=== PATIENT | female | born 1990 | race Caucasian/White ===

== ENCOUNTER → 2016-04-24 | Outpatient (CLI) | payer BC, OTHER ==
[~2016-04-24] MED LIST: ACET-1256 PO; ADAL40KI SC; ALBUAER2 INH; AZAT50TA17 PO; EPP3/2 IM; IMT50 PO; LORA-741 PO; METH4PAK PO; NUVVR PV; ONDA4TAB9 SL; OXYC1TAB3 PO; PANT40TA PO; POTTAB2 PO; PRED-603 PO; RANI300T2 PO; ZOLP5TAB6 PO
[2016-04-24 17:45] LABS: POTASSIUM 3.7 mmol/L (3.5-5.1)
[2016-04-24 17:48] LABS: URIC ACID 3.3 mg/dl (2.6-7.2)
[2016-04-29 09:53] LABS: DRVVT MIX INTERPRETAION Not Indicated; LAC PTT SCREEN 35 sec (<=40)
== END | disposition home or self-care (01) ==
LOC: C.LAB 17:01
PROVIDERS: ATTEND Orthopaedic Surgery
DX: M25.471 Effusion, right ankle (principal)

== ENCOUNTER 2016-04-26 10:44 | Inpatient (IN) | payer BC, OTHER ==
[~2016-04-26] VITALS: Ht 157.5 cm; Wt 57.9 kg
[~2016-04-26 10:44] MED LIST changes: -ACET-1256 PO; -LORA-741 PO; -METH4PAK PO; -ONDA4TAB9 SL; -POTTAB2 PO; -ZOLP5TAB6 PO
[2016-04-26] MEDS ORDERED: ACET-1256 PO (11:35)
[2016-04-26] MEDS ORDERED: LORAZEPAM 2 MG/ML 1 ML VIAL IV STA (11:51)
[2016-04-26 12:04] LABS: BASO % 0.4 %; BASO ABS # 0.03 K/uL (0-0.2); COMPLETE YES; EOS % 1.6 %; HEMATOCRIT 40.1 % (37-47); IG% 0.1 %; LYMPH % 22.6 %; LYMPH ABS # 1.65 K/uL (1.2-3.4); MEAN CELL VOLUME 90.7 fL (80-100); MEAN CORPUSCULAR HEMOGLOBIN 31.4 pg (25-34); MEAN CORPUSCULAR HGB CONC 34.7 g/dl (32-36); MEAN PLATELET VOLUME 9.8 fL (7.4-10.4); MONO % 9.6 %; NEUT % 65.7 %; PLATELET COUNT 326 K/uL (130-400); RED BLOOD COUNT 4.42 M/uL (4.2-5.4)
[2016-04-26 12:18] LABS: MANUAL MICROSCOPIC REQUIRED? YES; URINE APPEARANCE CLEAR (CLEAR); URINE BILIRUBIN NEG (NEG); URINE COLOR COLORLESS; URINE NITRITE NEG (NEG); URINE SPECIFIC GRAVITY <= 1.005 (1.000-1.030); UROBILINOGEN NEG (NEG)
[2016-04-26 12:19] LABS: PREG INTERNAL NEGATIVE QC NEG CLEAR BACKGROUND; PREG INTERNAL POSITIVE QC POS CONTROL LINE
[2016-04-26 12:23] LABS: ALT/SGPT 14 U/L (12-78); AST/SGOT 12 U/L (15-37); BLOOD UREA NITROGEN 7 mg/dl (7-18); BUN/CREATININE RATIO 8.6 (10-20); CALCIUM 8.6 mg/dl (8.5-10.1); CARBON DIOXIDE 23 mmol/L (21-32); CHLORIDE 108 mmol/L (98-107); CREATININE 0.84 mg/dl (0.60-1.20); GLUCOSE 84 mg/dl (70-99); MAGNESIUM 2.3 mg/dl (1.8-2.4); POTASSIUM 3.6 mmol/L (3.5-5.1); SODIUM 142 mmol/L (136-145)
[2016-04-26 12:25] LABS: REVIEW REQ? NO
[2016-04-26 12:27] LABS: ZZUR CULT IF INDIC CLEAN CATCH NO
[2016-04-26 12:28] LABS: URINE BACTERIA NEG (NEG); URINE RBC 0-4 /hpf (0-4); URINE WBC 0 /hpf (0-5)
--- NOTE | 2016-04-26 12:37 | DIAGNOSTIC IMAGING REPORT ---
CHEST ONE VIEW PORTABLE CLINICAL HISTORY: shortness of breath dyspnea COMPARISON STUDY: 01/03/2014 FINDINGS: The bones soft tissues and hemidiaphragms are normal. The cardiomediastinal silhouette is normal. The lungs are clear. The pulmonary vasculature is normal. IMPRESSION: Negative chest. Electronically signed by: Guillermo Schilling M.D. 04/26/2016 12:36 PM Dictated Date/Time: 04/26/2016 12:36 PM
[2016-04-26 12:57] LABS: ALKALINE PHOSPHATASE 87 U/L (45-117); C-REACTIVE PROTEIN 1.49 mg/dl (0-0.29); PHOSPHORUS 1.4 mg/dl (2.5-4.9)
[2016-04-26] MEDS ORDERED: FENTANYL CITRATE INJ 50 MCG/1 ML 2 ML VIAL IV STA (13:31)
[2016-04-26] MEDS ORDERED: ACETAMINOPHEN 325 MG TAB PO PRN (14:45)
[2016-04-26] MEDS ORDERED: ZOLPIDEM TARTRATE 5 MG TAB PO PRN (14:45)
[2016-04-26] MEDS ORDERED: SUMATRIPTAN SUCCINATE 50 MG TAB PO PRN (14:45)
[2016-04-26] MEDS ORDERED: ALBUTEROL HFA 8 GM INHALER INH PRN (14:45)
[2016-04-26] MEDS ORDERED: LORAZEPAM 0.5 MG TAB PO PRN (14:45)
[2016-04-26] MEDS ORDERED: ONDA4TAB9 SL (14:47)
[2016-04-26] MEDS ORDERED: ZOLP5TAB6 PO (14:47)
[2016-04-26] MEDS ORDERED: LORA-741 PO (14:47)
[2016-04-26 15:05] VITALS: O2SAT 99; Ht 157.5 cm; Wt 57.9 kg
--- NOTE | 2016-04-26 15:33 | History and Physical ---
History & Physical Date & Time of Service: Apr 26, 2016 at 15:02 Chief Complaint: Sob, Cp, Keven. Ankle Swelling Primary Care Physician: Bib Donnelly M.D. History of Present Illness Source: patient, family, clinic records, hospital records Patient is a 25 y/o female who presents for evaluation of bilateral ankle pain and swelling. This has been ongoing for about the past week. 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 She does have a h/o Crohn's for which she takes Humira and follows with GI. Patient had ankle xrays done at the [facility] [place] office on Wednesday/Wednesday of last week, which were reportedly normal. The ankle pain and swelling persisted however, and so she was seen by her PCP on Wednesday and had labs done. CBC, CMP, uric acid, RF, Lyme screen were normal; MELIDA is still pending. Patient notes that the ankle pain is constant. She tried taking Tylenol and some old Roxicodone, neither of which alleviated the pain. The ankle edema is worse at the end of the day and is best in the morning or after lying down. She denies any injury or trauma. Over the weekend she developed substernal chest pain and SOB. Patient describes the SOB as feeling as though she is unable to take a deep breath. The substernal chest pain occurs predominantly when she has this feeling of being unable to take a deep breath. She does endorse looking up her symptoms over the weekend on the internet and admits that this has caused her to be very anxious. She also does endorse significant heartburn for which she is to have an outpatient EGD this coming week. In the ED, patient received a dose of IV Ativan. Patient's father feels that this greatly helped patient's respiratory symptoms. Patient also received a dose of IV Fentanyl. Past Medical/Surgical History Medical Problems: (1) Allergic rhinitis Status: Chronic (2) Crohn's disease of colon Status: Chronic (3) H/O Clostridium difficile infection Status: Chronic (4) History of asthma Permanent Comment: during childhood Status: Chronic (5) History of MRSA culture positive Status: Chronic Surgical Problems: (1) H/O colonoscopy Permanent Comment: 09/26/2014- Endoscopically quiescent Crohn's disease with pseudopolyps from sigmoid to transverse colon and with scarring at a patulous ileocecal valve.The examined portion of the ileum was normal. Status: Chronic (2) H/O esophagogastroduodenoscopy Permanent Comment: 09/26/2014- Monilial esophagitis. Normal stomach and duodenum. Status: Chronic (3) S/P cholecystectomy Status: Resolved (4) S/p exploration of left axilla Permanent Comment: 02/16/2013 with excisional biopsy of lymph nodes and excisional debridement and ligation of lymphatics, dx: benign apocrine gland and adipose tissue 03/17/2013- surgical site opened left axilla Status: Chronic (5) S/P ORIF (open reduction internal fixation) fracture Permanent Comment: wrist Status: Chronic (6) S/P tonsillectomy Status: Chronic Family History Cancer GRANDFATHER (colon CA) GRANDMOTHER (breast CA) Diabetes mellitus FH: Crohn's disease GRANDMOTHER Gallbladder disease Kidney disease Social History Smoking Status: Never Smoker Drug Use: none Marital Status: in relationship Housing status: lives with significant other Occupational Status: employed Multi-Drug Resistant Organisms History of MDRO: Yes Type of MDRO: MRSA Allergies Coded Allergies: Iron Sucrose (Unverified Allergy, Severe, JOINT PAIN/SWELLING/DIARRHEA, ) Home Medications Scheduled Adalimumab (Humira Pen), 40 MG SC Q2WEEK Etonogestrel/Ethinyl Estradiol (Nuvaring), 1 EA PV UD Pantoprazole (Protonix), 40 MG PO DAILY Ranitidine Hcl (Zantac), 300 MG PO HS Scheduled PRN Acetaminophen (Tylenol), 2 TAB PO Q6 PRN for Pain Albuterol (Ventolin Hfa), 2 PUFFS INH Q4H PRN for Cough/Wheeze/SOB Epinephrine (Epipen), 0.3 MG IM UD PRN for ALLERGIC REACTION Lorazepam (Ativan), 0.5 MG PO TID PRN for Anxiety/Agitation Ondansetron (Ondansetron HCl), 1-2 TAB SL Q6 PRN for Nausea or Vomiting Oxycodone Ir (Roxicodone Ir), 5-10 MG PO Q4H PRN for Pain Sumatriptan Succinate (Sumatriptan Succinate), 50 MG PO UD PRN for Migraine Zolpidem Tartrate (Zolpidem Tartrate), 1 TAB PO HS PRN for Insomnia Review of Systems Constitutional- denies fevers, chills, unintentional weight loss Eyes- had an episode of self-limited blurry vision last week ENT- denies sore throat or congestion Pulmonary- +SOB as above; denies cough Cardiac- +chest pain as above; +palpitations GI- denies abdominal pain, nausea, vomiting; stable loose stools and blood in stool (h/o Crohn's) - denies dysuria or hematuria Musculoskeletal- +ankle pain and swelling Dermatologic- +rash with narcotic pain medication (received dose of Fentanyl in ED) Neuro- denies weakness, numbness or tingling Psych- +anxiety; denies depression . Physical Exam Vital Signs Date Time Temp Pulse Resp B/P Pulse Ox O2 Delivery O2 Flow Rate FiO2 04/26/16 14:55 89 18 110/74 99 Room Air 04/26/16 13:24 102 18 138/89 99 Room Air 04/26/16 12:31 95 18 126/69 100 Room Air 04/26/16 11:51 99 04/26/16 11:03 36.9 90 18 132/98 99 Room Air General- awake; alert; NAD Eyes- EOMI; no scleral icterus ENT- clear OC/OP Neck- supple; no palpable LAD Lungs- CTA bilaterally; no wheezes/crackles Heart- RRR; no m/r/g Abdomen- soft; NTND; nBS Back- no gross abnormalities Extremities- no c/c/e; no deformity MSK- full ROM of bilateral ankles but flexion causes pain Neuro- no focal deficits Skin- +macular rash on face, neck, upper back/chest (patient notes that this happens with narcotic pain medications) . Diagnostics Laboratory Results Results Past 24 Hours Test 04/26/16 11:15 04/26/16 11:51 Range/Units White Blood Count 7.30 4.8-10.8 K/uL Red Blood Count 4.42 4.2-5.4 M/uL Hemoglobin 13.9 12.0-16.0 g/dL Hematocrit 40.1 37-47 % Mean Corpuscular Volume 90.7 80-100 fL Mean Corpuscular Hemoglobin 31.4 25-34 pg Mean Corpuscular Hemoglobin Concent 34.7 32-36 g/dl Platelet Count 326 130-400 K/uL Mean Platelet Volume 9.8 7.4-10.4 fL Neutrophils (%) (Auto) 65.7 % Lymphocytes (%) (Auto) 22.6 % Monocytes (%) (Auto) 9.6 % Eosinophils (%) (Auto) 1.6 % Basophils (%) (Auto) 0.4 % Neutrophils # (Auto) 4.79 1.4-6.5 K/uL Lymphocytes # (Auto) 1.65 1.2-3.4 K/uL Monocytes # (Auto) 0.70 0.11-0.59 K/uL Eosinophils # (Auto) 0.12 0-0.5 K/uL Basophils # (Auto) 0.03 0-0.2 K/uL RDW Standard Deviation 41.1 36.4-46.3 fL RDW Coefficient of Variation 12.4 11.5-14.5 % Immature Granulocyte % (Auto) 0.1 % Immature Granulocyte # (Auto) 0.01 0.00-0.02 K/uL D-Dimer 350 0-500 ug/L FEU Urine Color COLORLESS Urine Appearance CLEAR CLEAR Urine pH 6.0 4.5-7.5 Urine Specific [place] <= 1.005 1.000-1.030 Urine Protein NEG NEG Urine Glucose (UA) NEG NEG Urine Ketones NEG NEG Urine Occult Blood TRACE NEG Urine Nitrite NEG NEG Urine Bilirubin NEG NEG Urine Urobilinogen NEG NEG Urine Leukocyte Esterase NEG NEG Urine WBC (Auto) 0 0-5 /hpf Urine RBC (Auto) 0-4 0-4 /hpf Urine Hyaline Casts (Auto) 0 0-5 /lpf Urine Epithelial Cells (Auto) 5-10 0-5 /lpf Urine Bacteria (Auto) NEG NEG Urine RBC 0-4 0-4 /hpf Urine WBC 0 0-5 /hpf Urine Epithelial Cells 5-10 0-5 /lpf Urine Bacteria NEG NEG Urine Test NEG NEG Sodium Level 142 136-145 mmol/L Potassium Level 3.6 3.5-5.1 mmol/L Chloride Level 108 98-107 mmol/L Carbon Dioxide Level 23 21-32 mmol/L Anion Gap 11.0 3-11 mmol/L Blood Urea Nitrogen 7 7-18 mg/dl Creatinine 0.84 0.60-1.20 mg/dl Est Creatinine Clear Calc Drug Dose 79.6 ml/min Estimated GFR () 110.4 Estimated GFR (Non- 95.3 BUN/Creatinine Ratio 8.6 10-20 Random Glucose 84 70-99 mg/dl Calcium Level 8.6 8.5-10.1 mg/dl Phosphorus Level 1.4 2.5-4.9 mg/dl Magnesium Level 2.3 1.8-2.4 mg/dl Total Bilirubin 0.2 0.2-1 mg/dl Direct Bilirubin < 0.1 0-0.2 mg/dl Aspartate Amino Transf (AST/SGOT) 12 15-37 U/L Alanine Aminotransferase (ALT/SGPT) 14 12-78 U/L Alkaline Phosphatase 87 45-117 U/L Total Creatine Kinase 69 26-192 U/L Creatine Kinase MB < 0.5 0.5-3.6 ng/ml Troponin I < 0.015 0-0.045 ng/ml C-Reactive Protein 1.49 0-0.29 mg/dl Pro-B-Type Natriuretic Peptide 75 0-450 pg/ml Total Protein 7.9 6.4-8.2 gm/dl Albumin 3.3 3.4-5.0 gm/dl Lipase 120 73-393 U/L Creatine Kinase MB Ratio 0-3.0 Diagnostic Radiology CXR IMPRESSION: Negative chest. EKG No ischemic changes. NSR. Impression Assessment and Plan Patient is a 25 y/o female who presents for evaluation of bilateral ankle pain/ edema for 1 week. Patient also reports SOB/chest pain over the weekend. Bilateral ankle pain/edema - normal PE at this time with the notation that flexion elicits pain - patient reports [facility]; therefore will not repeat - uric acid normal - MELIDA pending (done 04/24) - RF normal - Lyme screen negative - consult Orthopedics - possibly related to underlying Crohn's? - CRP mildly elevated - check ESR - TSH normal Chest pain/SOB - likely due to underlying anxiety from ankle pain and self-diagnosing on internet - improved with Ativan received in ED - d-dimer normal - BNP normal - troponin and EKG normal - CXR negative for acute process Hypophosphatemia - possibly related to underlying Crohn's and poor absorption - replete and monitor Crohn's disease - patient denies any flare symptoms - on Humira as outpatient GERD - continue pantoprazole and ranitidine - outpatient EGD pending this week per GI DVT prophylaxis with SCD's and ambulation. Level of Care Med/Surg Resuscitation Status FULL RESUSCITATION VTE Prophylaxis VTE Risk Assessment Done? Y/N: Yes Risk Level: Low Given or contraindicated: SCD's
[2016-04-26 16:04] VITALS: O2SAT 99
[2016-04-26 16:09] VITALS: BP 113/76; TEMP 36.4; O2SAT 100
[2016-04-26] MEDS ORDERED: PNEUMOCOCCAL POLYSACCHARIDES 25 MCG/0.5 ML VIAL/SYR IM. ONE (16:15)
[2016-04-26] MEDS ORDERED: PNEUMOCOCCAL ADMINISTRATION CHARGE ONE (16:15)
[2016-04-26] MEDS: MoRPHine SULFATE 2 MG/ML CARP IV PRN (17:09)
--- NOTE | 2016-04-26 18:35 | EMERGENCY ROOM VISIT NOTE ---
History Report prepared by Sera: Renée Alba Under the Supervision of: Dr. Mu Moreno M.D. First contact with patient: 11:44 Chief Complaint: SHORTNESS OF BREATH Stated Complaint: SOB, CP, KEHINDE. ANKLE SWELLING Nursing Triage Summary: pt reports hx of crohns disease , and noted increased sob with BLE edema noted at the end of each day , also reports bilat ankle and feet pain History of Present Illness The patient is a 25 year old female who presents to the Emergency Room with complaints of worsening bilateral ankle pain and swelling with onset several days ago. She rates her discomfort as an 8/10. The patient has a history of Crohn's disease and is on Humira; she recently stopped another immunological medication. 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 The patient has been having severe pain as well as increasing swelling over the past two days. Within the past two days, she has been having shortness of breath and dyspnea on exertion. Today, the patient started to have substernal chest discomfort. She admits that she has associated anxiety and nausea. For the pain, last night the patient took an oxy IR without relief. Exertion makes symptoms worse, resting and keeping feet up makes symptoms better. The patient has chronically non bloody diarrhea. She denies urinary symptoms, fever, syncope, palpitations, history of DVT, history of PE, sick contacts. The patient took a recent car trip to [place]. Source of History: patient Onset: several days ago Position: ankle (bilateral) Symptom Intensity: 8/10 Quality: other (ankle pain and swelling) Timing: worsening Modifying Factors (Worsening): exertion Modifying Factors (Relieving): rest, other (elevating feet) Associated Symptoms: + SOB, + chest pain, + nausea, No fevers, No urinary symptoms Note: She denies syncope, palpitations. Within the past two days, she has been having dyspnea on exertion.She admits that she has associated anxiety. Review of Systems See HPI for pertinent positives & negatives. A total of 10 systems reviewed and were otherwise negative. Past Medical & Surgical Medical Problems: (1) Allergic rhinitis (2) Ankle pain (3) Crohn's disease of colon (4) Crohns disease (5) H/O Clostridium difficile infection (6) History of asthma (7) History of MRSA culture positive Surgical Problems: (1) H/O colonoscopy (2) H/O esophagogastroduodenoscopy (3) S/P cholecystectomy (4) S/p exploration of left axilla (5) S/P ORIF (open reduction internal fixation) fracture (6) S/P tonsillectomy Family History Cancer GRANDFATHER (colon CA) GRANDMOTHER (breast CA) Diabetes mellitus FH: Crohn's disease GRANDMOTHER Gallbladder disease Kidney disease Social History Smoking Status: Never Smoker Alcohol Use: occasionally Drug Use: none Marital Status: in relationship Housing Status: lives with significant other Occupation Status: employed Current/Historical Medications Scheduled Adalimumab (Humira Pen), 40 MG SC Q2WEEK Etonogestrel/Ethinyl Estradiol (Nuvaring), 1 EA PV UD Pantoprazole (Protonix), 40 MG PO DAILY Ranitidine Hcl (Zantac), 300 MG PO HS Scheduled PRN Acetaminophen (Tylenol), 2 TAB PO Q6 PRN for Pain Albuterol (Ventolin Hfa), 2 PUFFS INH Q4H PRN for Cough/Wheeze/SOB Epinephrine (Epipen), 0.3 MG IM UD PRN for ALLERGIC REACTION Lorazepam (Ativan), 0.5 MG PO TID PRN for Anxiety/Agitation Ondansetron (Ondansetron HCl), 1-2 TAB SL Q6 PRN for Nausea or Vomiting Oxycodone Ir (Roxicodone Ir), 5-10 MG PO Q4H PRN for Pain Sumatriptan Succinate (Sumatriptan Succinate), 50 MG PO UD PRN for Migraine Zolpidem Tartrate (Zolpidem Tartrate), 1 TAB PO HS PRN for Insomnia Allergies Coded Allergies: Iron Sucrose (Unverified Allergy, Severe, JOINT PAIN/SWELLING/DIARRHEA, ) Physical Exam Vital Signs Date Time Temp Pulse Resp B/P Pulse Ox O2 Delivery O2 Flow Rate FiO2 04/26/16 13:24 102 18 138/89 99 Room Air 04/26/16 12:31 95 18 126/69 100 Room Air 04/26/16 11:51 99 04/26/16 11:03 36.9 90 18 132/98 99 Room Air Physical Exam GENERAL: Patient is very anxious appearing and in mild distress. HEENT: No acute trauma, normocephalic atraumatic, mucous membranes moist, no nasal congestion, no scleral icterus. NECK: No stridor, no adenopathy, no meningismus, trachea is midline. LUNGS: No dyspnea. Clear to auscultation and equal bilaterally. No wheeze, no rhonchi. HEART: Regular rate and rhythm. No murmurs, rubs, gallops appreciated. ABDOMEN: Soft, nontender, bowel sounds positive, no masses appreciated, no peritonitis. BACK: No midline tenderness, no CVA tenderness EXTREMITIES: Normal motion all extremities, no cyanosis, no current edema in legs. She has tenderness over bilateral ankles, no erythema. NEUROLOGIC: Alert and oriented, no acute motor or sensory deficits, no focal weakness, cranial nerves grossly intact. SKIN: No rash, no jaundice, no diaphoresis. Medical Decision & Procedures ER Provider Diagnostic Interpretation: X ray results are stated below per my interpretation and the radiologist's interpretation. CHEST ONE VIEW PORTABLE CLINICAL HISTORY: shortness of breath dyspnea COMPARISON STUDY: 01/03/2014 FINDINGS: The bones soft tissues and hemidiaphragms are normal. The cardiomediastinal silhouette is normal. The lungs are clear. The pulmonary vasculature is normal. IMPRESSION: Negative chest. Electronically signed by: Guillermo Schilling M.D. 04/26/2016 12:36 PM Dictated Date/Time: 04/26/2016 12:36 PM Laboratory Results 04/26/16 11:15 Red Blood Count 4.42, Mean Corpuscular Volume 90.7, Mean Corpuscular Hemoglobin 31.4, Mean Corpuscular Hemoglobin Concent 34.7, Mean Platelet Volume 9.8, Neutrophils (%) (Auto) 65.7, Lymphocytes (%) (Auto) 22.6, Monocytes (%) (Auto) 9.6, Eosinophils (%) (Auto) 1.6, Basophils (%) (Auto) 0.4, Neutrophils # (Auto) 4.79, Lymphocytes # (Auto) 1.65, Monocytes # (Auto) 0.70, Eosinophils # (Auto) 0.12, Basophils # (Auto) 0.03 04/26/16 11:15 Test 04/26/16 11:15 04/26/16 11:51 White Blood Count 7.30 K/uL (4.8-10.8) Red Blood Count 4.42 M/uL (4.2-5.4) Hemoglobin 13.9 g/dL (12.0-16.0) Hematocrit 40.1 % (37-47) Mean Corpuscular Volume 90.7 fL (80-100) Mean Corpuscular Hemoglobin 31.4 pg (25-34) Mean Corpuscular Hemoglobin Concent 34.7 g/dl (32-36) Platelet Count 326 K/uL (130-400) Mean Platelet Volume 9.8 fL (7.4-10.4) Neutrophils (%) (Auto) 65.7 % Lymphocytes (%) (Auto) 22.6 % Monocytes (%) (Auto) 9.6 % Eosinophils (%) (Auto) 1.6 % Basophils (%) (Auto) 0.4 % Neutrophils # (Auto) 4.79 K/uL (1.4-6.5) Lymphocytes # (Auto) 1.65 K/uL (1.2-3.4) Monocytes # (Auto) 0.70 K/uL (0.11-0.59) Eosinophils # (Auto) 0.12 K/uL (0-0.5) Basophils # (Auto) 0.03 K/uL (0-0.2) RDW Standard Deviation 41.1 fL (36.4-46.3) RDW Coefficient of Variation 12.4 % (11.5-14.5) Immature Granulocyte % (Auto) 0.1 % Immature Granulocyte # (Auto) 0.01 K/uL (0.00-0.02) Erythrocyte Sedimentation Rate 33 mm/hr (0-21) D-Dimer 350 ug/L FEU (0-500) Urine Color COLORLESS Urine Appearance CLEAR (CLEAR) Urine pH 6.0 (4.5-7.5) Urine Specific [place] <= 1.005 (1.000-1.030) Urine Protein NEG (NEG) Urine Glucose (UA) NEG (NEG) Urine Ketones NEG (NEG) Urine Occult Blood TRACE (NEG) Urine Nitrite NEG (NEG) Urine Bilirubin NEG (NEG) Urine Urobilinogen NEG (NEG) Urine Leukocyte Esterase NEG (NEG) Urine WBC (Auto) 0 /hpf (0-5) Urine RBC (Auto) 0-4 /hpf (0-4) Urine Hyaline Casts (Auto) 0 /lpf (0-5) Urine Epithelial Cells (Auto) 5-10 /lpf (0-5) Urine Bacteria (Auto) NEG (NEG) Urine RBC 0-4 /hpf (0-4) Urine WBC 0 /hpf (0-5) Urine Epithelial Cells 5-10 /lpf (0-5) Urine Bacteria NEG (NEG) Urine Test NEG (NEG) Anion Gap 11.0 mmol/L (3-11) Est Creatinine Clear Calc Drug Dose 79.6 ml/min Estimated GFR () 110.4 Estimated GFR (Non- 95.3 BUN/Creatinine Ratio 8.6 (10-20) Calcium Level 8.6 mg/dl (8.5-10.1) Phosphorus Level 1.4 mg/dl (2.5-4.9) Magnesium Level 2.3 mg/dl (1.8-2.4) Total Bilirubin 0.2 mg/dl (0.2-1) Direct Bilirubin < 0.1 mg/dl (0-0.2) Aspartate Amino Transf (AST/SGOT) 12 U/L (15-37) Alanine Aminotransferase (ALT/SGPT) 14 U/L (12-78) Alkaline Phosphatase 87 U/L (45-117) Total Creatine Kinase 69 U/L (26-192) Creatine Kinase MB < 0.5 ng/ml (0.5-3.6) Troponin I < 0.015 ng/ml (0-0.045) C-Reactive Protein 1.49 mg/dl (0-0.29) Pro-B-Type Natriuretic Peptide 75 pg/ml (0-450) Total Protein 7.9 gm/dl (6.4-8.2) Albumin 3.3 gm/dl (3.4-5.0) Lipase 120 U/L (73-393) Thyroid Stimulating Hormone (TSH) 2.790 uIu/ml (0.300-4.500) Creatine Kinase MB Ratio (0-3.0) Laboratory results as reviewed by me. Medications Administered Medications (Trade) Dose Ordered Sig/Ramila Route Start Time Stop Time Status Last Admin Dose Admin Lorazepam (Ativan Inj) 0.5 mg NOW STAT IV 04/26/16 11:51 04/26/16 11:53 DC 04/26/16 12:28 0.5 MG Fentanyl Citrate (Fentanyl Inj) 50 mcg NOW STAT IV 04/26/16 13:31 04/26/16 13:32 DC 04/26/16 13:38 50 MCG ECG Indication: chest pain Rate (beats per minute): 90 Rhythm: normal sinus (with sinus arrhythmia) Findings: no acute ischemic change, no ectopy ED Course 1144: The patient was evaluated in room B12. A complete history and physical exam was performed. 1151: Ativan 0.5 mg IV 1303: I reevaluated the patient; she is having some pain. 1331: Fentanyl 50 mcg IV 1326: I discussed the case with Dr. Iniguez ([facility]); she will further evaluate the patient. Upon reevaluation, the patient is resting. Discussed results and treatment plan with the patient. She verbalized understanding and agreement with the treatment plan. The patient will be evaluated for further management. Medical Decision Differential: Sepsis, Infectious (UTI/Pneumonia/Meningitis/etc), Metabolic/ Electrolyte Abnormality, Cardiac, Hepatic, Endocrine, Toxicologic, Neurologic, amongst other pathologies entertained. 25 yr old female arrives with generalized weakness, fatigue over last few days, now with ankle swelling and acutely worsening shortness of breath and chest discomfort. Clearly quite anxious about all of this. No clear evidence of crohn's flare nor andominal issues. With weakness continuing with already having had labs done she had broad labs done revealing hypophos which may explain weakness/fatigue though not clear on swelling. Mild low albumin though not severe. LFT s look OK as do other labs. CXR clear. Dimer negative and symptoms vastly improved post ativan thus I do not feel CT necessary and with no current leg swelling I do not feel that US bilateral legs necessary. No evidence cardiac in nature. Stable and in minimal distress. Discussed with hospitalist to talk about bringing in vs home. Consults Time Called: 1325 Consulting Physician: Dr. Iniugez ([facility]) Returned Call: 1321 I discussed the case with Dr. Iniguez ([facility]); she will further evaluate the patient. Impression Primary Impression: Hypophosphatemia Additional Impressions: Leg swelling Shortness of breath Scribe Attestation The scribe's documentation has been prepared under my direction and personally reviewed by me in its entirety. I confirm that the note above accurately reflects all work, treatment, procedures, and medical decision making performed by me. Departure Information Dispostion Being Evaluated By Hospitalist Referrals No Doctor, Assigned (PCP) Patient Instructions My [facility] Problem Qualifiers
[2016-04-26] MEDS: POT PHOSPHATE MONOBASIC W/ SOD TAB PO SCH ×2 (18:46→21:45)
[2016-04-26] MEDS: ONDANSETRON INJ 2 MG/ML 2 ML VIAL IV PRN (18:52)
[2016-04-26] MEDS: RANITIDINE HCL 150 MG TAB PO SCH (21:46)
[2016-04-26 23:56] VITALS: BP 113/59; PULSE 95; TEMP 36.8; O2SAT 98
[2016-04-27] MEDS: ONDANSETRON INJ 2 MG/ML 2 ML VIAL IV PRN ×4 (00:50→23:41)
[2016-04-27] MEDS: MoRPHine SULFATE 2 MG/ML CARP IV PRN ×5 (00:50→20:59)
[2016-04-27 06:16] LABS: CREATININE 0.79 mg/dl (0.60-1.20); MAGNESIUM 2.2 mg/dl (1.8-2.4); POTASSIUM 3.8 mmol/L (3.5-5.1)
[2016-04-27 06:26] LABS: PHOSPHORUS 3.4 mg/dl (2.5-4.9)
[2016-04-27 07:21] VITALS: BP 113/75; PULSE 84; TEMP 36.5; O2SAT 98
[2016-04-27] MEDS: POT PHOSPHATE MONOBASIC W/ SOD TAB PO SCH (09:21)
[2016-04-27] MEDS: PANTOprazole SOD 40 MG TAB PO SCH (09:45)
--- NOTE | 2016-04-27 12:10 | Progress Note ---
Medicine Progress Note Date & Time of Visit: Apr 27, 2016 at 12:04. Subjective patient seen sitting up in bed comfortable no recurrence of chest pain or dyspnea ankle pain is slightly better, left> right, relieved with PRN analgesics no fever/chills no abdominal pain, changes with bowel movements no other symptoms Objective Last 8 Hrs Date Time Temp Pulse Resp B/P Pulse Ox O2 Delivery O2 Flow Rate FiO2 04/27/16 07:55 Room Air 04/27/16 07:21 36.5 84 16 113/75 98 Room Air Physical Exam: General- oriented x 3, not in distress, speaks in sentences with no effort Head- atraumatic Eyes- EOMI, anicteric ENT- oropharynx clear Neck- supple, no JVD, no adenopathy Lungs- clear to auscultation bilaterally Heart- normal rate, regular rhythm; no murmurs Abdomen- normal bowel sounds, soft, nontender Extremities-bilateral ankles: mild tenderness, no edema/warmth, limited ROM due to pain no pretibial edema, no calf tenderness; peripheral pulses intact Neuro- alert, oriented x 3; PERRL, EOMI; no facial palsy; no dysarthria; motor 5 /5 bilaterally; no cogwheel rigidity; patellar DTRs +2/2; toes downgoing bilaterally; finger to nose intact bilaterally Skin- warm & dry Laboratory Results: Last 24 Hours Test 04/27/16 05:35 Sodium Level 141 mmol/L Potassium Level 3.8 mmol/L Chloride Level 108 mmol/L Carbon Dioxide Level 23 mmol/L Anion Gap 10.0 mmol/L Blood Urea Nitrogen 8 mg/dl Creatinine 0.79 mg/dl Est Creatinine Clear Calc Drug Dose 84.6 ml/min Estimated GFR () 118.9 Estimated GFR (Non- 102.6 BUN/Creatinine Ratio 10.0 Random Glucose 88 mg/dl Calcium Level 8.0 mg/dl Phosphorus Level 3.4 mg/dl Magnesium Level 2.2 mg/dl Date/Time Source Procedure Growth Status 04/27/16 12:02 Blood Blood Culture Pending Julio Batch 04/27/16 12:02 Blood Blood Culture Pending Julio Batch Assessment & Plan Patient is a 25 y/o female who presents for evaluation of bilateral ankle pain/ edema for 1 week. Patient also reports SOB/chest pain over the weekend. Bilateral ankle pain/edema possible IBD-associated Arthritis Crohn's disease on Humira - ESR and CRP elevated - MELIDA pending (done 04/24) - RF normal - Lyme screen negative -- will hold off on NSAIDs due to Crohn's history PRN Morphine ordered -- check blood cultures consult GI and Rheum Ortho on board appreciate the recommendations Chest pain/SOB - likely due to underlying anxiety - improved with Ativan received in ED - d-dimer normal - BNP normal - troponin and EKG normal - CXR negative for acute process - resolved Hypophosphatemia - possibly related to underlying Crohn's and poor absorption - given PO Ph - normal now - repeat Ph tomorrow Crohn's disease - patient denies any flare symptoms - on Humira as outpatient GERD - continue pantoprazole and ranitidine - outpatient EGD pending this week per GI DVT prophylaxis with SCD's and ambulation. Disposition anticipate d/c home when medically stable Current Inpatient Medications: Current Inpatient Medications Medications (Trade) Dose Ordered Sig/Ramila Route Start Time Stop Time Status Last Admin Dose Admin Acetaminophen (Tylenol Tab) 650 mg Q4H PRN PO 04/26/16 14:45 05/26/16 14:44 Ondansetron HCl (Zofran Inj) 4 mg Q6H PRN IV 04/26/16 14:45 05/26/16 14:44 04/27/16 07:07 4 MG Albuterol (Ventolin Hfa Inhaler) 2 puffs Q4H PRN INH 04/26/16 14:45 05/26/16 14:44 Lorazepam (Ativan Tab) 0.5 mg TID PRN PO 04/26/16 14:45 05/26/16 14:44 Pantoprazole Sodium (Protonix Tab) 40 mg DAILY PO 04/27/16 09:00 05/27/16 08:59 04/27/16 09:45 40 MG Ranitidine HCl (zANTac TAB) 300 mg HS PO 04/26/16 21:00 05/26/16 20:59 04/26/16 21:46 300 MG Sumatriptan Succinate (Imitrex Tab) 50 mg DAILY PRN PO 04/26/16 14:45 05/26/16 14:44 Zolpidem Tartrate (Ambien Tab) 5 mg HS PRN PO 04/26/16 14:45 05/26/16 14:44 Morphine Sulfate (MoRPHine SULFATE INJ) 2 mg Q4 PRN IV 04/26/16 16:45 05/10/16 16:44 04/27/16 11:28 2 MG
--- NOTE | 2016-04-27 12:30 | Gastrointestinal Consultation ---
Gastrointestinal Consultation Date of Consultation: Apr 27, 2016 History of Present Illness Patient is a 25 year old female with past medical history significant for asthma and Crohn's (stable, has been on humira and imuran for past 10 years - stopped imuran in February related to elevated LFTs) who was admitted to [facility] for bilateral lower extremity edema with associated ankle pain, chest pain and SOB. She reports that she has been having lower extremity edema after long shifts at work - but this episode was worse and prompted ED visit. Edema was correctly quickly with elevation and SCD. Today she is denying any fever, chills, chest pain, SOB, abdominal pain, edema. Reports her abdominal symptoms from Crohn's are at her baseline. She has interment occurrences of small flares with generalized abdominal pain and scant rectal bleeding. Reports her symptoms are no where near as bad as when she was first diagnosed. Chest XR 04/26/16: The bones soft tissues and hemidiaphragms are normal. The cardiomediastinal silhouette is normal. The lungs are clear. The pulmonary vasculature is normal. Colonoscopy 05/16/15: Pseudopolyps in the descending colon and in the transverse colon. The examined portion of the ileum was normal. Biopsied. Biopsies for surveillance were taken from the cecum, ascending colon, transverse colon, descending colon, sigmoid colon and rectum. Past Medical/Surgical History Medical Problems: (1) Abdominal pain Status: Acute (2) Abdominal pain Status: Acute (3) Clostridium difficile colitis Status: Acute (4) Crohn's disease Status: Acute (5) Hypophosphatemia Status: Acute (6) Leg swelling Status: Acute (7) Pyuria Status: Acute (8) Shortness of breath Status: Acute Family History Cancer GRANDFATHER (colon CA) GRANDMOTHER (breast CA) Diabetes mellitus FH: Crohn's disease GRANDMOTHER Gallbladder disease Kidney disease Social History Smoking Status: Never Smoker Alcohol Use: occasionally Drug Use: none Marital Status: in relationship Housing Status: lives with significant other Occupation Status: employed Allergies Coded Allergies: Iron Sucrose (Unverified Allergy, Severe, JOINT PAIN/SWELLING/DIARRHEA, ) Current Medications Home Meds and Scripts Medications Dose Route/Sig Max Daily Dose Days Date Category Dose Instructions Ondansetron HCl (Ondansetron) 4 Mg Tab 1-2 Tab SL Q6 PRN 04/26/16 Reported Zolpidem Tartrate 5 Mg Tab 1 Tab PO HS PRN 04/26/16 Reported Ativan (Lorazepam) 0.5 Mg Tab 0.5 Mg PO TID PRN 04/26/16 Reported Tylenol (Acetaminophen) 500 Mg Tab 2 Tab PO Q6 PRN 2 04/26/16 Reported Roxicodone Ir (Oxycodone HCl) 5 Mg Tab 5-10 Mg PO Q4H PRN 06/13/15 Reported Epipen (Epinephrine) 0.3 Mg/0.3 Ml Inj 0.3 Mg IM UD PRN 06/13/15 Reported Ventolin Hfa (Albuterol) Aers 2 Puffs INH Q4H PRN 05/10/15 Reported Sumatriptan Succinate 50 Mg Tab 50 Mg PO UD PRN 05/09/15 Reported TAKE ONE TABLET AT ONSET OF MIGRAINE, MAY REPEAT AFTER 2 HOURS IF NEEDED. MAXIMUM 200 MG/DAY. Zantac (Ranitidine HCl) 300 Mg Tab 300 Mg PO HS 11/27/14 Reported Protonix (Pantoprazole Sodium) 40 Mg Tab 40 Mg PO DAILY 08/06/14 Reported Humira Pen (Adalimumab) 40 Mg/0.8 Ml Kit 40 Mg SC Q2WEEK 07/27/14 Reported Nuvaring (Ethinyl Estradiol) Mis 1 Ea PV UD 01/03/14 Reported Review of Systems Constitutional: No chills, No fever Respiratory: No cough, No shortness of breath Cardiac: No chest pain, No edema Abdomen: No GI bleeding, No constipation, No diarrhea, No nausea, No pain, No vomiting Physical Exam Date Time Temp Pulse Resp B/P Pulse Ox O2 Delivery O2 Flow Rate FiO2 04/27/16 07:55 Room Air 04/27/16 07:21 36.5 84 16 113/75 98 Room Air 04/27/16 00:05 Room Air 04/26/16 23:56 36.8 95 18 113/59 98 Room Air 04/26/16 16:09 36.4 18 113/76 100 Room Air 04/26/16 16:04 36.9 86 18 108/86 99 04/26/16 16:00 Room Air 04/26/16 15:34 86 18 108/86 99 Room Air 04/26/16 15:05 99 Room Air 04/26/16 14:55 89 18 110/74 99 Room Air 04/26/16 13:24 102 18 138/89 99 Room Air 04/26/16 12:31 95 18 126/69 100 Room Air General Appearance: no apparent distress Eyes: PERRL ENT: hearing grossly normal Neck: supple, trachea midline Respiratory/Chest: lungs clear, normal breath sounds, no respiratory distress, no accessory muscle use Cardiovascular: regular rate, rhythm, no edema, no gallop, no JVD, no murmur Abdomen: normal bowel sounds, non tender, soft, no organomegaly, no pulsatile mass Extremities: no pedal edema, no calf tenderness Neurologic/Psych: alert, normal mood/affect, oriented x 3 Laboratory Results Last 24 Hours Test 04/27/16 05:35 Sodium Level 141 mmol/L Potassium Level 3.8 mmol/L Chloride Level 108 mmol/L Carbon Dioxide Level 23 mmol/L Anion Gap 10.0 mmol/L Blood Urea Nitrogen 8 mg/dl Creatinine 0.79 mg/dl Est Creatinine Clear Calc Drug Dose 84.6 ml/min Estimated GFR () 118.9 Estimated GFR (Non- 102.6 BUN/Creatinine Ratio 10.0 Random Glucose 88 mg/dl Calcium Level 8.0 mg/dl Phosphorus Level 3.4 mg/dl Magnesium Level 2.2 mg/dl Impression Patient is a 25 year old female with stable crohn's on humira. She denies any GI symptoms and reports that she feels well controlled and at her baseline. It is unlikely that her lower extremity edema is related to IBD as it was quickly corrected with elevation and SCDs. She has been taking humira for 10 years without any similar side effects - unlikely that her edema is related to this. No new medications. Plan GI ok to continue humira GI ok for Diet as tolerated PPI 40 mg once daily Zantac 300 mg HS Keep outpatient EGD US duplex for evaluation of clots No GI contraindication to discharge GI to sign off. Please call with any additional questions. I saw and evaluated the patient. She was admitted with bilateral LE edema ongoing for < 24 hours to admission. Pesently has no new bowel symptoms. PE NAD No LE edema today Impression: patient with Crohns on a stable regimen for approximatly 10 years ( recently had her imuran discontinued). No obvious GI pathology today -- to have EGD later this week with her regular OP GI provider. Plan EGD later this week Continue present medications consider bilateral LE US to eval for DVT please call with questions
--- NOTE | 2016-04-27 14:26 | ORTHOPEDIC PROGRESS NOTE ---
DATE: 04/27/2016 HISTORY OF PRESENT ILLNESS: The patient is a 25-year-old white female who has a known history of Crohn disease. She states that on April 17, she began having pain in her bilateral ankles. She works at [employer] office and is constantly on the go there at the office. She noticed that as the week continued to progress last week that her pain began to worsen and she also had increased lower extremity edema, mainly around the ankles to the point where it was 1-2+ pitting edema. Ankle x-rays were done at the office and I am unsure who read them, but were apparently normal. She was told that if she had continued to increase lower extremity edema, she should probably go to the Emergency Room, which she states that by this weekend after looking at many of the different possibilities online of what her problems could she began having what sounds like anxiety and some chest pain and shortness of breath. At that point in time, her father brought her in to the Emergency Room. She states that she had some knee pain in both knees prior to this episode of ankle pain, which dissipated on its own. She has not been doing any over rigorous workouts for exercise. She has not had any flu or cold-like symptoms recently. No fevers, no chills, although she states she does sometimes feel feverish at night off and on, which she attributes to her Crohn's disease. She has not had a flare of her Crohn's disease in some time and states that she had a stool transfer in October and has done really well with that. Today, she states that her pain is less and that her swelling has gone down quite a bit since resting her legs. She showed me a picture of her ankles yesterday and they did have some moderate swelling noted of the ankles themselves. She states that this was much better than her legs were last week. She states that most of the pain is only when she does dorsiflexion and obviously with weightbearing. She currently appears comfortable at the present time. Dr. Dai was present during this exam and discussing future treatment. PAST MEDICAL HISTORY: Allergic rhinitis, Crohn's disease, history of C. diff infection in the past, history of asthma, and MRSA culture in the past. PAST SURGICAL HISTORY: Colonoscopy, EGD, cholecystectomy, excisional biopsy of left axillary lymph nodes with debridement and ligation of lymphatics, history ORIF of wrist in the past, and tonsillectomy. FAMILY HISTORY: Colon and breast CA, diabetes mellitus, Crohn's disease with one of her grandmother's, cholelithiasis, and kidney disease. SOCIAL HISTORY: The patient is a nonsmoker, who does not use alcohol. MEDICATIONS: Humira 40 mg subQ every 2 weeks, NuvaRing UD, pantoprazole 40 mg p.o. daily, ranitidine 300 mg p.o. at bedtime, Tylenol 2 tabs p.o. q. 6 hours p.r.n., albuterol 2 puffs inhaled q. 4 hours p.r.n., EpiPen as directed, lorazepam 0.5 mg p.o. t.i.d. p.r.n., Zofran 1-2 tabs SL q. 6 hours p.r.n. nausea, OxyIR 5-10 mg p.o. q. 4 hours p.r.n., sumatriptan 50 mg p.o. as directed p.r.n. for migraine, and zolpidem 1 tab p.o. at bedtime. REVIEW OF SYSTEMS: As per admitting history and physical. PHYSICAL EXAMINATION: VITAL SIGNS: Currently shows temp 36.5, pulse 84, respirations 16, and BP 113/75. GENERAL: On walking into the room, the patient is sitting up in bed, is awake, alert and oriented x3, pleasant and cooperative, in no acute distress. She appears comfortable and on examination of her bilateral lower extremities, both ankles appear symmetrical and there is no overt edema or swelling noted. She states and points 2 areas that are just proximal to the medial malleolus on both ankles is where she is feeling most of her pain. I can produce some pain with palpation in both these areas; however, the rest of the ankle apparently is nontender on palpation. She has good dorsiflexion and plantarflexion and states that the pain is elicited by dorsiflexion only, not plantarflexion. Again, there is no overt edema of the ankles. There is no erythema noted and both ankles and feet are warm to the touch, but not overtly hot. No radiation of pain up to her knees at this time. She denies any knee pain at this time, but states that she does have some mild hip pain that she has been having for a quite some time now, which has not increased or decreased apparently with her work. No apparent upper extremity discomfort at this time. NEUROLOGICAL: Sensation appears to be intact and no gross motor deficits seen. ASSESSMENT: Bilateral ankle pain, question of peripheral arthritis due to Crohn's disease. Dr. Dai and I have discussed this patient's case with her and also I have briefly discussed it with Dr. Hickman. The patient was seen by her PCP this past Wednesday and at that time CBC, CMP, uric acid, rheumatoid factor and Lyme screen were all normal. MELIDA was still pending. Currently, her sed rate is 33. CRP was 1.49. At this point, we doubt infection and wondering if this could possibly be a migratory arthritis that could come with her Crohn's disease; however, at this time I do not feel that there is any need to aspirate either ankle due to the lack of swelling and also uric acid was normal, although question of possibility of pseudogout as well; however, with her symptoms of her swelling and pain decreasing with rest, that may be unlikely. Currently, she is unable to take nonsteroidal antiinflammatory medications due to her Crohn's disease. Discussing this with Dr. Dai, he has consulted GI and also rheumatology to get their input. I doubt infection at this time due to low white count, no temp, but only a mildly elevated sed rate and CRP with no swelling or erythema and the dissipation of her symptoms as she rests over time, although she still has some discomfort with dorsiflexion. This will be further discussed with Dr. Hickman, who I am hoping will see the patient later this afternoon and we will wait for further input from rheumatology service. GARCÍA
[2016-04-27 15:56] VITALS: BP 123/86; PULSE 67; TEMP 36.8; O2SAT 98
--- NOTE | 2016-04-27 18:16 | ORTHOPEDIC CONSULTATION ---
DATE OF CONSULTATION: 04/27/2016 DATE OF CONSULTATION: 04/27/2016. HISTORY OF PRESENT ILLNESS: This is a 25-year-old female seen at the request of Dr. Dai for bilateral ankle pain. Apparently the patient has a longstanding history of Crohn's disease and is currently on Humira for that which has been fairly well managed as an outpatient. She has had some recent upper GI symptoms over the last several weeks. She is scheduled for endoscopy actually next week. The patient states on 04/17/2016 she began having pain and swelling in bilateral ankles. 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 She noticed it last week as the week continued to progress that her pain was worsening with increasing lower extremity edema. She noted 1-2+ pitting edema per the patient. She had ankle radiographs done at the office with one of the providers that reviewed them for her and found no obvious pathology and deemed them essentially normal with the exception of soft tissue swelling. She was told if she had increased lower extremity edema she would have go to the Emergency Department. She began researching some of her potential conditions related to her ankle swelling, developed some anxiety, shortness of breath, chest pain and presented to the Emergency Department. Her father brought her to the Emergency Department on 04/26/2016 and was evaluated for her multiple complaints. She denies any fever or chills . She has some minor shortness of breath and chest discomfort, not deemed as chest pain on Wednesday, which has since resolved. She has not been doing any excessive exercise. She states she does do T25 exercise program at the low impact, low intensity level, which she states "more likely 80-year-old version". She states she has elevated temperatures and feels feverish at night off and on; however, no documented fevers or increased temperature is noted. She attributes this to her Crohn's disease. She has not had a flare of her Crohn's disease in several months and she had a stool transfer in October 2015, which has been successful thus far. She does take some probiotic shakes. No probiotic pills. She states that over the last 24 hours the swelling and pain has improved significantly despite being off her feet and having her pain managed. She has discomfort with dorsiflexion and with any type of pressure over the medial aspect of her ankles just proximal to the medial malleoli. The patient was seen earlier in the afternoon by our service and had consistent findings. PAST MEDICAL HISTORY: Crohn's disease, allergic rhinitis, history of C. diff, history of asthma, history of MRSA. PAST SURGICAL HISTORY: Colonoscopy, EGD, cholecystectomy, excisional biopsy of left axillary lymph nodes with debridement and ligation of lymphatics, history of ORIF of wrist and T\\T\\A. ALLERGIES: No known drug allergies. MEDICATIONS: Humira, NuvaRing, pantoprazole, ranitidine, Tylenol, albuterol, EpiPen, lorazepam, Zofran, OxyIR, sumatriptan, and zolpidem. SOCIAL HISTORY: Denies tobacco, alcohol or drug use. She is single, has a boyfriend and she is employed. PHYSICAL EXAMINATION: GENERAL: This is a 25-year-old female alert and oriented x3. Speech clear and fluent. Affect is appropriate. She is present at bedside with her father, brother and her boyfriend. EXTREMITIES: Examination of bilateral lower extremities demonstrates skin warm, dry and intact. Cap refill less than 2 seconds. Dorsalis pedis and posterior tib pulses 2/4. Distal neurosensory exam is intact. No focal or lateralizing neurologic defects are appreciated. Calves are soft, nontender. Negative Homans', negative Siva. No effusions bilateral lower extremities. No pitting edema is present. A full symmetric range of motion, passive and active, bilateral ankles and feet. Strength is symmetric 4+/5 bilateral lower extremities. She does have tenderness to palpation at the proximal medial aspect of the bilateral lower legs adjacent to the saphenous nerve. No focal swelling or fluid collections is noted in bilateral lower extremities. Color is consistent without evidence of erythema or streaking. No skin lesions, abrasions or rashes are noted. LABORATORY DATA: Reviewed. Sed rate 33, CRP 1.49. IMPRESSION: 1. Bilateral ankle pain. 2. Bilateral ankle edema. 3. Likely saphenous nerve irritation secondary to swelling bilateral lower extremities. RECOMMENDATIONS: Limited weightbearing with elevation bilateral feet, use of compressive stockings when weight bearing or walking. Recommend against any type of surgical intervention. Recommend against aspiration as both ankles and lower extremities are benign appearing after 24 hours of rest. Will follow with you pending above review, other pending laboratories. At this time would defer primarily to GI and rheumatology services for further care and management. Thank you for the opportunity to consult in the care of this patient. GARCÍA
--- NOTE | 2016-04-27 19:25 | Rheumatology Consultation ---
Rheumatology Consultation Date of Consultation: Apr 27, 2016. Requesting Physician: Dr Dai Attending Physician: Dr Dai Reason for Consultation: ankle swelling, crohn's History of Present Illness Ana is a 25 y/o adult with long stnading crohn's (11 yrs) who presented to the [facility] ED yesterday with chest pain, SOB and ongoing ankle pain/swelling for one week. she reports that last week she started to not increasing ankle pain and swelling. the ankles were pretty painful with walking. she reports that this seemed to start after her and her fiance started an exercise program. she works at [employer] and had x rays last week that overall looked good - states Dr Brennan and Margarito Parker Pa-C took a look at her. she also had labs through [facility] labs that showed neg lyme, RF, and normal kidney and liver function studies. she reports she started to have chest pain and SOB likely from anxiety because she was told the swelling might be from her heart and when she was looking at [employer] online saw heart failure listed as a side effect,. she was noted to have hypophosphatemia yesterday and was admitted. she also had mildly elevated inflammatory markers. she was seen at bedside with her fiance. they report that she is doing better today with having her legs propped up all day. there is no swelling now. still some tenderness especially with walking. her pain right now is 4/10. she does not use NSAIDs because of her crohn's. she is followed by Dr Crocker of [facility] and a doctor at [facility]. she was initially started on oral agents - pred, imuran, pentasa and eventually started on remicade then moved to humira. she thinks she has been on humira for about 10 yrs now. she reports when first diagnosed with crohn's she did see pediatric rheumatology in [place] because she had some joint pains but was not diagnosed with crohn's induced arthritis. since being on the biologics she has not had any significant arthritis issues until recently. she states prior to her ankles she had some knee pain in February - again associated with exercise and Dr Vargas did x rays and she reports that she had bone on bone arthritis already. at that time had some knee swelling but was not very noticeable. as for her ankles she has images on her iphone that shows pretty significant soft tissue swelling that is now gone. she reports some heart burn issues but now chest pain is gone and feels pretty good. she has never used sulfasalazine or celebrex. she reports a history of psoriasis with dry skin behind her ears - states her dad has psoriasis and crohn;s on her mother side. she denies any previous history of dactylitis or enthesitis. she also mentions she stopped imuran this past February Past Medical/Surgical History Medical History: anxiety, colitis Surgical History: cholecystectomy, orthopedic surgery, tonsillectomy Family History father with psoriasis, + family history of crohn's as well Social History Smoking Status: Never Smoker History of Alcohol Use: Yes (RUM) Drug Use: none Marital Status: in relationship Housing Status: lives with significant other Occupation Status: employed Review of Systems Constitutional: No chills, No fever Respiratory: No cough, No wheezing Cardiac: + chest pain, + edema Abdomen: + see HPI Musculoskeletal: + joint pain, + see HPI, + swelling Skin: + rash All Other Systems: Reviewed and Negative Allergies Coded Allergies: Iron Sucrose (Unverified Allergy, Severe, JOINT PAIN/SWELLING/DIARRHEA, ) Medications Current Inpatient Medications Medications (Trade) Dose Ordered Sig/Ramila Route Start Time Stop Time Status Last Admin Dose Admin Acetaminophen (Tylenol Tab) 650 mg Q4H PRN PO 04/26/16 14:45 05/26/16 14:44 Ondansetron HCl (Zofran Inj) 4 mg Q6H PRN IV 04/26/16 14:45 05/26/16 14:44 04/27/16 16:23 4 MG Albuterol (Ventolin Hfa Inhaler) 2 puffs Q4H PRN INH 04/26/16 14:45 05/26/16 14:44 Lorazepam (Ativan Tab) 0.5 mg TID PRN PO 04/26/16 14:45 05/26/16 14:44 Pantoprazole Sodium (Protonix Tab) 40 mg DAILY PO 04/27/16 09:00 05/27/16 08:59 04/27/16 09:45 40 MG Ranitidine HCl (zANTac TAB) 300 mg HS PO 04/26/16 21:00 05/26/16 20:59 04/26/16 21:46 300 MG Sumatriptan Succinate (Imitrex Tab) 50 mg DAILY PRN PO 04/26/16 14:45 05/26/16 14:44 Zolpidem Tartrate (Ambien Tab) 5 mg HS PRN PO 04/26/16 14:45 05/26/16 14:44 Morphine Sulfate (MoRPHine SULFATE INJ) 2 mg Q4 PRN IV 04/26/16 16:45 05/10/16 16:44 04/27/16 16:23 2 MG Physical Exam Date Time Temp Pulse Resp B/P Pulse Ox O2 Delivery O2 Flow Rate FiO2 04/27/16 15:56 36.8 67 18 123/86 98 Room Air 04/27/16 15:38 Room Air 04/27/16 07:55 Room Air 04/27/16 07:21 36.5 84 16 113/75 98 Room Air 04/27/16 00:05 Room Air 04/26/16 23:56 36.8 95 18 113/59 98 Room Air General Appearance: WD/WN, no apparent distress Eyes: bilateral eyes EOMI, bilateral eyes normal inspection Respiratory: chest non-tender, lungs clear, normal breath sounds, no respiratory distress Cardiovascular: regular rate, rhythm, no edema, no murmur Abdomen: normal bowel sounds, soft, no organomegaly Musculoskeletal: no synovitis or dactylitis noted on exam mild achilles pain right achilles but no enthesitis noted normal ROM of both ankles with minimal pain no joint effusions noted Skin: + pertinent finding (minimal dry skin behind right ear no definite patches of psoriasis. multiple tattoos) Laboratory Results Last 24 Hours Test 04/27/16 05:35 Sodium Level 141 mmol/L Potassium Level 3.8 mmol/L Chloride Level 108 mmol/L Carbon Dioxide Level 23 mmol/L Anion Gap 10.0 mmol/L Blood Urea Nitrogen 8 mg/dl Creatinine 0.79 mg/dl Est Creatinine Clear Calc Drug Dose 84.6 ml/min Estimated GFR () 118.9 Estimated GFR (Non- 102.6 BUN/Creatinine Ratio 10.0 Random Glucose 88 mg/dl Calcium Level 8.0 mg/dl Phosphorus Level 3.4 mg/dl Magnesium Level 2.2 mg/dl Assessment & Plan Assessment & Plan: assessment: Ana is a 25 y/o female with crohn's who developed bilateral ankle pain/ swelling over the last 1 week - is already on humira. she may have enteropathic arthritis - can be hard to tell given acuity of symptoms and now looks better. usually the inflammatory arthritis mimics bowel disease but in cases the arthritis flares when bowels is controlled. currently she is better so I will contact Emilie Crocker about celebrex use. I also wonder about restarting imuran since she has had knee and now ankle issues since stopping (imuran may of been helping to control her arthritis). other thought is adding sulfasalazine but that can be discussed as an outpatient. Did discuss possible steroid taper but will hold for right now especially given she came in with anxiety and steroids can induce anxiety. may consider it tomorrow if ankles still very painful. I contacted Dr Dai and discussed case with him as well Plan: 1. consider medrol dose pack 2. consider celebrex - will discuss with Dr Crocker 3. Also will discuss restarting imuran vs ssz pending course 4. I will arrange outpatient rheumatology appt 5. Thank you for the consult and involving me in this patient's care
[2016-04-27] MEDS: RANITIDINE HCL 150 MG TAB PO SCH (21:00)
[2016-04-27 23:20] VITALS: BP 115/71; PULSE 64; TEMP 36.8; O2SAT 98
[2016-04-28] MEDS: ONDANSETRON INJ 2 MG/ML 2 ML VIAL IV PRN (05:40)
[2016-04-28] MEDS: MoRPHine SULFATE 2 MG/ML CARP IV PRN ×2 (05:41→11:09)
[2016-04-28 07:59] VITALS: BP 119/83; PULSE 79; TEMP 36.8; O2SAT 97
[2016-04-28] MEDS: PANTOprazole SOD 40 MG TAB PO SCH (08:15)
--- NOTE | 2016-04-28 09:42 | DIAGNOSTIC IMAGING REPORT ---
BILATERAL LOWER EXTREMITY VENOUS DOPPLER HISTORY: Pain. Edema. rule out DVTs, edema COMPARISON STUDY: None. FINDINGS: There is normal compressibility, flow, and augmentation within the bilateral lower extremity deep venous systems. IMPRESSION: No DVT within the right or left lower extremity. Electronically signed by: Guillermo Schilling M.D. 04/28/2016 9:41 AM Dictated Date/Time: 04/28/2016 9:41 AM
--- NOTE | 2016-04-28 11:49 | Orthopedic Progress Note ---
Orthopedic Progress Note Date of Service Apr 28, 2016. Subjective Reports: pain controlled w PO medications, Denies: SOB, chest pain, light headedness, nausea / vomiting Additional Notes: states swelling somewhat improved today, pain also mildly improved Objective calves soft nontender, N/V intact, capillary refill less than 2 sec., A&O x3, toes mobile Date Time Temp Pulse Resp B/P Pulse Ox O2 Delivery O2 Flow Rate FiO2 04/28/16 08:10 Room Air 04/28/16 07:59 36.8 79 16 119/83 97 Room Air 04/27/16 23:35 Room Air 04/27/16 23:20 36.8 64 18 115/71 98 Room Air 04/27/16 15:56 36.8 67 18 123/86 98 Room Air 04/27/16 15:38 Room Air Assessment & Plan Assessment: 25 y/o female with history of Crohns, with bilateral ankle pain and swelling -ankle pain mildly improved, aspiration not indicated at this time, will cont to observe. had US done this am, Negative for DVT -Rheumatology consulted, discussing medrol dose pack and celebrex
--- NOTE | 2016-04-28 12:02 | Progress Note ---
Medicine Progress Note Date & Time of Visit: Apr 28, 2016 at 11:47. Subjective patient states she feels ok overall pain medication helping with ankle pain no other joint pains chest pain, dyspnea resolved no abdominal pain, nausea, diarrhea no other symptoms states she is agreeable with discharge today Objective Last 8 Hrs Date Time Temp Pulse Resp B/P Pulse Ox O2 Delivery O2 Flow Rate FiO2 04/28/16 08:10 Room Air 04/28/16 07:59 36.8 79 16 119/83 97 Room Air Physical Exam: General- oriented x 3, not in distress, speaks in sentences with no effort Neck- no JVD, no adenopathy Lungs- clear breath sounds bilaterally Heart- normal rate, regular rhythm; no murmurs Abdomen- normal bowel sounds, soft, nontender Extremities-bilateral ankles: mild tenderness, mild warmth, no edema, ROM mildly limited by Pain no pretibial edema, no calf tenderness Neuro- alert, oriented x 3;no gross focal deficits Skin- warm & dry Laboratory Results: Last 24 Hours Test 04/28/16 06:00 Phosphorus Level 2.6 mg/dl Date/Time Source Procedure Growth Status 04/27/16 12:41 Blood Blood Culture Pending Received 04/27/16 12:30 Blood Blood Culture Pending Received Assessment & Plan Patient is a 25 y/o female who presents for evaluation of bilateral ankle pain/ edema for 1 week. Patient also reports SOB/chest pain over the weekend. Bilateral ankle pain/edema possible IBD-associated Arthritis Crohn's disease on Humira - ESR and CRP elevated - RF normal - Lyme screen negative - blood cultures: Pending -- consulted [employer] Dr. Sequeira Celebrex contraindicated due to Crohn's Disease recommend Solumedrol DosePak Oxycodone PRN for pain may need to restart Imuran for Crohn's Disease -- Ortho consulted no further interventions Limited weightbearing with elevation bilateral feet Compression stocking with walking --GI consulted scheduled for EGD on continue Humira, outpatient follow up -- patient given PRN Morphine as inpatient pain gradually improving, patient agreeable with plan of care and discharge today ff up with PCP on Wed, Dr. Sequeira in 1 week Chest pain, Dyspnea, Resolved - likely due to underlying anxiety - improved with Ativan received in ED - d-dimer normal - BNP normal - troponin and EKG normal - CXR negative for acute process - resolved Hypophosphatemia - possibly related to underlying Crohn's and poor absorption - given PO Ph - PH 2.6 low normal on discharge - Ph supplement ordered Crohn's disease - patient denies any flare symptoms --GI consulted scheduled for EGD on continue Humira, outpatient follow up GERD - continue pantoprazole and ranitidine Disposition d/c home today ff up with PCP in 3-5 days EGD this week c/o GI Rheum Dr. Sequeira in 1 week Current Inpatient Medications: Current Inpatient Medications Medications (Trade) Dose Ordered Sig/Ramila Route Start Time Stop Time Status Last Admin Dose Admin Acetaminophen (Tylenol Tab) 650 mg Q4H PRN PO 04/26/16 14:45 05/26/16 14:44 Ondansetron HCl (Zofran Inj) 4 mg Q6H PRN IV 04/26/16 14:45 05/26/16 14:44 04/28/16 05:40 4 MG Albuterol (Ventolin Hfa Inhaler) 2 puffs Q4H PRN INH 04/26/16 14:45 05/26/16 14:44 Lorazepam (Ativan Tab) 0.5 mg TID PRN PO 04/26/16 14:45 05/26/16 14:44 04/27/16 23:41 0.5 MG Pantoprazole Sodium (Protonix Tab) 40 mg DAILY PO 04/27/16 09:00 05/27/16 08:59 04/28/16 08:15 40 MG Ranitidine HCl (zANTac TAB) 300 mg HS PO 04/26/16 21:00 05/26/16 20:59 04/27/16 21:00 300 MG Sumatriptan Succinate (Imitrex Tab) 50 mg DAILY PRN PO 04/26/16 14:45 05/26/16 14:44 Zolpidem Tartrate (Ambien Tab) 5 mg HS PRN PO 04/26/16 14:45 05/26/16 14:44 Morphine Sulfate (MoRPHine SULFATE INJ) 2 mg Q4 PRN IV 04/26/16 16:45 05/10/16 16:44 04/28/16 11:09 2 MG
[2016-04-28] MEDS ORDERED: ACET-1256 PO (12:06)
[2016-04-28] MEDS ORDERED: OXYC1TAB3 PO (12:06)
[2016-04-28] MEDS ORDERED: POTTAB2 PO (12:06)
[2016-04-28] MEDS ORDERED: METH4PAK PO (12:06)
--- NOTE | 2016-04-28 12:10 | Discharge Instructions ---
Discharge Instructions Date of Service Apr 28, 2016. Admission Reason for Admission: Ankle Pain Discharge Discharge Diagnosis / Problem: BILATERAL ANKLE PAIN, POSSIBLE CROHN'S DISEASE- RELATED ARTHRITIS Discharge Goals Goal(s): Diagnostic testing, Therapeutic intervention Activity Recommendations Activity Limitations: as noted below .Limited weightbearing with elevation bilateral feet, use compressive stockings when weight bearing or walking. Instructions / Follow-Up Instructions / Follow-Up PLEASE REVIEW YOUR NEW MEDICATION LIST AND FOLLOW INSTRUCTIONS CAREFULLY, CALL PRIMARY CARE PHYSICIAN OR RETURN TO ER WITH WORSENING OF SYMPTOMS. NO DRIVING WHILE TAKING OXYCODONE. FOLLOW UP WITH DR. PATEL (ASSOCIATE OF DR. RICHARDS) ON Wednesday05/01/16 AT 9: 50AM. FOLLOW UP WITH DR. RICH (FOUNDRY HAND) IN 1 WEEK. TEL. Current Hospital Diet Patient's current hospital diet: Regular Diet Discharge Diet Recommended Diet: Regular Diet Pending Studies Studies pending at discharge: yes List of pending studies: REPEAT PHOSPHORUS LEVEL ON FOLLOW UP WITH PRIMARY CARE PROVIDER Medical Emergencies . Who to Call and When: Medical Emergencies: If at any time you feel your situation is an emergency, please call 911 immediately. . Non-Emergent Contact Non-Emergency issues call your: Primary Care Provider Call Non-Emergent contact if: you have a fever, your pain is not controlled, your pain is worsening, you have any medication questions . Past History Medical & Surgical History: (1) Acute allergic reaction (2) Allergic rhinitis (3) H/O Clostridium difficile infection (4) Crohns disease (5) History of asthma (6) S/P cholecystectomy (7) S/P tonsillectomy (8) S/p exploration of left axilla (9) S/P ORIF (open reduction internal fixation) fracture (10) H/O colonoscopy (11) H/O esophagogastroduodenoscopy . "Provider Documentation" section prepared by Cali Dai. VTE Core Measure Inpt VTE Proph given/why not?: [place]CD's [place] Drug Monitoring Program Search Results: patient reviewed within database, no issues identified
--- NOTE | 2016-04-28 12:14 | Discharge Summary ---
Discharge Summary Date of Service Apr 28, 2016. Discharge Summary Admission Date: Apr 26, 2016 at 14:44 Discharge Date: Apr 28, 2016 Discharge Disposition: Home Principal Diagnosis: Bilateral ankle pain/edema possible Crohn's Disease-associated Arthritis Secondary Diagnoses/Problems: Chest pain, Dyspnea, Resolved - likely due to underlying anxiety Hypophosphatemia - possibly related to underlying Crohn's and poor absorption Crohn's disease GERD Consultations: [employer] Dr. Sequeira, GI Dr. Downs, Ortho Dr. Hickman Pending Studies/Follow-Up: Repeat Phosphorus (re: low Ph, neutraphos started); Follow up Blood cultures drawn at [facility]; Please refer to hospital course below for further details. Medication Reconciliation New Medications: Methylprednisolone (Medrol Dosepak) 4 Mg Grady 1 PKT PO UD for 6 Days, #1 PKT 0 Refills Pot Phosphate Monobasic W/ Sod (Phospha 250 Neutral) 1 Tab Tab 1 TAB PO QID for 10 Days, #40 TAB 2 Refills Changed Medications: Acetaminophen (Tylenol) 500 Mg Tab 2 TAB PO Q6 PRN for Pain for 2 Days, #20 TAB 3 Refills (Medication details modified) do not exceed more than 3,000mg/day Oxycodone Ir (Roxicodone Ir) 5 Mg Tab 5-10 MG PO q4-6h PRN for Pain, #10 TAB 0 Refills (Changed from: Q4H; Refills: ) Continued Medications: Adalimumab (Humira Pen) 40 Mg/0.8 Ml Kit 40 MG SC Q2WEEK Albuterol (Ventolin Hfa) Aers 2 PUFFS INH Q4H PRN for Cough/Wheeze/SOB Epinephrine (Epipen) 0.3 Mg/0.3 Ml Inj 0.3 MG IM UD PRN for ALLERGIC REACTION Etonogestrel/Ethinyl Estradiol (Nuvaring) Mis 1 EA PV UD Lorazepam (Ativan) 0.5 Mg Tab 0.5 MG PO TID PRN for Anxiety/Agitation, TAB Ondansetron (Ondansetron HCl) 4 Mg Tab 1-2 TAB SL Q6 PRN for Nausea or Vomiting Pantoprazole (Protonix) 40 Mg Tab 40 MG PO DAILY, TAB Ranitidine Hcl (Zantac) 300 Mg Tab 300 MG PO HS, TAB Sumatriptan Succinate (Sumatriptan Succinate) 50 Mg Tab 50 MG PO UD PRN for Migraine TAKE ONE TABLET AT ONSET OF MIGRAINE, MAY REPEAT AFTER 2 HOURS IF NEEDED. MAXIMUM 200 MG/DAY. Zolpidem Tartrate (Zolpidem Tartrate) 5 Mg Tab 1 TAB PO HS PRN for Insomnia, TAB Admission Information HPI (per Admitting provider): Patient is a 25 y/o female who presents for evaluation of bilateral ankle pain and swelling. This has been ongoing for about the past week. 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 She does have a h/o Crohn's for which she takes Humira and follows with GI. Patient had ankle xrays done at the [facility] on Wednesday/Wednesday of last week, which were reportedly normal. The ankle pain and swelling persisted however, and so she was seen by her PCP on Wednesday and had labs done. CBC, CMP, uric acid, RF, Lyme screen were normal; MELIDA is still pending. Patient notes that the ankle pain is constant. She tried taking Tylenol and some old Roxicodone, neither of which alleviated the pain. The ankle edema is worse at the end of the day and is best in the morning or after lying down. She denies any injury or trauma. Over the weekend she developed substernal chest pain and SOB. Patient describes the SOB as feeling as though she is unable to take a deep breath. The substernal chest pain occurs predominantly when she has this feeling of being unable to take a deep breath. She does endorse looking up her symptoms over the weekend on the internet and admits that this has caused her to be very anxious. She also does endorse significant heartburn for which she is to have an outpatient EGD this coming week. In the ED, patient received a dose of IV Ativan. Patient's father feels that this greatly helped patient's respiratory symptoms. Patient also received a dose of IV Fentanyl. Physical Exam (per Admitting): General- awake; alert; NAD Eyes- EOMI; no scleral icterus ENT- clear OC/OP Neck- supple; no palpable LAD Lungs- CTA bilaterally; no wheezes/crackles Heart- RRR; no m/r/g Abdomen- soft; NTND; nBS Back- no gross abnormalities Extremities- no c/c/e; no deformity MSK- full ROM of bilateral ankles but flexion causes pain Neuro- no focal deficits Skin- +macular rash on face, neck, upper back/chest (patient notes that this happens with narcotic pain medications) . Hospital Course Patient is a 25 y/o female who presents for evaluation of bilateral ankle pain/ edema for 1 week. Patient also reports SOB/chest pain over the weekend. Bilateral ankle pain/edema possible IBD-associated Arthritis Crohn's disease on Humira - ESR and CRP elevated - RF normal - Lyme screen negative - blood cultures: Pending -- consulted [employer] Dr. Sequeira Celebrex contraindicated due to Crohn's Disease recommend Solumedrol DosePak Oxycodone PRN for pain may need to restart Imuran for Crohn's Disease -- Ortho consulted no further interventions Limited weightbearing with elevation bilateral feet Compression stocking with walking --GI consulted scheduled for EGD on , outpatient follow up -- patient given PRN Morphine as inpatient pain gradually improving, patient agreeable with plan of care and discharge today ff up with PCP on Wed, Dr. Sequeira in 1 week Chest pain, Dyspnea, Resolved - likely due to underlying anxiety - improved with Ativan received in ED - d-dimer normal - BNP normal - troponin and EKG normal - CXR negative for acute process - resolved Hypophosphatemia - possibly related to underlying Crohn's and poor absorption - given PO Ph - PH 2.6 low normal on discharge - Ph supplement ordered Crohn's disease - patient denies any flare symptoms --GI consulted scheduled for EGD on , outpatient follow up GERD - continue pantoprazole and ranitidine Disposition d/c home today ff up with PCP in 3-5 days EGD this week c/o GI Rheum Dr. Sequeira in 1 week Total time spent on discharge = 45 minutes This includes examination of the patient, discharge planning, medication reconciliation, and communication with other providers. Discharge Instructions Discharge Instructions Date of Service Apr 28, 2016. Admission Reason for Admission: Ankle Pain Discharge Discharge Diagnosis / Problem: BILATERAL ANKLE PAIN, POSSIBLE CROHN'S DISEASE- RELATED ARTHRITIS Discharge Goals Goal(s): Diagnostic testing, Therapeutic intervention Activity Recommendations Activity Limitations: as noted below .Limited weightbearing with elevation bilateral feet, use compressive stockings when weight bearing or walking. Instructions / Follow-Up Instructions / Follow-Up PLEASE REVIEW YOUR NEW MEDICATION LIST AND FOLLOW INSTRUCTIONS CAREFULLY, CALL PRIMARY CARE PHYSICIAN OR RETURN TO ER WITH WORSENING OF SYMPTOMS. FOLLOW UP WITH DR. PATEL (ASSOCIATE OF DR. RICHARDS) ON Wednesday05/01/16 AT 9: 50AM. FOLLOW UP WITH DR. SEQUEIRA (RETAIL BUSINESS DEVELOPMENT MANAGER) IN 1 WEEK. TEL. Current Hospital Diet Patient's current hospital diet: Regular Diet Discharge Diet Recommended Diet: Regular Diet Pending Studies Studies pending at discharge: yes List of pending studies: REPEAT PHOSPHORUS LEVEL ON FOLLOW UP WITH PRIMARY CARE PROVIDER Medical Emergencies . Who to Call and When: Medical Emergencies: If at any time you feel your situation is an emergency, please call 911 immediately. . Non-Emergent Contact Non-Emergency issues call your: Primary Care Provider Call Non-Emergent contact if: you have a fever, your pain is not controlled, your pain is worsening, you have any medication questions . Past History Medical & Surgical History: (1) Acute allergic reaction (2) Allergic rhinitis (3) H/O Clostridium difficile infection (4) Crohns disease (5) History of asthma (6) S/P cholecystectomy (7) S/P tonsillectomy (8) S/p exploration of left axilla (9) S/P ORIF (open reduction internal fixation) fracture (10) H/O colonoscopy (11) H/O esophagogastroduodenoscopy . "Provider Documentation" section prepared by Cali Dai. VTE Core Measure Inpt VTE Proph given/why not?: [place]CD[place] Drug Monitoring Program Search Results: patient reviewed within database, no issues identified
[2016-04-28 12:43] VITALS: BP 119/83; PULSE 79; TEMP 36.8; O2SAT 97
[2016-04-28] MEDS ORDERED: POT PHOSPHATE MONOBASIC W/ SOD TAB PO SCH (13:00)
== END 2016-04-28 14:13 | disposition home or self-care (01) | DRG 948 ==
LOC: ENRESERVTM → ENRESERVDT → C.EDB 10:53 → C.MSN 14:44 → EDBEDREQ 15:14 → EDBEDREQSVC 15:14
PROVIDERS: ADMIT Internal Medicine; ATTEND Internal Medicine
DX: R60.9 Edema, unspecified (principal); K50.911 Crohn's disease, unspecified, with rectal bleeding; J45.909 Unspecified asthma, uncomplicated; Z86.14 Personal history of Methicillin resistant Staphylococcus aureus infection; Z90.49 Acquired absence of other specified parts of digestive tract; Z80.8 Family history of malignant neoplasm of other organs or systems; Z80.3 Family history of malignant neoplasm of breast; Z83.3 Family history of diabetes mellitus; Z83.79 Family history of other diseases of the digestive system; Z84.1 Family history of disorders of kidney and ureter; Z88.8 Allergy status to other drugs, medicaments and biological substances; Z79.899 Other long term (current) drug therapy; F41.9 Anxiety disorder, unspecified; E83.39 Other disorders of phosphorus metabolism; K21.9 Gastro-esophageal reflux disease without esophagitis; M19.90 Unspecified osteoarthritis, unspecified site; M25.571 Pain in right ankle and joints of right foot; M25.572 Pain in left ankle and joints of left foot

== ENCOUNTER → 2017-03-03 | Outpatient (CLI) | payer BC, OTHER ==
[~2017-03-03] MED LIST changes: +ACET-1256 PO; -AZAT50TA17 PO; +LORA-741 PO; +METH4PAK PO; +ONDA4TAB9 SL; +POTTAB2 PO; -PRED-603 PO; +ZOLP5TAB6 PO
== END | disposition home or self-care (01) ==
LOC: C.PAPS 11:41
PROVIDERS: ATTEND Physician Assistant
DX: Z01.419 Encounter for gynecological examination (general) (routine) without abnormal findings (principal)

== ENCOUNTER 2019-03-21 18:32 | Inpatient (IN) ==
[2019-03-21] MEDS ORDERED: SODIUM CHLORIDE 0.9% 1000ML 1,000 ML IV ONE (18:56)
[2019-03-21] MEDS ORDERED: ONDANSETRON INJ 2 MG/ML 2 ML VIAL IV STA (19:00)
[2019-03-21] MEDS ORDERED: MAGNESIUM SULFATE / D5W 1 GM/100 ML BAG IV ONE (19:00)
--- NOTE | 2019-03-21 19:21 | XRay Report ---
XR chest 1V portable CLINICAL HISTORY: 28 years-old Female presenting with SEPSIS. TECHNIQUE: Portable upright AP view of the chest was obtained. COMPARISON: 02/21/2019. FINDINGS: Cardiomediastinal silhouette normal. No focal opacity. No large effusion or pneumothorax. Osseous str uctures normal. Cholecystectomy clips noted. IMPRESSION: 1. No acute cardiopulmonary disease. ACT 112: Negative or not required by law. Electronically signed by: Bib Fuller M.D. 03/21/2019 7:20 PM
[2019-03-21 19:44] LABS: Basophils # (auto) 0.04 K/uL (0-0.2); Basophils % (auto) 0.4 %; Eosinophils # (auto) 0.09 K/uL (0-0.5); Hemoglobin 13.5 g/dL (12.0-16.0); Immature Granulocytes # (auto) 0.02 K/uL (0.00-0.02); Immature Granulocytes % (auto) 0.2 %; Lymphocytes # (auto) 2.15 K/uL (1.2-3.4); Mean Corpuscular Hemoglobin 31.3 pg (25-34); Mean Corpuscular Hgb Conc 34.6 g/dL (32-36); Mean Corpuscular Volume 90.3 fL (80-100); Mean Platelet Volume 9.3 fL (7.4-10.4); Monocytes # (auto) 0.66 K/uL (0.11-0.59); Monocytes % (auto) 7.1 %; Neutrophils % (auto) 68.3 %; Platelet Count 326 K/uL (130-400); RDW Coefficient of Variation 13.4 % (11.5-14.5); RDW Standard Deviation 44.3 fL (36.4-46.3); Red Blood Count 4.32 M/uL (4.2-5.4); White Blood Count 9.36 K/uL (4.8-10.8)
[2019-03-21] MEDS: HYDROmorphone INJ 0.5 MG/0.5 ML SYR IV PRN ×2 (19:55→21:07)
[2019-03-21 20:07] LABS: Albumin Level 4.2 gm/dl (3.4-5.0); BUN Creatinine Ratio 11.5 (10-20); Calcium 9.3 mg/dl (8.5-10.1); Creatinine Clr Calc Pharmacy 89.1 ml/min; Est GFR (African American) 128.1; Est GFR (Non-African American) 110.5; Magnesium 2.1 mg/dl (1.8-2.4); Potassium 3.1 mmol/L (3.5-5.1)
[2019-03-21 20:09] LABS: INR 1.1 (0.9-1.1); Partial Thromboplastin Ratio 0.9; Partial Thromboplastin Time 23.3 Seconds (21.0-31.0); Prothrombin Time 11.1 Seconds (9.0-12.0)
[2019-03-21 20:10] LABS: Bilirubin,Total 0.6 mg/dl (0.2-1); Globulin 4.1 gm/dl (2.5-4.0); Total Protein 8.3 gm/dl (6.4-8.2)
[2019-03-21 20:27] LABS: Appearance Urine Clear (Clear); Bacteria Urine Automated Negative (Negative); Bilirubin Urine Negative (Negative); Blood Urine Negative (Negative); Cast Urine Automated 0 /lpf (0-5); Color Urine Yellow; Glucose Urine UA Negative (Negative); Ketones Urine Trace (Negative); Leukocyte Esterase Urine Trace (Negative); Nitrite Urine Negative (Negative); Protein Urine Negative (Negative); RBC Urine Automated 0-4 /hpf (0-4); Specific Gravity Urine 1.006 (1.000-1.030); Urobilinogen Urine Negative (Negative); pH Urine 6.5 (4.5-7.5)
[2019-03-21 20:30] LABS: Influenza A virus by PCR Neg for Influ A (Neg); Influenza B virus by PCR Neg for Influ B (Neg)
--- NOTE | 2019-03-21 20:33 | CT Scan Report ---
CT head/brain wo con CLINICAL HISTORY: 28 years-old Female presenting with Pt c/o fever, headache. TECHNIQUE: Multidetector CT imaging of the head was performed without the use of intravenous contrast . IV contrast: None. One or more dose lowering techniques were used consistent with the principles of ALARA (as low as reasonably achievable), including automatic exposure control, mA or kV adjustment t o individual patient size, and/or use of iterative reconstruction. COMPARISON: None. CT DOSE (mGy.cm): The estimated cumulative dose is 537.48 mGy.cm. FINDINGS: [employer] topogram: Unremarkable. Ventricles and sulci normal in size. No hemorrhage. Brain parenchyma normal in appearance with preser gi virk-white differentiation. No acute territorial infarct. No mass effect or midline shift. No ext ra-axial fluid collection. Paranasal sinuses and mastoid air cells clear. Calvarium intact. IMPRESSION: 1. No acute intracranial abnormality. ACT 112: Negative or not required by law. Electronically signed by: Bib Fuller M.D. 03/21/2019 8:32 PM
[2019-03-21] MEDS ORDERED: cefTRIAXone SODIUM 2,000 MG/70 ML BAG IV STA (22:05)
[2019-03-21] MEDS ORDERED: VANCOMYCIN CONSULT ACTIVE PRN (22:05)
[2019-03-21] MEDS ORDERED: DiphenhydrAMINE HCL 50 MG/ML VIAL IV STA (22:05)
[2019-03-21] MEDS ORDERED: VANCOMYCIN HCL 1,250 MG in SODIUM CHLORIDE 0.9% 500 ML IV ONE (22:05)
[2019-03-21] MEDS ORDERED: DEXAMETHASONE **PF** INJ 10 MG/ML VIAL IV ONE (22:05)
[2019-03-21] MEDS ORDERED: ACETAMINOPHEN 1,000 MG/100 ML VIAL IV STA (22:05)
[2019-03-21] MEDS ORDERED: PROCHLORPERAZINE 1 ML IV ONE (22:05)
[2019-03-21 22:22] LABS: Appearance CSF Clear; CSF Count Tube # 3; CSF Xanthrochromic No xanthochromia; Color CSF Colorless; Red Blood Cell CSF (A) 0 /uL (0-); Red Blood Cell CSF (B) 0 /uL (0-); White Blood Cell CSF (A) 0 /uL (0-5); White Blood Cell CSF (B) 0 /uL (0-5)
[2019-03-21] MEDS ORDERED: POTASSIUM CHLORIDE 20 MEQ TABCR PO STA (22:32)
[2019-03-21 23:55] LABS: Cryptococcus neoformans/ga PCR Not Detected (NotDetected); Cytomegalovirus PCR Not Detected (NotDetected); Enterovirus PCR Not Detected (NotDetected); Escherichia coli K1 PCR Not Detected (NotDetected); Haemophilius influenzae PCR Not Detected (NotDetected); Herpes Simplex Virus 1 PCR Not Detected (NotDetected); Herpes Simplex Virus 2 PCR Not Detected (NotDetected); Human Herpes Virus 6 PCR Not Detected (NotDetected); Human Parechovirus PCR Not Detected (NotDetected); Listeria monocytogenes PCR Not Detected (NotDetected); Neisseria meningitidis PCR Not Detected (NotDetected); Streptococcus agalactiae PCR Not Detected (NotDetected); Streptococcus pneumoniae PCR Not Detected (NotDetected); Varicella Zoster Virus PCR Not Detected (NotDetected)
--- NOTE | 2019-03-22 01:46 | Emergency Department Note ---
Entered by Ubaldo Patino acting as a scribe for Zbigniew Wing MD History of Present Illness General Chief complaint: Fever Stated complaint: FEVER, NECK PAIN Time Seen by Provider: 03/21/19 18:47 Source: patient History of Present Illness Onset (ago): hour(s) (this morning) Location: head Pain Consistency: + intermittent Maximum Pain Intensity: 7 Quality: + other (fever) Relieved By: + medication (mildly with Tylenol) Associated symptoms: + headaches The patient is a 28 y/o female who presents to the ED w/ CC of an intermittent fever beginning this morning. The patient states she has a history of Crohn's disease and takes a biologic as well as methotrexate. She reports she developed a fever today and took Tylenol without much relief. The patient notes she also developed a severe headache that she states is the worst headache of her life. She states she was recently here for sinusitis but was not given antibiotics. The patient reports she cannot take oral antibiotics because of her Crohn's Disease. She notes a history of c-diff. Home Medications Home Medications Medication Instructions Recorded Confirmed Type folic acid 1 mg PO QAM 03/30/18 03/21/19 History pantoprazole 40 mg PO QAM 03/30/18 03/21/19 History amitriptyline 10 mg PO HS 02/21/19 03/21/19 History famotidine 40 mg PO HS 02/21/19 03/21/19 History fluticasone propionate 2 spray INTRANASAL DAILY PRN 02/21/19 03/21/19 History lubiprostone [Amitiza] 8 mcg PO QAM 02/21/19 03/21/19 History medroxyprogesterone 150 mg IM DIRECTED 02/21/19 03/21/19 History methotrexate sodium 17.5 mg SUBCUT WK 02/21/19 03/21/19 History ondansetron HCl [Zofran] 4 mg PO Q6H PRN 02/21/19 03/21/19 History oxycodone 5 mg PO DAILY PRN 02/21/19 03/21/19 History promethazine 25 mg PO Q6H PRN 02/21/19 03/21/19 History sumatriptan succinate 50 mg PO DIRECTED PRN MDD 200 02/21/19 03/21/19 History MG/DAY ustekinumab [Stelara] 90 mg SUBCUT Q8WK 02/21/19 03/21/19 History multivit with min-folic acid 400 mcg PO HS 03/21/19 03/21/19 History [Women's Multivitamin Gummies] Allergies Allergy/AdvReac Type Severity Reaction Status Date / Time iron Allergy Severe JOINT Verified 03/21/19 19:50 PAIN/SWELLING/DIARRHEA Venofer Allergy Severe JOINT Unverified 04/26/16 11:30 PAIN/SWELLING/DIARRHEA NSAIDS (Non-Steroidal AdvReac Unknown Crohn's Verified 03/21/19 19:50 Anti-Inflamma Disease Past Med/Surg History Medical History Allergic rhinitis (Chronic) Crohn's disease of colon (Chronic) H/O Clostridium difficile infection (Chronic) History of asthma (Chronic) "during childhood" Surgical History H/O colonoscopy (Resolved) "09/26/2014- Endoscopically quiescent Crohn's disease with pseudopolyps from sigmoid to transverse colon and with scarring at a patulous ileocecal valve.The examined portion of the ileum was normal." H/O esophagogastroduodenoscopy (Resolved) "09/26/2014- Monilial esophagitis. Normal stomach and duodenum. " S/P cholecystectomy (Resolved) S/P ORIF (open reduction internal fixation) fracture (Resolved) "wrist" S/P tonsillectomy (Resolved) Family History Grandmother (Maternal) Breast cancer Aunt Cervical cancer Maternal Ovarian cancer Maternal Grandfather (Paternal) Colorectal cancer Mother Mitral valve prolapse Social History Preferred Language: Pashto Feels Safe at Home: Yes Smoking Status: Never smoker Hx Alcohol Use: Yes Alcohol Intake Frequency: Rarely Hx Substance Use: No Review of Systems See HPI for pertinent positives & negatives. and A total of 10 systems reviewed and were otherwise negative Physical Exam Vital Signs Vital Signs - 24 hr 03/21/19 18:40 03/21/19 18:57 03/21/19 19:15 Temperature 37.4 C 37.5 C Temperature Source Oral Rectal Pulse Rate 116 H Pulse Rate [Apical] Pulse Rate from SpO2 Sensor Pulse Rhythm Regular Regular Pulse Rhythm [Apical] Pulse Strength Normal Respiratory Rate 20 Respiratory Effort / Characteristics Non-Labored Spontaneous Respiratory Depth Normal Respiratory Pattern Regular Blood Pressure 134/80 Blood Pressure [Right Arm] Blood Pressure Mean 98 Blood Pressure Mean [Right Arm] Blood Pressure Position Sitting Blood Pressure Position [Right Arm] Pulse Oximetry 100 99 Oxygen Delivery Method Room Air Room Air Sepsis Recent Fever Within 48 Hours No Sepsis Action Taken by Nursing No Action Required 03/21/19 19:45 03/21/19 19:55 03/21/19 20:00 Temperature Temperature Source Pulse Rate Pulse Rate [Apical] 86 87 Pulse Rate from SpO2 Sensor Pulse Rhythm Pulse Rhythm [Apical] Regular Pulse Strength Respiratory Rate 18 20 Respiratory Effort / Characteristics Non-Labored Spontaneous Respiratory Depth Normal Respiratory Pattern Blood Pressure Blood Pressure [Right Arm] 138/81 133/78 Blood Pressure Mean Blood Pressure Mean [Right Arm] 100 96 Blood Pressure Position Blood Pressure Position [Right Arm] Sitting Pulse Oximetry 98 98 98 Oxygen Delivery Method Room Air Room Air Sepsis Recent Fever Within 48 Hours Sepsis Action Taken by Nursing 03/21/19 20:30 03/21/19 20:41 03/21/19 20:48 Temperature Temperature Source Pulse Rate 99 H 98 H 102 H Pulse Rate [Apical] Pulse Rate from SpO2 Sensor 98 H 99 H Pulse Rhythm Pulse Rhythm [Apical] Pulse Strength Respiratory Rate 17 16 14 Respiratory Effort / Characteristics Respiratory Depth Respiratory Pattern Blood Pressure 127/83 Blood Pressure [Right Arm] Blood Pressure Mean 92 Blood Pressure Mean [Right Arm] Blood Pressure Position Blood Pressure Position [Right Arm] Pulse Oximetry 100 100 Oxygen Delivery Method Sepsis Recent Fever Within 48 Hours Sepsis Action Taken by Nursing 03/21/19 20:49 03/21/19 20:50 03/21/19 21:00 Temperature Temperature Source Pulse Rate 99 H 102 H 100 H Pulse Rate [Apical] Pulse Rate from SpO2 Sensor Pulse Rhythm Pulse Rhythm [Apical] Pulse Strength Respiratory Rate 17 24 14 Respiratory Effort / Characteristics Respiratory Depth Respiratory Pattern Blood Pressure 148/89 H 142/78 H Blood Pressure [Right Arm] Blood Pressure Mean 104 101 Blood Pressure Mean [Right Arm] Blood Pressure Position Blood Pressure Position [Right Arm] Pulse Oximetry Oxygen Delivery Method Sepsis Recent Fever Within 48 Hours Sepsis Action Taken by Nursing 03/21/19 21:01 03/21/19 21:15 03/21/19 21:16 Temperature Temperature Source Pulse Rate 103 H 106 H 105 H Pulse Rate [Apical] Pulse Rate from SpO2 Sensor Pulse Rhythm Pulse Rhythm [Apical] Pulse Strength Respiratory Rate 18 17 16 Respiratory Effort / Characteristics Respiratory Depth Respiratory Pattern Blood Pressure 138/94 Blood Pressure [Right Arm] Blood Pressure Mean 102 Blood Pressure Mean [Right Arm] Blood Pressure Position Blood Pressure Position [Right Arm] Pulse Oximetry Oxygen Delivery Method Sepsis Recent Fever Within 48 Hours Sepsis Action Taken by Nursing 03/21/19 21:30 03/21/19 21:34 03/21/19 21:45 Temperature Temperature Source Pulse Rate 102 H 103 H 98 H Pulse Rate [Apical] Pulse Rate from SpO2 Sensor Pulse Rhythm Pulse Rhythm [Apical] Pulse Strength Respiratory Rate 22 18 23 Respiratory Effort / Characteristics Respiratory Depth Respiratory Pattern Blood Pressure 131/90 119/84 Blood Pressure [Right Arm] Blood Pressure Mean 105 100 Blood Pressure Mean [Right Arm] Blood Pressure Position Blood Pressure Position [Right Arm] Pulse Oximetry Oxygen Delivery Method Sepsis Recent Fever Within 48 Hours Sepsis Action Taken by Nursing 03/21/19 21:46 03/21/19 22:04 03/21/19 22:05 Temperature Temperature Source Pulse Rate 111 H 107 H 99 H Pulse Rate [Apical] Pulse Rate from SpO2 Sensor 101 H Pulse Rhythm Pulse Rhythm [Apical] Pulse Strength Respiratory Rate 19 25 H 14 Respiratory Effort / Characteristics Respiratory Depth Respiratory Pattern Blood Pressure 141/97 H Blood Pressure [Right Arm] Blood Pressure Mean 118 Blood Pressure Mean [Right Arm] Blood Pressure Position Blood Pressure Position [Right Arm] Pulse Oximetry 100 Oxygen Delivery Method Sepsis Recent Fever Within 48 Hours Sepsis Action Taken by Nursing 03/21/19 22:06 03/21/19 22:15 03/21/19 22:16 Temperature Temperature Source Pulse Rate 101 H 93 H 102 H Pulse Rate [Apical] Pulse Rate from SpO2 Sensor 101 H 91 H 101 H Pulse Rhythm Pulse Rhythm [Apical] Pulse Strength Respiratory Rate 19 24 16 Respiratory Effort / Characteristics Respiratory Depth Respiratory Pattern Blood Pressure 127/72 Blood Pressure [Right Arm] Blood Pressure Mean 87 Blood Pressure Mean [Right Arm] Blood Pressure Position Blood Pressure Position [Right Arm] Pulse Oximetry 100 99 99 Oxygen Delivery Method Sepsis Recent Fever Within 48 Hours Sepsis Action Taken by Nursing 03/21/19 22:30 03/21/19 22:31 03/21/19 22:45 Temperature Temperature Source Pulse Rate 102 H 104 H 92 H Pulse Rate [Apical] Pulse Rate from SpO2 Sensor 103 H 106 H 92 H Pulse Rhythm Pulse Rhythm [Apical] Pulse Strength Respiratory Rate 22 15 21 Respiratory Effort / Characteristics Respiratory Depth Respiratory Pattern Blood Pressure 133/78 119/69 Blood Pressure [Right Arm] Blood Pressure Mean 90 83 Blood Pressure Mean [Right Arm] Blood Pressure Position Blood Pressure Position [Right Arm] Pulse Oximetry 100 99 98 Oxygen Delivery Method Sepsis Recent Fever Within 48 Hours Sepsis Action Taken by Nursing 03/21/19 22:46 03/21/19 23:00 03/21/19 23:01 Temperature Temperature Source Pulse Rate 93 H 95 H 96 H Pulse Rate [Apical] Pulse Rate from SpO2 Sensor 93 H 92 H 97 H Pulse Rhythm Pulse Rhythm [Apical] Pulse Strength Respiratory Rate 20 20 17 Respiratory Effort / Characteristics Respiratory Depth Respiratory Pattern Blood Pressure 120/73 Blood Pressure [Right Arm] Blood Pressure Mean 84 Blood Pressure Mean [Right Arm] Blood Pressure Position Blood Pressure Position [Right Arm] Pulse Oximetry 98 97 97 Oxygen Delivery Method Sepsis Recent Fever Within 48 Hours Sepsis Action Taken by Nursing 03/21/19 23:15 03/21/19 23:16 03/21/19 23:30 Temperature Temperature Source Pulse Rate 103 H 87 87 Pulse Rate [Apical] Pulse Rate from SpO2 Sensor 102 H 89 87 Pulse Rhythm Pulse Rhythm [Apical] Pulse Strength Respiratory Rate 20 18 17 Respiratory Effort / Characteristics Respiratory Depth Respiratory Pattern Blood Pressure 123/71 128/78 Blood Pressure [Right Arm] Blood Pressure Mean 85 88 Blood Pressure Mean [Right Arm] Blood Pressure Position Blood Pressure Position [Right Arm] Pulse Oximetry 98 97 98 Oxygen Delivery Method Sepsis Recent Fever Within 48 Hours Sepsis Action Taken by Nursing 03/21/19 23:31 03/21/19 23:47 03/22/19 00:00 Temperature Temperature Source Pulse Rate 86 101 H 100 H Pulse Rate [Apical] Pulse Rate from SpO2 Sensor 86 Pulse Rhythm Pulse Rhythm [Apical] Pulse Strength Respiratory Rate 15 22 16 Respiratory Effort / Characteristics Respiratory Depth Respiratory Pattern Blood Pressure Blood Pressure [Right Arm] Blood Pressure Mean Blood Pressure Mean [Right Arm] Blood Pressure Position Blood Pressure Position [Right Arm] Pulse Oximetry 97 Oxygen Delivery Method Sepsis Recent Fever Within 48 Hours Sepsis Action Taken by Nursing 03/22/19 00:15 03/22/19 00:30 03/22/19 00:31 Temperature Temperature Source Pulse Rate 108 H 84 84 Pulse Rate [Apical] Pulse Rate from SpO2 Sensor Pulse Rhythm Pulse Rhythm [Apical] Pulse Strength Respiratory Rate 17 20 16 Respiratory Effort / Characteristics Respiratory Depth Respiratory Pattern Blood Pressure 123/85 Blood Pressure [Right Arm] Blood Pressure Mean 91 Blood Pressure Mean [Right Arm] Blood Pressure Position Blood Pressure Position [Right Arm] Pulse Oximetry Oxygen Delivery Method Sepsis Recent Fever Within 48 Hours Sepsis Action Taken by Nursing 03/22/19 00:45 03/22/19 00:46 03/22/19 01:00 Temperature Temperature Source Pulse Rate 98 H 91 H 97 H Pulse Rate [Apical] Pulse Rate from SpO2 Sensor Pulse Rhythm Pulse Rhythm [Apical] Pulse Strength Respiratory Rate 15 17 13 Respiratory Effort / Characteristics Respiratory Depth Respiratory Pattern Blood Pressure 123/77 125/81 Blood Pressure [Right Arm] Blood Pressure Mean 87 88 Blood Pressure Mean [Right Arm] Blood Pressure Position Blood Pressure Position [Right Arm] Pulse Oximetry Oxygen Delivery Method Sepsis Recent Fever Within 48 Hours Sepsis Action Taken by Nursing 03/22/19 01:01 Temperature Temperature Source Pulse Rate 90 Pulse Rate [Apical] Pulse Rate from SpO2 Sensor Pulse Rhythm Pulse Rhythm [Apical] Pulse Strength Respiratory Rate 14 Respiratory Effort / Characteristics Respiratory Depth Respiratory Pattern Blood Pressure Blood Pressure [Right Arm] Blood Pressure Mean Blood Pressure Mean [Right Arm] Blood Pressure Position Blood Pressure Position [Right Arm] Pulse Oximetry Oxygen Delivery Method Sepsis Recent Fever Within 48 Hours Sepsis Action Taken by Nursing GENERAL: Awake, alert, well-appearing, in no acute distress HENT: Normocephalic, atraumatic. Oropharynx unremarkable. EYES: Normal conjunctiva. Sclera non-icteric. NECK: Supple. Nuchal rigidity. FROM. No JVD. RESPIRATORY: Clear to auscultation. CARDIAC: Regular rate, normal rhythm. Extremities warm and well perfused. Pulses equal. ABDOMEN: Soft, non-distended. No tenderness to palpation. No rebound or guarding. No masses. RECTAL: Deferred. MUSCULOSKELETAL: Chest examination reveals no tenderness. The back is symmetrical on inspection without obvious abnormality. There is no CVA tenderness to palpation. No joint edema. Pain with movement of the legs and back. LOWER EXTREMITIES: Calves are equal size bilaterally and non-tender. No edema. No discoloration. NEURO: Normal sensorium. No sensory or motor deficits noted. SKIN: No rash or jaundice noted. Procedures Free Text Procedures Lumbar Puncture Indication: possible sepsis. I performed the procedure. Verbal consent was obtained after the risks and benefits were explained, including but not limited to headache, bleeding/clotting, scarring, infection, pain, and bone/joint/nerve damage. At this time, the risks of the procedure are less than the risks of NOT performing the procedure. A time out was taken and the correct patient and site identified. The patient was placed in the upright position and the back was prepped with betadine and draped in the standard fashion. The L3 intervertebral space was identified, anesthetized locally with 1% lidocaine without epinephrine, and the spinal needle was inserted through the skin with the bevel parallel to the dural fibers. The needle was carefully advanced into the lumbar cistern and 4 tubes of clear CSF was obtained. The stylet was replaced and the needle was removed. A bandaid was placed and the patient was placed in the supine position. The patient tolerated the procedure well and there were no complications. Course Course 1854: Past medical records reviewed. The patient was evaluated in room B09. A complete history and physical exam was performed. 2156: I reevaluated the patient and discussed her current test results. I discussed the need for an LP due to the patient's test results. She has consented for the LP and is agreeabe with the treatment plan. 2309: Upon reevaluation, the patient is resting comfortably. I discussed laboratory and radiographic results with her. She verbalized agreement of the treatment plan. The patient will be evaluated for further management and care. 0045: I reviewed the patient's case with Dr. Neri, [facility] Hospitalist. He will evaluate the patient for further management. Administered Medications Hydromorphone HCl (Dilaudid) 0.5 mg IV Q15M PRN PRN Reason: Pain Stop: 04/04/19 18:59 Last Admin: 03/21/19 21:07 Dose: 0.5 mg Documented by: [id number] Admin: 03/21/19 19:55 Dose: 0.5 mg Documented by: [id number] Discontinued Medications Dexamethasone Sodium Phosphate (Decadron Pf) 10 mg IV NOW ONE Stop: 03/21/19 22:06 Last Admin: 03/21/19 22:17 Dose: 10 mg Documented by: [id number] Diphenhydramine HCl (Benadryl) 50 mg IV NOW STA Stop: 03/21/19 22:06 Last Admin: 03/21/19 22:17 Dose: 50 mg Documented by: [id number] Sodium Chloride (Nss 1000ml) 1,000 mls @ 999 mls/hr IV .Q1H1M ONE Stop: 03/21/19 19:56 Last Infusion: 03/21/19 20:44 Dose: 0 mls/hr Documented by: [id number] Admin: 03/21/19 19:40 Dose: 999 mls/hr Documented by: [id number] Magnesium Sulfate/Dextrose (Magnesium Sulfate / D5w) 1 gm in 100 mls @ 100 mls/hr IV ONE ONE Stop: 03/21/19 19:59 Last Infusion: 03/21/19 21:04 Dose: 0 mls/hr Documented by: [id number] Admin: 03/21/19 19:41 Dose: 100 mls/hr Documented by: [id number] Acetaminophen (Ofirmev) 1,000 mg in 100 mls @ 400 mls/hr IV NOW STA Stop: 03/21/19 22:19 Last Infusion: 03/21/19 22:35 Dose: 0 mls/hr Documented by: [id number] Admin: 03/21/19 22:18 Dose: 400 mls/hr Documented by: [id number] Prochlorperazine (Compazine) 1 mls @ 1 mls/min IV ONE ONE Stop: 03/21/19 22:06 Last Admin: 03/21/19 22:05 Dose: 1 mls/min Documented by: [id number] Ceftriaxone Sodium (Rocephin) 2,000 mg in 70 mls @ 140 mls/hr IV NOW STA Stop: 03/21/19 22:34 Last Infusion: 03/21/19 23:08 Dose: 0 mls/hr Documented by: [id number] Admin: 03/21/19 22:17 Dose: 140 mls/hr Documented by: [id number] Vancomycin HCl 1,250 mg/ (Sodium Chloride) 525 mls @ 200 mls/hr IV NOW ONE Stop: 03/22/19 00:42 Last Admin: 03/21/19 23:08 Dose: 200 mls/hr Documented by: [id number] Ondansetron HCl (Zofran) 4 mg IV NOW STA Stop: 03/21/19 19:01 Last Admin: 03/21/19 19:41 Dose: 4 mg Documented by: [id number] Potassium Chloride (Klor-Con M20) 40 meq PO NOW STA Stop: 03/21/19 22:33 Last Admin: 03/22/19 00:26 Dose: 40 meq Documented by: [id number] Medical Decision Making Medical Records Attestation: I reviewed the patient's medical records. Home Medications Current Medication List: was personally reviewed by me Laboratory Data Attestation: I reviewed the patient's lab results. Result diagrams: 03/21/19 19:31 03/21/19 19:31 Lab Results 03/21/19 03/21/19 03/21/19 Range/Units 19:31 19:31 19:31 WBC 9.36 (4.8-10.8) K/uL RBC 4.32 (4.2-5.4) M/uL Hgb 13.5 (12.0-16.0) g/dL Hct 39.0 (37-47) % MCV 90.3 (80-100) fL MCH 31.3 (25-34) pg MCHC 34.6 (32-36) g/dL RDW Std Deviation 44.3 (36.4-46.3) fL RDW Coeff of Rosio 13.4 (11.5-14.5) % Plt Count 326 (130-400) K/uL MPV 9.3 (7.4-10.4) fL Immature Gran % (Auto) 0.2 % Neut % (Auto) 68.3 % Lymph % (Auto) 23.0 % Roberts % (Auto) 7.1 % Eos % (Auto) 1.0 % Baso % (Auto) 0.4 % Immature Gran # (Auto) 0.02 (0.00-0.02) K/uL Neut # (Auto) 6.40 (1.4-6.5) K/uL Lymph # (Auto) 2.15 (1.2-3.4) K/uL Roberts # (Auto) 0.66 H (0.11-0.59) K/uL Eos # (Auto) 0.09 (0-0.5) K/uL Baso # (Auto) 0.04 (0-0.2) K/uL PT 11.1 (9.0-12.0) Seconds INR 1.1 (0.9-1.1) APTT 23.3 (21.0-31.0) Seconds PTT Ratio 0.9 Sodium (136-145) mmol/L Potassium (3.5-5.1) mmol/L Chloride (98-107) mmol/L Carbon Dioxide (21-32) mmol/L Anion Gap (3-11) BUN (7-18) mg/dl Creatinine (0.6-1.2) mg/dl Est Cr Clr Drug Dosing ml/min Est GFR ( Amer) Est GFR (Non-Af Amer) BUN/Creatinine Ratio (10-20) Glucose (70-99) mg/dl Lactate (0.4-2.0) mmol/L Calcium (8.5-10.1) mg/dl Magnesium (1.8-2.4) mg/dl Total Bilirubin (0.2-1) mg/dl AST (15-37) U/L ALT (12-78) U/L Alkaline Phosphatase (45-117) U/L Total Protein (6.4-8.2) gm/dl Albumin (3.4-5.0) gm/dl Globulin (2.5-4.0) gm/dl Albumin/Globulin Ratio (0.9-2) Procalcitonin < 0.05 (0-0.5) ng/ml HCG, Quant mIU/ml Urine Color Urine Appearance (Clear) Urine pH (4.5-7.5) Ur Specific [place] (1.000-1.030) Urine Protein (Negative) Urine Glucose (UA) (Negative) Urine Ketones (Negative) Urine Blood (Negative) Urine Nitrite (Negative) Urine Bilirubin (Negative) Urine Urobilinogen (Negative) Ur Leukocyte Esterase (Negative) Urine WBC (Auto) (0-5) /hpf Urine RBC (Auto) (0-4) /hpf U Hyaline Cast (Auto) (0-5) /lpf U Epithel Cells (Auto) (0-5) /lpf Urine Bacteria (Auto) (Negative) CSF Appearance CSF Color Xanthrochromic CSF WBC (0-5) /uL CSF RBC (0-) /uL CSF Cell Count Tube # CSF Chemistry Tube # CSF Glucose (40-70) mg/dl CSF Total Protein (15-45) mg/dl CSF C.neoform/gat PCR (NotDetected) CSF CMV DNA (PCR) (NotDetected) CSF Enterovirus (PCR) (NotDetected) CSF E. coli K1 (PCR) (NotDetected) CSF H. influenzae (PCR) (NotDetected) CSF HSV I (PCR) (NotDetected) CSF HSV II (PCR) (NotDetected) CSF HHV 6 (PCR) (NotDetected) CSF L.monocytogenes PCR (NotDetected) CSF N. meningitidis PCR (NotDetected) CSF Parechovirus (PCR) (NotDetected) CSF S. agalactiae (PCR) (NotDetected) CSF S. pneumoniae (PCR) (NotDetected) CSF VZV DNA (PCR) (NotDetected) Influenza Type A (PCR) (Neg) Influenza Type B (PCR) (Neg) 03/21/19 03/21/19 03/21/19 Range/Units 19:31 19:31 19:31 WBC (4.8-10.8) K/uL RBC (4.2-5.4) M/uL Hgb (12.0-16.0) g/dL Hct (37-47) % MCV (80-100) fL MCH (25-34) pg MCHC (32-36) g/dL RDW Std Deviation (36.4-46.3) fL RDW Coeff of Rosio (11.5-14.5) % Plt Count (130-400) K/uL MPV (7.4-10.4) fL Immature Gran % (Auto) % Neut % (Auto) % Lymph % (Auto) % Roberts % (Auto) % Eos % (Auto) % Baso % (Auto) % Immature Gran # (Auto) (0.00-0.02) K/uL Neut # (Auto) (1.4-6.5) K/uL Lymph # (Auto) (1.2-3.4) K/uL Roberts # (Auto) (0.11-0.59) K/uL Eos # (Auto) (0-0.5) K/uL Baso # (Auto) (0-0.2) K/uL PT (9.0-12.0) Seconds INR (0.9-1.1) APTT (21.0-31.0) Seconds PTT Ratio Sodium 139 (136-145) mmol/L Potassium 3.1 L (3.5-5.1) mmol/L Chloride 109 H (98-107) mmol/L Carbon Dioxide 23 (21-32) mmol/L Anion Gap 7.0 (3-11) BUN 8 (7-18) mg/dl Creatinine 0.73 (0.6-1.2) mg/dl Est Cr Clr Drug Dosing 89.1 ml/min Est GFR ( Amer) 128.1 Est GFR (Non-Af Amer) 110.5 BUN/Creatinine Ratio 11.5 (10-20) Glucose 90 (70-99) mg/dl Lactate 1.1 (0.4-2.0) mmol/L Calcium 9.3 (8.5-10.1) mg/dl Magnesium 2.1 (1.8-2.4) mg/dl Total Bilirubin 0.6 (0.2-1) mg/dl AST 37 (15-37) U/L ALT 101 H (12-78) U/L Alkaline Phosphatase 82 (45-117) U/L Total Protein 8.3 H (6.4-8.2) gm/dl Albumin 4.2 (3.4-5.0) gm/dl Globulin 4.1 H (2.5-4.0) gm/dl Albumin/Globulin Ratio 1.0 (0.9-2) Procalcitonin (0-0.5) ng/ml HCG, Quant < 1 mIU/ml Urine Color Urine Appearance (Clear) Urine pH (4.5-7.5) Ur Specific [place] (1.000-1.030) Urine Protein (Negative) Urine Glucose (UA) (Negative) Urine Ketones (Negative) Urine Blood (Negative) Urine Nitrite (Negative) Urine Bilirubin (Negative) Urine Urobilinogen (Negative) Ur Leukocyte Esterase (Negative) Urine WBC (Auto) (0-5) /hpf Urine RBC (Auto) (0-4) /hpf U Hyaline Cast (Auto) (0-5) /lpf U Epithel Cells (Auto) (0-5) /lpf Urine Bacteria (Auto) (Negative) CSF Appearance CSF Color Xanthrochromic CSF WBC (0-5) /uL CSF RBC (0-) /uL CSF Cell Count Tube # CSF Chemistry Tube # CSF Glucose (40-70) mg/dl CSF Total Protein (15-45) mg/dl CSF C.neoform/gat PCR (NotDetected) CSF CMV DNA (PCR) (NotDetected) CSF Enterovirus (PCR) (NotDetected) CSF E. coli K1 (PCR) (NotDetected) CSF H. influenzae (PCR) (NotDetected) CSF HSV I (PCR) (NotDetected) CSF HSV II (PCR) (NotDetected) CSF HHV 6 (PCR) (NotDetected) CSF L.monocytogenes PCR (NotDetected) CSF N. meningitidis PCR (NotDetected) CSF Parechovirus (PCR) (NotDetected) CSF S. agalactiae (PCR) (NotDetected) CSF S. pneumoniae (PCR) (NotDetected) CSF VZV DNA (PCR) (NotDetected) Influenza Type A (PCR) (Neg) Influenza Type B (PCR) (Neg) 03/21/19 03/21/19 03/21/19 Range/Units 19:33 20:00 21:58 WBC (4.8-10.8) K/uL RBC (4.2-5.4) M/uL Hgb (12.0-16.0) g/dL Hct (37-47) % MCV (80-100) fL MCH (25-34) pg MCHC (32-36) g/dL RDW Std Deviation (36.4-46.3) fL RDW Coeff of Rosio (11.5-14.5) % Plt Count (130-400) K/uL MPV (7.4-10.4) fL Immature Gran % (Auto) % Neut % (Auto) % Lymph % (Auto) % Roberts % (Auto) % Eos % (Auto) % Baso % (Auto) % Immature Gran # (Auto) (0.00-0.02) K/uL Neut # (Auto) (1.4-6.5) K/uL Lymph # (Auto) (1.2-3.4) K/uL Roberts # (Auto) (0.11-0.59) K/uL Eos # (Auto) (0-0.5) K/uL Baso # (Auto) (0-0.2) K/uL PT (9.0-12.0) Seconds INR (0.9-1.1) APTT (21.0-31.0) Seconds PTT Ratio Sodium (136-145) mmol/L Potassium (3.5-5.1) mmol/L Chloride (98-107) mmol/L Carbon Dioxide (21-32) mmol/L Anion Gap (3-11) BUN (7-18) mg/dl Creatinine (0.6-1.2) mg/dl Est Cr Clr Drug Dosing ml/min Est GFR ( Amer) Est GFR (Non-Af Amer) BUN/Creatinine Ratio (10-20) Glucose (70-99) mg/dl Lactate (0.4-2.0) mmol/L Calcium (8.5-10.1) mg/dl Magnesium (1.8-2.4) mg/dl Total Bilirubin (0.2-1) mg/dl AST (15-37) U/L ALT (12-78) U/L Alkaline Phosphatase (45-117) U/L Total Protein (6.4-8.2) gm/dl Albumin (3.4-5.0) gm/dl Globulin (2.5-4.0) gm/dl Albumin/Globulin Ratio (0.9-2) Procalcitonin (0-0.5) ng/ml HCG, Quant mIU/ml Urine Color Yellow Urine Appearance Clear (Clear) Urine pH 6.5 (4.5-7.5) Ur Specific [place] 1.006 (1.000-1.030) Urine Protein Negative (Negative) Urine Glucose (UA) Negative (Negative) Urine Ketones Trace H (Negative) Urine Blood Negative (Negative) Urine Nitrite Negative (Negative) Urine Bilirubin Negative (Negative) Urine Urobilinogen Negative (Negative) Ur Leukocyte Esterase Trace H (Negative) Urine WBC (Auto) 1-5 (0-5) /hpf Urine RBC (Auto) 0-4 (0-4) /hpf U Hyaline Cast (Auto) 0 (0-5) /lpf U Epithel Cells (Auto) 10-20 H (0-5) /lpf Urine Bacteria (Auto) Negative (Negative) CSF Appearance Clear CSF Color Colorless Xanthrochromic No xanthochromia CSF WBC 0 (0-5) /uL CSF RBC 0 (0-) /uL CSF Cell Count Tube # 3 CSF Chemistry Tube # CSF Glucose (40-70) mg/dl CSF Total Protein (15-45) mg/dl CSF C.neoform/gat PCR (NotDetected) CSF CMV DNA (PCR) (NotDetected) CSF Enterovirus (PCR) (NotDetected) CSF E. coli K1 (PCR) (NotDetected) CSF H. influenzae (PCR) (NotDetected) CSF HSV I (PCR) (NotDetected) CSF HSV II (PCR) (NotDetected) CSF HHV 6 (PCR) (NotDetected) CSF L.monocytogenes PCR (NotDetected) CSF N. meningitidis PCR (NotDetected) CSF Parechovirus (PCR) (NotDetected) CSF S. agalactiae (PCR) (NotDetected) CSF S. pneumoniae (PCR) (NotDetected) CSF VZV DNA (PCR) (NotDetected) Influenza Type A (PCR) Neg for Influ A (Neg) Influenza Type B (PCR) Neg for Influ B (Neg) 03/21/19 03/21/19 03/21/19 Range/Units 21:58 21:58 21:58 WBC (4.8-10.8) K/uL RBC (4.2-5.4) M/uL Hgb (12.0-16.0) g/dL Hct (37-47) % MCV (80-100) fL MCH (25-34) pg MCHC (32-36) g/dL RDW Std Deviation (36.4-46.3) fL RDW Coeff of Rosio (11.5-14.5) % Plt Count (130-400) K/uL MPV (7.4-10.4) fL Immature Gran % (Auto) % Neut % (Auto) % Lymph % (Auto) % Roberts % (Auto) % Eos % (Auto) % Baso % (Auto) % Immature Gran # (Auto) (0.00-0.02) K/uL Neut # (Auto) (1.4-6.5) K/uL Lymph # (Auto) (1.2-3.4) K/uL Roberts # (Auto) (0.11-0.59) K/uL Eos # (Auto) (0-0.5) K/uL Baso # (Auto) (0-0.2) K/uL PT (9.0-12.0) Seconds INR (0.9-1.1) APTT (21.0-31.0) Seconds PTT Ratio Sodium (136-145) mmol/L Potassium (3.5-5.1) mmol/L Chloride (98-107) mmol/L Carbon Dioxide (21-32) mmol/L Anion Gap (3-11) BUN (7-18) mg/dl Creatinine (0.6-1.2) mg/dl Est Cr Clr Drug Dosing ml/min Est GFR ( Amer) Est GFR (Non-Af Amer) BUN/Creatinine Ratio (10-20) Glucose (70-99) mg/dl Lactate (0.4-2.0) mmol/L Calcium (8.5-10.1) mg/dl Magnesium (1.8-2.4) mg/dl Total Bilirubin (0.2-1) mg/dl AST (15-37) U/L ALT (12-78) U/L Alkaline Phosphatase (45-117) U/L Total Protein (6.4-8.2) gm/dl Albumin (3.4-5.0) gm/dl Globulin (2.5-4.0) gm/dl Albumin/Globulin Ratio (0.9-2) Procalcitonin (0-0.5) ng/ml HCG, Quant mIU/ml Urine Color Urine Appearance (Clear) Urine pH (4.5-7.5) Ur Specific [place] (1.000-1.030) Urine Protein (Negative) Urine Glucose (UA) (Negative) Urine Ketones (Negative) Urine Blood (Negative) Urine Nitrite (Negative) Urine Bilirubin (Negative) Urine Urobilinogen (Negative) Ur Leukocyte Esterase (Negative) Urine WBC (Auto) (0-5) /hpf Urine RBC (Auto) (0-4) /hpf U Hyaline Cast (Auto) (0-5) /lpf U Epithel Cells (Auto) (0-5) /lpf Urine Bacteria (Auto) (Negative) CSF Appearance CSF Color Xanthrochromic CSF WBC (0-5) /uL CSF RBC (0-) /uL CSF Cell Count Tube # CSF Chemistry Tube # 1 CSF Glucose 54 (40-70) mg/dl CSF Total Protein 34.0 Cancelled (15-45) mg/dl CSF C.neoform/gat PCR Not Detected (NotDetected) CSF CMV DNA (PCR) Not Detected (NotDetected) CSF Enterovirus (PCR) Not Detected (NotDetected) CSF E. coli K1 (PCR) Not Detected (NotDetected) CSF H. influenzae (PCR) Not Detected (NotDetected) CSF HSV I (PCR) Not Detected (NotDetected) CSF HSV II (PCR) Not Detected (NotDetected) CSF HHV 6 (PCR) Not Detected (NotDetected) CSF L.monocytogenes PCR Not Detected (NotDetected) CSF N. meningitidis PCR Not Detected (NotDetected) CSF Parechovirus (PCR) Not Detected (NotDetected) CSF S. agalactiae (PCR) Not Detected (NotDetected) CSF S. pneumoniae (PCR) Not Detected (NotDetected) CSF VZV DNA (PCR) Not Detected (NotDetected) Influenza Type A (PCR) (Neg) Influenza Type B (PCR) (Neg) ECG Data Attestation: I personally reviewed and interpreted this ECG as follows: Indication: + other (sepsis) Rate (beats per minute): 93 Rhythm: + normal sinus ECG Intervals/blocks: + Normal QT-c (440) ECG Raymond: + Normal ECG ST segments: no ST depression and no ST elevation ECG Findings: no PACs and no PVCs Blood Pressure Blood Pressure Findings: Normal blood pressure Blood Pressure Disposition: did not require urgent referral MDM Narrative This is a 28-year-old female immunocompromise who presents the emergency department complaining of fever at home. The patient does not have an elevation in her white blood cell count has a normal renal profile has a normal liver profile. Her flu swab here is negative. The patient was given Tylenol Compazin e Benadryl magnesium for her pain. Repeat examination revealed improvement the patient's symptoms. The patient did consent to a lumbar puncture as she is having a severe headache along with neck pain and back pain. Lumbar puncture does not show any evidence of infection. She was started on prophylactic IV Rocephin as well as vancomycin. Due to the patient's immunocompromise state I did discuss the case with the hospitalist service who did agree to admit the patient. Patient family were in agreement with the treatment plan. Impression & Plan Fever, Headache Discharge Plan Visit Data Chief Complaint: Fever Stated Complaint: FEVER, NECK PAIN ED Provider: Zbigniew Wing Discharge Problem: Fever, Headache Patient Disposition: Being Evaluated by Hospitalist Forms Stand Alone Forms: My [facility] Prescriptions Prescriptions: No Action sumatriptan succinate 50 mg tablet 50 mg PO DIRECTED MDD 200 MG/DAY PRN (Reason: Migraine Headache) RF: 0 methotrexate sodium 25 mg/mL solution 17.5 mg subcut WK RF: 0 famotidine 20 mg tablet 40 mg PO HS RF: 0 amitriptyline 10 mg tablet 10 mg PO HS RF: 0 promethazine 25 mg tablet 25 mg PO Q6H PRN (Reason: Nausea And Vomiting) RF: 0 fluticasone propionate 50 mcg/actuation spray,suspension 2 spray INTRANASAL DAILY PRN (Reason: Allergy Symptoms) RF: 0 oxycodone 5 mg tablet 5 mg PO DAILY PRN (Reason: Chronic Pain (Crohn's)) RF: 0 Amitiza 8 mcg capsule 8 mcg PO QAM RF: 0 Stelara 90 mg/mL syringe 90 mg SUBCUT Q8WK RF: 0 ondansetron HCl [Zofran] 4 mg tablet 4 mg PO Q6H PRN (Reason: Nausea And Vomiting) RF: 0 medroxyprogesterone 150 mg/mL syringe 150 mg IM DIRECTED RF: 0 Women's Multivitamin Gummies 200 mcg Tablet,Chewable 400 mcg PO HS RF: 0 pantoprazole 40 mg Tablet,Delayed Release (Dr/Ec) 40 mg PO QAM RF: 0 folic acid 1 mg tablet 1 mg PO QAM RF: 0 Referrals Referrals: Shantanu Taylor [Primary Care Provider] - Discharge Problem: Fever Qualifiers: Fever type: unspecified Qualified Code(s): R50.9 - Fever, unspecified Headache Qualifiers: Headache type: unspecified Headache chronicity pattern: unspecified pattern Intractability: not intractable Qualified Code(s): R51 - Headache The cesar's documentation has been prepared under my direction and personally reviewed by me in its entirety. I confirm that the note above accurately reflects all work, treatment, procedures, and medical decision making performed by me.
--- NOTE | 2019-03-22 02:03 | History & Physical Report ---
Date of Service March 22, 2019 Assessment & Plan (1) Fever: Ana is a 28-year-old female with past medical history of Crohn's colitis immunosuppressed due to methotrexate and Stelara treatment who presents with several weeks of intermittent seeded by cold-like symptoms. Fever of unknown origin in an immune compromised host Symptoms for approximately 1 month, preceded by URI symptoms which have improved. Patient continues to have intermittent fevers and global body aches. Intermittent fever from 99 F to 102 F Febrile on admission Chest x-ray without acute processes Patient report of some headaches and photosensitivity LP performed in ED. Opening pressure normal. CSF analysis unremarkable. Viral serologies pending. Blood cultures drawn Patient cannot take Tylenol due to pending liver biopsy Patient cannot take NSAIDs due to Crohn's colitis Pain management with morphine scale 2 to 4 mg based on pain. If inadequate control, convert to hydromorphone 0.5 mg to 1 mg. Continue Rocephin 2 g daily, vancomycin Defer antiviral therapy at this time CBC, BMP daily Crohn's colitis Stable Methotrexate not due until end of week, Stelara not due at this time Continue folic acid supplementation Continue famotidine 40 mg p.o. at bedtime, continue Protonix 40 mg every morning, continue lubiprostone 8 mcg p.o. every morning Zofran, Phenergan for nausea control PRN Headaches Continue amitriptyline 10 mg p.o. at bedtime Diet: Regular DVT prophylaxis: Ambulate, SCDs Disposition: MedSur (2) Headache: (3) Crohn's disease of colon: (4) Crohn's colitis: (5) History of asthma: (6) Immunosuppression due to drug therapy: History of Present Illness Chief Complaint: Fever, aches Primary Care Provider: Shantanu Taylor Efraín is a 28-year-old female with a history of Crohn's on Stelara and methotrexate who presents with several weeks of fever in the setting of immune compromise. Bill is a longstanding history of Crohn's treated with methotrexate weekly and Stelara every 8 weeks. She reports around [place] time she developed cold- like symptoms including congestion, cough, and body aches which initially improved but after her methotrexate treatment a week later came back and have intermittently occurred over the last month. She reports she has had fevers between 99 degrees and 102 degrees since that time. Today she felt like she got to the point where she just could not take it, and her whole body and joints ached. She also had a stiff neck and felt exhausted. She has had increased h eadaches with some sensitivity to light. She baseline has intermittent diarrhea, constipation, and nausea which are unchanged from prior. She has appreciated some numbness and tingling in her feet/toes bilaterally, otherwise no sensory changes. Denies current cold-like symptoms including congestion, sinus pain, and dysuria. 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 Medical history: As above, reviewed in EMR Surgical history: Reviewed in EMR Allergies: Iron, Venofer, NSAIDs. Currently unable to take Tylenol as she is pending a liver biopsy. Family history: Reviewed Social: No current or former tobacco use. No EtoH use. Medical marijuana intermittently. CODE STATUS: Full code Allergies Allergy/AdvReac Type Severity Reaction Status Date / Time iron Allergy Severe JOINT Verified 03/21/19 19:50 PAIN/SWELLING/DIARRHEA Venofer Allergy Severe JOINT Unverified 04/26/16 11:30 PAIN/SWELLING/DIARRHEA NSAIDS (Non-Steroidal AdvReac Unknown Crohn's Verified 03/21/19 19:50 Anti-Inflamma Disease Home Medications Home Medications Medication Instructions Recorded Confirmed Type folic acid 1 mg PO QAM 03/30/18 03/21/19 History pantoprazole 40 mg PO QAM 03/30/18 03/21/19 History amitriptyline 10 mg PO HS 02/21/19 03/21/19 History famotidine 40 mg PO HS 02/21/19 03/21/19 History fluticasone propionate 2 spray INTRANASAL DAILY PRN 02/21/19 03/21/19 History lubiprostone [Amitiza] 8 mcg PO QAM 02/21/19 03/21/19 History medroxyprogesterone 150 mg IM DIRECTED 02/21/19 03/21/19 History methotrexate sodium 17.5 mg SUBCUT WK 02/21/19 03/21/19 History ondansetron HCl [Zofran] 4 mg PO Q6H PRN 02/21/19 03/21/19 History oxycodone 5 mg PO DAILY PRN 02/21/19 03/21/19 History promethazine 25 mg PO Q6H PRN 02/21/19 03/21/19 History sumatriptan succinate 50 mg PO DIRECTED PRN MDD 200 02/21/19 03/21/19 History MG/DAY ustekinumab [Stelara] 90 mg SUBCUT Q8WK 02/21/19 03/21/19 History multivit with min-folic acid 400 mcg PO HS 03/21/19 03/21/19 History [Women's Multivitamin Gummies] Past Med/Surg History Medical History (Updated 03/22/19 @ 02:29 by Bib Muse MD) Allergic rhinitis (Chronic) Crohn's disease of colon (Chronic) H/O Clostridium difficile infection (Chronic) History of asthma (Chronic) "during childhood" Immunosuppression due to drug therapy Surgical History H/O colonoscopy (Resolved) "09/26/2014- Endoscopically quiescent Crohn's disease with pseudopolyps from sigmoid to transverse colon and with scarring at a patulous ileocecal valve.The examined portion of the ileum was normal." H/O esophagogastroduodenoscopy (Resolved) "09/26/2014- Monilial esophagitis. Normal stomach and duodenum. " S/P cholecystectomy (Resolved) S/P ORIF (open reduction internal fixation) fracture (Resolved) "wrist" S/P tonsillectomy (Resolved) Family History Grandmother (Maternal) Breast cancer Aunt Cervical cancer Maternal Ovarian cancer Maternal Grandfather (Paternal) Colorectal cancer Mother Mitral valve prolapse Social History Preferred Language: Estonian Communication Ability: Effective Web Press Jogger Required: No Beliefs That Will Affect Care: None Current Living Situation: Significant Other Current Living Situation Comment: fiance Feels Safe at Home: Yes Safety Concerns: Feels Safe At This Time Smoking Status: Never smoker Second Hand Exposure: Yes (mother smokes) ; Hx Alcohol Use: No Hx Substance Use: No Review of Systems Review of Systems: All systems reviewed & are unremarkable except as noted in HPI & below Physical Exam Physical Exam: General: A&Ox3. NAD. Cooperative.Skin warm and moist. HEENT: Atraumatic, normocephalic. Pulm: CTAB A&P. -wheezes, -rales, -rhonchi. Symmetrical chest rise. No increase work of breathing. No respiratory distress. Cardiac: RRR, -mrg. Radial pulses intact and symmetrical. Abdominal: Nontender, nondistended, soft. BS present. Kernig/Brudzinski's negative.Neck supple. CN II: Visual [place] are full to confrontation. Pupils are equal and react to light and accomidation. Visual acuity grossly intact. CN III, IV, : At primary gaze, there is no eye deviation. EoM intact without nystagmus. No visual field cuts. CN V: Facial sensation is intact to soft touch in all 3 divisions bilaterally. CN VII: No facial asymmetry CN VII: Hearing is grossly intact. CN IX, X: Phonation is normal without dysarthria. CN XI: Head turning intact CN XII: Tongue protrudes midline. Sensory: Light touch, pinprick intact in upper and low extremities without deficit or asymmetry. Strength: RUE: Shoulder flexion/extension/internal rotation/external rotation, elbow fle xion/extension, finger flexion/extension, card sorter strength, interosseous 5/5 LUE: Shoulder flexion/extension/internal rotation/external rotation, elbow flexion/extension, finger flexion/extension, card sorter strength, interosseous 5/5 RLE: Hip flexion, knee flexion/extension, ankle plantar flexion/dorsiflexion 5/5 LLE: Hip flexion, knee flexion/extension, ankle plantar flexion/dorsiflexion 5/5 Results & Data Vital Signs (Past 12 Hours) Vital Signs Temp Pulse Pulse Resp BP BP Pulse Ox 03/22/19 01:01 90 14 03/22/19 01:00 97 H 13 125/81 03/22/19 00:46 91 H 17 03/22/19 00:45 98 H 15 123/77 03/22/19 00:31 84 16 03/22/19 00:30 84 20 123/85 03/22/19 00:15 108 H 17 03/22/19 00:00 100 H 16 03/21/19 23:47 101 H 22 03/21/19 23:31 86 15 97 03/21/19 23:30 87 17 128/78 98 03/21/19 23:16 87 18 97 03/21/19 23:15 103 H 20 123/71 98 03/21/19 23:01 96 H 17 97 03/21/19 23:00 95 H 20 120/73 97 03/21/19 22:46 93 H 20 98 03/21/19 22:45 92 H 21 119/69 98 03/21/19 22:31 104 H 15 99 03/21/19 22:30 102 H 22 133/78 100 03/21/19 22:16 102 H 16 99 03/21/19 22:15 93 H 24 127/72 99 03/21/19 22:06 101 H 19 100 03/21/19 22:05 99 H 14 141/97 H 100 03/21/19 22:04 107 H 25 H 03/21/19 21:46 111 H 19 03/21/19 21:45 98 H 23 119/84 03/21/19 21:34 103 H 18 03/21/19 21:30 102 H 22 131/90 03/21/19 21:16 105 H 16 03/21/19 21:15 106 H 17 138/94 03/21/19 21:01 103 H 18 03/21/19 21:00 100 H 14 142/78 H 03/21/19 20:50 102 H 24 03/21/19 20:49 99 H 17 148/89 H 03/21/19 20:48 102 H 14 03/21/19 20:41 98 H 16 100 03/21/19 20:30 99 H 17 127/83 100 03/21/19 20:00 87 20 133/78 98 03/21/19 19:55 98 03/21/19 19:45 86 18 138/81 98 03/21/19 19:15 37.5 C 03/21/19 18:57 99 03/21/19 18:40 37.4 C 116 H 20 134/80 100 Supervising Physician Co-Signing Physician Notes Patient was seen and examined by me personally. I reviewed the chart, the orders and discussed the case in detail with Dr. Bib Muse MD . I read this H&P and agree with its contents to entirety. Resident Activity Tracking Resident Involvement: Resident Care Provided Care Provided: Adult Hospital Medicine (1) Fever Fever type: unspecified Qualified Code(s): R50.9 - Fever, unspecified (2) Headache Headache chronicity pattern: unspecified pattern Headache type: unspecified Intractability: not intractable Qualified Code(s): R51 - Headache
[2019-03-22] MEDS ORDERED: FLUTICASONE PROPIONATE NA SPR 16 GM BTL PRN (02:38)
[2019-03-22] MEDS ORDERED: MoRPHine SULFATE 2 MG/ML CARP IV PRN (02:38)
[2019-03-22] MEDS ORDERED: VANCOMYCIN CONSULT ACTIVE PRN (02:38)
[2019-03-22] MEDS ORDERED: PROMETHAZINE HCL 25 MG TAB PO PRN (02:38)
[2019-03-22] MEDS: MoRPHine SULFATE 4 MG/ML 1 ML CARP\\VIAL IV PRN ×3 (03:06→14:43)
--- NOTE | 2019-03-22 06:04 | Billing Data ---
Date of Service March 22, 2019 Coding Level of Care Code 71619 Initial Inpt Care Lvl 3
[2019-03-22] MEDS: ONDANSETRON 4 MG OD TAB PO PRN ×2 (06:44→17:31)
[2019-03-22] MEDS ORDERED: VANCOMYCIN HCL 1,000 MG in SODIUM CHLORIDE 0.9% 250 ML IV SCH (08:00)
[2019-03-22 08:25] LABS: Creatinine Clr Calc Pharmacy 100.1 ml/min; Est GFR (African American) 138.1; Est GFR (Non-African American) 119.1
[2019-03-22] MEDS: PANTOprazole 40 MG TAB PO SCH (08:35)
[2019-03-22] MEDS: LUBIPROSTONE 8 MCG CAP PO SCH (08:35)
[2019-03-22] MEDS: FOLIC ACID 1 MG TAB PO SCH (08:35)
[2019-03-22] MEDS ORDERED: HYDROmorphone INJ 0.5 MG/0.5 ML SYR IV STA (09:21)
--- NOTE | 2019-03-22 11:35 | Electrocardiogram Report ---
Test Reason : Blood Pressure : / mmHG Vent. Rate : 093 BPM Atrial Rate : 093 BPM P-R Int : 152 ms QRS Dur : 070 ms QT Int : 354 ms P-R-T Axes : 073 032 046 degrees QTc Int : 440 ms Normal sinus rhythm Possible Left atrial enlargement Borderline ECG When compared with ECG of 21-FEB-2019 22:25, No significant change was found Confirmed by Peterson Washburn ([id number]) on 03/22/2019 11:35:27 AM Referred By: REFERRED SELF Confirmed By:Peterson Washburn
--- NOTE | 2019-03-22 14:00 | Pharmacy Report ---
Pharmacy Abx Initial Consult - Date of Service March 22, 2019 - Pharmacy Dosing Scope Date of Consult: 03/21 Consultation requested by: Dr. Muse Pharmacy is consulted to initiate vancomcyin IV dosing therapy, order appropriate labs and adjust drug dose/frequency. - Subjective The patient is a 28 year old F admitted on 03/22/19 02:04. - Objective Height: 5 ft 2 in Weight: 54.1 kg Vital Signs (Past 12hrs): Vital Signs Temp Pulse Resp BP BP Pulse Ox 03/22/19 12:15 36.9 C 95 H 16 122/78 94 03/22/19 07:00 36.9 C 91 H 16 123/76 97 03/22/19 02:42 36.9 C 98 H 18 131/85 99 Lab Results (24hrs): Laboratory Tests (24 Hours) 03/22/19 03/21/19 03/21/19 07:36 19:31 19:31 WBC 9.36 Neut # (Auto) 6.40 Creatinine 0.65 0.73 Est Cr Clr Drug Dosing 100.1 89.1 Procalcitonin 03/21/19 19:31 WBC Neut # (Auto) Creatinine Est Cr Clr Drug Dosing Procalcitonin < 0.05 Micro Results: 03/21/19 21:58 Gram Stain - Final Cerebral Spinal Fluid 03/21/19 19:53 Aerobic Blood Culture - Pending Blood Anaerobic Blood Culture - Pending 03/21/19 19:31 Aerobic Blood Culture - Pending Blood Anaerobic Blood Culture - Pending - Risk Factors for Resistance * Immunocompromised - Assessment & Plan Assessment 28 year old female admitted with fever/neck pain - Started empirically on vancomycin and rocephin. Blood cultures x 2 are pending. CSF no growth. Negative flu Plan Vancomycin IV * Received loading dose of vancomycin 1250 mg x 1 in the ED last evening * Started on vancomycin 1000 mg iv q 12 hrs initially - however Scr improving more today ; will adjust to vancomycin 750 mg iv q 8 hrs based upon Vancomycin AUC nomogram * Estimated to achieve an AUC/JANY of 643 * AUC guided dosing is effective and associated with decreased risk of nephrotoxicity Pharmacy will continue to follow and will adjust dose/frequency as necessary. Thank you.
[2019-03-22] MEDS: VANCOMYCIN HCL 750 MG in SODIUM CHLORIDE 0.9% 250 ML IV SCH ×2 (16:05→23:28)
[2019-03-22] MEDS: HYDROmorphone INJ 0.5 MG/0.5 ML SYR IV PRN ×2 (17:32→22:09)
--- NOTE | 2019-03-22 17:47 | Hospitalist Progress Note ---
Date of Service March 22, 2019 Assessment & Plan (1) Fever: Ms. Del Cid is a 28y/o F with PMH of Crohn's colitis immunosuppressed due to methotrexate and Stelara treatment who presents with several weeks of intermittent seeded by cold-like symptoms. Fever: - unknown origin in an immune compromised host, Symptoms for approximately 1 month, preceded by URI symptoms which have improved. Patient continues to have intermittent fevers and global body aches; Intermittent fever from 99 F to 102 F - afebrile throughout the day - Patient report of some headaches and photosensitivity - LP performed in ED. Opening pressure normal. CSF analysis unremarkable, serologies negative - Blood cultures drawn - Patient cannot take Tylenol due to pending liver biopsy - Patient cannot take NSAIDs due to Crohn's colitis - Pain management with Dilaudid 0.5mg Q6h - Continue Rocephin 2 g daily, vancomycin Abdominal pain: - R flank pain throughout the day, with CVA tenderness, no suprapubic tenderness - known history of kidney stones, with similar pain - UA unremarkable - CT Abdomen/Pelvis ordered Crohn's colitis: - Stable; Methotrexate not due until end of week, Stelara not due at this time - Continue folic acid supplementation, famotidine 40 mg p.o. at bedtime, continue Protonix 40 mg every morning, continue lubiprostone 8 mcg p.o. every morning - Zofran, Phenergan IV nausea control Headaches: Continue amitriptyline 10 mg p.o. at bedtime Diet: Regular DVT prophylaxis: Ambulate, SCDs Disposition: [facility] (2) Headache: (3) Crohn's disease of colon: (4) History of asthma: (5) Immunosuppression due to drug therapy: (6) Abdominal pain: Admission and Anticipated Discharge Date Admission Date: March 22, 2019 Supervising Physician Co-Signing Physician Notes Resident Physician Supervision Note: I independently interviewed and examined the patient and verified the lopez history and physical, reviewed labs and image studies, discussed the case with the resident Dr. Stanley and agree with the findings and care plan. Subjective Patient continues to have occasional headaches, that more of a banding in front of head with continued pressure; the neck stiffness that was previously present seems to have gone away at this point in time. Having some abdominal discomfort, that she is unsure if this had been present the entire time, or if new; mostly right sided. Previously had kidney stones that felt similarly. Previously had her gallbladder removed, but still does have her appendix. Pain well controlled with medications. Review of Systems Constitutional: no fever, no chills and no sweats Eyes: no blind spots, no diplopia and no spots in vision Ear, Nose, Mouth, Throat: no nasal congestion, no nasal discharge and no post nasal drip Respiratory: no cough, no dyspnea and no wheezing Cardiovascular: no chest pain, no palpitations and no edema Gastrointestinal: + abdominal pain, + nausea and + vomiting Genitourinary: + urinary frequency; no dysuria, no urinary hesitancy, no urinary urgency and no urinary incontinence Physical Exam Constitutional: WD/WN, vitals as above Eyes: PERRL, conjunctivae normal, anicteric sclerae Respiratory: normal respiratory effort, lungs clear to auscultation Cardiovascular: Rate/Rhythm: regular rate and regular rhythm Heart Sounds: normal S1 and normal S2; no gallop, no murmur and no cardiac rub Gastrointestinal (Abdomen): Percussion/Palpation: + abdomen tender (RLQ) and abdomen soft; no guarding and no hepatosplenomegaly R CVA tenderness Results & Data ([facility]) Vital Signs (Past 12 Hours) Vital Signs Temp Pulse Resp BP Pulse Ox 03/22/19 14:20 36.9 C 98 H 16 145/77 H 96 03/22/19 12:15 36.9 C 95 H 16 122/78 94 03/22/19 07:00 36.9 C 91 H 16 123/76 97 Laboratory Results 03/22/19 03/21/19 03/21/19 Range/Units 07:36 21:58 21:58 WBC (4.8-10.8) K/uL RBC (4.2-5.4) M/uL Hgb (12.0-16.0) g/dL Hct (37-47) % MCV (80-100) fL MCH (25-34) pg MCHC (32-36) g/dL RDW Std Deviation (36.4-46.3) fL RDW Coeff of Rosio (11.5-14.5) % Plt Count (130-400) K/uL MPV (7.4-10.4) fL Immature Gran % (Auto) % Neut % (Auto) % Lymph % (Auto) % Maury % (Auto) % Eos % (Auto) % Baso % (Auto) % Immature Gran # (Auto) (0.00-0.02) K/uL Neut # (Auto) (1.4-6.5) K/uL Lymph # (Auto) (1.2-3.4) K/uL Maury # (Auto) (0.11-0.59) K/uL Eos # (Auto) (0-0.5) K/uL Baso # (Auto) (0-0.2) K/uL PT (9.0-12.0) Seconds INR (0.9-1.1) APTT (21.0-31.0) Seconds PTT Ratio Sodium (136-145) mmol/L Potassium (3.5-5.1) mmol/L Chloride (98-107) mmol/L Carbon Dioxide (21-32) mmol/L Anion Gap (3-11) BUN (7-18) mg/dl Creatinine 0.65 (0.6-1.2) mg/dl Est Cr Clr Drug Dosing 100.1 ml/min Est GFR ( Amer) 138.1 Est GFR (Non-Af Amer) 119.1 BUN/Creatinine Ratio (10-20) Glucose (70-99) mg/dl Lactate (0.4-2.0) mmol/L Calcium (8.5-10.1) mg/dl Magnesium (1.8-2.4) mg/dl Total Bilirubin (0.2-1) mg/dl AST (15-37) U/L ALT (12-78) U/L Alkaline Phosphatase (45-117) U/L Total Protein (6.4-8.2) gm/dl Albumin (3.4-5.0) gm/dl Globulin (2.5-4.0) gm/dl Albumin/Globulin Ratio (0.9-2) Procalcitonin (0-0.5) ng/ml HCG, Quant mIU/ml Urine Color Urine Appearance (Clear) Urine pH (4.5-7.5) Ur Specific [place] (1.000-1.030) Urine Protein (Negative) Urine Glucose (UA) (Negative) Urine Ketones (Negative) Urine Blood (Negative) Urine Nitrite (Negative) Urine Bilirubin (Negative) Urine Urobilinogen (Negative) Ur Leukocyte Esterase (Negative) Urine WBC (Auto) (0-5) /hpf Urine RBC (Auto) (0-4) /hpf U Hyaline Cast (Auto) (0-5) /lpf U Epithel Cells (Auto) (0-5) /lpf Urine Bacteria (Auto) (Negative) CSF Appearance CSF Color Xanthrochromic CSF WBC (0-5) /uL CSF RBC (0-) /uL CSF Cell Count Tube # CSF Chemistry Tube # CSF Glucose (40-70) mg/dl CSF LDH CSF Total Protein Cancelled (15-45) mg/dl CSF Lyme IgG (Immblot) CSF Lyme IgG Bands Det CSF Lyme IgM (Immblot) CSF Lyme IgM Bands Det CSF C.neoform/gat PCR Not Detected (NotDetected) CSF CMV DNA (PCR) Not Detected (NotDetected) CSF Enterovirus (PCR) Not Detected (NotDetected) CSF E. coli K1 (PCR) Not Detected (NotDetected) CSF H. influenzae (PCR) Not Detected (NotDetected) CSF HSV I (PCR) Not Detected (NotDetected) CSF HSV II (PCR) Not Detected (NotDetected) CSF HHV 6 (PCR) Not Detected (NotDetected) CSF L.monocytogenes PCR Not Detected (NotDetected) CSF N. meningitidis PCR Not Detected (NotDetected) CSF Parechovirus (PCR) Not Detected (NotDetected) CSF S. agalactiae (PCR) Not Detected (NotDetected) CSF S. pneumoniae (PCR) Not Detected (NotDetected) CSF VZV DNA (PCR) Not Detected (NotDetected) Herpes Virus Source HSV I DNA PCR HSV II DNA PCR Influenza Type A (PCR) (Neg) Influenza Type B (PCR) (Neg) 03/21/19 03/21/19 03/21/19 Range/Units 21:58 21:58 21:58 WBC (4.8-10.8) K/uL RBC (4.2-5.4) M/uL Hgb (12.0-16.0) g/dL Hct (37-47) % MCV (80-100) fL MCH (25-34) pg MCHC (32-36) g/dL RDW Std Deviation (36.4-46.3) fL RDW Coeff of Rosio (11.5-14.5) % Plt Count (130-400) K/uL MPV (7.4-10.4) fL Immature Gran % (Auto) % Neut % (Auto) % Lymph % (Auto) % Maury % (Auto) % Eos % (Auto) % Baso % (Auto) % Immature Gran # (Auto) (0.00-0.02) K/uL Neut # (Auto) (1.4-6.5) K/uL Lymph # (Auto) (1.2-3.4) K/uL Maury # (Auto) (0.11-0.59) K/uL Eos # (Auto) (0-0.5) K/uL Baso # (Auto) (0-0.2) K/uL PT (9.0-12.0) Seconds INR (0.9-1.1) APTT (21.0-31.0) Seconds PTT Ratio Sodium (136-145) mmol/L Potassium (3.5-5.1) mmol/L Chloride (98-107) mmol/L Carbon Dioxide (21-32) mmol/L Anion Gap (3-11) BUN (7-18) mg/dl Creatinine (0.6-1.2) mg/dl Est Cr Clr Drug Dosing ml/min Est GFR ( Amer) Est GFR (Non-Af Amer) BUN/Creatinine Ratio (10-20) Glucose (70-99) mg/dl Lactate (0.4-2.0) mmol/L Calcium (8.5-10.1) mg/dl Magnesium (1.8-2.4) mg/dl Total Bilirubin (0.2-1) mg/dl AST (15-37) U/L ALT (12-78) U/L Alkaline Phosphatase (45-117) U/L Total Protein (6.4-8.2) gm/dl Albumin (3.4-5.0) gm/dl Globulin (2.5-4.0) gm/dl Albumin/Globulin Ratio (0.9-2) Procalcitonin (0-0.5) ng/ml HCG, Quant mIU/ml Urine Color Urine Appearance (Clear) Urine pH (4.5-7.5) Ur Specific [place] (1.000-1.030) Urine Protein (Negative) Urine Glucose (UA) (Negative) Urine Ketones (Negative) Urine Blood (Negative) Urine Nitrite (Negative) Urine Bilirubin (Negative) Urine Urobilinogen (Negative) Ur Leukocyte Esterase (Negative) Urine WBC (Auto) (0-5) /hpf Urine RBC (Auto) (0-4) /hpf U Hyaline Cast (Auto) (0-5) /lpf U Epithel Cells (Auto) (0-5) /lpf Urine Bacteria (Auto) (Negative) CSF Appearance CSF Color Xanthrochromic CSF WBC (0-5) /uL CSF RBC (0-) /uL CSF Cell Count Tube # CSF Chemistry Tube # 1 CSF Glucose 54 (40-70) mg/dl CSF LDH Pending CSF Total Protein 34.0 (15-45) mg/dl CSF Lyme IgG (Immblot) Pending CSF Lyme IgG Bands Det Pending CSF Lyme IgM (Immblot) Pending CSF Lyme IgM Bands Det Pending CSF C.neoform/gat PCR (NotDetected) CSF CMV DNA (PCR) (NotDetected) CSF Enterovirus (PCR) (NotDetected) CSF E. coli K1 (PCR) (NotDetected) CSF H. influenzae (PCR) (NotDetected) CSF HSV I (PCR) (NotDetected) CSF HSV II (PCR) (NotDetected) CSF HHV 6 (PCR) (NotDetected) CSF L.monocytogenes PCR (NotDetected) CSF N. meningitidis PCR (NotDetected) CSF Parechovirus (PCR) (NotDetected) CSF S. agalactiae (PCR) (NotDetected) CSF S. pneumoniae (PCR) (NotDetected) CSF VZV DNA (PCR) (NotDetected) Herpes Virus Source HSV I DNA PCR HSV II DNA PCR Influenza Type A (PCR) (Neg) Influenza Type B (PCR) (Neg) 03/21/19 03/21/19 03/21/19 Range/Units 21:58 21:58 20:00 WBC (4.8-10.8) K/uL RBC (4.2-5.4) M/uL Hgb (12.0-16.0) g/dL Hct (37-47) % MCV (80-100) fL MCH (25-34) pg MCHC (32-36) g/dL RDW Std Deviation (36.4-46.3) fL RDW Coeff of Rosio (11.5-14.5) % Plt Count (130-400) K/uL MPV (7.4-10.4) fL Immature Gran % (Auto) % Neut % (Auto) % Lymph % (Auto) % Maury % (Auto) % Eos % (Auto) % Baso % (Auto) % Immature Gran # (Auto) (0.00-0.02) K/uL Neut # (Auto) (1.4-6.5) K/uL Lymph # (Auto) (1.2-3.4) K/uL Maury # (Auto) (0.11-0.59) K/uL Eos # (Auto) (0-0.5) K/uL Baso # (Auto) (0-0.2) K/uL PT (9.0-12.0) Seconds INR (0.9-1.1) APTT (21.0-31.0) Seconds PTT Ratio Sodium (136-145) mmol/L Potassium (3.5-5.1) mmol/L Chloride (98-107) mmol/L Carbon Dioxide (21-32) mmol/L Anion Gap (3-11) BUN (7-18) mg/dl Creatinine (0.6-1.2) mg/dl Est Cr Clr Drug Dosing ml/min Est GFR ( Amer) Est GFR (Non-Af Amer) BUN/Creatinine Ratio (10-20) Glucose (70-99) mg/dl Lactate (0.4-2.0) mmol/L Calcium (8.5-10.1) mg/dl Magnesium (1.8-2.4) mg/dl Total Bilirubin (0.2-1) mg/dl AST (15-37) U/L ALT (12-78) U/L Alkaline Phosphatase (45-117) U/L Total Protein (6.4-8.2) gm/dl Albumin (3.4-5.0) gm/dl Globulin (2.5-4.0) gm/dl Albumin/Globulin Ratio (0.9-2) Procalcitonin (0-0.5) ng/ml HCG, Quant mIU/ml Urine Color Yellow Urine Appearance Clear (Clear) Urine pH 6.5 (4.5-7.5) Ur Specific [place] 1.006 (1.000-1.030) Urine Protein Negative (Negative) Urine Glucose (UA) Negative (Negative) Urine Ketones Trace H (Negative) Urine Blood Negative (Negative) Urine Nitrite Negative (Negative) Urine Bilirubin Negative (Negative) Urine Urobilinogen Negative (Negative) Ur Leukocyte Esterase Trace H (Negative) Urine WBC (Auto) 1-5 (0-5) /hpf Urine RBC (Auto) 0-4 (0-4) /hpf U Hyaline Cast (Auto) 0 (0-5) /lpf U Epithel Cells (Auto) 10-20 H (0-5) /lpf Urine Bacteria (Auto) Negative (Negative) CSF Appearance Clear CSF Color Colorless Xanthrochromic No xanthochromia CSF WBC 0 (0-5) /uL CSF RBC 0 (0-) /uL CSF Cell Count Tube # 3 CSF Chemistry Tube # CSF Glucose (40-70) mg/dl CSF LDH CSF Total Protein (15-45) mg/dl CSF Lyme IgG (Immblot) CSF Lyme IgG Bands Det CSF Lyme IgM (Immblot) CSF Lyme IgM Bands Det CSF C.neoform/gat PCR (NotDetected) CSF CMV DNA (PCR) (NotDetected) CSF Enterovirus (PCR) (NotDetected) CSF E. coli K1 (PCR) (NotDetected) CSF H. influenzae (PCR) (NotDetected) CSF HSV I (PCR) (NotDetected) CSF HSV II (PCR) (NotDetected) CSF HHV 6 (PCR) (NotDetected) CSF L.monocytogenes PCR (NotDetected) CSF N. meningitidis PCR (NotDetected) CSF Parechovirus (PCR) (NotDetected) CSF S. agalactiae (PCR) (NotDetected) CSF S. pneumoniae (PCR) (NotDetected) CSF VZV DNA (PCR) (NotDetected) Herpes Virus Source Pending HSV I DNA PCR Pending HSV II DNA PCR Pending Influenza Type A (PCR) (Neg) Influenza Type B (PCR) (Neg) 03/21/19 03/21/19 03/21/19 Range/Units 19:33 19:31 19:31 WBC (4.8-10.8) K/uL RBC (4.2-5.4) M/uL Hgb (12.0-16.0) g/dL Hct (37-47) % MCV (80-100) fL MCH (25-34) pg MCHC (32-36) g/dL RDW Std Deviation (36.4-46.3) fL RDW Coeff of Rosio (11.5-14.5) % Plt Count (130-400) K/uL MPV (7.4-10.4) fL Immature Gran % (Auto) % Neut % (Auto) % Lymph % (Auto) % Maury % (Auto) % Eos % (Auto) % Baso % (Auto) % Immature Gran # (Auto) (0.00-0.02) K/uL Neut # (Auto) (1.4-6.5) K/uL Lymph # (Auto) (1.2-3.4) K/uL Maury # (Auto) (0.11-0.59) K/uL Eos # (Auto) (0-0.5) K/uL Baso # (Auto) (0-0.2) K/uL PT (9.0-12.0) Seconds INR (0.9-1.1) APTT (21.0-31.0) Seconds PTT Ratio Sodium (136-145) mmol/L Potassium (3.5-5.1) mmol/L Chloride (98-107) mmol/L Carbon Dioxide (21-32) mmol/L Anion Gap (3-11) BUN (7-18) mg/dl Creatinine (0.6-1.2) mg/dl Est Cr Clr Drug Dosing ml/min Est GFR ( Amer) Est GFR (Non-Af Amer) BUN/Creatinine Ratio (10-20) Glucose (70-99) mg/dl Lactate 1.1 (0.4-2.0) mmol/L Calcium (8.5-10.1) mg/dl Magnesium (1.8-2.4) mg/dl Total Bilirubin (0.2-1) mg/dl AST (15-37) U/L ALT (12-78) U/L Alkaline Phosphatase (45-117) U/L Total Protein (6.4-8.2) gm/dl Albumin (3.4-5.0) gm/dl Globulin (2.5-4.0) gm/dl Albumin/Globulin Ratio (0.9-2) Procalcitonin (0-0.5) ng/ml HCG, Quant < 1 mIU/ml Urine Color Urine Appearance (Clear) Urine pH (4.5-7.5) Ur Specific [place] (1.000-1.030) Urine Protein (Negative) Urine Glucose (UA) (Negative) Urine Ketones (Negative) Urine Blood (Negative) Urine Nitrite (Negative) Urine Bilirubin (Negative) Urine Urobilinogen (Negative) Ur Leukocyte Esterase (Negative) Urine WBC (Auto) (0-5) /hpf Urine RBC (Auto) (0-4) /hpf U Hyaline Cast (Auto) (0-5) /lpf U Epithel Cells (Auto) (0-5) /lpf Urine Bacteria (Auto) (Negative) CSF Appearance CSF Color Xanthrochromic CSF WBC (0-5) /uL CSF RBC (0-) /uL CSF Cell Count Tube # CSF Chemistry Tube # CSF Glucose (40-70) mg/dl CSF LDH CSF Total Protein (15-45) mg/dl CSF Lyme IgG (Immblot) CSF Lyme IgG Bands Det CSF Lyme IgM (Immblot) CSF Lyme IgM Bands Det CSF C.neoform/gat PCR (NotDetected) CSF CMV DNA (PCR) (NotDetected) CSF Enterovirus (PCR) (NotDetected) CSF E. coli K1 (PCR) (NotDetected) CSF H. influenzae (PCR) (NotDetected) CSF HSV I (PCR) (NotDetected) CSF HSV II (PCR) (NotDetected) CSF HHV 6 (PCR) (NotDetected) CSF L.monocytogenes PCR (NotDetected) CSF N. meningitidis PCR (NotDetected) CSF Parechovirus (PCR) (NotDetected) CSF S. agalactiae (PCR) (NotDetected) CSF S. pneumoniae (PCR) (NotDetected) CSF VZV DNA (PCR) (NotDetected) Herpes Virus Source HSV I DNA PCR HSV II DNA PCR Influenza Type A (PCR) Neg for Influ A (Neg) Influenza Type B (PCR) Neg for Influ B (Neg) 03/21/19 03/21/19 03/21/19 Range/Units 19:31 19:31 19:31 WBC 9.36 (4.8-10.8) K/uL RBC 4.32 (4.2-5.4) M/uL Hgb 13.5 (12.0-16.0) g/dL Hct 39.0 (37-47) % MCV 90.3 (80-100) fL MCH 31.3 (25-34) pg MCHC 34.6 (32-36) g/dL RDW Std Deviation 44.3 (36.4-46.3) fL RDW Coeff of Rosio 13.4 (11.5-14.5) % Plt Count 326 (130-400) K/uL MPV 9.3 (7.4-10.4) fL Immature Gran % (Auto) 0.2 % Neut % (Auto) 68.3 % Lymph % (Auto) 23.0 % Maury % (Auto) 7.1 % Eos % (Auto) 1.0 % Baso % (Auto) 0.4 % Immature Gran # (Auto) 0.02 (0.00-0.02) K/uL Neut # (Auto) 6.40 (1.4-6.5) K/uL Lymph # (Auto) 2.15 (1.2-3.4) K/uL Maury # (Auto) 0.66 H (0.11-0.59) K/uL Eos # (Auto) 0.09 (0-0.5) K/uL Baso # (Auto) 0.04 (0-0.2) K/uL PT 11.1 (9.0-12.0) Seconds INR 1.1 (0.9-1.1) APTT 23.3 (21.0-31.0) Seconds PTT Ratio 0.9 Sodium 139 (136-145) mmol/L Potassium 3.1 L (3.5-5.1) mmol/L Chloride 109 H (98-107) mmol/L Carbon Dioxide 23 (21-32) mmol/L Anion Gap 7.0 (3-11) BUN 8 (7-18) mg/dl Creatinine 0.73 (0.6-1.2) mg/dl Est Cr Clr Drug Dosing 89.1 ml/min Est GFR ( Amer) 128.1 Est GFR (Non-Af Amer) 110.5 BUN/Creatinine Ratio 11.5 (10-20) Glucose 90 (70-99) mg/dl Lactate (0.4-2.0) mmol/L Calcium 9.3 (8.5-10.1) mg/dl Magnesium 2.1 (1.8-2.4) mg/dl Total Bilirubin 0.6 (0.2-1) mg/dl AST 37 (15-37) U/L ALT 101 H (12-78) U/L Alkaline Phosphatase 82 (45-117) U/L Total Protein 8.3 H (6.4-8.2) gm/dl Albumin 4.2 (3.4-5.0) gm/dl Globulin 4.1 H (2.5-4.0) gm/dl Albumin/Globulin Ratio 1.0 (0.9-2) Procalcitonin (0-0.5) ng/ml HCG, Quant mIU/ml Urine Color Urine Appearance (Clear) Urine pH (4.5-7.5) Ur Specific [place] (1.000-1.030) Urine Protein (Negative) Urine Glucose (UA) (Negative) Urine Ketones (Negative) Urine Blood (Negative) Urine Nitrite (Negative) Urine Bilirubin (Negative) Urine Urobilinogen (Negative) Ur Leukocyte Esterase (Negative) Urine WBC (Auto) (0-5) /hpf Urine RBC (Auto) (0-4) /hpf U Hyaline Cast (Auto) (0-5) /lpf U Epithel Cells (Auto) (0-5) /lpf Urine Bacteria (Auto) (Negative) CSF Appearance CSF Color Xanthrochromic CSF WBC (0-5) /uL CSF RBC (0-) /uL CSF Cell Count Tube # CSF Chemistry Tube # CSF Glucose (40-70) mg/dl CSF LDH CSF Total Protein (15-45) mg/dl CSF Lyme IgG (Immblot) CSF Lyme IgG Bands Det CSF Lyme IgM (Immblot) CSF Lyme IgM Bands Det CSF C.neoform/gat PCR (NotDetected) CSF CMV DNA (PCR) (NotDetected) CSF Enterovirus (PCR) (NotDetected) CSF E. coli K1 (PCR) (NotDetected) CSF H. influenzae (PCR) (NotDetected) CSF HSV I (PCR) (NotDetected) CSF HSV II (PCR) (NotDetected) CSF HHV 6 (PCR) (NotDetected) CSF L.monocytogenes PCR (NotDetected) CSF N. meningitidis PCR (NotDetected) CSF Parechovirus (PCR) (NotDetected) CSF S. agalactiae (PCR) (NotDetected) CSF S. pneumoniae (PCR) (NotDetected) CSF VZV DNA (PCR) (NotDetected) Herpes Virus Source HSV I DNA PCR HSV II DNA PCR Influenza Type A (PCR) (Neg) Influenza Type B (PCR) (Neg) 03/21/19 Range/Units 19:31 WBC (4.8-10.8) K/uL RBC (4.2-5.4) M/uL Hgb (12.0-16.0) g/dL Hct (37-47) % MCV (80-100) fL MCH (25-34) pg MCHC (32-36) g/dL RDW Std Deviation (36.4-46.3) fL RDW Coeff of Rosio (11.5-14.5) % Plt Count (130-400) K/uL MPV (7.4-10.4) fL Immature Gran % (Auto) % Neut % (Auto) % Lymph % (Auto) % Maury % (Auto) % Eos % (Auto) % Baso % (Auto) % Immature Gran # (Auto) (0.00-0.02) K/uL Neut # (Auto) (1.4-6.5) K/uL Lymph # (Auto) (1.2-3.4) K/uL Maury # (Auto) (0.11-0.59) K/uL Eos # (Auto) (0-0.5) K/uL Baso # (Auto) (0-0.2) K/uL PT (9.0-12.0) Seconds INR (0.9-1.1) APTT (21.0-31.0) Seconds PTT Ratio Sodium (136-145) mmol/L Potassium (3.5-5.1) mmol/L Chloride (98-107) mmol/L Carbon Dioxide (21-32) mmol/L Anion Gap (3-11) BUN (7-18) mg/dl Creatinine (0.6-1.2) mg/dl Est Cr Clr Drug Dosing ml/min Est GFR ( Amer) Est GFR (Non-Af Amer) BUN/Creatinine Ratio (10-20) Glucose (70-99) mg/dl Lactate (0.4-2.0) mmol/L Calcium (8.5-10.1) mg/dl Magnesium (1.8-2.4) mg/dl Total Bilirubin (0.2-1) mg/dl AST (15-37) U/L ALT (12-78) U/L Alkaline Phosphatase (45-117) U/L Total Protein (6.4-8.2) gm/dl Albumin (3.4-5.0) gm/dl Globulin (2.5-4.0) gm/dl Albumin/Globulin Ratio (0.9-2) Procalcitonin < 0.05 (0-0.5) ng/ml HCG, Quant mIU/ml Urine Color Urine Appearance (Clear) Urine pH (4.5-7.5) Ur Specific [place] (1.000-1.030) Urine Protein (Negative) Urine Glucose (UA) (Negative) Urine Ketones (Negative) Urine Blood (Negative) Urine Nitrite (Negative) Urine Bilirubin (Negative) Urine Urobilinogen (Negative) Ur Leukocyte Esterase (Negative) Urine WBC (Auto) (0-5) /hpf Urine RBC (Auto) (0-4) /hpf U Hyaline Cast (Auto) (0-5) /lpf U Epithel Cells (Auto) (0-5) /lpf Urine Bacteria (Auto) (Negative) CSF Appearance CSF Color Xanthrochromic CSF WBC (0-5) /uL CSF RBC (0-) /uL CSF Cell Count Tube # CSF Chemistry Tube # CSF Glucose (40-70) mg/dl CSF LDH CSF Total Protein (15-45) mg/dl CSF Lyme IgG (Immblot) CSF Lyme IgG Bands Det CSF Lyme IgM (Immblot) CSF Lyme IgM Bands Det CSF C.neoform/gat PCR (NotDetected) CSF CMV DNA (PCR) (NotDetected) CSF Enterovirus (PCR) (NotDetected) CSF E. coli K1 (PCR) (NotDetected) CSF H. influenzae (PCR) (NotDetected) CSF HSV I (PCR) (NotDetected) CSF HSV II (PCR) (NotDetected) CSF HHV 6 (PCR) (NotDetected) CSF L.monocytogenes PCR (NotDetected) CSF N. meningitidis PCR (NotDetected) CSF Parechovirus (PCR) (NotDetected) CSF S. agalactiae (PCR) (NotDetected) CSF S. pneumoniae (PCR) (NotDetected) CSF VZV DNA (PCR) (NotDetected) Herpes Virus Source HSV I DNA PCR HSV II DNA PCR Influenza Type A (PCR) (Neg) Influenza Type B (PCR) (Neg) Medications Administered Current Inpatient Medications Amitriptyline HCl (Elavil) 10 mg PO [facility] Stop: 04/21/19 20:59 Famotidine (Pepcid) 40 mg PO [facility] Stop: 04/21/19 20:59 Fluticasone Propionate (Flonase) 2 sprays NA DAILY PRN PRN Reason: Allergy Symptoms Stop: 04/21/19 02:37 Folic Acid (Folvite) 1 mg PO [facility] Stop: 04/21/19 08:59 Last Admin: 03/22/19 08:35 Dose: 1 mg Documented by: Hydromorphone HCl (Dilaudid) 0.5 mg IV Q2H PRN PRN Reason: Breakthrough Pain Stop: 04/05/19 17:13 Last Admin: 03/22/19 17:32 Dose: 0.5 mg Documented by: Ceftriaxone Sodium 2,000 mg/ (Dextrose) 70 mls @ 100 mls/hr IV Q24H [facility] [place]; Protocol Stop: 03/24/19 21:59 Vancomycin HCl 750 mg/ Sodium (Chloride) 265 mls @ 125 mls/hr IV Q8H [facility] Stop: 03/24/19 15:59 Last Infusion: 03/22/19 18:13 Dose: Infused Documented by: Promethazine HCl 6.25 mg/ (Sodium Chloride) 50.25 mls @ 201 mls/hr IV Q6H PRN PRN Reason: Nausea And Vomiting Stop: 04/21/19 18:46 Lubiprostone ([facility]iza) [facility] [place] Stop: 04/21/19 08:59 Last Admin: 03/22/19 08:35 Dose: 8 mcg Documented by: Miscellaneous Information (Consult) 1 ea N/A UD PRN PRN Reason: Consult Stop: 04/21/19 02:37 Morphine Sulfate (Morphine Sulfate) 2 mg IV Q4H PRN PRN Reason: Moderate Pain (4,5,6) Stop: 04/05/19 02:37 Morphine Sulfate (Morphine Sulfate) 4 mg IV Q4H PRN PRN Reason: Severe Pain (7,8,9,10) Stop: 04/05/19 02:37 Last Admin: 03/22/19 14:43 Dose: 4 mg Documented by: Ondansetron HCl (Zofran) 4 mg IV Q6H PRN PRN Reason: Nausea And Vomiting Stop: 04/21/19 18:39 Last Admin: 03/22/19 18:52 Dose: 4 mg Documented by: Pantoprazole Sodium (Protonix) 40 mg PO QAM [facility] Stop: 04/21/19 08:59 Last Admin: 03/22/19 08:35 Dose: 40 mg Documented by: Sumatriptan Succinate (Imitrex) 50 mg PO UD PRN PRN Reason: Migraine Headache Stop: 04/21/19 02:37 Resident Activity Tracking Resident Involvement: Resident Care Provided Care Provided: Adult Hospital Medicine (1) Fever Fever type: unspecified Qualified Code(s): R50.9 - Fever, unspecified (2) Headache Headache chronicity pattern: unspecified pattern Headache type: unspecified Intractability: not intractable Qualified Code(s): R51 - Headache
[2019-03-22] MEDS: ONDANSETRON INJ 2 MG/ML 2 ML VIAL IV PRN (18:52)
[2019-03-22] MEDS ORDERED: IOVERSOL 100ml IV PRN (19:11)
[2019-03-22] MEDS: SUMAtriptan succinate 50 MG TAB PO PRN (19:47)
--- NOTE | 2019-03-22 20:29 | CT Scan Report ---
CT enterography CLINICAL HISTORY: Concern for crohn's flare vs. kidney stone COMPARISON STUDY: CT of the abdomen and pelvis September 17, 2015. TECHNIQUE: Axial images of the abdomen and pelvis were obtained following intravenous injection of 94 cc Optiray 320 IV. The patient ingested Volumen. Sagittal and coronal reconstructions were viewed. Automated exposure control was utilized for the study. A dose lowering technique was utilized adheri ng to the principles of ALARA. FINDINGS: Lung bases are unremarkable. No pneumatosis, free air or portal venous gas is present. Ther e is no biliary ductal dilatation status post cholecystectomy. The liver, spleen, adrenal glands and pancreas are normal. The appendix is normal. Trace fluid within the pelvis is noted. The ovaries are not enlarged. The caliber and wall thickness of small and large bowel are normal. Small bowel distent ion is suboptimal. There is no abscess. No fistulas are identified. There is no evidence for a bowel obstruction. No suspicious osseous lesions are noted. Note is made of a 4 mm right renal calculus. Th ere are no ureteral catheter. Major vasculature is patent. Trace bilateral pleural effusions within t he lower chest are noted. IMPRESSION: 1. Normal appendix. No bowel obstruction. No bowel wall thickening. No CT evidence for active inflamm atory bowel disease. 2. 4 mm right renal calculus. No ureteral calculi. 3. Trace fluid within the pelvis which is likely physiologic. ACT 112: Negative or not required by law. Electronically signed by: Lukas Gorman M.D. 03/22/2019 8:28 PM
[2019-03-22] MEDS: FAMOTIDINE 40 MG TABLET PO SCH (21:37)
[2019-03-22] MEDS: cefTRIAXone SODIUM 2,000 MG in DEXTROSE 5% 50 ML IV SCH (21:37)
[2019-03-22] MEDS: AMITRIPTYLINE HCL 10 MG TAB PO SCH (21:37)
[2019-03-22] MEDS: PROMETHAZINE HCL 6.25 MG in SODIUM CHLORIDE 0.9% 50 ML IV PRN (22:10)
[2019-03-23] MEDS: ONDANSETRON INJ 2 MG/ML 2 ML VIAL IV PRN ×2 (02:00→11:37)
[2019-03-23] MEDS: HYDROmorphone INJ 0.5 MG/0.5 ML SYR IV PRN ×6 (02:01→23:54)
[2019-03-23] MEDS: PROMETHAZINE HCL 6.25 MG in SODIUM CHLORIDE 0.9% 50 ML IV PRN ×2 (04:10→15:55)
[2019-03-23] MEDS: SUMAtriptan succinate 50 MG TAB PO PRN ×2 (04:30→08:51)
[2019-03-23] MEDS ORDERED: VANCOMYCIN TROUGH ONE (07:30)
[2019-03-23 07:54] LABS: Basophils # (auto) 0.02 K/uL (0-0.2); Basophils % (auto) 0.2 %; Eosinophils # (auto) 0.01 K/uL (0-0.5); Eosinophils % (auto) 0.1 %; Hematocrit (blood only) 36.7 % (37-47); Hemoglobin 12.2 g/dL (12.0-16.0); Immature Granulocytes # (auto) 0.03 K/uL (0.00-0.02); Immature Granulocytes % (auto) 0.3 %; Lymphocytes # (auto) 1.43 K/uL (1.2-3.4); Lymphocytes % (auto) 13.1 %; Mean Corpuscular Hemoglobin 30.9 pg (25-34); Mean Corpuscular Hgb Conc 33.2 g/dL (32-36); Mean Corpuscular Volume 92.9 fL (80-100); Mean Platelet Volume 9.7 fL (7.4-10.4); Monocytes # (auto) 0.97 K/uL (0.11-0.59); Monocytes % (auto) 8.9 %; Neutrophils # (auto) 8.45 K/uL (1.4-6.5); Neutrophils % (auto) 77.4 %; Platelet Count 291 K/uL (130-400); RDW Coefficient of Variation 13.6 % (11.5-14.5); RDW Standard Deviation 46.3 fL (36.4-46.3); Red Blood Count 3.95 M/uL (4.2-5.4); White Blood Count 10.91 K/uL (4.8-10.8)
[2019-03-23 08:32] LABS: Albumin Level 3.6 gm/dl (3.4-5.0); BUN Creatinine Ratio 13.2 (10-20); Bilirubin,Total 0.7 mg/dl (0.2-1); Calcium 8.8 mg/dl (8.5-10.1); Creatinine Clr Calc Pharmacy 103.3 ml/min; Est GFR (African American) 139.5; Est GFR (Non-African American) 120.4; Globulin 3.7 gm/dl (2.5-4.0); Potassium 3.9 mmol/L (3.5-5.1); Total Protein 7.3 gm/dl (6.4-8.2)
[2019-03-23] MEDS: LUBIPROSTONE 8 MCG CAP PO SCH (08:52)
[2019-03-23] MEDS: PANTOprazole 40 MG TAB PO SCH (08:52)
[2019-03-23] MEDS: FOLIC ACID 1 MG TAB PO SCH (08:52)
[2019-03-23] MEDS: VANCOMYCIN HCL 750 MG in SODIUM CHLORIDE 0.9% 250 ML IV SCH (08:53)
--- NOTE | 2019-03-23 14:43 | Hospitalist Progress Note ---
Date of Service March 23, 2019 Assessment & Plan (1) Fever: Ms. Del Cid is a 28y/o F with PMH of Crohn's colitis immunosuppressed due to methotrexate and Stelara treatment who presents with several weeks of intermittent seeded by cold-like symptoms. Fever: - unknown origin in an immune compromised host, Symptoms for approximately 1 month, preceded by URI symptoms which have improved. Patient continues to have intermittent fevers and global body aches; Intermittent fever from 99 F to 102 F - afebrile throughout the day; LP performed in ED. Opening pressure normal. CSF analysis unremarkable, serologies negative - Patient cannot take Tylenol due to pending liver biopsy - Patient cannot take NSAIDs due to Crohn's colitis - Pain management with Dilaudid 0.5mg Q6h - Continue Rocephin 2 g daily, vancomycin - will further discuss with rheumatology for SLE flare contribution Abdominal pain: - R flank pain throughout the day, with CVA tenderness, no suprapubic tenderness - known history of kidney stones, with similar pain - UA unremarkable - CT Abdomen/Pelvis negative for active inflammatory bowel disease, demonstrated 4mm Renal calculus - follow Crohn's colitis: - Stable; Methotrexate not due until end of week, Stelara not due at this time - Continue folic acid supplementation, famotidine 40 mg p.o. at bedtime, continue Protonix 40 mg every morning, continue lubiprostone 8 mcg p.o. every morning - Zofran, Phenergan IV nausea control Headaches: - based off positional nature and improvement patient likely suffering from post-LP headache - LP performed in ED. Opening pressure normal. CSF analysis unremarkable, serologies negative - Continue amitriptyline and imitrex - started IV NSS at 100mL/hr - gave 500mg Caffeine citrate (per conversation with pharmacy this is equivalent to Caffeine benzoate, which is indicated for post-LP headaches) Diet: Regular DVT prophylaxis: Ambulate, SCDs Disposition: [facility] Admission and Anticipated Discharge Date Admission Date: March 22, 2019 Supervising Physician Co-Signing Physician Notes Resident Physician Supervision Note: I independently interviewed and examined the patient and verified the lopez history and physical, reviewed labs and image studies, discussed the case with the resident Dr. Stanley and agree with the findings and care plan. Subjective Patient continues to have occasional headaches, that more of a banding in front of head with continued pressure; the neck stiffness that was previously present seems to have gone away at this point in time. Notices the headache most frequently after she sits upright, and it is improved after laying flat but does still have a residual headache. Reproduced headache with light sub-occipital pressure Overnight felt incredibly warm, followed by having some chills and sweats; but doesn't remember if she spiked a temperature Review of Systems Review of Systems: All systems reviewed & are unremarkable except as noted in Subjective Physical Exam Constitutional: WD/WN, vitals as above Eyes: PERRL, conjunctivae normal, anicteric sclerae Respiratory: normal respiratory effort, lungs clear to auscultation Cardiovascular: Rate/Rhythm: regular rate and regular rhythm Heart Sounds: normal S1 and normal S2; no gallop, no murmur and no cardiac rub Gastrointestinal (Abdomen): Percussion/Palpation: abdomen soft; no guarding and no hepatosplenomegaly Results & Data ([facility]) Vital Signs (Past 12 Hours) Vital Signs Temp Pulse Resp BP BP Pulse Ox 03/23/19 11:15 36.7 C 80 18 129/83 98 03/23/19 07:27 36.7 C 71 18 126/78 99 03/23/19 04:00 36.4 C L 60 18 120/83 100 Laboratory Results 03/23/19 03/23/19 03/23/19 Range/Units 07:40 07:40 07:40 WBC 10.91 H (4.8-10.8) K/uL RBC 3.95 L (4.2-5.4) M/uL Hgb 12.2 (12.0-16.0) g/dL Hct 36.7 L (37-47) % MCV 92.9 (80-100) fL MCH 30.9 (25-34) pg MCHC 33.2 (32-36) g/dL RDW Std Deviation 46.3 (36.4-46.3) fL RDW Coeff of Rosio 13.6 (11.5-14.5) % Plt Count 291 (130-400) K/uL MPV 9.7 (7.4-10.4) fL Immature Gran % (Auto) 0.3 % Neut % (Auto) 77.4 % Lymph % (Auto) 13.1 % [place] % (Auto) 8.9 % Eos % (Auto) 0.1 % Baso % (Auto) 0.2 % Immature Gran # (Auto) 0.03 H (0.00-0.02) K/uL Neut # (Auto) 8.45 H (1.4-6.5) K/uL Lymph # (Auto) 1.43 (1.2-3.4) K/uL [place] # (Auto) 0.97 H (0.11-0.59) K/uL Eos # (Auto) 0.01 (0-0.5) K/uL Baso # (Auto) 0.02 (0-0.2) K/uL Sodium 138 (136-145) mmol/L Potassium 3.9 D (3.5-5.1) mmol/L Chloride 108 H (98-107) mmol/L Carbon Dioxide 22 (21-32) mmol/L Anion Gap 8.0 (3-11) BUN 8 (7-18) mg/dl Creatinine 0.63 (0.6-1.2) mg/dl Est Cr Clr Drug Dosing 103.3 ml/min Est GFR ( Amer) 139.5 Est GFR (Non-Af Amer) 120.4 BUN/Creatinine Ratio 13.2 (10-20) Glucose 88 (70-99) mg/dl Calcium 8.8 (8.5-10.1) mg/dl Total Bilirubin 0.7 (0.2-1) mg/dl AST 14 L (15-37) U/L ALT 67 (12-78) U/L Alkaline Phosphatase 76 (45-117) U/L Total Protein 7.3 (6.4-8.2) gm/dl Albumin 3.6 (3.4-5.0) gm/dl Globulin 3.7 (2.5-4.0) gm/dl Albumin/Globulin Ratio 1.0 (0.9-2) Vancomycin Trough 11.8 (See Comment) mcg/ml Medications Administered Current Inpatient Medications Amitriptyline HCl (Elavil) 10 mg PO HS STEEVN Stop: 04/21/19 20:59 Last Admin: 03/22/19 21:37 Dose: 10 mg Documented by: Famotidine (Pepcid) 40 mg PO HS STEVEN Stop: 04/21/19 20:59 Last Admin: 03/22/19 21:37 Dose: 40 mg Documented by: Fluticasone Propionate (Flonase) 2 sprays NA DAILY PRN PRN Reason: Allergy Symptoms Stop: 04/21/19 02:37 F[facility] ([facility]) [facility] [place]: 04/21/19 08:59 Last Admin: 03/23/19 08:52 Dose: 1 mg Documented by: Hydromorphone HCl (Dilaudid) 0.5 mg IV Q2H PRN PRN Reason: Breakthrough Pain Stop: 04/05/19 17:13 Last Admin: 03/23/19 15:50 Dose: 0.5 mg Documented by: Ceftriaxone Sodium 2,000 mg/ (Dextrose) 70 mls @ 100 mls/hr IV Q24H [facility]; Protocol Stop: 03/30/19 21:59 Last Infusion: 03/22/19 23:28 Dose: Infused Documented by: Promethazine HCl 6.25 mg/ (Sodium Chloride) 50.25 mls @ 201 mls/hr IV Q6H PRN PRN Reason: Nausea And Vomiting Stop: 04/21/19 18:46 Last Infusion: 03/23/19 16:10 Dose: Infused Documented by: Sodium Chloride (Nss 1000ml) 1,000 mls @ 125 mls/hr IV .Q8H [facility] Stop: 04/22/19 12:14 Last Admin: 03/23/19 14:58 Dose: 125 mls/hr Documented by: Caffeine Citrate 500 mg/ (Sodium Chloride) 1,025 mls @ 512.5 mls/hr IV NOW ONE Stop: 03/23/19 17:44 Vancomycin HCl 1,000 mg/ (Sodium Chloride) 270 mls @ 125 mls/hr IV Q8H [facility] Stop: 03/30/19 15:59 Ioversol (Optiray 320 100ml) 94 ml IV ONCE PRN PRN Reason: Interaction Checking Stop: 03/26/19 19:10 Last Admin: 03/22/19 19:12 Dose: 1 ml Documented by: Lubiprostone (Amitiza) [facility] [facility] [place]: 04/21/19 08:59 Last Admin: 03/23/19 08:52 Dose: 8 mcg Documented by: Miscellaneous Information (Consult) 1 ea N/A UD PRN PRN Reason: Consult Stop: 04/21/19 02:37 Morphine Sulfate (Morphine Sulfate) 2 mg IV Q4H PRN PRN Reason: Moderate Pain (4,5,6) Stop: 04/05/19 02:37 Morphine Sulfate (Morphine Sulfate) 4 mg IV Q4H PRN PRN Reason: Severe Pain (7,8,9,10) Stop: 04/05/19 02:37 Last Admin: 03/22/19 14:43 Dose: 4 mg Documented by: Ondansetron HCl (Zofran) 4 mg IV Q6H PRN PRN Reason: Nausea And Vomiting Stop: 04/21/19 18:39 Last Admin: 03/23/19 11:37 Dose: 4 mg Documented by: Pantoprazole Sodium (Protonix) 40 mg PO QAM [facility] Stop: 04/21/19 08:59 Last Admin: 03/23/19 08:52 Dose: 40 mg Documented by: Sumatriptan Succinate (Imitrex) 50 mg PO UD PRN PRN Reason: Migraine Headache Stop: 04/21/19 02:37 Last Admin: 03/23/19 08:51 Dose: 50 mg Documented by: Resident Activity Tracking Resident Involvement: Resident Care Provided Care Provided: Adult Hospital Medicine (1) Fever Fever type: unspecified Qualified Code(s): R50.9 - Fever, unspecified
[2019-03-23] MEDS: SODIUM CHLORIDE 0.9% 1000ML 1,000 ML IV SCH (14:58)
[2019-03-23] MEDS ORDERED: CAFFEINE CITRATE 500 MG in SODIUM CHLORIDE 0.9% 1000ML 1,000 ML IV ONE (15:45)
--- NOTE | 2019-03-23 15:50 | Pharmacy Report ---
Pharmacy Abx Dose Short Note - Date of Service March 23, 2019 - Assessment & Plan Assessment 28 year old F receiving vancomycin Day # 3 of antimicrobial therapy. Plan Vancomycin * Trough level came back subtherapeutic today at ~11 mcg/ml (goal 15-20 mcg/ml) * Increase vancomycin dosing to 1000 mg iv q 8 hrs * Spoke with provider and would like to continue with antibiotics for a few more days due to concern for immunosupression/fevers * Scr remains stable - will plan to reorder trough in next 2-3 days or sooner if continued Pharmacy will continue to follow and will adjust dose/frequency as necessary. Thank you.
[2019-03-23] MEDS: VANCOMYCIN HCL 1,000 MG in SODIUM CHLORIDE 0.9% 250 ML IV SCH ×2 (16:58→23:56)
[2019-03-23 20:55] LABS: HSV Type 1 DNA Not Detected (Not Detected); HSV Type 1&2 DNA Source CSF; HSV Type 2 DNA Not Detected (Not Detected)
[2019-03-23] MEDS: cefTRIAXone SODIUM 2,000 MG in DEXTROSE 5% 50 ML IV SCH (21:06)
[2019-03-23] MEDS: AMITRIPTYLINE HCL 10 MG TAB PO SCH (21:06)
[2019-03-23] MEDS: FAMOTIDINE 40 MG TABLET PO SCH (21:06)
[2019-03-24] MEDS: SODIUM CHLORIDE 0.9% 1000ML 1,000 ML IV SCH ×3 (01:20→14:11)
[2019-03-24 05:51] LABS: Basophils # (auto) 0.04 K/uL (0-0.2); Basophils % (auto) 0.5 %; Eosinophils # (auto) 0.08 K/uL (0-0.5); Hematocrit (blood only) 35.6 % (37-47); Hemoglobin 11.8 g/dL (12.0-16.0); Immature Granulocytes # (auto) 0.02 K/uL (0.00-0.02); Immature Granulocytes % (auto) 0.3 %; Lymphocytes # (auto) 2.44 K/uL (1.2-3.4); Mean Corpuscular Hemoglobin 31.1 pg (25-34); Mean Corpuscular Hgb Conc 33.1 g/dL (32-36); Mean Corpuscular Volume 93.7 fL (80-100); Mean Platelet Volume 9.9 fL (7.4-10.4); Monocytes # (auto) 0.91 K/uL (0.11-0.59); Monocytes % (auto) 11.9 %; Neutrophils # (auto) 4.14 K/uL (1.4-6.5); Neutrophils % (auto) 54.3 %; Platelet Count 275 K/uL (130-400); RDW Coefficient of Variation 13.6 % (11.5-14.5); RDW Standard Deviation 46.6 fL (36.4-46.3); White Blood Count 7.63 K/uL (4.8-10.8)
[2019-03-24 06:26] LABS: Creatinine Clr Calc Pharmacy 97.1 ml/min; Est GFR (African American) 136.7
[2019-03-24] MEDS: HYDROmorphone INJ 0.5 MG/0.5 ML SYR IV PRN ×4 (06:44→16:15)
[2019-03-24] MEDS: VANCOMYCIN HCL 1,000 MG in SODIUM CHLORIDE 0.9% 250 ML IV SCH ×2 (08:43→16:15)
[2019-03-24] MEDS: FOLIC ACID 1 MG TAB PO SCH (08:45)
[2019-03-24] MEDS: LUBIPROSTONE 8 MCG CAP PO SCH (08:45)
[2019-03-24] MEDS: PANTOprazole 40 MG TAB PO SCH (08:45)
--- NOTE | 2019-03-24 11:35 | Anesthesiology Consultation ---
Date of Service March 24, 2019 Assessment & Plan ASA ASA2 Proposed Anesthesia Anesthesia Type: Other (None) Risk / Benefits Reviewed With: PT / POA / Parent / Guardian, Accepts Plan and Informed Consent Obtained History Height/Weight Height: 5 ft 2 in Weight: 54.1 kg Allergies Allergy/AdvReac Type Severity Reaction Status Date / Time iron Allergy Severe JOINT Verified 03/21/19 19:50 PAIN/SWELLING/DIARRHEA Venofer Allergy Severe JOINT Unverified 04/26/16 11:30 PAIN/SWELLING/DIARRHEA NSAIDS (Non-Steroidal AdvReac Unknown Crohn's Verified 03/21/19 19:50 Anti-Inflamma Disease Medications Home Medications Medication Instructions Recorded Confirmed Last Taken folic acid 1 mg PO QAM 03/30/18 03/21/19 03/21/19 pantoprazole 40 mg PO QAM 03/30/18 03/21/19 03/21/19 amitriptyline 10 mg PO HS 02/21/19 03/21/19 03/20/19 famotidine 40 mg PO HS 02/21/19 03/21/19 03/20/19 fluticasone propionate 2 spray INTRANASAL DAILY PRN 02/21/19 03/21/19 Unknown lubiprostone [Amitiza] 8 mcg PO QAM 02/21/19 03/21/19 03/21/19 medroxyprogesterone 150 mg IM DIRECTED 02/21/19 03/21/19 Unknown methotrexate sodium 17.5 mg SUBCUT WK 02/21/19 03/21/19 03/09/19 ondansetron HCl [Zofran] 4 mg PO Q6H PRN 02/21/19 03/21/19 Unknown oxycodone 5 mg PO DAILY PRN 02/21/19 03/21/19 02/18/19 promethazine 25 mg PO Q6H PRN 02/21/19 03/21/19 Unknown sumatriptan succinate 50 mg PO DIRECTED PRN MDD 200 02/21/19 03/21/19 Unknown MG/DAY ustekinumab [Stelara] 90 mg SUBCUT Q8WK 02/21/19 03/21/19 02/03/19 multivit with min-folic acid 400 mcg PO HS 03/21/19 03/21/19 03/20/19 [Women's Multivitamin Gummies] Active Medications Generic Name Dose Route Start Last Admin Trade Name Freq PRN Reason Stop Dose Admin Amitriptyline HCl 10 mg 03/22/19 21:00 03/23/19 21:06 Elavil PO 04/21/19 20:59 10 mg HS STEVEN Administration Famotidine 40 mg 03/22/19 21:00 03/23/19 21:06 Pepcid PO 04/21/19 20:59 40 mg HS STEVEN Administration Folic Acid 1 mg 03/22/19 09:00 03/24/19 08:45 Folvite PO 04/21/19 08:59 1 mg QAM STEVEN Administration Hydromorphone HCl 0.5 mg 03/22/19 17:14 03/24/19 09:59 Dilaudid IV 04/05/19 17:13 0.5 mg Q2H PRN Administration Breakthrough Pain Ceftriaxone Sodium 2,000 mg/ 70 mls @ 100 mls/hr 03/22/19 22:00 03/23/19 21:48 Dextrose IV 03/30/19 21:59 Infused Q24H [facility]EVEN Infusion Protocol Promethazine HCl 6.25 mg/ 50.25 mls @ 201 mls/hr 03/22/19 18:47 03/23/19 16:10 Sodium Chloride IV 04/21/19 18:46 Infused Q6H PRN Infusion Nausea And Vomiting Sodium Chloride 1,000 mls @ 125 mls/hr 03/23/19 12:15 03/24/19 08:46 Nss 1000ml IV 04/22/19 12:14 125 mls/hr .Q8H STEVEN Administration Vancomycin HCl 1,000 mg/ 270 mls @ 125 mls/hr 03/23/19 16:00 03/24/19 11:18 Sodium Chloride IV 03/30/19 15:59 Infused Q8H [facility] Infusion Ioversol 94 ml 03/22/19 19:11 03/22/19 19:12 Optiray 320 100ml IV 03/26/19 19:10 1 ml ONCE PRN Administration Interaction Checking Lubiprostone 8 mcg 03/22/19 09:00 03/24/19 08:45 Amitiza PO 04/21/19 08:59 8 mcg QAM STEVEN Administration Morphine Sulfate 4 mg 03/22/19 02:38 03/22/19 14:43 Morphine Sulfate IV 04/05/19 02:37 4 mg Q4H PRN Administration Severe Pain (7,8,9,10) Ondansetron HCl 4 mg 03/22/19 18:40 03/23/19 11:37 Zofran IV 04/21/19 18:39 4 mg Q6H PRN Administration Nausea And Vomiting Pantoprazole Sodium 40 mg 03/22/19 09:00 03/24/19 08:45 Protonix PO 04/21/19 08:59 40 mg QAM STEVEN Administration Sumatriptan Succinate 50 mg 03/22/19 02:38 03/23/19 08:51 Imitrex PO 04/21/19 02:37 50 mg UD PRN Administration Migraine Headache Past Medical History Medical History Allergic rhinitis (Chronic) Crohn's disease of colon (Chronic) H/O Clostridium difficile infection (Chronic) History of asthma (Chronic) "during childhood" Immunosuppression due to drug therapy Exercise / Class Metabolic Activity II 4-5 Yardwork/Stairs/Walk up hill Past Family History Family History Grandmother (Maternal) Breast cancer Aunt Cervical cancer Maternal Ovarian cancer Maternal Grandfather (Paternal) Colorectal cancer Mother Mitral valve prolapse Past Surgical History Surgical History H/O colonoscopy (Resolved) "09/26/2014- Endoscopically quiescent Crohn's disease with pseudopolyps from sigmoid to transverse colon and with scarring at a patulous ileocecal valve.The examined portion of the ileum was normal." H/O esophagogastroduodenoscopy (Resolved) "09/26/2014- Monilial esophagitis. Normal stomach and duodenum. " S/P cholecystectomy (Resolved) S/P ORIF (open reduction internal fixation) fracture (Resolved) "wrist" S/P tonsillectomy (Resolved) Past Anesthesia History No Hx of Anesthesia Complications and No Family Hx of Anesthesia Complications History of PONV No Hx of PONV and No Hx of Motion Sickness Social History Smoking Status: Never smoker Hx Alcohol Use: No Hx Substance Use: No Review of Systems denies fever/cough/ colds/ chest pain/ SOB/ MITRA recent lumbar puncture. developed frontooccipatal headache that gets better with lying flat and worse with being upright. reviewed hospitalist notes. no concern for menegitis at this time Constitutional: no fever and no chills Respiratory: no cough and no dyspnea denies MITRA Cardiovascular: no chest pain and no dyspnea on exertion Physical Exam Vital Signs Last Vital Signs Temp 36.8 C 03/24/19 07:23 Pulse 84 03/24/19 07:23 Resp 16 03/24/19 07:23 BP 115/75 03/24/19 09:58 Pulse Ox 97 03/24/19 07:23 ENMT Mouth: no TMJ abnormality and no dentition abnormality Thyromental Distance: > or= 3.5 Finger Breadths Mallampati Class: II Neck neck extension not limited Respiratory normal respiratory effort; no respiratory distress Auscultation: lungs clear to auscultation bilaterally Cardiovascular Rate/Rhythm: regular rate and regular rhythm Neurologic moves all extremities Psychiatric Orientation: alert and oriented x 3 Testing Laboratory Results 03/24/19 05:00 03/24/19 05:00 PT 11.1 Seconds (9.0-12.0) 03/21/19 19:31 INR 1.1 (0.9-1.1) 03/21/19 19:31 APTT 23.3 Seconds (21.0-31.0) 03/21/19 19:31 HCG, Quant < 1 mIU/ml 03/21/19 19:31 Urine Color Yellow 03/21/19 20:00 Urine Appearance Clear (Clear) 03/21/19 20:00 Urine pH 6.5 (4.5-7.5) 03/21/19 20:00 Ur Specific [place] 1.006 (1.000-1.030) 03/21/19 20:00 Urine Protein Negative (Negative) 03/21/19 20:00 Urine Glucose (UA) Negative (Negative) 03/21/19 20:00 Urine Ketones Trace (Negative) H 03/21/19 20:00 Urine Nitrite Negative (Negative) 03/21/19 20:00 Ur Leukocyte Esterase Trace (Negative) H 03/21/19 20:00 Urine WBC (Auto) 1-5 /hpf (0-5) 03/21/19 20:00 Urine RBC (Auto) 0-4 /hpf (0-4) 03/21/19 20:00 U Hyaline Cast (Auto) 0 /lpf (0-5) 03/21/19 20:00 U Epithel Cells (Auto) 10-20 /lpf (0-5) H 03/21/19 20:00 Urine Bacteria (Auto) Negative (Negative) 03/21/19 20:00 03/21/19 19:53 Aerobic Blood Culture - Preliminary Blood No growth in Aerobic bottle after 48 hours. Anaerobic Blood Culture - Preliminary No growth in Anaerobic bottle after 48 hours. 03/21/19 19:31 Aerobic Blood Culture - Preliminary Blood No growth in Aerobic bottle after 48 hours. Anaerobic Blood Culture - Preliminary No growth in Anaerobic bottle after 48 hours. 03/21/19 21:58 Gram Stain - Final Cerebral Spinal Fluid CSF Culture - Final No growth 03/21/19 19:31 HCG, Quant < 1
[2019-03-24] MEDS: SUMAtriptan succinate 50 MG TAB PO PRN (11:48)
--- NOTE | 2019-03-24 12:26 | Anesthesiology Progress Note ---
Date of Service March 24, 2019 Assessment & Plan (1) Post-dural puncture headache: Pt taken to asu2. Pt sitting on side of the bed. sterile prep/drape/gloves/mask. 1% lidocaine to numb up skin. 17 gauge touey to NOY with air @ [address] Mahan did a sterile prep on patients left arm. He used a buttefly needle to sterilely draw and then pass 20 cc of blood to me. I injected the blood slowly into the epidural space. Needle with drawn and patient was advised to lay flat for one and half hours. Pt tolerated the procedure well . no complications at this time Present on Admission?: No Subjective Post dural puncture headache- pt had a lumbar puncture two days ago to r/o meningitis. Pt does not have meningitis. . Physical Exam 2 Vital Signs: Last Vital Signs Temp 36.8 C 03/24/19 07:23 Pulse 88 03/24/19 11:55 Resp 16 03/24/19 11:55 BP 120/86 03/24/19 11:55 Pulse Ox 100 03/24/19 11:55 Results & Data Medications Administered Amitriptyline HCl (Elavil) 10 mg PO [facility] Stop: 04/21/19 20:59 Last Admin: 03/23/19 21:06 Dose: 10 mg Documented by: [id number] Admin: 03/22/19 21:37 Dose: 10 mg Documented by: [id number] Famotidine (Pepcid) 40 mg PO [facility] Stop: 04/21/19 20:59 Last Admin: 03/23/19 21:06 Dose: 40 mg Documented by: [id number] Admin: 03/22/19 21:37 Dose: 40 mg Documented by: [id number] Folic Acid (Folvite) 1 mg PO [facility] Stop: 04/21/19 08:59 Last Admin: 03/24/19 08:45 Dose: 1 mg Documented by: [id number] Admin: 03/23/19 08:52 Dose: 1 mg Documented by: [id number] Admin: 03/22/19 08:35 Dose: 1 mg Documented by: [id number] Hydromorphone HCl (Dilaudid) 0.5 mg IV Q2H PRN PRN Reason: Breakthrough Pain Stop: 04/05/19 17:13 Last Admin: 03/24/19 09:59 Dose: 0.5 mg Documented by: [id number] Admin: 03/24/19 06:44 Dose: 0.5 mg Documented by: [id number] Admin: 03/23/19 23:54 Dose: 0.5 mg Documented by: [id number] Admin: 03/23/19 21:49 Dose: 0.5 mg Documented by: [id number] Admin: 03/23/19 19:35 Dose: 0.5 mg Documented by: [id number] Admin: 03/23/19 15:50 Dose: 0.5 mg Documented by: [id number] Admin: 03/23/19 11:38 Dose: 0.5 mg Documented by: [id number] Admin: 03/23/19 02:01 Dose: 0.5 mg Documented by: [id number] Admin: 03/22/19 22:09 Dose: 0.5 mg Documented by: [id number] Admin: 03/22/19 17:32 Dose: 0.5 mg Documented by: [id number] Ceftriaxone Sodium 2,000 mg/ (Dextrose) 70 mls @ 100 mls/hr IV Q24H [facility]; Protocol Stop: 03/30/19 21:59 Last Infusion: 03/23/19 21:48 Dose: 0 mls/hr Documented by: [id number] Admin: 03/23/19 21:06 Dose: 100 mls/hr Documented by: [id number] Infusion: 03/22/19 23:28 Dose: 0 mls/hr Documented by: [id number] Infusion: 03/22/19 22:35 Dose: 100 mls/hr Documented by: [id number] Infusion: 03/22/19 22:10 Dose: 0 mls/hr Documented by: [id number] Admin: 03/22/19 21:37 Dose: 100 mls/hr Documented by: [id number] Promethazine HCl 6.25 mg/ (Sodium Chloride) 50.25 mls @ 201 mls/hr IV Q6H PRN PRN Reason: Nausea And Vomiting Stop: 04/21/19 18:46 Last Infusion: 03/23/19 16:10 Dose: 0 mls/hr Documented by: [id number] Admin: 03/23/19 15:55 Dose: 201 mls/hr Documented by: [id number] Infusion: 03/23/19 04:30 Dose: 0 mls/hr Documented by: [id number] Admin: 03/23/19 04:10 Dose: 201 mls/hr Documented by: [id number] Infusion: 03/22/19 22:25 Dose: 0 mls/hr Documented by: [id number] Admin: 03/22/19 22:10 Dose: 201 mls/hr Documented by: [id number] Sodium Chloride (Nss 1000ml) 1,000 mls @ 125 mls/hr IV .Q8H [facility] Stop: 04/22/19 12:14 Last Admin: 03/24/19 08:46 Dose: 125 mls/hr Documented by: [id number] Infusion: 03/24/19 08:46 Dose: 125 mls/hr Documented by: [id number] Admin: 03/24/19 01:20 Dose: 125 mls/hr Documented by: [id number] Infusion: 03/24/19 01:20 Dose: 125 mls/hr Documented by: [id number] Infusion: 03/23/19 19:39 Dose: 125 mls/hr Documented by: [id number] Infusion: 03/23/19 17:04 Dose: 0 mls/hr Documented by: [id number] Admin: 03/23/19 14:58 Dose: 125 mls/hr Documented by: [id number] Vancomycin HCl 1,000 mg/ (Sodium Chloride) 270 mls @ 125 mls/hr IV Q8H [facility] Stop: 03/30/19 15:59 Last Infusion: 03/24/19 11:18 Dose: 0 mls/hr Documented by: [id number] Admin: 03/24/19 08:43 Dose: 125 mls/hr Documented by: [id number] Infusion: 03/24/19 02:10 Dose: 0 mls/hr Documented by: [id number] Admin: 03/23/19 23:56 Dose: 125 mls/hr Documented by: [id number] Infusion: 03/23/19 19:19 Dose: 0 mls/hr Documented by: [id number] Admin: 03/23/19 16:58 Dose: 125 mls/hr Documented by: [id number] Ioversol (Optiray 320 100ml) 94 ml IV ONCE PRN PRN Reason: Interaction Checking Stop: 03/26/19 19:10 Last Admin: 03/22/19 19:12 Dose: 1 ml Documented by: [id number] Lubiprostone (Amitiza) 8 mcg PO QAM [facility] Stop: 04/21/19 08:59 Last Admin: 03/24/19 08:45 Dose: 8 mcg Documented by: [id number] Admin: 03/23/19 08:52 Dose: 8 mcg Documented by: [id number] Admin: 03/22/19 08:35 Dose: 8 mcg Documented by: [id number] Morphine Sulfate (Morphine Sulfate) 4 mg IV Q4H PRN PRN Reason: Severe Pain (7,8,9,10) Stop: 04/05/19 02:37 Last Admin: 03/22/19 14:43 Dose: 4 mg Documented by: [id number] Admin: 03/22/19 07:15 Dose: 4 mg Documented by: [id number] Admin: 03/22/19 03:06 Dose: 4 mg Documented by: [id number] Ondansetron HCl (Zofran) 4 mg IV Q6H PRN PRN Reason: Nausea And Vomiting Stop: 04/21/19 18:39 Last Admin: 03/23/19 11:37 Dose: 4 mg Documented by: [id number] Admin: 03/23/19 02:00 Dose: 4 mg Documented by: [id number] Admin: 03/22/19 18:52 Dose: 4 mg Documented by: [id number] Pantoprazole Sodium (Protonix) 40 mg PO [facility] Stop: 04/21/19 08:59 Last Admin: 03/24/19 08:45 Dose: 40 mg Documented by: [id number] Admin: 03/23/19 08:52 Dose: 40 mg Documented by: [id number] Admin: 03/22/19 08:35 Dose: 40 mg Documented by: [id number] Sumatriptan Succinate (Imitrex) 50 mg PO UD PRN PRN Reason: Migraine Headache Stop: 04/21/19 02:37 Last Admin: 03/24/19 11:48 Dose: 50 mg Documented by: [id number] Admin: 03/23/19 08:51 Dose: 50 mg Documented by: [id number] Admin: 03/23/19 04:30 Dose: 50 mg Documented by: [id number] Admin: 03/22/19 19:47 Dose: 50 mg Documented by: [id number]
--- NOTE | 2019-03-24 13:13 | Anesthesiology Progress Note ---
Date of Service March 24, 2019 Anesthesia Post Procedure Vital Signs Vital Signs: Temp Pulse Pulse Resp BP Pulse Ox 03/24/19 11:55 88 16 120/86 100 03/24/19 09:58 115/75 03/24/19 07:23 36.8 C 84 16 112/71 97 03/24/19 04:14 36.7 C 72 16 123/78 95 03/23/19 22:59 36.7 C 81 16 122/73 98 03/23/19 20:30 36.6 C 03/23/19 19:24 36.8 C 67 16 145/92 H 100 03/23/19 15:00 36.9 C 65 16 120/78 99 Pain Intensity Generalized: Pain Intensity: 3 Head: Pain Intensity: 8 Transfer of Care Handoff Completed per policy Notes Mental Status: alert / awake / arousable and participated in evaluation Patient Amnestic to Procedure: No Nausea / Vomiting: adequately controlled Pain: adequately controlled Airway Patency, RR, SpO2: stable & adequate BP & HR: stable & adequate Hydration State: stable & adequate Anesthetic Complications: no major complications apparent and Pt Satisfied with anesthetic care Notes: at 1 hour I sat patient up and she felt that her headache was improved
--- NOTE | 2019-03-24 17:17 | Discharge Summary ---
Date of Service March 24, 2019 Admission HPI Per Admitting Provider Efraín is a 28-year-old female with a history of Crohn's on Stelara and methotrexate who presents with several weeks of fever in the setting of immune compromise. Bill is a longstanding history of Crohn's treated with methotrexate weekly and Stelara every 8 weeks. She reports around [place] time she developed cold- like symptoms including congestion, cough, and body aches which initially improved but after her methotrexate treatment a week later came back and have intermittently occurred over the last month. She reports she has had fevers between 99 degrees and 102 degrees since that time. Today she felt like she got to the point where she just could not take it, and her whole body and joints ached. She also had a stiff neck and felt exhausted. She has had increased headaches with some sensitivity to light. She baseline has intermittent diarrhea, constipation, and nausea which are unchanged from prior. She has appreciated some numbness and tingling in her feet/toes bilaterally, otherwise no sensory changes. Denies current cold-like symptoms including congestion, sinus pain, and dysuria. 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 Medical history: As above, reviewed in EMR Surgical history: Reviewed in EMR Allergies: Iron, Venofer, NSAIDs. Currently unable to take Tylenol as she is pending a liver biopsy. Family history: Reviewed Social: No current or former tobacco use. No EtoH use. Medical marijuana intermittently. CODE STATUS: Full code Principal Diagnosis Fever of unknown origin Discharge Exam Constitutional WD/WN, vitals as above Eyes PERRL, conjunctivae normal, anicteric sclerae Respiratory normal respiratory effort, lungs clear to auscultation Cardiovascular Rate/Rhythm: regular rate and regular rhythm Heart Sounds: normal S1 and normal S2; no gallop, no murmur and no cardiac rub Gastrointestinal (Abdomen) Percussion/Palpation: abdomen soft; no guarding and no hepatosplenomegaly Discharge Data Allergies Allergy/AdvReac Type Severity Reaction Status Date / Time iron Allergy Severe JOINT Verified 03/21/19 19:50 PAIN/SWELLING/DIARRHEA Venofer Allergy Severe JOINT Unverified 04/26/16 11:30 PAIN/SWELLING/DIARRHEA NSAIDS (Non-Steroidal AdvReac Unknown Crohn's Verified 03/21/19 19:50 Anti-Inflamma Disease Consultations 03/21/19 23:10 ED Decision to Admit Stat Procedures Performed Operation Date: 03/24/19 12:00 <No data on this case meets the specified criteria> Ordered Studies 03/21/19 18:56 CT head/brain wo con Stat 03/22/19 17:24 CT enterography Routine Hospital Course (1) Fever: Ms. Del Cid is a 28y/o F with PMH of Crohn's colitis immunosuppressed due to methotrexate and Stelara treatment who presents with several weeks of intermittent seeded by cold-like symptoms. Fever unknown origin in an immune compromised host: - Symptoms for approximately 1 month, preceded by URI symptoms which have improved. Patient continues to have intermittent fevers and global body aches; Intermittent fever from 99 F to 102 F - LP performed in ED. Opening pressure normal. - CSF analysis unremarkable, serologies negative - Started on antibiotics. Cultures negative. - No further fever. No concern of infection - Reviewed with rheumatology for fever possibly from lupus flare - has appointment on wednesday - to further evaluated then. Abdominal pain: - R flank pain throughout the day, with CVA tenderness, no suprapubic tenderness; known history of kidney stones, with similar pain - UA unremarkable - CT Abdomen/Pelvis negative for active inflammatory bowel disease, demonstrated 4mm Renal calculus - pain resolved Headaches: - LP performed in ED. Opening pressure normal. CSF analysis unremarkable, serologies negative - based off positional nature and improvement patient likely suffering from post-LP headache - had blood patch with resolution of positional headache prior to discharge Crohn's colitis: - CT enterography - no acute pathological findings. Stable; On Methotrexate and Stelara - Continued folic acid supplementation, famotidine 40 mg p.o. at bedtime, Protonix 40 mg every morning, lubiprostone 8 mcg p.o. every morning Total Time Total Time Spent Total Time Spent (In Minutes): 30 Discharge Plan Discharge Items Patient Disposition: Home - Self-Care Reason For Visit: FEVER OF UNKKNOWN ORIGIN, IMMUNE COMPROMISED Discharge Diagnosis: Fever of unknown origin, immune compromised Activity: Per Instructions section Non-emergency contact: Primary Care Provider and Specialist Call non-emergency contact if: you have any medication questions, your symptoms worsen and you have a fever Follow-up/Referrals: Shantanu Taylor [Primary Care Provider] - Diet: Regular Fluids: 2000ml (8 cups) Addtl Attending Provider Instructions: You were admitted for a fever, neck pain, and neck stiffness; during this admission, you had several studies that did not demonstrate a source for your episodic fevers, and throughout this time you did not have any continued fevers. During the work-up you had a lumbar puncture, and afterwards you had a continued headache that initially did not respond to the treatments were giving you, but subsequently improved after we had our anesthesiologists patch your lumbar puncture site. You should keep your appointment with your men's locker room attendant on Wednesday March 27, 2019. Pending Studies at Discharge: No Stand-Alone Forms: My [facility], Work/School Release (Inpt), Smoking Cessation Medications and DC Order Prescriptions: Continued sumatriptan succinate 50 mg tablet 50 mg PO DIRECTED MDD 200 MG/DAY PRN (Reason: Migraine Headache) RF: 0 methotrexate sodium 25 mg/mL solution 17.5 mg subcut WK RF: 0 famotidine 20 mg tablet 40 mg PO HS RF: 0 amitriptyline 10 mg tablet 10 mg PO HS RF: 0 promethazine 25 mg tablet 25 mg PO Q6H PRN (Reason: Nausea And Vomiting) RF: 0 fluticasone propionate 50 mcg/actuation spray,suspension 2 spray INTRANASAL DAILY PRN (Reason: Allergy Symptoms) RF: 0 oxycodone 5 mg tablet 5 mg PO DAILY PRN (Reason: Chronic Pain (Crohn's)) RF: 0 Amitiza 8 mcg capsule 8 mcg PO QAM RF: 0 Stelara 90 mg/mL syringe 90 mg SUBCUT Q8WK RF: 0 ondansetron HCl [Zofran] 4 mg tablet 4 mg PO Q6H PRN (Reason: Nausea And Vomiting) RF: 0 medroxyprogesterone 150 mg/mL syringe 150 mg IM DIRECTED RF: 0 Women's Multivitamin Gummies 200 mcg Tablet,Chewable 400 mcg PO HS RF: 0 pantoprazole 40 mg Tablet,Delayed Release (Dr/Ec) 40 mg PO QAM RF: 0 folic acid 1 mg tablet 1 mg PO QAM RF: 0 Discharge Orders: Discharge Order (Routine); Ordered 03/24/19 Ordered By: Nicolas Stanley Admission Data Admit Date/Time: 03/22/19 02:04 Attending Provider: Ivelisse Vazquez Admit Provider: Bib Muse Primary Care Provider: Shantanu Taylor Other Providers: Yordy Neri Other Interventions: Discharge Summary Assessment (RN) Last Done: 03/24/19 17:04 DC Date/Time DO NOT enter until pt leaves facility: 03/24/19 18:09 Supervising Physician Co-Signing Physician Notes Resident Physician Supervision Note: I independently interviewed and examined the patient and verified the lopez history and physical, reviewed labs and image studies, discussed the case with the resident Dr. Stanley and agree with the findings and care plan. Resident Activity Tracking Resident Involvement: Resident Care Provided Care Provided: Adult Hospital Medicine
[2019-03-25] MEDS ORDERED: VANCOMYCIN TROUGH ONE (05:30)
== END 2019-03-24 18:09 | disposition home or self-care (01) | DRG 864 ==
LOC: ED 18:32 → SUATTDRO 03-22 02:04 → 4W 03-22 02:04

== ENCOUNTER 2019-10-04 16:19 | Observation (INO) ==
[2019-10-04] MEDS ORDERED: HYDROmorphone INJ 0.5 MG/0.5 ML SYR IV STA ×2 (17:09→19:26)
[2019-10-04] MEDS ORDERED: methylPREDNISolone 60 MG in SYRINGE 1 ML IV STA (17:09)
[2019-10-04] MEDS ORDERED: ONDANSETRON INJ 2 MG/ML 2 ML VIAL IV STA (17:09)
[2019-10-04] MEDS ORDERED: SODIUM CHLORIDE 0.9% 1000ML 1,000 ML IV SCH (17:15)
[2019-10-04] MEDS ORDERED: methylPREDNISolone 125 MG/2 ML VIAL ONE (17:18)
[2019-10-04 17:26] LABS: Basophils # (auto) 0.04 K/uL (0-0.2); Basophils % (auto) 0.5 %; Eosinophils # (auto) 0.11 K/uL (0-0.5); Eosinophils % (auto) 1.2 %; Hematocrit (blood only) 42.6 % (37-47); Hemoglobin 13.5 g/dL (12.0-16.0); Immature Granulocytes # (auto) 0.02 K/uL (0.00-0.02); Immature Granulocytes % (auto) 0.2 %; Lymphocytes # (auto) 2.39 K/uL (1.2-3.4); Lymphocytes % (auto) 27.1 %; Mean Corpuscular Hemoglobin 29.9 pg (25-34); Mean Corpuscular Hgb Conc 31.7 g/dL (32-36); Mean Corpuscular Volume 94.2 fL (80-100); Mean Platelet Volume 9.6 fL (7.4-10.4); Monocytes # (auto) 0.74 K/uL (0.11-0.59); Monocytes % (auto) 8.4 %; Neutrophils # (auto) 5.53 K/uL (1.4-6.5); Neutrophils % (auto) 62.6 %; Platelet Count 374 K/uL (130-400); RDW Coefficient of Variation 13.2 % (11.5-14.5); RDW Standard Deviation 45.6 fL (36.4-46.3); Red Blood Count 4.52 M/uL (4.2-5.4); White Blood Count 8.83 K/uL (4.8-10.8)
--- NOTE | 2019-10-04 17:38 | XRay Report ---
KUB CLINICAL HISTORY: crohns flair COMPARISON STUDY: CT enterography March 22, 2015. KUB July 25, 2019. FINDINGS: 4 mm right renal calculus is unchanged. The bowel gas pattern is normal. Amount stool withi n the colon and rectum is within normal limits. No ureteral calculi are identified. Visualized skelet al structures are unremarkable. IMPRESSION: 1. No evidence for a bowel obstruction. 2. 4 mm right renal calculus, unchanged. ACT 112: Negative or not required by law. Electronically signed by: Lukas Gorman M.D. 10/04/2019 5:37 PM
[2019-10-04 17:45] LABS: Albumin Level 4.1 gm/dl (3.4-5.0); BUN Creatinine Ratio 10.1 (10-20); Calcium 9.1 mg/dl (8.5-10.1); Creatinine Clr Calc Pharmacy 75.7 ml/min; Est GFR (African American) 105.1; Est GFR (Non-African American) 90.7
[2019-10-04 17:46] LABS: Bilirubin,Total 0.7 mg/dl (0.2-1); Globulin 4.2 gm/dl (2.5-4.0); Total Protein 8.3 gm/dl (6.4-8.2)
[2019-10-04 18:46] LABS: Potassium 3.2 mmol/L (3.5-5.1)
--- NOTE | 2019-10-04 20:34 | History & Physical Report ---
Date of Service October 04, 2019 Assessment & Plan (1) Crohn's colitis: 28yo C female with Crohn's colitis presenting with suspected flare, persistent nausea, abdominal pain and bloody/mucoid diarrhea, failed outpatient management. Currently on Prednisone 40mg po daily, overdue for her Stelara injection. She follows with [facility], last seen on 10/03/19. Patient afebrile, HD stable, non-toxic in appearance. Abdomen is diffusely tender, most in RLQ with some rebound pain. She reports fairly adequate control of Crohn's symptoms while on Stelara. She does note some mild worsening of symptoms, diarrhea and abdominal pain 1-2 weeks before her injection is due. Patient with prior history of c. difficile colitis s/p fecal transplant with resolution of infection. -Admit to medical floor -Check ESR, CRP -Check stool for c. diff and stool culture -Check CT Abdomen with PO/IV contrast -Solumedrol 60mg IV daily -GI consultation appreciated Present on Admission?: Yes (2) Gastroparesis: Patient with gastroparesis. Uncertain if nausea is related to this vs flare of Crohn's. Her nausea does not appear to be associated with PO intake, no vomiting of late. -Phenergan 6.5mg IV q 6 hours -Zofran 4mg IV q 6 hours PRN Present on Admission?: Yes (3) Rheumatoid arthritis: Chronic. Failed Remicade. Humira caused drug induced lupus -Continue Leflunomide 20mg po qHS F/E/N - NSS at 80mL/hr x 1 liter, KCl 40mEq PO x 1 with repeat chemistry panel in AM, regular diet as tolerated Ppx - Low risk for DVT Code - Full per discussion with patient Dispo - Admit to medical floor Present on Admission?: Yes History of Present Illness Chief Complaint: Crohns Flare, diarrhea Primary Care Provider: Shantanu Taylor Ana Del Cid is a 28yo C female with longstanding history of Crohn's colitis, gastroparesis, hiatal hernia and RA presenting with suspected flare of Crohn's colitis. Patient was diagnosed with Crohn's disease approximately 15 years ago. She currently follows with Artur Guillermo from [facility], last seen on 10/03/19. She is currently on Prednisone 40mg po daily and receives Stelara injection q 8 weeks (she was to receive injection on 09/25, however, medication was delayed due to insurance. States she just received a letter that Stelara has been authorized). Patient was seen by GI earlier in the month with complaint of nausea, abdominal pain and suspected Crohn's flare. She was started on a prednisone taper, 30mg decreasing q 3 days. She reports two weeks of progressive nausea, occasional non-bloody/non-bilious vomiting as well as abdominal pain and diarrhea. She reports 7-10 bowel movements per day, soft in nature, occasionally liquid yellow. She has had several episodes of fecal incontinence. Has BMs at night as well. No association with PO intake/meals/dairy. BMs are mucoid and occasionally bloody. She had a fever approximately 2 weeks ago but none since. No concerns for exposure to Covid-19. Per GI note: Colonoscopy last performed by [facility] June 2019: Normal ileum, erythematous/scarred in the sigmoid descending and transverse colon and pseudopolyps in these areas as well as the ascending colon. Colon bx with mild chronic inflammation without acute crypt abscess or dysplasia. Due for surveillance in 2021. ER Course: Dilaudid 0.5mg IV x 2, Solumedrol 60mg IV, Zofran 4mg IV, NSS x 1L Allergies Allergy/AdvReac Type Severity Reaction Status Date / Time iron Allergy Severe JOINT Verified 10/04/19 18:55 PAIN/SWELLING/DIARRHEA Venofer Allergy Severe JOINT Unverified 04/26/16 11:30 PAIN/SWELLING/DIARRHEA NSAIDS (Non-Steroidal AdvReac Unknown Crohn's Verified 10/04/19 18:55 Anti-Inflamma Disease Home Medications Home Medications Medication Instructions Recorded Confirmed Type folic acid 1 mg PO QAM 03/30/18 10/04/19 History pantoprazole 40 mg PO QAM 03/30/18 10/04/19 History Amitiza 8 mcg PO QAM 02/21/19 10/04/19 History Stelara 90 mg SUBCUT Q8WK 02/21/19 10/04/19 History amitriptyline 20 mg PO HS 02/21/19 10/04/19 History famotidine 40 mg PO HS PRN 02/21/19 10/04/19 History fluticasone propionate 2 spray INTRANASAL DAILY PRN 02/21/19 10/04/19 History medroxyprogesterone 150 mg IM DIRECTED 02/21/19 10/04/19 History ondansetron HCl [Zofran] 4 mg PO Q6H PRN 02/21/19 10/04/19 History oxycodone 5 mg PO DAILY 02/21/19 10/04/19 History promethazine 25 mg PO Q6H PRN 02/21/19 10/04/19 History sumatriptan succinate 50 mg PO DIRECTED PRN MDD 200 02/21/19 10/04/19 History MG/DAY Women's Multivitamin Gummies 400 mcg PO HS 03/21/19 10/04/19 History leflunomide [Arava] 20 mg PO HS 10/04/19 10/04/19 History Past Med/Surg History Medical History (Updated 10/04/19 @ 20:28 by Glory Hurtado DO) Allergic rhinitis Gastroparesis H/O Clostridium difficile infection History of asthma "during childhood" 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 Normal stomach and duodenum. " S/P cholecystectomy S/P ORIF (open reduction internal fixation) fracture "wrist" S/P tonsillectomy Family History Grandmother (Maternal) Breast cancer Aunt Cervical cancer Maternal Ovarian cancer Maternal Grandfather (Paternal) Colorectal cancer Mother Mitral valve prolapse Social History Smoking Status: Never smoker Second Hand Exposure: Yes (mother smokes); Hx Alcohol Use: No Hx Substance Use: No Preferred Language: Luxembourgish Communication Ability: Effective Dietary Aide Teacher Required: No Beliefs That Will Affect Care: None Current Living Situation: Significant Other Current Living Situation Comment: fiance Feels Safe at Home: Yes Review of Systems Review of Systems: All systems reviewed & are unremarkable except as noted in HPI & below Physical Exam Physical Exam: General: patient resting comfortably, NAD, non-toxic in appearance, AA&O x 4 Skin: warm, dry, intact, no rashes or lesions HEENT: NC/AT, PERRL, EOMI, anicteric sclera, conjunctiva without injection, external ear normal to inspection and nontender, nares patent, sllightly dry mucus membranes, dentition intact, no oropharyngeal lesions, neck supple, trachea midline, no LAD, no thyromegaly, no JVD Heart: +S1/S2, regular, no m/r/g Lungs: equal air entry bilaterally, no rales/rhonchi/wheezes Abd: +BS normoactive, soft, non-distended, +diffuse tenderness most in RLQ with some rebound tenderness, no guarding Ext: warm, 2+ pulses in UE/LE bilaterally, no clubbing/cyanosis or edema Neuro: nonfocal, patient AA&O x 4, speech intact, no facial droop, moving all extremities on command with equal strength 5/5 Results & Data Results & Data ([facility]) Vital Signs (Past 12 Hours) Vital Signs Temp Pulse Resp BP Pulse Ox 10/04/19 19:29 97 H 16 153/100 H 97 10/04/19 19:00 93 H 15 96 10/04/19 18:30 95 H 17 98 10/04/19 18:00 100 H 21 149/87 H 99 10/04/19 17:53 98 10/04/19 17:30 106 H 17 144/99 H 97 10/04/19 16:21 37.4 C 120 H 17 142/90 H 98 Laboratory Results Lab Results 10/04/19 10/04/19 10/04/19 Range/Units 17:08 17:08 18:16 WBC 8.83 (4.8-10.8) K/uL RBC 4.52 (4.2-5.4) M/uL Hgb 13.5 (12.0-16.0) g/dL Hct 42.6 (37-47) % MCV 94.2 (80-100) fL MCH 29.9 (25-34) pg MCHC 31.7 L (32-36) g/dL RDW Std Deviation 45.6 (36.4-46.3) fL RDW Coeff of Rosio 13.2 (11.5-14.5) % Plt Count 374 (130-400) K/uL MPV 9.6 (7.4-10.4) fL Immature Gran % (Auto) 0.2 % Neut % (Auto) 62.6 % Lymph % (Auto) 27.1 % Trigg % (Auto) 8.4 % Eos % (Auto) 1.2 % Baso % (Auto) 0.5 % Neut # (Auto) 5.53 (1.4-6.5) K/uL Lymph # (Auto) 2.39 (1.2-3.4) K/uL Trigg # (Auto) 0.74 H (0.11-0.59) K/uL Eos # (Auto) 0.11 (0-0.5) K/uL Baso # (Auto) 0.04 (0-0.2) K/uL Immature Gran # (Auto) 0.02 (0.00-0.02) K/uL Sodium 138 (136-145) mmol/L Potassium 3.2 L (3.5-5.1) mmol/L Chloride 108 H (98-107) mmol/L Carbon Dioxide 23 (21-32) mmol/L Anion Gap 7.0 (3-11) BUN 9 (7-18) mg/dl Creatinine 0.86 (0.6-1.2) mg/dl Est Cr Clr Drug Dosing 75.7 ml/min Est GFR ( Amer) 105.1 Est GFR (Non-Af Amer) 90.7 BUN/Creatinine Ratio 10.1 (10-20) Glucose 79 (70-99) mg/dl Calcium 9.1 (8.5-10.1) mg/dl Total Bilirubin 0.7 (0.2-1) mg/dl AST 14 L (15-37) U/L ALT 14 (12-78) U/L Alkaline Phosphatase 77 (45-117) U/L Total Protein 8.3 H (6.4-8.2) gm/dl Albumin 4.1 (3.4-5.0) gm/dl Globulin 4.2 H (2.5-4.0) gm/dl Albumin/Globulin Ratio 1.0 (0.9-2) Lipase 89 (73-393) U/L Diagnostic Findings KUB CLINICAL HISTORY: crohns flair COMPARISON STUDY: CT enterography March 22, 2015. KUB July 25, 2019. FINDINGS: 4 mm right renal calculus is unchanged. The bowel gas pattern is normal. Amount stool within the colon and rectum is within normal limits. No ureteral calculi are identified. Visualized skeletal structures are unremarkable. IMPRESSION: 1. No evidence for a bowel obstruction. 2. 4 mm right renal calculus, unchanged. ACT 112: Negative or not required by law. Electronically signed by: Lukas Gorman M.D. 10/04/2019 5:37 PM Dictated: 10/04/19 1736 Transcribed: 10/04/191735 Code Status & VTE Plan Code Status FULL CODE PG Care Time/CCT Total # of Minutes Spent Total Time Spent with Patient: Total time spent is greater than 50% in coordination of care (as documented) at patient's floor/unit and/or counseling patient: Coding Level of Care Code 84740 Initial Inpt Care Lvl 2 Diagnoses Crohn's colitis K50.10 Digestive disease complication type: without complication Gastroparesis K31.84 Rheumatoid arthritis M06.9 Rheumatoid arthritis location: unspecified site Rheumatoid factor presence: unspecified presence (1) Crohn's colitis Digestive disease complication type: without complication Qualified Code(s): K50.10 - Crohn's disease of large intestine without complications (2) Rheumatoid arthritis Rheumatoid arthritis location: unspecified site Rheumatoid factor presence: unspecified presence Qualified Code(s): M06.9 - Rheumatoid arthritis, unspecified
[2019-10-04] MEDS ORDERED: POTASSIUM CHLORIDE 20 MEQ TABCR PO STA (21:51)
[2019-10-04 22:11] LABS: C Reactive Protein < 0.29 mg/dl (0-0.29); Magnesium 2.1 mg/dl (1.8-2.4)
[2019-10-04] MEDS: AMITRIPTYLINE HCL 10 MG TAB PO SCH (22:27)
[2019-10-04] MEDS: LEFLUNOMIDE 10 MG TAB PO SCH (22:27)
[2019-10-04] MEDS: SODIUM CHLORIDE 0.9% 1000ML 1,000 ML IV SCH (22:29)
[2019-10-04] MEDS ORDERED: MoRPHine SULFATE 2 MG/ML CARP IV PRN (22:44)
[2019-10-04] MEDS ORDERED: MoRPHine SULFATE 2 MG/ML CARP ONE (22:49)
[2019-10-04] MEDS: HYDROmorphone INJ 0.5 MG/0.5 ML SYR IV PRN (22:57)
[2019-10-04] MEDS: ONDANSETRON INJ 2 MG/ML 2 ML VIAL IV PRN (22:57)
[2019-10-05] MEDS ORDERED: IOVERSOL 100ml IV ONE (01:15)
[2019-10-05] MEDS: PROMETHAZINE HCL 6.25 MG in SODIUM CHLORIDE 0.9% 50 ML IV PRN (01:48)
[2019-10-05] MEDS: HYDROmorphone INJ 0.5 MG/0.5 ML SYR IV PRN ×5 (05:46→22:20)
[2019-10-05 05:47] LABS: Basophils # (auto) 0.02 K/uL (0-0.2); Basophils % (auto) 0.2 %; Hematocrit (blood only) 39.5 % (37-47); Hemoglobin 12.6 g/dL (12.0-16.0); Immature Granulocytes # (auto) 0.04 K/uL (0.00-0.02); Immature Granulocytes % (auto) 0.4 %; Lymphocytes % (auto) 8.8 %; Mean Corpuscular Hemoglobin 29.9 pg (25-34); Mean Corpuscular Hgb Conc 31.9 g/dL (32-36); Mean Corpuscular Volume 93.8 fL (80-100); Mean Platelet Volume 9.5 fL (7.4-10.4); Monocytes # (auto) 0.65 K/uL (0.11-0.59); Monocytes % (auto) 6.3 %; Neutrophils # (auto) 8.63 K/uL (1.4-6.5); Neutrophils % (auto) 84.3 %; Platelet Count 371 K/uL (130-400); RDW Standard Deviation 44.6 fL (36.4-46.3); Red Blood Count 4.21 M/uL (4.2-5.4); White Blood Count 10.24 K/uL (4.8-10.8)
[2019-10-05] MEDS: ONDANSETRON INJ 2 MG/ML 2 ML VIAL IV PRN ×3 (05:47→18:08)
[2019-10-05 06:45] LABS: BUN Creatinine Ratio 9.2 (10-20); Calcium 8.6 mg/dl (8.5-10.1); Creatinine Clr Calc Pharmacy 104.9 ml/min; Est GFR (African American) 140.2; Potassium 4.2 mmol/L (3.5-5.1)
--- NOTE | 2019-10-05 07:15 | CT Scan Report ---
CT abd pelvis oral and IV con CLINICAL HISTORY: Crohn's, RLQ pain COMPARISON STUDY: March 22, 2019 TECHNIQUE: The patient was scanned in a dynamic helical fashion during intravenous administration of 93 cc of Optiray 320 A dose lowering technique was utilized adhering to the principles of ALARA. CT DOSE: 265.45 mGy.cm FINDINGS: Lower chest: The heart is normal in size and configuration, without pericardial effusion. The lung ba ses and pleural spaces are clear. Liver: The contrast-enhanced liver is normal in size, contour, and attenuation. There is no intrahepa tic biliary ductal dilatation. The hepatic veins and portal veins are patent. Gallbladder: Surgically absent Spleen: Normal in size and attenuation. Pancreas: Unremarkable. Adrenal glands: Unremarkable. Kidneys: No solid renal masses are visualized. There is a punctate nonobstructing right renal calculu s. Bowel: There is a mid abdominal small bowel intussusception. Clinical correlation will be necessary a s this can be seen as a transient phenomenon. There is no current evidence for high-grade bowel obstr uction. There is no evidence of acute appendicitis. There is no evidence of acute diverticulitis. Peritoneum: There is no intraperitoneal free air or abdominal ascites. Vasculature: The abdominal aorta is normal in course and caliber. Adenopathy: None. Pelvic viscera: The bladder, and pelvic viscera are unremarkable. Skeletal structures: No destructive osseous lesions are seen. IMPRESSION: 1. Mid abdominal small bowel intussusception. Clinical correlation will be necessary as this can be s een as a transient phenomena 2. No evidence of acute diverticulitis. No evidence of acute appendicitis. 3. Punctate nonobstructing right renal calculus ACT 112: Negative or not required by law. Electronically signed by: Georgi Rizvi M.D. 10/05/2019 7:14 AM
[2019-10-05] MEDS ORDERED: methylPREDNISolone 60 MG in SYRINGE 0 ML IV SCH (09:00)
[2019-10-05] MEDS ORDERED: LUBIPROSTONE 8 MCG CAP PO SCH (09:00)
[2019-10-05] MEDS: PANTOprazole 40 MG TAB PO SCH (09:31)
[2019-10-05] MEDS: FOLIC ACID 1 MG TAB PO SCH (09:31)
[2019-10-05] MEDS: OXYCODONE HCL IR 5 MG TAB (IMMEDIATE RELEASE) PO SCH (09:31)
[2019-10-05] MEDS: SODIUM CHLORIDE 0.9% 1000ML 1,000 ML IV SCH ×3 (11:06→22:21)
--- NOTE | 2019-10-05 12:02 | Gastrointestinal Consultation ---
Date of Consultation October 05, 2019 Assessment & Plan (1) Crohn's colitis: (2) Abdominal pain: (3) Nausea & vomiting: Pt is a 28 y/o female w hx of Crohn's disease, presented w abd pain, n/v, diarrhea, rectal bleeding symptoms; admitted for possible Crohn's flare. CT abd/pelvis showed possible transient small bowel intussusception. - Hx of Cdiff s/p fecal transplant. Check Stool cx and Cdiff - Methylprednisolone 20mg IV q8hrs; will convert to PO Prednisone taper upon DC - IVF support - NPO currently. Will obtain CT enterography to r/o small bowel intussusception. Surgery also consulted - Low residue/fiber diet if CT enterography showed no signs of obstructive process. - Resume Stelara upon DC since it's now been approved per pt's report Supervising Physician Co-Signing Physician Notes Consult for ? 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 Was recommended to be on prednisone as an outpatient, c diff negative Imaging review- possible intussception that is transient, happened to her once before early on in her diagnosis Would obtain CTE Stool cultures including c diff Will start IV Solumedrol 20 iv q 8 hours If CTE is negative for intussception, can consider low fiber/low residue diet. Insurance issues precluded her getting her outpatient stelara in a timely fashion- she appears to have now been approved and we will arrange for her to have that post discharge from the hospital. Will assess response to IV steroids and likely PO taper upon discharge. History of Present Illness Reason for Consultation: Crohn's Flare Requesting Physician: Dr. Valerie Millan Attending Physician: Dr. Rosalinda Nguyen History of Present Illness Pt is a 28 y/o female w hx of Crohn's disease, on Stelara who presented yest erday w worsening diarrhea, rectal bleeding, nausea, abd pain. Crohn's managed by [facility] (LUC[facility]) and [facility]. She was previously on Humira but develped drug induced lupus thus switched to Stelara 3 yrs ago. Her Stelara was due on 09/25 however due to issues with insurance approval, she hasn't received shipment of her next injection. Her last colonoscopy was in June by Marilyn Scott: Normal ileum, erythematous/scarred in the sigmoid descending and transverse colon and pseudopolyps in these areas as well as the ascending colon. Colon bx with mild chronic inflammation without acute crypt abscess or dysplasia. Due for surveillance in 2021 She noticed for last few months her stool frequency had increased - 7 to 10x a day vs 4-7x a day previously. She's seeing BRBPR 50% of her bowel movements, constantly sees mucus. She is c/o epigastric and RLQ abd pain. + n/v, no fever, chills, CP, SOB. She also has hx of Cdiff, s/p fecal transplant 4 yrs ago. She denies recent antibx, sick contact, travels. When she saw Ms. Guillermo on 10/02, she was already started on steroid taper for suspected flare symptoms while awaiting Stelara approval. Chart reviewed: labs w/o leukocytosis, anemia, renal and liver function normal. KUB unremarkable. CT abd/pelvis w possible transient mid small bowel intussuception. She did recall hx of this, which resolve w conservative man agement years ago. Surgery had been consulted. Allergies Allergy/AdvReac Type Severity Reaction Status Date / Time iron Allergy Severe JOINT Verified 10/04/19 18:55 PAIN/SWELLING/DIARRHEA Venofer Allergy Severe JOINT Unverified 04/26/16 11:30 PAIN/SWELLING/DIARRHEA NSAIDS (Non-Steroidal AdvReac Unknown Crohn's Verified 10/04/19 18:55 Anti-Inflamma Disease Home Medications Home Medications Medication Instructions Recorded Confirmed Type folic acid 1 mg PO QAM 03/30/18 10/04/19 History pantoprazole 40 mg PO QAM 03/30/18 10/04/19 History Amitiza 8 mcg PO QAM 02/21/19 10/04/19 History Stelara 90 mg SUBCUT Q8WK 02/21/19 10/04/19 History amitriptyline 20 mg PO HS 02/21/19 10/04/19 History famotidine 40 mg PO HS PRN 02/21/19 10/04/19 History fluticasone propionate 2 spray INTRANASAL DAILY PRN 02/21/19 10/04/19 History medroxyprogesterone 150 mg IM DIRECTED 02/21/19 10/04/19 History ondansetron HCl [Zofran] 4 mg PO Q6H PRN 02/21/19 10/04/19 History oxycodone 5 mg PO DAILY 02/21/19 10/04/19 History promethazine 25 mg PO Q6H PRN 02/21/19 10/04/19 History sumatriptan succinate 50 mg PO DIRECTED PRN MDD 200 02/21/19 10/04/19 History MG/DAY Women's Multivitamin Gummies 400 mcg PO HS 03/21/19 10/04/19 History leflunomide [Arava] 20 mg PO HS 10/04/19 10/04/19 History Patient History Medical History Allergic rhinitis Gastroparesis H/O Clostridium difficile infection History of asthma "during childhood" 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 Normal stomach and duodenum. 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 Beliefs That Will Affect Care: None Current Living Situation: Significant Other Current Living Situation Comment: vita Feels Safe at Home: Yes Review of Systems Review of Systems: All systems reviewed & are unremarkable except as noted in HPI & below Physical Exam Constitutional: WD/WN, vitals as above well groomed, cooperative and comfortable Eyes: PERRL, conjunctivae normal, anicteric sclerae ENMT: external ear and nose normal, oropharynx normal Respiratory: normal respiratory effort, lungs clear to auscultation Cardiovascular: RRR, no murmur, no edema Gastrointestinal (Abdomen): Inspection/Auscultation: + hypoactive bowel sounds Percussion/Palpation: + abdomen tender (RLQ, epigastric ) and abdomen soft Skin: no rashes, warm and dry no jaundice Psychiatric: A+Ox3, euthymic affect Lymphatic: no lymphedema Results & Data ([facility]) Vital Signs (Past 12 Hours) Vital Signs Temp Pulse Resp BP Pulse Ox 10/05/19 08:04 37.0 C 99 H 16 125/83 97 10/04/19 23:27 36.5 C 88 18 131/90 93 (1) Crohn's colitis Digestive disease complication type: without complication Qualified Code(s): K50.10 - Crohn's disease of large intestine without complications
--- NOTE | 2019-10-05 13:18 | Surgery Consultation ---
Date of Consultation October 05, 2019 Assessment & Plan (1) Crohn's colitis: suspect crohn's flare. CT-- ? intusseption of jejunum...could also be a mild stricture GI ordered CT enterogram...will follow up with that. surgery would/should be last resort. will follow along closely. History of Present Illness Attending Physician: Valerie Millan MD History of Present Illness 28 year with longstanding hx of crohn's disease who she follows with Dr. Crocker as well as a specialist in [place]. 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 he states she felt this was a typical "crohn's flare". Usually these can be treated as an out-pt with prednisone. states she felt a little better today and no n/v. Allergies Allergy/AdvReac Type Severity Reaction Status Date / Time iron Allergy Severe JOINT Verified 10/04/19 18:55 PAIN/SWELLING/DIARRHEA Venofer Allergy Severe JOINT Unverified 04/26/16 11:30 PAIN/SWELLING/DIARRHEA NSAIDS (Non-Steroidal AdvReac Unknown Crohn's Verified 10/04/19 18:55 Anti-Inflamma Disease Home Medications Home Medications Medication Instructions Recorded Confirmed Type folic acid 1 mg PO QAM 03/30/18 10/04/19 History pantoprazole 40 mg PO QAM 03/30/18 10/04/19 History Amitiza 8 mcg PO QAM 02/21/19 10/04/19 History Stelara 90 mg SUBCUT Q8WK 02/21/19 10/04/19 History amitriptyline 20 mg PO HS 02/21/19 10/04/19 History famotidine 40 mg PO HS PRN 02/21/19 10/04/19 History fluticasone propionate 2 spray INTRANASAL DAILY PRN 02/21/19 10/04/19 History medroxyprogesterone 150 mg IM DIRECTED 02/21/19 10/04/19 History ondansetron HCl [Zofran] 4 mg PO Q6H PRN 02/21/19 10/04/19 History oxycodone 5 mg PO DAILY 02/21/19 10/04/19 History promethazine 25 mg PO Q6H PRN 02/21/19 10/04/19 History sumatriptan succinate 50 mg PO DIRECTED PRN MDD 200 02/21/19 10/04/19 History MG/DAY Women's Multivitamin Gummies 400 mcg PO HS 03/21/19 10/04/19 History leflunomide [Arava] 20 mg PO HS 10/04/19 10/04/19 History Patient History Medical History Allergic rhinitis Gastroparesis H/O Clostridium difficile infection History of asthma "during childhood" 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 Normal stomach and duodenum. 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 will re-eval later Results & Data ([facility]) Vital Signs (Past 12 Hours) Vital Signs Temp Pulse Resp BP Pulse Ox 10/05/19 08:04 37.0 C 99 H 16 125/83 97 PG Care Time/CCT Total # of Minutes Spent Total Time Spent with Patient: Total time spent is greater than 50% in coordination of care (as documented) at patient's floor/unit and/or counseling patient: Coding Level of Care Code 35334 Inpt Consult Level 3 Diagnoses Crohn's colitis K50.10 Digestive disease complication type: without complication (1) Crohn's colitis Digestive disease complication type: without complication Qualified Code(s): K50.10 - Crohn's disease of large intestine without complications
--- NOTE | 2019-10-05 13:21 | CT Scan Report ---
CT enterography HISTORY: Abnormal CT. Follow-up. r/o small bowel intussusception TECHNIQUE: Multiaxial CT images of abdomen and pelvis were performed following the use of intravenous and oral contrast to evaluate the small bowel. Maximum intensity projection images and multiplanar r eformations were performed at the workstation by the radiologist. COMPARISON STUDY: Abdomen and pelvis CT 10/05/2019. FINDINGS: The lung bases are clear. No pneumoperitoneum. No pneumatosis. No fractures within the visu alized osseous structures. The liver, spleen, pancreas, adrenal glands, left kidney are unremarkable. The main portal vein is patent. Prior cholecystectomy. There is a punctate stone within the upper po le the right kidney. No ureteral stones. No hydronephrosis. Normal caliber abdominal aorta. No retrop eritoneal lymphadenopathy. No pelvic lymphadenopathy. The bladder, uterus, bilateral ovaries are with in normal limits. No pelvic free fluid. No bowel wall thickening or obstruction. Normal appendix. Residual barium contrast seen within the co alireza from the prior CT examination. The small bowel is normal in course and caliber. No abnormal mucos al thickening, strictures, or inflammatory change identified. No small bowel masses are present. The stomach and duodenum are within normal limits. The small bowel intussusception seen on the prior stud y has resolved. IMPRESSION: 1. The small bowel is normal in course and caliber. No evidence for small bowel obstruction. The prev iously identified small bowel intussusception has resolved in the interval. 2. Normal appendix. 3. Stable right-sided nephrolithiasis. No ureteral stones. No hydronephrosis. 4. Cholecystectomy. ACT 112: Negative or not required by law. Electronically signed by: Akshat Burton M.D. 10/05/2019 1:19 PM
[2019-10-05] MEDS: methylPREDNISolone 20 MG in SYRINGE 0 ML IV SCH ×2 (13:40→21:43)
--- NOTE | 2019-10-05 15:01 | Hospitalist Progress Note ---
Date of Service October 05, 2019 Assessment & Plan (1) Crohn's colitis: 28yo C female with Crohn's colitis presenting with suspected flare, persistent nausea, abdominal pain and bloody/mucoid diarrhea, failed outpatient management. Prior to admission, was on on Prednisone 40mg po daily, overdue for her Stelara injection as an outpt due to insurance approval issue. She follows with [facility] She reports fairly adequate control of Crohn's symptoms while on Stelara. She does note some mild worsening of symptoms, diarrhea and abdominal pain 1-2 weeks before her injection is due. Patient with prior history of c. difficile colitis s/p fecal transplant with resolution of infection. C. diff here is negative ESR 21, Stool cultures pending CT abd/pel with possible small bowel intussusception CTE was normal, intussusception resolved Seen by GI -can adv diet to low fiber -started IV SOluMedrol 20mg IV q8h and likely prednisone taper on dc -start back on Stelara when available -continue pain control with IV dilaudid, po oxycodone (2) Diarrhea: numerous, worsened by CT contrast now C. diff neg Stool cx pending -question if should hold Amitiza? 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 Failed Remicade. Humira caused drug induced lupus -Continue Leflunomide 20mg po qHS (6) Gastroparesis: Patient with gastroparesis. Uncertain if nausea is related to this vs flare of Crohn's. Her nausea does not appear to be associated with PO intake, no vomiting of late. Improving -Phenergan 6.5mg IV q 6 hours -Zofran 4mg IV q 6 hours PRN (7) DVT prophylaxis: AMbulation, no chemoprophylaxis given h/o bloody stools Dispo-continued stay, home when pain controlled Admission and Anticipated Discharge Date Admission Date: October 04, [address] enterography today with 3 bottles of contrast drank and has had innumerable loose watery BMs since then. Has had 5 in the last hour alone. Abd pain is worse with the watyer BMs but dilaudid helps for 2-3 hours. No blood in stool since being here but reports she sees blood about 50% of the time in her stool at home. Denies CP or SOB, no nausea. No headache or lightheadedness Review of Systems Review of Systems: All systems reviewed & are unremarkable except as noted in HPI & below Physical Exam Constitutional: WD/WN, vitals as above Eyes: + anicteric sclerae Neck: trachea midline, no thyromegaly Respiratory: normal respiratory effort, lungs clear to auscultation Cardiovascular: RRR, no murmur, no edema Chest (Breasts): Chest: normal inspection of chest Gastrointestinal (Abdomen): Inspection/Auscultation: normal bowel sounds; abdomen not distended Percussion/Palpation: + abdomen tender (mild lower abd without guarding) and abdomen soft; no guarding and abdomen not rigid Musculoskeletal: Extremities: extremities normal to inspection; no cyanosis and no clubbing Skin: no rashes, warm and dry Neurologic: moves all extremities and awake; no focal motor deficits Psychiatric: A+Ox3, euthymic affect Lymphatic: no lymphedema Results & Data Results & Data ([facility]) Vital Signs (Past 12 Hours) Vital Signs Temp Pulse Resp BP Pulse Ox 10/05/19 08:04 37.0 C 99 H 16 125/83 97 Laboratory Results 10/05/19 10/05/19 10/05/19 Range/Units 09:26 05:19 05:19 WBC 10.24 (4.8-10.8) K/uL RBC 4.21 (4.2-5.4) M/uL Hgb 12.6 (12.0-16.0) g/dL Hct 39.5 (37-47) % MCV 93.8 (80-100) fL MCH 29.9 (25-34) pg MCHC 31.9 L (32-36) g/dL RDW Std Deviation 44.6 (36.4-46.3) fL RDW Coeff of Rosio 13.0 (11.5-14.5) % Plt Count 371 (130-400) K/uL MPV 9.5 (7.4-10.4) fL Immature Gran % (Auto) 0.4 % Neut % (Auto) 84.3 % Lymph % (Auto) 8.8 % [place] % (Auto) 6.3 % Eos % (Auto) 0.0 % Baso % (Auto) 0.2 % Neut # (Auto) 8.63 H (1.4-6.5) K/uL Lymph # (Auto) 0.90 L (1.2-3.4) K/uL [place] # (Auto) 0.65 H (0.11-0.59) K/uL Eos # (Auto) 0.00 (0-0.5) K/uL Baso # (Auto) 0.02 (0-0.2) K/uL Immature Gran # (Auto) 0.04 H (0.00-0.02) K/uL ESR (0-21) mm/hr Sodium 139 (136-145) mmol/L Potassium 4.2 D (3.5-5.1) mmol/L Chloride 110 H (98-107) mmol/L Carbon Dioxide 23 (21-32) mmol/L Anion Gap 6.0 (3-11) BUN 6 L (7-18) mg/dl Creatinine 0.62 (0.6-1.2) mg/dl Est Cr Clr Drug Dosing 104.9 ml/min Est GFR ( Amer) 140.2 Est GFR (Non-Af Amer) 121.0 BUN/Creatinine Ratio 9.2 L (10-20) Glucose 82 (70-99) mg/dl Calcium 8.6 (8.5-10.1) mg/dl Magnesium (1.8-2.4) mg/dl Total Bilirubin (0.2-1) mg/dl AST (15-37) U/L ALT (12-78) U/L Alkaline Phosphatase (45-117) U/L C-Reactive Protein (0-0.29) mg/dl Total Protein (6.4-8.2) gm/dl Albumin (3.4-5.0) gm/dl Globulin (2.5-4.0) gm/dl Albumin/Globulin Ratio (0.9-2) Lipase (73-393) U/L Stl C. diff Tox B Gene Negative Cdiff Gene (Neg) 10/04/19 10/04/19 10/04/19 Range/Units 18:16 18:16 17:08 WBC (4.8-10.8) K/uL RBC (4.2-5.4) M/uL Hgb (12.0-16.0) g/dL Hct (37-47) % MCV (80-100) fL MCH (25-34) pg MCHC (32-36) g/dL RDW Std Deviation (36.4-46.3) fL RDW Coeff of Rosio (11.5-14.5) % Plt Count (130-400) K/uL MPV (7.4-10.4) fL Immature Gran % (Auto) % Neut % (Auto) % Lymph % (Auto) % [place] % (Auto) % Eos % (Auto) % Baso % (Auto) % Neut # (Auto) (1.4-6.5) K/uL Lymph # (Auto) (1.2-3.4) K/uL [place] # (Auto) (0.11-0.59) K/uL Eos # (Auto) (0-0.5) K/uL Baso # (Auto) (0-0.2) K/uL Immature Gran # (Auto) (0.00-0.02) K/uL ESR 21 (0-21) mm/hr Sodium (136-145) mmol/L Potassium 3.2 L (3.5-5.1) mmol/L Chloride (98-107) mmol/L Carbon Dioxide (21-32) mmol/L Anion Gap (3-11) BUN (7-18) mg/dl Creatinine (0.6-1.2) mg/dl Est Cr Clr Drug Dosing ml/min Est GFR ( Amer) Est GFR (Non-Af Amer) BUN/Creatinine Ratio (10-20) Glucose (70-99) mg/dl Calcium (8.5-10.1) mg/dl Magnesium 2.1 (1.8-2.4) mg/dl Total Bilirubin (0.2-1) mg/dl AST 14 L (15-37) U/L ALT (12-78) U/L Alkaline Phosphatase (45-117) U/L C-Reactive Protein < 0.29 (0-0.29) mg/dl Total Protein (6.4-8.2) gm/dl Albumin (3.4-5.0) gm/dl Globulin (2.5-4.0) gm/dl Albumin/Globulin Ratio (0.9-2) Lipase (73-393) U/L Stl C. diff Tox B Gene (Neg) 10/04/19 10/04/19 Range/Units 17:08 17:08 WBC 8.83 (4.8-10.8) K/uL RBC 4.52 (4.2-5.4) M/uL Hgb 13.5 (12.0-16.0) g/dL Hct 42.6 (37-47) % MCV 94.2 (80-100) fL MCH 29.9 (25-34) pg MCHC 31.7 L (32-36) g/dL RDW Std Deviation 45.6 (36.4-46.3) fL RDW Coeff of Rosio 13.2 (11.5-14.5) % Plt Count 374 (130-400) K/uL MPV 9.6 (7.4-10.4) fL Immature Gran % (Auto) 0.2 % Neut % (Auto) 62.6 % Lymph % (Auto) 27.1 % [place] % (Auto) 8.4 % Eos % (Auto) 1.2 % Baso % (Auto) 0.5 % Neut # (Auto) 5.53 (1.4-6.5) K/uL Lymph # (Auto) 2.39 (1.2-3.4) K/uL [place] # (Auto) 0.74 H (0.11-0.59) K/uL Eos # (Auto) 0.11 (0-0.5) K/uL Baso # (Auto) 0.04 (0-0.2) K/uL Immature Gran # (Auto) 0.02 (0.00-0.02) K/uL ESR (0-21) mm/hr Sodium 138 (136-145) mmol/L Potassium (3.5-5.1) mmol/L Chloride 108 H (98-107) mmol/L Carbon Dioxide 23 (21-32) mmol/L Anion Gap 7.0 (3-11) BUN 9 (7-18) mg/dl Creatinine 0.86 (0.6-1.2) mg/dl Est Cr Clr Drug Dosing 75.7 ml/min Est GFR ( Amer) 105.1 Est GFR (Non-Af Amer) 90.7 BUN/Creatinine Ratio 10.1 (10-20) Glucose 79 (70-99) mg/dl Calcium 9.1 (8.5-10.1) mg/dl Magnesium (1.8-2.4) mg/dl Total Bilirubin 0.7 (0.2-1) mg/dl AST (15-37) U/L ALT 14 (12-78) U/L Alkaline Phosphatase 77 (45-117) U/L C-Reactive Protein (0-0.29) mg/dl Total Protein 8.3 H (6.4-8.2) gm/dl Albumin 4.1 (3.4-5.0) gm/dl Globulin 4.2 H (2.5-4.0) gm/dl Albumin/Globulin Ratio 1.0 (0.9-2) Lipase 89 (73-393) U/L Stl C. diff Tox B Gene (Neg) PG Care Time/CCT Total # of Minutes Spent Total Time Spent with Patient: Total time spent is greater than 50% in coordination of care (as documented) at patient's floor/unit and/or counseling patient: Coding Level of Care Code 10723 Subseq Hosp Care Lvl 3 Diagnoses Crohn's colitis K50.10 Digestive disease complication type: without complication Diarrhea R19.7 Intussusception intestine K56.1 Endometriosis N80.9 Rheumatoid arthritis M06.9 Rheumatoid arthritis location: unspecified site Rheumatoid factor presence: unspecified presence Gastroparesis K31.84 DVT prophylaxis Z29.9 (1) Crohn's colitis Digestive disease complication type: without complication Qualified Code(s): K50.10 - Crohn's disease of large intestine without complications (2) Rheumatoid arthritis Rheumatoid arthritis location: unspecified site Rheumatoid factor presence: unspecified presence Qualified Code(s): M06.9 - Rheumatoid arthritis, unspecified
[2019-10-05] MEDS: AMITRIPTYLINE HCL 10 MG TAB PO SCH (20:38)
[2019-10-05] MEDS: LEFLUNOMIDE 10 MG TAB PO SCH (20:38)
[2019-10-06] MEDS: HYDROmorphone INJ 0.5 MG/0.5 ML SYR IV PRN ×5 (02:59→20:52)
[2019-10-06 06:07] LABS: Basophils # (auto) 0.01 K/uL (0-0.2); Basophils % (auto) 0.1 %; Hematocrit (blood only) 39.1 % (37-47); Hemoglobin 12.3 g/dL (12.0-16.0); Immature Granulocytes # (auto) 0.04 K/uL (0.00-0.02); Immature Granulocytes % (auto) 0.3 %; Lymphocytes # (auto) 0.99 K/uL (1.2-3.4); Lymphocytes % (auto) 8.4 %; Mean Corpuscular Hemoglobin 29.6 pg (25-34); Mean Corpuscular Hgb Conc 31.5 g/dL (32-36); Mean Platelet Volume 9.5 fL (7.4-10.4); Monocytes # (auto) 1.04 K/uL (0.11-0.59); Monocytes % (auto) 8.8 %; Neutrophils # (auto) 9.69 K/uL (1.4-6.5); Neutrophils % (auto) 82.4 %; Platelet Count 383 K/uL (130-400); RDW Coefficient of Variation 12.9 % (11.5-14.5); RDW Standard Deviation 44.6 fL (36.4-46.3); Red Blood Count 4.16 M/uL (4.2-5.4); White Blood Count 11.77 K/uL (4.8-10.8)
[2019-10-06] MEDS: methylPREDNISolone 20 MG in SYRINGE 0 ML IV SCH ×3 (06:20→21:55)
[2019-10-06 06:47] LABS: BUN Creatinine Ratio 10.2 (10-20); Calcium 8.6 mg/dl (8.5-10.1); Creatinine Clr Calc Pharmacy 92.9 ml/min; Est GFR (African American) 134.8; Est GFR (Non-African American) 116.3
[2019-10-06 06:50] LABS: Albumin Globulin Ratio 0.9 (0.9-2); Albumin Level 3.4 gm/dl (3.4-5.0); Bilirubin,Total 0.5 mg/dl (0.2-1); Globulin 3.6 gm/dl (2.5-4.0); Magnesium 2.2 mg/dl (1.8-2.4)
--- NOTE | 2019-10-06 08:41 | Gastroenterology Progress Note ---
Date of Service October 06, 2019 Assessment & Plan (1) Crohn's colitis: (2) Abdominal pain: (3) Nausea & vomiting: Pt is a 28 y/o female w hx of Crohn's disease, presented w abd pain, n/v, diarrhea, rectal bleeding symptoms; admitted for possible Crohn's flare. CT abd/pelvis showed possible transient small bowel intussusception. F/U CT enterography w/o signs of this. She is still having some diarrhea but hasn't seen any more rectal bleeding. + mild abd discomfort and nausea w eating. - Cdiff negative, f/u stool cx. - Methylprednisolone 20mg IV q8hrs; will convert to PO Prednisone taper upon DC: Prednisone 40mg daily x 5 days, 30mg daily x 5 days, 20mg daily x 5 days, 15mg daily x 5 days, 10mg daily x 5 days, 5mg daily x 5 days. - Resume Stelara upon DC since it's now been approved per pt's report - Add Levsin 0.125mg TID prn abd pain ; limit use of narcotics - Low residue/fiber diet - Pls recall over the weekend if any changes or concerns Admission and Anticipated Discharge Date Admission Date: October 04, 2019 Supervising Physician Co-Signing Physician Notes I have seen and examined the patient and discussed with LUCÍA Ruffin. 28 yo fm with a history of crohn's disease on outpatient Stelara admitted with suspected Crohn's flare (pain, nausea, looser stools), with normal esr/crp. PE - well nourished fm in nad, HEENT - perrla, CV- rrr no mrg, Pulm - ctab, Abd - soft nt nd +bs Chart reviewed Plan for inpatient iv steroids until clinical improvement, transition to PO steroid taper once feeling she can tolerate PO. Outpatient stelara has now been approved per her insurance - she will start this. Levsin for her gassy type pain. Subjective Pt woke up 3x last night w diarrhea. Stools more александр and w mucus, no more rectal bleeding + Abd discomfort w eating, mild nausea no vomiting. Eating solids for breakfast this AM Review of Systems Review of Systems: All systems reviewed & are unremarkable except as noted in HPI & below Physical Exam Constitutional: WD/WN, vitals as above well groomed, cooperative and comfortable Eyes: PERRL, conjunctivae normal, anicteric sclerae ENMT: external ear and nose normal, oropharynx normal Respiratory: normal respiratory effort, lungs clear to auscultation Cardiovascular: RRR, no murmur, no edema Gastrointestinal (Abdomen): Inspection/Auscultation: normal bowel sounds Percussion/Palpation: + abdomen tender (epigastric ) and abdomen soft Skin: no rashes, warm and dry no jaundice Psychiatric: A+Ox3, euthymic affect Lymphatic: no lymphedema Results & Data ([facility]) Vital Signs (Past 12 Hours) Vital Signs Temp Pulse Resp BP Pulse Ox 10/06/19 07:30 37.0 C 92 H 20 158/88 H 96 10/06/19 00:01 36.9 C 73 18 133/69 96 (1) Crohn's colitis Digestive disease complication type: without complication Qualified Code(s): K50.10 - Crohn's disease of large intestine without complications
[2019-10-06] MEDS: PANTOprazole 40 MG TAB PO SCH (08:46)
[2019-10-06] MEDS: OXYCODONE HCL IR 5 MG TAB (IMMEDIATE RELEASE) PO SCH (08:46)
[2019-10-06] MEDS: FOLIC ACID 1 MG TAB PO SCH (08:46)
[2019-10-06] MEDS: ONDANSETRON INJ 2 MG/ML 2 ML VIAL IV PRN (08:48)
[2019-10-06] MEDS: SODIUM CHLORIDE 0.9% 1000ML 1,000 ML IV SCH (10:34)
--- NOTE | 2019-10-06 11:47 | Surgery Progress Note ---
Date of Service October 06, 2019 Assessment & Plan (1) Crohn's disease involving terminal ileum: CT enterography does not show any intussusception or other surgical pathology. I do believe her symptoms are from an acute Crohn's flare at the terminal ileum likely stemming from a missed dose of Stelara. No surgical indications so we will sign off. Please call us if any questions or concerns. Admission and Anticipated Discharge Date Admission Date: October 04, 2019 Subjective Patient seen. Her nausea is improved but she continues to have right lower quadrant abdominal discomfort. The upper abdominal discomfort she had at admission has resolved. Physical Exam Physical Exam: Alert. Appears to be in mild discomfort. Abdomen: Soft. Nondistended. Mild to moderate right lower quadrant tenderness to palpation. No peritoneal signs. No upper abdominal tenderness. Results & Data ([facility]) Vital Signs (Past 12 Hours) Vital Signs Temp Pulse Resp BP Pulse Ox 10/06/19 07:30 37.0 C 92 H 20 158/88 H 96 10/06/19 00:01 36.9 C 73 18 133/69 96 PG Care Time/CCT Total # of Minutes Spent Total Time Spent with Patient: Total time spent is greater than 50% in coordination of care (as documented) at patient's floor/unit and/or counseling patient: Coding Level of Care Code 22211 Subseq Hosp Care Lvl 3 Diagnoses Crohn's disease involving terminal ileum K50.00
--- NOTE | 2019-10-06 12:30 | Hospitalist Progress Note ---
Date of Service October 06, 2019 Assessment & Plan (1) Crohn's colitis: 28yo C female with Crohn's colitis presenting with suspected flare, persistent nausea, abdominal pain and bloody/mucoid diarrhea, failed outpatient management. Prior to admission, was on on Prednisone 40mg po daily, overdue for her Stelara injection as an outpt due to insurance approval issue. She follows with [facility] She reports fairly adequate control of Crohn's symptoms while on Stelara. She does note some mild worsening of symptoms, diarrhea and abdominal pain 1-2 weeks before her injection is due. Patient with prior history of c. difficile colitis s/p fecal transplant with resolution of infection. Slightly improved but still requiring frequent IV Dilaudid and still having multiple loose bowel movements. Nausea is improved and is tolerating regular diet in small amounts C. diff here is negative ESR 21, Stool cultures pending CT abd/pel with possible small bowel intussusception CTE was normal, intussusception resolved by the next day Seen by GI -Continue low lactose/low fiber diet -Continue IV SOluMedrol 20mg IV q8h and then prednisone taper on dc as per GI recommendations -start back on Stelara when available -continue pain control with IV dilaudid, po oxycodone increased to every 4 hours as needed and encouraged p.o. pain medicine use to be able to transition to home -Asked pharmacy to approve her home medical marijuana oil to be brought in. She also vapes but she is allowed to do that in the hospital -GI also added on hyoscyamine today for as needed use (2) Diarrhea: Improving C. 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 Failed Remicade. Humira caused drug induced lupus -Continue Leflunomide 20mg po qHS Also takes oxycodone every night (6) Gastroparesis: Patient with gastroparesis. Uncertain if nausea is related to this vs flare of Crohn's. Her nausea does not appear to be associated with PO intake, no vomiting of late. Improving -Phenergan 6.5mg IV q 6 hours -Zofran 4mg IV q 6 hours PRN -She will bring in her medical marijuana oil from home (7) Chronic, continuous use of opioids: Takes daily oxycodone at nighttime for at least several months Encouraged her to not take chronic opioids (8) Medical marijuana use: Wrote order to bring this in from home for nausea -Discouraged her from vaping due to possibility of lung injury (9) DVT prophylaxis: AMbulation, no chemoprophylaxis given h/o bloody stools Dispo-continued stay, home when pain controlled-hopefully tomorrow Admission and Anticipated Discharge Date Admission Date: October 04, 2019 Subjective Still requiring frequent IV Dilaudid for abdominal pain. Reports that the nausea is slightly better but if she can get her [place] medical marijuana from home, that really helps with her nausea. Denies chest pain or shortness of breath. Still having loose stools. Does not feel she is ready to go home yet. Review of Systems Review of Systems: All systems reviewed & are unremarkable except as noted in HPI & below Physical Exam Constitutional: WD/WN, vitals as above Eyes: + anicteric sclerae Neck: trachea midline, no thyromegaly Respiratory: normal respiratory effort, lungs clear to auscultation Cardiovascular: RRR, no murmur, no edema Chest (Breasts): Chest: normal inspection of chest Gastrointestinal (Abdomen): Inspection/Auscultation: normal bowel sounds; abdomen not distended Percussion/Palpation: + abdomen tender (mild lower abd without guarding) and abdomen soft; no guarding and abdomen not rigid Musculoskeletal: Extremities: extremities normal to inspection; no cyanosis and no clubbing Skin: no rashes, warm and dry Neurologic: moves all extremities and awake; no focal motor deficits Psychiatric: A+Ox3, euthymic affect Lymphatic: no lymphedema Results & Data Results & Data ([facility]) Vital Signs (Past 12 Hours) Vital Signs Temp Pulse Resp BP Pulse Ox 10/06/19 07:30 37.0 C 92 H 20 158/88 H 96 Laboratory Results 10/06/19 10/06/19 Range/Units 05:35 05:35 WBC 11.77 H (4.8-10.8) K/uL RBC 4.16 L (4.2-5.4) M/uL Hgb 12.3 (12.0-16.0) g/dL Hct 39.1 (37-47) % MCV 94.0 (80-100) fL MCH 29.6 (25-34) pg MCHC 31.5 L (32-36) g/dL RDW Std Deviation 44.6 (36.4-46.3) fL RDW Coeff of Rosio 12.9 (11.5-14.5) % Plt Count 383 (130-400) K/uL MPV 9.5 (7.4-10.4) fL Immature Gran % (Auto) 0.3 % Neut % (Auto) 82.4 % Lymph % (Auto) 8.4 % [place] % (Auto) 8.8 % Eos % (Auto) 0.0 % Baso % (Auto) 0.1 % Neut # (Auto) 9.69 H (1.4-6.5) K/uL Lymph # (Auto) 0.99 L (1.2-3.4) K/uL [place] # (Auto) 1.04 H (0.11-0.59) K/uL Eos # (Auto) 0.00 (0-0.5) K/uL Baso # (Auto) 0.01 (0-0.2) K/uL Immature Gran # (Auto) 0.04 H (0.00-0.02) K/uL Sodium 139 (136-145) mmol/L Potassium 4.0 (3.5-5.1) mmol/L Chloride 109 H (98-107) mmol/L Carbon Dioxide 26 (21-32) mmol/L Anion Gap 4.0 (3-11) BUN 7 (7-18) mg/dl Creatinine 0.70 (0.6-1.2) mg/dl Est Cr Clr Drug Dosing 92.9 ml/min Est GFR ( Amer) 134.8 Est GFR (Non-Af Amer) 116.3 BUN/Creatinine Ratio 10.2 (10-20) Glucose 104 H (70-99) mg/dl Calcium 8.6 (8.5-10.1) mg/dl Magnesium 2.2 (1.8-2.4) mg/dl Total Bilirubin 0.5 (0.2-1) mg/dl AST 11 L (15-37) U/L ALT 13 (12-78) U/L Alkaline Phosphatase 71 (45-117) U/L Total Protein 7.0 (6.4-8.2) gm/dl Albumin 3.4 (3.4-5.0) gm/dl Globulin 3.6 (2.5-4.0) gm/dl Albumin/Globulin Ratio 0.9 (0.9-2) PG Care Time/CCT Total # of Minutes Spent Total Time Spent with Patient: Total time spent is greater than 50% in coordination of care (as documented) at patient's floor/unit and/or counseling patient: Coding Level of Care Code 16526 Subseq Hosp Care Lvl 2 Diagnoses Crohn's colitis K50.10 Digestive disease complication type: without complication Diarrhea R19.7 Intussusception intestine K56.1 Endometriosis N80.9 Rheumatoid arthritis M06.9 Rheumatoid arthritis location: unspecified site Rheumatoid factor presence: unspecified presence Gastroparesis K31.84 Chronic, continuous use of opioids F11.90 Medical marijuana use Z79.899 DVT prophylaxis Z29.9 (1) Rheumatoid arthritis Rheumatoid arthritis location: unspecified site Rheumatoid factor presence: unspecified presence Qualified Code(s): M06.9 - Rheumatoid arthritis, unspecified (2) Crohn's colitis Digestive disease complication type: without complication Qualified Code(s): K50.10 - Crohn's disease of large intestine without complications
[2019-10-06] MEDS ORDERED: OXYCODONE HCL IR 5 MG TAB (IMMEDIATE RELEASE) PO PRN (12:34)
--- NOTE | 2019-10-06 13:41 | Emergency Department Note ---
History of Present Illness General Chief complaint: GI Assessment Stated complaint: NAUSEA,VOMITING,DIARRHEA,CHRONS Source: patient Mode of arrival: ambulatory Limitations: no limitations History of Present Illness Provider complaint: Abd pain, diarrhea, Crohn's Dx Maximum Pain Intensity: 4 This pt is a 28 yo female who presents to the ED with c/o abd cramping and diarrhea. She states she has been passing blood and mucus. Pt has a h/o Crohn's Dx and follows with [facility] G[facility]. Pt states abd pain is in the RLQ, which is a typical location for her pain. Pt denies vomiting, urinary symptoms and chance of . She has been on 40 mg prednisone recently without any benefit. Home Medications Home Medications Medication Instructions Recorded Confirmed Type folic acid 1 mg PO QAM 03/30/18 10/04/19 History pantoprazole 40 mg PO QAM 03/30/18 10/04/19 History Amitiza 8 mcg PO QAM 02/21/19 10/04/19 History Stelara 90 mg SUBCUT Q8WK 02/21/19 10/04/19 History amitriptyline 20 mg PO HS 02/21/19 10/04/19 History famotidine 40 mg PO HS PRN 02/21/19 10/04/19 History fluticasone propionate 2 spray INTRANASAL DAILY PRN 02/21/19 10/04/19 History medroxyprogesterone 150 mg IM DIRECTED 02/21/19 10/04/19 History ondansetron HCl [Zofran] 4 mg PO Q6H PRN 02/21/19 10/04/19 History oxycodone 5 mg PO DAILY 02/21/19 10/04/19 History promethazine 25 mg PO Q6H PRN 02/21/19 10/04/19 History sumatriptan succinate 50 mg PO DIRECTED PRN MDD 200 02/21/19 10/04/19 History MG/DAY Women's Multivitamin Gummies 400 mcg PO HS 03/21/19 10/04/19 History leflunomide [Arava] 20 mg PO HS 10/04/19 10/04/19 History Allergies Allergy/AdvReac Type Severity Reaction Status Date / Time iron Allergy Severe JOINT Verified 10/04/19 18:55 PAIN/SWELLING/DIARRHEA Venofer Allergy Severe JOINT Unverified 04/26/16 11:30 PAIN/SWELLING/DIARRHEA NSAIDS (Non-Steroidal AdvReac Unknown Crohn's Verified 10/04/19 18:55 Anti-Inflamma Disease Past Med/Surg History Medical History Allergic rhinitis Endometriosis Gastroparesis H/O Clostridium difficile infection History of asthma "during childhood" 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 Normal stomach and duodenum. " S/P cholecystectomy S/P ORIF (open reduction internal fixation) fracture "wrist" S/P tonsillectomy Family History Grandmother (Maternal) Breast cancer Aunt Cervical cancer Maternal Ovarian cancer Maternal Grandfather (Paternal) Colorectal cancer Mother Mitral valve prolapse Social History Smoking Status: Never smoker Second Hand Exposure: No; Hx Alcohol Use: Yes Hx Substance Use: Yes Last Used Substance: Days (ago) Last Used Substance Othe r:: 10/02, medical marijuana Preferred Language: Bolivian Communication Ability: Effective Pizza Maker Required: No Beliefs That Will Affect Care: None Current Living Situation: Significant Other Current Living Situation Comment: vita Feels Safe at Home: Yes Review of Systems See HPI for pertinent positives & negatives. and A total of 10 systems reviewed and were otherwise negative Physical Exam Vital signs reviewed. General: Well-appearing 28 yo female, in no significant distress. HEENT: No scleral icterus, PERRLA, neck supple. Atraumatic. Cardiovascular: Regular rate and rhythm, no extra sounds. Pulmonary: Clear to auscultation bilaterally, normal work of breathing. Abdomen: Soft, mild diffuse abd tenderness, more significant in RLQ, nondistended, positive bowel sounds. Musculoskeletal: Atraumatic, no peripheral edema. Neurologic: Patient awake alert and oriented x 3 Skin: Warm, dry, no rash Course Administered Medications Amitriptyline HCl (Amitriptyline Hcl 10 Mg Tab) 20 mg PO HS STEVEN Stop: 11/03/19 21:50 Last Admin: 10/05/19 20:38 Dose: 20 mg Documented by: [id number] Admin: 10/04/19 22:27 Dose: 20 mg Documented by: [id number] Folic Acid (Folic Acid 1 Mg Tab) 1 mg PO QAM STEVEN Stop: 11/04/19 08:59 Last Admin: 10/06/19 08:46 Dose: 1 mg Documented by: [id number] Admin: 10/05/19 09:31 Dose: 1 mg Documented by: [id number] Hydromorphone HCl (Hydromorphone Inj 0.5 Mg/0.5 Ml Syr) 0.5 mg IV Q4H PRN PRN Reason: Pain Stop: 10/18/19 22:52 Last Admin: 10/06/19 11:32 Dose: 0.5 mg Documented by: [id number] Admin: 10/06/19 07:11 Dose: 0.5 mg Documented by: [id number] Admin: 10/06/19 02:59 Dose: 0.5 mg Documented by: [id number] Admin: 10/05/19 22:20 Dose: 0.5 mg Documented by: [id number] Admin: 10/05/19 18:08 Dose: 0.5 mg Documented by: [id number] Admin: 10/05/19 13:53 Dose: 0.5 mg Documented by: [id number] Admin: 10/05/19 09:53 Dose: 0.5 mg Documented by: [id number] Admin: 10/05/19 05:46 Dose: 0.5 mg Documented by: [id number] Admin: 10/04/19 22:57 Dose: 0.5 mg Documented by: [id number] Promethazine HCl 6.25 mg/ (Sodium Chloride) 50.25 mls @ 201 mls/hr IV Q6H PRN PRN Reason: Nausea And Vomiting Stop: 11/03/19 21:50 Last Infusion: 10/05/19 02:03 Dose: 0 mls/hr Documented by: [id number] Admin: 10/05/19 01:48 Dose: 201 mls/hr Documented by: [id number] Sodium Chloride (Nss 1000ml) 1,000 mls @ 80 mls/hr IV .[id number] STEVEN Stop: 11/04/19 10:59 Last Admin: 10/06/19 10:34 Dose: 80 mls/hr Documented by: [id number] Infusion: 10/06/19 10:34 Dose: 80 mls/hr Documented by: [id number] Infusion: 10/05/19 23:55 Dose: 80 mls/hr Documented by: [id number] Admin: 10/05/19 22:21 Dose: 80 mls/hr Documented by: [id number] Admin: 10/05/19 12:03 Dose: Not Given Documented by: [id number] Methylprednisolone 20 mg/ (Syringe) 0.32 mls @ 1.5 mls/min IV Q8 STEVEN Stop: 11/04/19 13:59 Last Admin: 10/06/19 06:20 Dose: 1.5 mls/min Documented by: [id number] Admin: 10/05/19 21:43 Dose: 1.5 mls/min Documented by: [id number] Admin: 10/05/19 13:40 Dose: 1.5 mls/min Documented by: [id number] Leflunomide (Leflunomide 10 Mg Tab) 20 mg PO HS [facility] Stop: 11/03/19 21:50 Last Admin: 10/05/19 20:38 Dose: 20 mg Documented by: [id number] Admin: 10/04/19 22:27 Dose: 20 mg Documented by: [id number] Ondansetron HCl (Ondansetron Inj 2 Mg/Ml 2 Ml Vial) 4 mg IV Q6H PRN PRN Reason: Nausea Stop: 11/03/19 21:50 Last Admin: 10/06/19 08:48 Dose: 4 mg Documented by: [id number] Admin: 10/05/19 18:08 Dose: 4 mg Documented by: [id number] Admin: 10/05/19 12:35 Dose: 4 mg Documented by: [id number] Admin: 10/05/19 05:47 Dose: 4 mg Documented by: [id number] Admin: 10/04/19 22:57 Dose: 4 mg Documented by: [id number] Pantoprazole Sodium (Pantoprazole 40 Mg Tab) 40 mg PO QAM [facility] Stop: 11/04/19 08:59 Last Admin: 10/06/19 08:46 Dose: 40 mg Documented by: [id number] Admin: 10/05/19 09:31 Dose: 40 mg Documented by: [id number] Discontinued Medications Hydromorphone HCl (Hydromorphone Inj 0.5 Mg/0.5 Ml Syr) 0.5 mg IV NOW STA Stop: 10/04/19 17:10 Last Admin: 10/04/19 17:23 Dose: 0.5 mg Documented by: [id number] Hydromorphone HCl (Hydromorphone Inj 0.5 Mg/0.5 Ml Syr) 0.5 mg IV NOW STA Stop: 10/04/19 19:27 Last Admin: 10/04/19 19:29 Dose: 0.5 mg Documented by: [id number] Methylprednisolone 60 mg/ (Syringe) 1.96 mls @ 1.5 mls/min IV NOW STA Stop: 10/04/19 17:10 Last Admin: 10/04/19 17:22 Dose: 1.5 mls/min Documented by: [id number] Sodium Chloride (Nss 1000ml) 1,000 mls @ 999 mls/hr IV .[id number] STEVEN Stop: 10/04/19 18:15 Last Infusion: 10/04/19 18:23 Dose: 0 mls/hr Documented by: [id number] Admin: 10/04/19 17:22 Dose: 999 mls/hr Documented by: [id number] Methylprednisolone 60 mg/ (Syringe) 0.96 mls @ 1.5 mls/min IV DAILY STEVEN Stop: 11/04/19 08:59 Last Admin: 10/05/19 09:31 Dose: 1.5 mls/min Documented by: [id number] Sodium Chloride (Nss 1000ml) 1,000 mls @ 80 mls/hr IV .[id number] STEVEN Stop: 10/05/19 10:59 Last Infusion: 10/05/19 23:56 Dose: 0 mls/hr Documented by: [id number] Admin: 10/05/19 11:06 Dose: 80 mls/hr Documented by: [id number] Infusion: 10/05/19 10:59 Dose: 80 mls/hr Documented by: [id number] Admin: 10/04/19 22:29 Dose: 80 mls/hr Documented by: [id number] Ioversol (Ioversol 100ml) 93 ml IV ONCE ONE Stop: 10/05/19 01:16 Last Admin: 10/05/19 01:16 Dose: 93 ml Documented by: [id number] Lubiprostone (Lubiprostone 8 Mcg Cap) 8 mcg PO QAM STEVEN Stop: 11/04/19 08:59 Last Admin: 10/05/19 09:31 Dose: 8 mcg Documented by: [id number] Methylprednisolone (Methylprednisolone 125 Mg/2 Ml Vial) Confirm Administered Dose 125 mg .ROUTE .STK-MED ONE Stop: 10/04/19 17:19 Last Admin: 10/04/19 17:22 Dose: Not Given Documented by: [id number] Morphine Sulfate (Morphine Sulfate 2 Mg/Ml Carp) Confirm Administered Dose 2 mg .ROUTE .STK-MED ONE Stop: 10/04/19 22:50 Last Admin: 10/04/19 22:56 Dose: Not Given Documented by: [id number] Ondansetron HCl (Ondansetron Inj 2 Mg/Ml 2 Ml Vial) 4 mg IV NOW STA Stop: 10/04/19 17:10 Last Admin: 10/04/19 17:22 Dose: 4 mg Documented by: [id number] Oxycodone HCl (Oxycodone Hcl Ir 5 Mg Tab (Immediate Release)) 5 mg PO DAILY [facility] Stop: 10/19/19 08:59 Last Admin: 10/06/19 08:46 Dose: Not Given Documented by: [id number] Admin: 10/05/19 09:31 Dose: Not Given Documented by: [id number] Potassium Chloride (Potassium Chloride 20 Meq Tabcr) 40 meq PO NOW STA Stop: 10/04/19 21:52 Last Admin: 10/04/19 22:27 Dose: 40 meq Documented by: [id number] Medical Decision Making Differential Diagnosis Differential diagnosis: Etiologies such as biliary colic, cholecystitis, hepatitis, perihepatitis, pancreatitis, cardiac disease, pancreatitis, gastritis, peptic ulcer disease, appendicitis, ovarian cyst, ovarian torsion, ectopic , pelvic inflammatory disease, cystitis, diverticulitis, mesenteric ischemia, inflammatory bowel disease, ileus, bowel obstruction, aortic pathology, shingles, as well as others were considered. Medical Records Attestation: I reviewed the patient's medical records. Home Medications Current Medication List: was personally reviewed by me Laboratory Data Attestation: I reviewed the patient's lab results. Result diagrams: 10/06/19 05:35 10/06/19 05:35 Lab Results 10/04/19 10/04/19 10/04/19 Range/Units 17:08 17:08 17:08 WBC 8.83 (4.8-10.8) K/uL RBC 4.52 (4.2-5.4) M/uL Hgb 13.5 (12.0-16.0) g/dL Hct 42.6 (37-47) % MCV 94.2 (80-100) fL MCH 29.9 (25-34) pg MCHC 31.7 L (32-36) g/dL RDW Std Deviation 45.6 (36.4-46.3) fL RDW Coeff of Rosio 13.2 (11.5-14.5) % Plt Count 374 (130-400) K/uL MPV 9.6 (7.4-10.4) fL Immature Gran % (Auto) 0.2 % Neut % (Auto) 62.6 % Lymph % (Auto) 27.1 % [place] % (Auto) 8.4 % Eos % (Auto) 1.2 % Baso % (Auto) 0.5 % Neut # (Auto) 5.53 (1.4-6.5) K/uL Lymph # (Auto) 2.39 (1.2-3.4) K/uL [place] # (Auto) 0.74 H (0.11-0.59) K/uL Eos # (Auto) 0.11 (0-0.5) K/uL Baso # (Auto) 0.04 (0-0.2) K/uL Immature Gran # (Auto) 0.02 (0.00-0.02) K/uL ESR 21 (0-21) mm/hr Sodium 138 (136-145) mmol/L Potassium (3.5-5.1) mmol/L Chloride 108 H (98-107) mmol/L Carbon Dioxide 23 (21-32) mmol/L Anion Gap 7.0 (3-11) BUN 9 (7-18) mg/dl Creatinine 0.86 (0.6-1.2) mg/dl Est Cr Clr Drug Dosing 75.7 ml/min Est GFR ( Amer) 105.1 Est GFR (Non-Af Amer) 90.7 BUN/Creatinine Ratio 10.1 (10-20) Glucose 79 (70-99) mg/dl Calcium 9.1 (8.5-10.1) mg/dl Magnesium (1.8-2.4) mg/dl Total Bilirubin 0.7 (0.2-1) mg/dl AST (15-37) U/L ALT 14 (12-78) U/L Alkaline Phosphatase 77 (45-117) U/L C-Reactive Protein (0-0.29) mg/dl Total Protein 8.3 H (6.4-8.2) gm/dl Albumin 4.1 (3.4-5.0) gm/dl Globulin 4.2 H (2.5-4.0) gm/dl Albumin/Globulin Ratio 1.0 (0.9-2) Lipase 89 (73-393) U/L 10/04/19 10/04/19 Range/Units 18:16 18:16 WBC (4.8-10.8) K/uL RBC (4.2-5.4) M/uL Hgb (12.0-16.0) g/dL Hct (37-47) % MCV (80-100) fL MCH (25-34) pg MCHC (32-36) g/dL RDW Std Deviation (36.4-46.3) fL RDW Coeff of Rosio (11.5-14.5) % Plt Count (130-400) K/uL MPV (7.4-10.4) fL Immature Gran % (Auto) % Neut % (Auto) % Lymph % (Auto) % [place] % (Auto) % Eos % (Auto) % Baso % (Auto) % Neut # (Auto) (1.4-6.5) K/uL Lymph # (Auto) (1.2-3.4) K/uL [place] # (Auto) (0.11-0.59) K/uL Eos # (Auto) (0-0.5) K/uL Baso # (Auto) (0-0.2) K/uL Immature Gran # (Auto) (0.00-0.02) K/uL ESR (0-21) mm/hr Sodium (136-145) mmol/L Potassium 3.2 L (3.5-5.1) mmol/L Chloride (98-107) mmol/L Carbon Dioxide (21-32) mmol/L Anion Gap (3-11) BUN (7-18) mg/dl Creatinine (0.6-1.2) mg/dl Est Cr Clr Drug Dosing ml/min Est GFR ( Amer) Est GFR (Non-Af Amer) BUN/Creatinine Ratio (10-20) Glucose (70-99) mg/dl Calcium (8.5-10.1) mg/dl Magnesium 2.1 (1.8-2.4) mg/dl Total Bilirubin (0.2-1) mg/dl AST 14 L (15-37) U/L ALT (12-78) U/L Alkaline Phosphatase (45-117) U/L C-Reactive Protein < 0.29 (0-0.29) mg/dl Total Protein (6.4-8.2) gm/dl Albumin (3.4-5.0) gm/dl Globulin (2.5-4.0) gm/dl Albumin/Globulin Ratio (0.9-2) Lipase (73-393) U/L Imaging Data Radiologist's Impression: KUB CLINICAL HISTORY: crohns flair COMPARISON STUDY: CT enterography March 22, 2015. KUB July 25, 2019. FINDINGS: 4 mm right renal calculus is unchanged. The bowel gas pattern is normal. Amount stool within the colon and rectum is within normal limits. No ureteral calculi are identified. Visualized skeletal structures are unremarkable. IMPRESSION: 1. No evidence for a bowel obstruction. 2. 4 mm right renal calculus, unchanged. ACT 112: Negative or not required by law. Electronically signed by: Lukas Gorman M.D. 10/04/2019 5:37 PM Dictated: 10/04/[id number] Transcribed: 10/04/191735 Blood Pressure Blood Pressure Findings: Elevated blood pressure Blood Pressure Disposition: elevated BP felt to be situational MDM Narrative This pt was evaluated and appeared to be in some discomfort. IV access was obtained and lab work was drawn. An order for cardiac monitoring was placed and the pt is in a ST at 120 bpm. IVF were initiated and the pt was given 0.5 mg IV dilaudid and 4 mg IV zofran for her discomforts. Solumedral 60 mg IV was given. Lab work reveals a normal WBC and stable hgb. KUB was performed and is neg for FA and obstruction. Pt was advised of the findings. She was given a second dose of IV dilaudid at her request. Case was d/w the hospitalist service for further management. Pt expressed an understanding and agreed. Impression & Plan Crohn's colitis Discharge Plan Visit Data Chief Complaint: GI Assessment Stated Complaint: NAUSEA,VOMITING,DIARRHEA,CHRONS ED Provider: Mónica Murray Discharge Problem: Crohn's colitis Patient Disposition: Admitted As Inpatient Discharge Instructions Interventions: ED Discharge Assessment Last Done: 10/04/19 21:30 Discharge Problem: Crohn's colitis Qualifiers: Digestive disease complication type: with rectal bleeding Qualified Code(s): K50.111 - Crohn's disease of large intestine with rectal bleeding
[2019-10-06] MEDS: HYOSCYAMINE SULFATE 0.125 MG TAB PO PRN (14:13)
[2019-10-06] MEDS: LEFLUNOMIDE 10 MG TAB PO SCH (20:49)
[2019-10-06] MEDS: AMITRIPTYLINE HCL 10 MG TAB PO SCH (20:49)
[2019-10-06] MEDS: PROMETHAZINE HCL 6.25 MG in SODIUM CHLORIDE 0.9% 50 ML IV PRN (23:21)
[2019-10-07] MEDS: SODIUM CHLORIDE 0.9% 1000ML 1,000 ML IV SCH ×2 (00:39→11:08)
[2019-10-07] MEDS: HYDROmorphone INJ 0.5 MG/0.5 ML SYR IV PRN ×3 (02:27→11:06)
[2019-10-07] MEDS: methylPREDNISolone 20 MG in SYRINGE 0 ML IV SCH ×2 (05:44→14:05)
[2019-10-07] MEDS: ONDANSETRON INJ 2 MG/ML 2 ML VIAL IV PRN (06:17)
[2019-10-07] MEDS: HYOSCYAMINE SULFATE 0.125 MG TAB PO PRN (06:37)
[2019-10-07] MEDS: FOLIC ACID 1 MG TAB PO SCH (09:29)
[2019-10-07] MEDS: PANTOprazole 40 MG TAB PO SCH (09:29)
--- NOTE | 2019-10-07 15:01 | Discharge Summary ---
Date of Service October 07, 2019 Admission HPI Per Admitting Provider Ana Del Cid is a 28yo C female with longstanding history of Crohn's colitis, gastroparesis, hiatal hernia and RA presenting with suspected flare of Crohn's colitis. Patient was diagnosed with Crohn's disease approximately 15 years ago. She currently follows with Artur Guillermo from [facility], last seen on 10/03/19. She is currently on Prednisone 40mg po daily and receives Stelara injection q 8 weeks (she was to receive injection on 09/25, however, medication was delayed due to insurance. States she just received a letter that Stelara has been authorized). Patient was seen by GI earlier in the month with complaint of nausea, abdominal pain and suspected Crohn's flare. She was started on a prednisone taper, 30mg decreasing q 3 days. She reports two weeks of progressive nausea, occasional non-bloody/non-bilious vomiting as well as abdominal pain and diarrhea. She reports 7-10 bowel movements per day, soft in nature, occasionally liquid yellow. She has had several episodes of fecal incontinence. Has BMs at night as well. No association with PO intake/meals/dairy. BMs are mucoid and occasionally bloody. She had a fever approximately 2 weeks ago but none since. No concerns for exposure to Covid-19. Per GI note: Colonoscopy last performed by [facility] June 2019: Normal ileum, erythematous/scarred in the sigmoid descending and transverse colon and pseudopolyps in these areas as well as the ascending colon. Colon bx with mild chronic inflammation without acute crypt abscess or dysplasia. Due for surveillance in 2021. ER Course: Dilaudid 0.5mg IV x 2, Solumedrol 60mg IV, Zofran 4mg IV, NSS x 1L Principal Diagnosis Crohn's flare Discharge Exam Constitutional WD/WN, vitals as above Eyes + anicteric sclerae ENMT Ears: no hearing impairment and no external ear abnormality Neck trachea midline, no thyromegaly Respiratory normal respiratory effort, lungs clear to auscultation Cardiovascular RRR, no murmur, no edema Chest (Breasts) Chest: normal inspection of chest Gastrointestinal (Abdomen) Inspection/Auscultation: normal bowel sounds; abdomen not distended Percussion/Palpation: + abdomen tender (mild lower abd without guarding) and abdomen soft; no guarding and abdomen not rigid Musculoskeletal Extremities: extremities normal to inspection; no cyanosis and no clubbing Skin no rashes, warm and dry Neurologic moves all extremities and awake; no focal motor deficits Psychiatric A+Ox3, euthymic affect Lymphatic no lymphedema Discharge Data Allergies Allergy/AdvReac Type Severity Reaction Status Date / Time iron Allergy Severe JOINT Verified 10/04/19 18:55 PAIN/SWELLING/DIARRHEA Venofer Allergy Severe JOINT Unverified 04/26/16 11:30 PAIN/SWELLING/DIARRHEA NSAIDS (Non-Steroidal AdvReac Unknown Crohn's Verified 10/04/19 18:55 Anti-Inflamma Disease Consultations 10/04/19 21:51 Consult Gastroenterology Routine 10/05/19 03:23 Consult General Surgery Routine Ordered Studies 10/04/19 22:14 CT abd pelvis oral and IV con Urgent 10/05/19 13:00 CT enterography Routine [facility] Hospital Course (1) Crohn's colitis: 28yo C female with Crohn's colitis presenting with suspected flare, persistent nausea, abdominal pain and bloody/mucoid diarrhea, failed outpatient management. Prior to admission, was on on Prednisone 40mg po daily, overdue for her Stelara injection as an outpt due to insurance approval issue. She follows with [facility] GI She reports fairly adequate control of Crohn's symptoms while on Stelara. She does note some mild worsening of symptoms, diarrhea and abdominal pain 1-2 weeks before her injection is due. Patient with prior history of c. difficile colitis s/p fecal transplant with resolution of infection. Modestly improved after several days of taking IV Dilaudid. Diarrhea is now resolved, nausea is improved and tolerating low fiber/low lactose diet. C. diff here is negative ESR 21, Stool cultures pending CT abd/pel with possible small bowel intussusception CTE was normal, intussusception resolved by the next day Seen by GI and general surgery Diet was slowly advanced and she tolerated Diarrhea improved Started Levsin as needed, continue oxycodone as needed for pain at home but discouraged opioid use -Continue low lactose/low fiber diet Received IV SOluMedrol 20mg IV q8h and then prednisone taper on dc as per GI recommendations -start back on Stelara when available-supposed to be shipped on Wednesday of this coming week She uses medical marijuana at home for nausea and pain Follow-up with GI as an outpatient (2) Diarrhea: Now resolved C. 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 Failed Remicade. Humira caused drug induced lupus -Continue Leflunomide 20mg po qHS Also takes oxycodone every night Follow-up with rheumatology (6) Gastroparesis: Patient with gastroparesis. Uncertain if nausea is related to this vs flare of Crohn's. Her nausea does not appear to be associated with PO intake, no vomiting of late. Improving Did have some odynophagia with solid foods during hospitalization which improved with drinking fluids after eating -Advised slippery moist diet on discharge and frequent sips of fluid with eating -Follow-up with GI as an outpatient if persists (7) Chronic, continuous use of opioids: Takes daily oxycodone at nighttime for at least several months Encouraged her to not take chronic opioids (8) Medical marijuana use: Wrote order to bring this in from home for nausea but she did not feel c omfortable using it here -Discouraged her from vaping due to possibility of lung injury (9) DVT prophylaxis: AMbulation, no chemoprophylaxis given h/o bloody stools Dispo-stable for discharge to home Total Time Total Time Spent Total Time Spent (In Minutes): 35 minutes Total Time Includes: Examination of the Patient, Discharge Planning and Medication Reconciliation Discharge Plan Discharge Items Patient Disposition: Home - Self-Care Reason For Visit: CROHN'S FLARE DIARRHEA Discharge Diagnosis: Crohn's flare Condition on Discharge: Fair Activity: Resume your previous activity Non-emergency contact: Primary Care Provider and Interventional Radiologist Call non-emergency contact if: you have any medication questions, your symptoms worsen, your pain is not controlled, your pain is worsening, your pain is unusual for you, your pain is concerning for you and you have a fever Follow-up/Referrals: Artur Guillermo [Nurse Practitioner] - (Follow-up as planned in approximately 2 weeks) Shantanu Taylor [Primary Care Provider] - (Follow-up within 1 to 2 weeks) Diet: Low Fiber and Lactose Intolerant Diet Comment: Slippery diet Addtl Attending Provider Instructions: Please take the prednisone taper as prescribed and start your Stelara when it comes in the mail. Follow-up with GI as previously scheduled and call your GI doctor at [facility] to schedule follow-up appointment. Pending Studies at Discharge: No Stand-Alone Forms: My [facility] Medications and DC Order Prescriptions: New hyoscyamine sulfate [Levsin] 0.125 mg Tablet 0.125 mg PO TID PRN (Reason: abdominal pain) Qty: 30 RF: 0 prednisone 10 mg tablet 40 mg PO DAILY Qty: 60 RF: 0 Continued sumatriptan succinate 50 mg tablet 50 mg PO DIRECTED MDD 200 MG/DAY PRN (Reason: Migraine Headache) RF: 0 famotidine 20 mg tablet 40 mg PO HS PRN (Reason: Acid Reflux) RF: 0 amitriptyline 10 mg tablet 20 mg PO HS RF: 0 promethazine 25 mg tablet 25 mg PO Q6H PRN (Reason: Nausea And Vomiting) RF: 0 fluticasone propionate 50 mcg/actuation spray,suspension 2 spray INTRANASAL DAILY PRN (Reason: Allergy Symptoms) RF: 0 Amitiza 8 mcg capsule 8 mcg PO QAM RF: 0 Stelara 90 mg/mL syringe 90 mg SUBCUT Q8WK RF: 0 ondansetron HCl [Zofran] 4 mg tablet 4 mg PO Q6H PRN (Reason: Nausea And Vomiting) RF: 0 medroxyprogesterone 150 mg/mL syringe 150 mg IM DIRECTED RF: 0 Women's Multivitamin Gummies 200 mcg Tablet,Chewable 400 mcg PO HS RF: 0 leflunomide [Arava] 20 mg tablet 20 mg PO HS RF: 0 pantoprazole 40 mg Tablet,Delayed Release (Dr/Ec) 40 mg PO QAM RF: 0 folic acid 1 mg tablet 1 mg PO QAM RF: 0 Changed oxycodone 5 mg tablet 5 mg PO Q4H PRN (Reason: Abdominal Pain) Qty: 0 RF: 0 Discharge Orders: Discharge Order (Routine); Ordered 10/07/19 Ordered By: Valerie Cuevas/Other Patient Handouts: Low-Fiber Diet, Crohn Disease Lifestyle Manage Admission Data Admit Date/Time: 10/04/19 20:06 Attending Provider: Valerie Millan Admit Provider: Glory Hurtado Primary Care Provider: Shantanu Taylor Other Providers: Rosalinda Nguyen ; Mario Alberto Bowers Coding Level of Care Code D/C Day Management >30 mins Diagnoses Crohn's colitis K50.111 Digestive disease complication type: with rectal bleeding Diarrhea R19.7 Intussusception intestine K56.1 Endometriosis N80.9 Rheumatoid arthritis M06.9 Rheumatoid arthritis location: unspecified site Rheumatoid factor presence: unspecified presence Gastroparesis K31.84 Chronic, continuous use of opioids F11.90 Medical marijuana use Z79.899 DVT prophylaxis Z29.9
== END 2019-10-07 16:08 | disposition home or self-care (01) ==
LOC: ED 16:19 → INTOOBSV 20:06 → SUATTDRO 20:06 → 3W 20:06

== ENCOUNTER 2020-05-20 10:51 | Observation (INO) ==
--- NOTE | 2020-05-17 09:02 | Anesthesiology Consultation ---
Date of Service May 17, 2020 Assessment & Plan (1) Encounter for pre-operative examination: - COVID screening: Per assessment on 05/17: Travel screen negative, no known COVID-19 positive contacts or current COVID-19 related symptoms. Ptaient fully vaccinated. Surgeon arranged preop COVID testing (done 05/16; [place]- results pending). - Check test AM DOS - S/P D&C, hysteroscopy, diagnostic laparoscopy: 03/22/20: Done under general anesthesia at [facility] - Cardiology office visit: 05/15/20: "She underwent outpatient associate director career services which demonstrated sinus rhythm with an average heart rate 90 beats per minute. Symptoms correlated to sinus tachycardia. No episodes SVT or atrial fibrillation. Due to borderline elevated heart rate in ongoing symptoms, low- dose metoprolol was discussed. Patient decided to not take medication... Since last visit patient unfortunately down several steps landing on concrete and fractured her hip. No surgery performed. She has followed closely by orthopedics. She is currently nonweightbearing. If fails to heal, she will require surgery.. 2 week monitor reviewed with patient - symptoms correlated with NSR and sinus tach. No concerning arrhythmias. We discussed trial of low dose metoprolol in the past. She picked up prescription but did not start. Currently her symptoms have improved, but she is also more sedentary as she fractured her hip and is non weight bearing. We discussed use of metoprolol for symptom relief only, not essential as there were no concerning arrhythmias on monitor. Will hold off on taking metoprolol for now. Once she becomes more active, and if symptoms worsen/return, can discuss at that time." Chart Review Chart Review: Acceptable Risk for Surgery and Patient NOT seen in Pre Admission Testing History Surgery Operation Date: 05/20/20 12:35 Proposed Procedures p Right Femoral Neck Fracture Open Reduction Internal Fixation - Bib Espinoza MD Height/Weight Height: 5 ft 2 in Weight: 56.699 kg Allergies Allergy/AdvReac Type Severity Reaction Status Date / Time iron Allergy Severe Swelling, Verified 05/17/20 08:58 joint pain, diarrhea Venofer Allergy Severe JOINT Unverified 04/26/16 11:30 PAIN/SWELLING/DIARRHEA NSAIDS (Non-Steroidal AdvReac Unknown Advised to Verified 05/17/20 08:58 Anti-Inflamma avoid (crohn's disease) Medications Home Medications Medication Instructions Recorded Confirmed Last Taken folic acid 1 mg PO QAM 03/30/18 05/17/20 03/21/20 08:00 pantoprazole 40 mg PO QAM 03/30/18 05/17/20 03/21/20 08:00 Stelara 90 mg SUBCUT Q8WK 02/21/19 05/17/20 02/04/20 amitriptyline 20 mg PO HS 02/21/19 05/17/20 03/21/20 20:00 fluticasone propionate 2 spray INTRANASAL DAILY PRN 02/21/19 05/17/20 Unknown lubiprostone [Amitiza] 8 mcg PO QAM 02/21/19 05/17/20 03/20/20 medroxyprogesterone 150 mg IM DIRECTED 02/21/19 05/17/20 03/04/20 ondansetron HCl [Zofran] 4 mg PO Q6H PRN 02/21/19 05/17/20 03/20/20 promethazine 25 mg PO Q6H PRN 02/21/19 05/17/20 03/20/20 20:00 sumatriptan succinate 50 mg PO DIRECTED PRN MDD 200 02/21/19 05/17/20 03/21/20 08:00 MG/DAY Women's Multivitamin Gummies 400 mcg PO HS 03/21/19 05/17/20 03/20/20 20:00 leflunomide [Arava] 20 mg PO HS 10/04/19 05/17/20 03/21/20 20:00 hyoscyamine sulfate [Levsin] 0.125 mg PO TID PRN #30 tab 10/07/19 05/17/20 Unknown oxycodone 5 mg PO Q4H PRN #0 tab 10/07/19 05/17/20 03/21/20 08:00 acetaminophen [Tylenol Extra 1,000 mg PO Q6H PRN 11/14/19 05/17/20 03/21/20 08:00 Strength] Caltrate 600 plus D 1 tab PO BID 03/01/20 05/17/20 03/20/20 albuterol sulfate 2 puff INHALATION Q6H PRN 03/01/20 05/17/20 Unknown Past Medical History Medical History Allergic rhinitis Anemia no known blood transfusions Anxiety Crohns disease controlled with intermittent flares, occasional steroid use as needed Endometriosis Gastroparesis GERD (gastroesophageal reflux disease) controlled H/O Clostridium difficile infection 2014 History of asthma Childhood History of peptic ulcer Hx MRSA infection 2013 (in lymph node which has since be resected) Kidney stones Migraine Rheumatoid arthritis No cervical ROM issues-follows with Dr. Sequeira, [facility] rheum. On Stelara and leflunomide (Arava) Tachycardia occasional episodes > follows with [facility] cardiology (Beatrice Haile), s/p unremarkable stress echo, and Zio monitoring Past Family History Family History Grandmother (Maternal) Breast cancer Aunt Cervical cancer Maternal Ovarian cancer Maternal Grandfather (Paternal) Colorectal cancer Mother Mitral valve prolapse Other No family history of adverse response to anesthesia Past Surgical History Surgical History H/O colonoscopy H/O esophagogastroduodenoscopy History of dilatation and curettage Lymph node symptom Left axillary lymph node removal (for MRSA) Nausea and vomiting after administration of anesthetic agent S/P cholecystectomy S/P fecal transplant S/P ORIF (open reduction internal fixation) fracture left wrist S/P tonsillectomy [place] teeth extracted Social History Smoking Status: Never smoker Hx Alcohol Use: Yes Alcohol type: wine alcohol intake frequency: other Hx Substance Use: Yes substance use type: marijuana Substance Use Type Other:: Medical marijuana card > inhalation HS/oil PRN Testing Laboratory Results 05/14/20 WBC 5.84 H/H 12.9/40.6 PLATELETS 321 SODIUM 140 POTASSIUM 3.9 CHLORIDE 106 CO2 24 BUN 10 CREATININE 0.8 GLUCOSE 123 Electrocardiogram Date: 02/15/20 Findings: + NSR @ (98bpm) Possible left atrial enlargement. Septal infarct (cited on or before 09/11/2019 > unremarkable stress test done 09/21/19) Stress Test Date: 09/21/19 Resting EF: 60-64% The stress echo was negative for inducible ischemia. Blood pressure response to exercise was normal. The LV wall motion is normal. LVEF increases normally with stress. LV diastolic function is normal. No significant valvular disease is present.
--- NOTE | 2020-05-17 09:46 | History & Physical Report ---
Date of Service May 17, 2020 Assessment & Plan Admission and Anticipated Discharge Date Admission Date: PRE-OP Diagnosis: Right femoral neck fracture Planned Procedure: Open reduction internal fixation of right femoral neck fracture Plan: Patient is scheduled to undergo this procedure at [facility] on Wednesday May 20, [address] Bib Espinoza. Risks and complications of the procedure such as: Infection, bleeding, pain, scarring, ner ve blood vessel damage, weakness, wound problems, stiffness, incomplete relief of symptoms, hardware failure, malunion, nonunion, arthritis, blood clots, embolism, heart attack, stroke and were explained the patient had a visit today by Dr. Espinoza. Informed consent form the procedure was obtained. Patient also understands risks of proceeding with surgical intervention during the COVID-19 pandemic. Currently she is asymptomatic and understands she will need to be tested at the hospital following her appointment today.. We have an up-to-date CBC and basic metabolic panel. Preoperative medical clearance and additional testing is not warranted at this point. I advised the patient that she will be discharged from the hospital with a prescription for oxycodone for postoperative pain control. We would also like her to take a baby aspirin daily for 30 days postoperatively for blood clot prevention. Due to her Crohn's disease we will not prescribe any anti-inflammatory agents and patient states she would prefer to use extra strength Tylenol. Patient is scheduled for her 2- week postoperative follow-up with myself on June 04 at 3 PM. She has her initial physical therapy appointment in our clinic on May 24 at 10:30 AM and she states she will most likely continue physical therapy with us. Patient verbalized understanding of all information provided during today's visit. She thanks for the care that she received. Patient states she has questions or concerns prior to the surgery, she will contact clinic. She states she will bring a walker with her on the day of her procedure. History of Present Illness Chief Complaint: Right femoral neck fracture Primary Care Provider: Shantanu Taylor History of Present Illness (including history relevant to procedure): This 29-year-old female presents the clinic today with her father for evaluation of severe right hip pain after falling this morning. Patient complains of throbbing pain in her groin and lateral hip with any type of movement. Patient was evaluated by Dr. Espinoza for the femoral neck fracture on May 14. He recommended nonsurgical treatment as long as she did not have any other falls. She has been nonweightbearing with the aid of crutches but states she is very clumsy with them and has fallen twice since her visit. Today's fall was a direct blow onto the right hip and she feels that having surgical fixation of the fracture provide her with more stability so that she could perform her activities of daily living at home. She has had corticosteroid injections in the past without pain relief. She is unable to use nonsteroidal agents due to her severe Crohn's disease but does use extra strength Tylenol to control her pain. Currently she is using a wheelchair to get around because she is unable to safely use her crutches. Review Of Systems: A 14 point review of systems performed is unremarkable except for those things stated in the HPI and past medical history. Past Medical History: Problems: Fracture of femoral neck, right Pre-op exam Hip injury Migraine headache Anemia Lupus (Drug-induced) Crohn's disease Rheumatoid arthritis GERD Renal calculi Osteopenia Degenerative disc disease Procedure History Procedure Procedure Date Comments Cholecystectomy Tonsillectomy Lymph node excision from left axilla Allergies and Sensitivities: NKA Social history: Patient denies tobacco or illicit drug use and rarely consumes alcohol. Family history: Noncontributory Current Home Meds: (Last Updated 05/16 13:57) SUMAtriptan (Imitrex) acetaminophen (Tylenol) albuterol (Albuterol (Eqv-ProAir HFA)) amitriptyline colestipol (colestipol 1 g oral tablet) estradiol (Depo-Estradiol) folic acid leflunomide lubiprostone (Amitiza) metoclopramide (Reglan) multivitamin ondansetron (Zofran) oxyCODONE pantoprazole (Protonix) promethazine (Phenergan) trimethobenzamide (Tigan) ustekinumab (Stelara) Allergies Allergy/AdvReac Type Severity Reaction Status Date / Time iron Allergy Severe Swelling, Verified 05/17/20 08:58 joint pain, diarrhea Venofer Allergy Severe JOINT Unverified 04/26/16 11:30 PAIN/SWELLING/DIARRHEA NSAIDS (Non-Steroidal AdvReac Unknown Advised to Verified 05/17/20 08:58 Anti-Inflamma avoid (crohn's disease) Home Medications Medication Instructions Recorded Confirmed Type folic acid 1 mg PO QAM 03/30/18 05/17/20 History pantoprazole 40 mg PO QAM 03/30/18 05/17/20 History Stelara 90 mg SUBCUT Q8WK 02/21/19 05/17/20 History amitriptyline 20 mg PO HS 02/21/19 05/17/20 History fluticasone propionate 2 spray INTRANASAL DAILY PRN 02/21/19 05/17/20 History lubiprostone [Amitiza] 8 mcg PO QAM 02/21/19 05/17/20 History medroxyprogesterone 150 mg IM DIRECTED 02/21/19 05/17/20 History ondansetron HCl [Zofran] 4 mg PO Q6H PRN 02/21/19 05/17/20 History promethazine 25 mg PO Q6H PRN 02/21/19 05/17/20 History sumatriptan succinate 50 mg PO DIRECTED PRN MDD 200 02/21/19 05/17/20 History MG/DAY Women's Multivitamin Gummies 400 mcg PO HS 03/21/19 05/17/20 History leflunomide [Arava] 20 mg PO HS 10/04/19 05/17/20 History hyoscyamine sulfate [Levsin] 0.125 mg PO TID PRN #30 tab 10/07/19 05/17/20 Rx oxycodone 5 mg PO Q4H PRN #0 tab 10/07/19 05/17/20 Rx acetaminophen [Tylenol Extra 1,000 mg PO Q6H PRN 11/14/19 05/17/20 History Strength] Caltrate 600 plus D 1 tab PO BID 03/01/20 05/17/20 History albuterol sulfate 2 puff INHALATION Q6H PRN 03/01/20 05/17/20 History Past Med/Surg History Medical History Allergic rhinitis Anemia no known blood transfusions Anxiety Crohns disease controlled with intermittent flares, occasional steroid use as needed Endometriosis Gastroparesis GERD (gastroesophageal reflux disease) controlled H/O Clostridium difficile infection 2014 History of asthma Childhood History of peptic ulcer Hx MRSA infection 2013 (in lymph node which has since be resected) Kidney stones Migraine Rheumatoid arthritis No cervical ROM issues-follows with Dr. Sequeira, [facility] rheum. On Stelara and leflunomide (Arava) Tachycardia occasional episodes > follows with [facility] cardiology (Beatrice Haile), s/p unremarkable stress echo, and Zio monitoring Surgical History H/O colonoscopy H/O esophagogastroduodenoscopy History of dilatation and curettage Lymph node symptom Left axillary lymph node removal (for MRSA) Nausea and vomiting after administration of anesthetic agent S/P cholecystectomy S/P fecal transplant S/P ORIF (open reduction internal fixation) fracture left wrist S/P tonsillectomy [place] teeth extracted Family History Grandmother (Maternal) Breast cancer Aunt Cervical cancer Maternal Ovarian cancer Maternal Grandfather (Paternal) Colorectal cancer Mother Mitral valve prolapse Other No family history of adverse response to anesthesia Social History Smoking Status: Never smoker Second Hand Exposure: No; Do You Dip or Chew Tobacco: No; Tobacco Cessation Education Requested by Patient: No Hx Alcohol Use: Yes Alcohol type: wine Hx Substance Use: Yes Substance Use Type Other:: Medical marijuana card > inhalation HS/oil PRN Preferred Language: Welsh Communication Ability: Effective Success Coach Required: No Beliefs That Will Affect Care: None Current Living Situation: Spouse Current Living Situation Comment: fiance Other Information That Helps Us Care for You: No Feels Safe at Home: Yes Safety Concerns: Feels Safe At This Time Assistive Devices: Glasses Assistive Devices Comment: driving glasses Review of Systems All systems reviewed & are unremarkable except as noted in Subjective Physical Exam Physical Exam: Physical Exam: (relevant to the procedure, including heart and lung evaluation) General: Alert and oriented x3 with proper grooming and hygiene Eyes: Pupils are equal reactive to light with accommodation. Extraocular movements are intact Throat: Deferred due to COVID-19 precautions Cardiac: Regular rate and rhythm with no murmurs or gallops appreciated Lungs: Clear to auscultation throughout no wheezing, rales or rhonchi Abdomen: Nonobese, nondistended, nontender with normoactive bowel sounds Extremities: Right hip exam shows the patient to have an irritable hip. The log-roll bothers her causing referred pain to the anterior groin and lateral hip. Passive flexion to 70 degrees causes severe pain in the groin. Very light passive internal and external rotation causes severe pain referred to the groin and posterior hip. Unable to do a straight leg raise. Neurovascular intact. Neuro: Cranial nerves II through XII are intact no motor or sensory deficit Skin: Normal in appearance no open skin areas of discharge Results & Data ([facility]) Diagnostic Findings Studies (relevant to the procedure): MRI that was done on May 01, 2020, demonstrates edema within the medial compression side of the femoral neck just above the lesser trochanter. No fracture line is seen on the T1 views, but there is a suggestion of a fracture line on the coronal T2. This involves less than 30% of the width of the femoral neck.
[~2020-05-20 10:51] MED LIST changes: -ACET-1256 PO; -ADAL40KI SC; -ALBUAER2 INH; +BUPIVACAINE 0.5 % 5 MG/1 ML PF 10ML VIAL ONE; -EPP3/2 IM; -IMT50 PO; -LORA-741 PO; +LR 15ML/HR IV SCH; -METH4PAK PO; -NUVVR PV; -ONDA4TAB9 SL; -OXYC1TAB3 PO; -PANT40TA PO; -POTTAB2 PO; -RANI300T2 PO; -ZOLP5TAB6 PO
[2020-05-20] MEDS ORDERED: ePHEDrine sulfate 50 MG/ML AMP IV PRN (11:58)
[2020-05-20] MEDS ORDERED: ATROPINE SULFATE 0.1 MG/ML 10ML SYR IV PRN (11:58)
[2020-05-20] MEDS ORDERED: ONDANSETRON INJ 2 MG/ML 2 ML VIAL IV PRN (11:58)
[2020-05-20] MEDS ORDERED: fentaNYL citrate 100 MCG/2 ML VIAL ONE ×2 (13:09→14:30)
[2020-05-20] MEDS ORDERED: MIDAZOLAM HCL 1 MG/ML 2ML VIAL ONE (13:09)
[2020-05-20] MEDS ORDERED: KETAMINE 50 MG/5 ML SYRINGE ONE (13:09)
[2020-05-20] MEDS ORDERED: BUPIVACAINE 0.5 % 5 MG/1 ML MPF 30ML VIAL ONE (13:28)
--- NOTE | 2020-05-20 13:29 | History & Physical Bridge Note ---
Date of Service May 20, 2020 History & Physical Bridge Note I have examined the patient, reviewed the History & Physical and in the interval since the performance of the History & Physical I have noted the following changes of clinical significance: no changes noted
[2020-05-20] MEDS ORDERED: ceFAZolin 2,000 MG/15 ML IV PUSH IV ONE (13:40)
[2020-05-20] MEDS ORDERED: LR 15ML/HR IV SCH (13:45)
[2020-05-20] MEDS ORDERED: ceFAZolin 2000MG 2,000 MG/15 ML SYR IV SCH (13:45)
[2020-05-20] MEDS ORDERED: ONDANSETRON INJ 2 MG/ML 2 ML VIAL ONE (14:10)
[2020-05-20] MEDS ORDERED: DEXAMETHASONE SOD INJ 4 MG/ML VIAL ONE (14:10)
[2020-05-20] MEDS ORDERED: PROPOFOL IV EMULSION 10 MG/ML 20 ML VIAL IV ONE (14:10)
[2020-05-20] MEDS ORDERED: LIDOCAINE HCL 2% 2 ML VIAL/AMP(20MG/ML) INFIL ONE (14:10)
[2020-05-20] MEDS ORDERED: HYDROmorphone INJ 2 MG/ML SYR/VIAL ONE (14:37)
--- NOTE | 2020-05-20 15:04 | Post Operative Brief Note ---
Immediate Post Op Note v1 Date of Surgery May 20, 2020 Pre & Post Diagnosis Operation Date: 05/20/20 12:35 Pre-Op Diagnosis: Right Femoral Neck Fracture Post-Op Diagnosis: Right Femoral Neck Fracture I identified the patient and participated in the time-out.: Yes Procedure Operation Date: 05/20/20 12:35 Actual Procedures p Right Femoral Neck Fracture Open Reduction Internal Fixation(Right) - Bib Espinoza MD Surgeon Bib Espinoza MD Police Surgeon MOISES Salas PA-C. No resident or fellow was available to assist. Estimated Blood Loss 25 Findings Consistent with Post-Op Diagnosis Fluids 1000 Anesthesia Type General Complications none Disposition Accompanied Patient To Recovery: No Disposition: Recovery Room
[2020-05-20] MEDS ORDERED: NALOXONE HCL 0.4 MG/1 ML VIAL/CARP IV PRN (15:21)
--- NOTE | 2020-05-20 15:21 | Operative Report ---
Post Operative Report Pre & Post Diagnosis Operation Date: 05/20/20 12:35 Pre-Op Diagnosis: Right Femoral Neck Fracture Post-Op Diagnosis: Right Femoral Neck Fracture I identified the patient and participated in the time-out.: Yes Procedure Operation Date: 05/20/20 12:35 Actual Procedures p Right Femoral Neck Fracture Open Reduction Internal Fixation(Right) - Bib Espinoza MD Surgeon Bib Espinoza MD Technical Agronomist MOISES Salas PA-C. No resident or fellow was available to assist. Estimated Blood Loss 25 Findings Consistent with Post-Op Diagnosis Specimens none Complications none Disposition Accompanied Patient To Recovery: Yes Disposition: Recovery Room Description of Procedure I was present during the entire procedure assisting with positioning, prepping, draping, wound retraction, closure, and dressing application. No fellow present. Please see Dr. Espinoza procedure note for specifics of the case. I attest to the content of the Intraoperative Record and any orders documented therein. Any exceptions are noted below.
[2020-05-20] MEDS ORDERED: MoRPHine SULFATE 2 MG/ML CARP IV PRN (15:26)
[2020-05-20] MEDS ORDERED: diphenhydrAMINE 50 MG/ML VIAL IV PRN (15:27)
[2020-05-20] MEDS ORDERED: PROMETHAZINE HCL 25 MG TAB PO PRN (15:29)
[2020-05-20] MEDS ORDERED: FLUTICASONE PROPIONATE NA SPR 16 GM BTL NAE PRN (15:29)
[2020-05-20] MEDS ORDERED: HYOSCYAMINE SULFATE 0.125 MG TAB PO PRN (15:29)
[2020-05-20] MEDS ORDERED: oxyCODONE IR HOME PACK PO PRN (15:29)
[2020-05-20] MEDS ORDERED: ONDANSETRON 4 MG OD TAB PO PRN (15:29)
[2020-05-20] MEDS ORDERED: ACETAMINOPHEN 500 MG TAB PO PRN (15:29)
[2020-05-20] MEDS ORDERED: ALBUTEROL HFA 8 GM INHALER INH PRN (15:29)
[2020-05-20] MEDS ORDERED: SUMAtriptan succinate 50 MG TAB PO PRN (15:29)
[2020-05-20] MEDS ORDERED: MEDROXYPROGESTERONE 150 MG/ML IM SCH (15:30)
[2020-05-20] MEDS ORDERED: ALUMINUM/MAGNESIUM SUSP 30 ML UDC PO PRN (15:30)
[2020-05-20] MEDS: fentaNYL citrate 100 MCG/2 ML VIAL IV PRN ×4 (15:34→15:49)
--- NOTE | 2020-05-20 15:42 | Anesthesiology Progress Note ---
Date of Service May 20, 2020 Anesthesia Post Procedure Vital Signs Vital Signs: Temp Pulse Pulse Resp BP Pulse Ox 05/20/20 15:40 103 H 15 150/110 H 100 05/20/20 15:30 103 H 14 150/105 H 100 05/20/20 15:21 98.2 F 104 H 14 147/97 H 99 05/20/20 11:29 99.1 F 89 16 137/93 98 Pain Intensity Right Hip: Pain Intensity: 7 Transfer of Care Handoff Completed per policy Notes Mental Status: alert / awake / arousable and participated in evaluation Patient Amnestic to Procedure: Yes Nausea / Vomiting: adequately controlled Pain: adequately controlled Airway Patency, RR, SpO2: stable & adequate BP & HR: stable & adequate Hydration State: stable & adequate Anesthetic Complications: no major complications apparent and Pt Satisfied with anesthetic care
--- NOTE | 2020-05-20 15:43 | Fluoroscopy Report ---
FL hip RT 2-3V CLINICAL HISTORY: RT ORIF FEMORAL NECK FX COMPARISON STUDY: 05/16/2020. FLUOROSCOPY TIME: 1 minute and 40 seconds. FINDINGS: 3 fluoroscopic spot images of the right hip demonstrate 3 cannulated screws within the righ t femoral neck. The hardware appears intact. Alignment is anatomic. IMPRESSION: Fluoroscopy provided for screw placement at the right femoral neck. The hardware appears intact. ACT 112: Negative or not required by law. Electronically signed by: Akshat Burton M.D. 05/20/2020 3:41 PM
[2020-05-20] MEDS ORDERED: HYDROmorphone INJ 1 MG/ML SYRINGE ONE (16:04)
[2020-05-20] MEDS: HYDROmorphone INJ 1 MG/ML SYRINGE IV PRN ×2 (16:05→16:10)
--- NOTE | 2020-05-20 16:11 | XRay Report ---
RIGHT HIP 2 VIEWS CLINICAL HISTORY: Postoperative examination. FINDINGS: AP and crosstable lateral views of the right hip are compared to study dated 05/16/2020. The skeletal structures are well mineralized. No acute fracture is seen. There are 3 intertrochanteric co rtical lag screws. The orthopedic hardware appears intact. The joint space of the hip is maintained. Skin clips, soft tissue edema, and subcutaneous gas are expected postoperative findings. IMPRESSION: Expected postoperative change in the right hip as above. No acute fracture is seen. Electronically signed by: Easton Plummer M.D. 05/20/2020 4:10 PM
[2020-05-20] MEDS ORDERED: SODIUM CHLORIDE 0.9% 1000ML 1,000 ML IV SCH (17:15)
[2020-05-20] MEDS: ONDANSETRON INJ 2 MG/ML 2 ML VIAL IV PRN ×2 (18:16→21:48)
[2020-05-20] MEDS: oxyCODONE HCL IR 5 MG TAB (IMMEDIATE RELEASE) PO PRN ×2 (19:54→23:46)
[2020-05-20] MEDS: ASPIRIN 81 MG ECTAB PO SCH (20:03)
[2020-05-20] MEDS: CALCIUM 600MG + VIT D 400 IU TAB PO SCH (20:03)
[2020-05-20] MEDS ORDERED: CEROVITE ADV FORMULA TAB PO SCH (21:00)
[2020-05-20] MEDS ORDERED: AMITRIPTYLINE HCL 10 MG TAB PO SCH (21:00)
[2020-05-20] MEDS ORDERED: LEFLUNOMIDE 10 MG TAB PO SCH (21:00)
[2020-05-20] MEDS: ceFAZolin 2000MG 2,000 MG/15 ML SYR IV SCH (21:41)
--- NOTE | 2020-05-20 22:29 | Operative Report (OR) ---
DATE OF OPERATION: 05/20/2020 PREOPERATIVE DIAGNOSIS: Right femoral neck fracture. POSTOPERATIVE DIAGNOSIS: Right femoral neck fracture. OPERATIONS PERFORMED: Closed reduction and percutaneous pinning of a right femoral neck fracture. SURGEON: Bib Espinoza MD. TRIBUNAL MEMBER: Marely Salas PA-C. No resident or fellow was available to assist. SPECIMENS: None. COMPLICATIONS: None. ESTIMATED BLOOD LOSS: 25 mL. INTRAVENOUS FLUIDS: 1000 mL of crystalloid. IMPLANTS: Three Synthes 6.5 mm cannulated screws, two measuring 80 mm and one measuring 90 mm. 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 She had a slip in January, but had not fallen and had some discomfort in her right hip then. However, after her fall in April, the pain was acutely worsened. She saw an outside physician who gave her a steroid injection into her hip joint. This did not give her any relief. She then had an MRI arthrogram that showed a compression sided femoral neck fracture. She came to my office for a second opinion last week on Wednesday. I told her this could be treated nonsurgically so long as she were able to observe strict nonweightbearing. The following day, she fell again and had increased pain. We saw her back in clinic on and got a new set of x-rays. No fracture was visible on the x-rays. However, at that time, I felt like the benefits of surgery outweigh the risks as she was having a lot of trouble maintaining nonweightbearing, and getting a fall and having a displaced femoral neck fracture would certainly be an unfavorable outcome. After reviewing all the risks and benefits of surgery, she elected to proceed. All questions were answered. Informed consent was signed. OPERATIVE FINDINGS: Fracture was stabilized with 3 Synthes 6.5 mm cannulated screws in an inverted triangle configuration. DESCRIPTION OF THE OPERATION: The patient was identified in the preoperative holding area where her surgical site was marked. She was brought back to the main operating room where general anesthesia was administered on the hospital bed. She was then carefully moved on to the fracture table. A peroneal post was placed. Nonoperative leg was abducted and flexed. Her operative foot was well padded and placed in the boot. Fluoroscopy was then brought in. We confirmed that there was no visible fracture line on fluoroscopy on either the AP or lateral views. We then prepped and draped the patient in the normal sterile fashion. Prior to incision, a multidisciplinary timeout was called. All in the room were in agreement. We began by marking out on the skin the planned trajectory of the inferior screw and then made an incision extending from this point proximally for a total length of 4 cm. I dissected down through subcutaneous tissues to the level of the fascia. The fascia was incised in line with the incision. Vastus lateralis musculature was split in line with its fibers and 2-pointed Hohmanns were placed to expose the lateral cortex of the femur. Next, a guidewire was situated on the AP view in the proper location above the lesser trochanter angled along the inferior femoral neck. Once this was optimized, the wire was started on the AP view. Then sequentially going back and forth between the AP and lateral views, we optimized the position of the wire up the inferior aspect of the femoral neck. The wire was stopped short of the subchondral bone in the femoral head. We then placed an anterior superior wire and a posterior superior wire using a similar fluoroscopically guided technique. Once this was complete, the measurements were obtained. I elected to use two 80 mm screws for the proximal screws. I drilled these first one at a time and placed the screws in order to compress the tension side of the fracture first. Once the screws were in place and had an excellent bite using the long threaded screws, we then did the inferior screw last. Again, we had an excellent bite. We checked the AP and lateral fluoroscopic views and were very happy with the position of our screws. The final fluoroscopic images were saved. We then irrigated out the wound with copious amounts of normal saline. The fascia was run with 0 Vicryl suture. Interrupted 0 Vicryls were used in the subcutaneous layer. The deep dermal layer was run with 2-0 Vicryl. Wale were used for the skin. Sterile dressings were applied. The patient was then carefully transferred on to the hospital bed, extubated and transferred to the recovery room in stable condition. POSTOPERATIVE COURSE: The patient will be touchdown weightbearing on the right lower extremity for the next 2 weeks. If her pain is significantly improved 2 weeks from now and her x-rays remain unchanged, we will potentially advance her weightbearing at that time. Aspirin for DVT prophylaxis. I attest to the content of the Intraoperative Record and any orders documented therein. Any exception s are noted below.
[2020-05-21] MEDS: oxyCODONE HCL IR 5 MG TAB (IMMEDIATE RELEASE) PO PRN ×3 (03:09→12:22)
[2020-05-21] MEDS: ONDANSETRON INJ 2 MG/ML 2 ML VIAL IV PRN (05:57)
[2020-05-21] MEDS: ceFAZolin 2000MG 2,000 MG/15 ML SYR IV SCH (05:57)
[2020-05-21 08:14] LABS: Basophils # (auto) 0.01 K/uL (0-0.2); Basophils % (auto) 0.1 %; Eosinophils # (auto) 0.01 K/uL (0-0.5); Eosinophils % (auto) 0.1 %; Hematocrit (blood only) 36.7 % (37-47); Immature Granulocytes # (auto) 0.02 K/uL (0.00-0.02); Immature Granulocytes % (auto) 0.2 %; Lymphocytes # (auto) 1.06 K/uL (1.2-3.4); Lymphocytes % (auto) 8.2 %; Mean Corpuscular Hemoglobin 29.6 pg (25-34); Mean Corpuscular Hgb Conc 32.7 g/dL (32-36); Mean Corpuscular Volume 90.4 fL (80-100); Mean Platelet Volume 10.2 fL (7.4-10.4); Monocytes # (auto) 1.22 K/uL (0.11-0.59); Monocytes % (auto) 9.4 %; Neutrophils # (auto) 10.67 K/uL (1.4-6.5); Platelet Count 338 K/uL (130-400); RDW Coefficient of Variation 13.2 % (11.5-14.5); Red Blood Count 4.06 M/uL (4.2-5.4); White Blood Count 12.99 K/uL (4.8-10.8)
[2020-05-21] MEDS: CALCIUM 600MG + VIT D 400 IU TAB PO SCH (08:41)
[2020-05-21] MEDS: ASPIRIN 81 MG ECTAB PO SCH (08:42)
[2020-05-21 08:52] LABS: BUN Creatinine Ratio 9.3 (10-20); Calcium 9.2 mg/dl (8.5-10.1); Creatinine Clr Calc Pharmacy 105.7 ml/min; Est GFR (Non-African American) 120.8; Potassium 3.9 mmol/L (3.5-5.1)
[2020-05-21] MEDS ORDERED: LUBIPROSTONE 8 MCG CAP PO SCH (09:00)
[2020-05-21] MEDS ORDERED: FOLIC ACID 1 MG TAB PO SCH (09:00)
[2020-05-21] MEDS ORDERED: PANTOprazole 40 MG TAB PO SCH (09:00)
--- NOTE | 2020-05-21 10:04 | Orthopedic Progress Note ---
Date of Service May 21, 2020 Assessment & Plan (1) S/P right hip fracture: Toe-touch weightbearing with walker or crutch assistance for the first 2 weeks. PT/OT this morning Pain control with p.o. medication DVT prophylaxis with PAYTON stockings and aspirin Keep dressing in place Ice with EZ WRAP Plan on discharge home today with in-home PT Patient will begin outpatient physical therapy this Wednesday at our clinic Follow-up with [facility] orthopedics as previously scheduled With questions contact our clinic at [phone] Admission and Anticipated Discharge Date Admission Date: May 20, 2020 Subjective This 29-year-old female is day 1 status post percutaneous pinning of a right femoral neck fracture. She states she is doing very well today. Her pain is w ell controlled with p.o. pain medication. Currently she is sitting in the chair and being evaluated by Occupational Therapy. Patient states she is ready to go home and has home health coming to her house to do some PT until she starts at our clinic this coming Wednesday. Currently she denies any chest pain, shortness of breath, fever, chills, sweats, lethargy, weakness or numbness or tingling right lower extremity. Review of Systems Review of Systems: All systems reviewed & are unremarkable except as noted in HPI & below Physical Exam Physical Exam: Right hip: Dressing is clean dry and intact. Patient has some mild tenderness to palpation circumferentially around the area with some mild edema and ecchymosis. There is no erythema warmth or drainage noted. She is able to flex her knee to 90 degrees and extend to 0 degrees. She is able to actively dorsi and plantarflex her foot without difficulty. She is able to perform a straight leg raise test but does have some referred pain to the incision site. Light passive internal and external hip rotation causes no pain. Logroll test is negative. Her calf is soft and supple nontender to palpation. Quad strength is 3 of 5. She is neurovascularly intact in the right lower extremity. Results & Data ([facility]) Vital Signs (Past 12 Hours) Vital Signs Temp Pulse Resp BP Pulse Ox 05/21/20 07:32 36.5 C 84 16 123/82 98 05/21/20 03:03 36.7 C 85 16 118/78 97 05/20/20 22:33 36.6 C 74 16 129/84 97 Laboratory Results 05/21/20 05/21/20 05/20/20 Range/Units 07:38 07:38 Unknown WBC 12.99 H (4.8-10.8) K/uL RBC 4.06 L (4.2-5.4) M/uL Hgb 12.0 (12.0-16.0) g/dL Hct 36.7 L (37-47) % MCV 90.4 (80-100) fL MCH 29.6 (25-34) pg MCHC 32.7 (32-36) g/dL RDW Std Deviation 43.0 (36.4-46.3) fL RDW Coeff of Rosio 13.2 (11.5-14.5) % Plt Count 338 (130-400) K/uL MPV 10.2 (7.4-10.4) fL Immature Gran % (Auto) 0.2 % Neut % (Auto) 82.0 % Lymph % (Auto) 8.2 % Johnson % (Auto) 9.4 % Eos % (Auto) 0.1 % Baso % (Auto) 0.1 % Neut # (Auto) 10.67 H (1.4-6.5) K/uL Lymph # (Auto) 1.06 L (1.2-3.4) K/uL Johnson # (Auto) 1.22 H (0.11-0.59) K/uL Eos # (Auto) 0.01 (0-0.5) K/uL Baso # (Auto) 0.01 (0-0.2) K/uL Immature Gran # (Auto) 0.02 (0.00-0.02) K/uL Sodium 138 (136-145) mmol/L Potassium 3.9 (3.5-5.1) mmol/L Chloride 107 (98-107) mmol/L Carbon Dioxide 24 (21-32) mmol/L Anion Gap 7.0 (3-11) BUN 6 L (7-18) mg/dl Creatinine 0.61 (0.6-1.2) mg/dl Est Cr Clr Drug Dosing 105.7 ml/min Est GFR ( Amer) 140.0 Est GFR (Non-Af Amer) 120.8 BUN/Creatinine Ratio 9.3 L (10-20) Glucose 94 (70-99) mg/dl Calcium 9.2 (8.5-10.1) mg/dl POC Ur Test NEG (NEG) Blood Type Antibody Screen 05/20/20 Range/Units 11:15 WBC (4.8-10.8) K/uL RBC (4.2-5.4) M/uL Hgb (12.0-16.0) g/dL Hct (37-47) % MCV (80-100) fL MCH (25-34) pg MCHC (32-36) g/dL RDW Std Deviation (36.4-46.3) fL RDW Coeff of Rosio (11.5-14.5) % Plt Count (130-400) K/uL MPV (7.4-10.4) fL Immature Gran % (Auto) % Neut % (Auto) % Lymph % (Auto) % Johnson % (Auto) % Eos % (Auto) % Baso % (Auto) % Neut # (Auto) (1.4-6.5) K/uL Lymph # (Auto) (1.2-3.4) K/uL Johnson # (Auto) (0.11-0.59) K/uL Eos # (Auto) (0-0.5) K/uL Baso # (Auto) (0-0.2) K/uL Immature Gran # (Auto) (0.00-0.02) K/uL Sodium (136-145) mmol/L Potassium (3.5-5.1) mmol/L Chloride (98-107) mmol/L Carbon Dioxide (21-32) mmol/L Anion Gap (3-11) BUN (7-18) mg/dl Creatinine (0.6-1.2) mg/dl Est Cr Clr Drug Dosing ml/min Est GFR ( Amer) Est GFR (Non-Af Amer) BUN/Creatinine Ratio (10-20) Glucose (70-99) mg/dl Calcium (8.5-10.1) mg/dl POC Ur Test (NEG) Blood Type A Positive Antibody Screen NEGATIVE
--- NOTE | 2020-05-21 10:05 | Discharge Summary ---
Date of Service May 21, 2020 Admission HPI Per Admitting Provider History of Present Illness (including history relevant to procedure): This 29-year-old female presents the clinic today with her father for evaluation of severe right hip pain after falling this morning. Patient complains of throbbing pain in her groin and lateral hip with any type of movement. Patient was evaluated by Dr. Espinoza for the femoral neck fracture on May 14. He recommended nonsurgical treatment as long as she did not have any other falls. She has been nonweightbearing with the aid of crutches but states she is very clumsy with them and has fallen twice since her visit. Today's fall was a d irect blow onto the right hip and she feels that having surgical fixation of the fracture provide her with more stability so that she could perform her activities of daily living at home. She has had corticosteroid injections in the past without pain relief. She is unable to use nonsteroidal agents due to her severe Crohn's disease but does use extra strength Tylenol to control her pain. Currently she is using a wheelchair to get around because she is unable to safely use her crutches. Review Of Systems: A 14 point review of systems performed is unremarkable except for those things stated in the HPI and past medical history. Past Medical History: Problems: Fracture of femoral neck, right Pre-op exam Hip injury Migraine headache Anemia Lupus (Drug-induced) Crohn's disease Rheumatoid arthritis GERD Renal calculi Osteopenia Degenerative disc disease Procedure History Procedure Procedure Date Comments Cholecystectomy Tonsillectomy Lymph node excision from left axilla Allergies and Sensitivities: NKA Social history: Patient denies tobacco or illicit drug use and rarely consumes alcohol. Family history: Noncontributory Current Home Meds: (Last Updated 05/16 13:57) SUMAtriptan (Imitrex) acetaminophen (Tylenol) albuterol (Albuterol (Eqv-ProAir HFA)) amitriptyline colestipol (colestipol 1 g oral tablet) estradiol (Depo-Estradiol) folic acid leflunomide lubiprostone (Amitiza) metoclopramide (Reglan) multivitamin ondansetron (Zofran) oxyCODONE pantoprazole (Protonix) promethazine (Phenergan) trimethobenzamide (Tigan) ustekinumab (Stelara) Admission Exam Per Admitting Provider Physical Exam: (relevant to the procedure, including heart and lung evaluation) General: Alert and oriented x3 with proper grooming and hygiene Eyes: Pupils are equal reactive to light with accommodation. Extraocular movements are intact Throat: Deferred due to COVID-19 precautions Cardiac: Regular rate and rhythm with no murmurs or gallops appreciated Lungs: Clear to auscultation throughout no wheezing, rales or rhonchi Abdomen: Nonobese, nondistended, nontender with normoactive bowel sounds Extremities: Right hip exam shows the patient to have an irritable hip. The log-roll bothers her causing referred pain to the anterior groin and lateral hip. Passive flexion to 70 degrees causes severe pain in the groin. Very light passive internal and external rotation causes severe pain referred to the groin and posterior hip. Unable to do a straight leg raise. Neurovascular intact. Neuro: Cranial nerves II through XII are intact no motor or sensory deficit Skin: Normal in appearance no open skin areas of discharge Principal Diagnosis Right femoral neck fracture Discharge Exam Right hip: Dressing is clean dry and intact. Patient has some mild tenderness to palpation circumferentially around the area with some mild edema and ecchymosis. There is no erythema warmth or drainage noted. She is able to flex her knee to 90 degrees and extend to 0 degrees. She is able to actively dorsi and plantarflex her foot without difficulty. She is able to perform a straight leg raise test but does have some referred pain to the incision site. Light passive internal and external hip rotation causes no pain. Logroll test is negative. Her calf is soft and supple nontender to palpation. Quad strength is 3 of 5. She is neurovascularly intact in the right lower extremity. Discharge Data Allergies Allergy/AdvReac Type Severity Reaction Status Date / Time iron Allergy Severe Swelling, Verified 05/20/20 11:23 joint pain, diarrhea Venofer Allergy Severe JOINT Unverified 04/26/16 11:30 PAIN/SWELLING/DIARRHEA NSAIDS (Non-Steroidal AdvReac Unknown Advised to Verified 05/20/20 11:23 Anti-Inflamma avoid (crohn's disease) Procedures Performed Operation Date: 05/20/20 12:35 Actual Procedures p Right Femoral Neck Fracture Open Reduction Internal Fixation(Right) - Bib Espinoza MD Ordered Studies 05/20/20 12:35 FL fluoroscopy <1hr Routine FL hip RT 2-3V Routine 05/21/20 05:00 US - OR guided needle placemen Routine Hospital Course (1) S/P right hip fracture: Patient had an uneventful overnight stay following hip fracture surgery. She states she is doing very well. She is ready to be discharged home. She did discussed discharge planning with bottle caser and would like to have home health physical therapy come to her home to help her for the first few days. She is scheduled to begin outpatient physical therapy in our PT clinic this coming Wednesday. Toe-touch weightbearing with walker or crutch assistance for the first 2 weeks. PT/OT this morning Pain control with p.o. medication DVT prophylaxis with PAYTON stockings and aspirin Keep dressing in place Ice with EZ WRAP Plan on discharge home today with in-home PT Patient will begin outpatient physical therapy this Wednesday at our clinic Follow-up with [facility] orthopedics as previously scheduled With questions contact our clinic at [phone] Total Time Total Time Spent Total Time Spent (In Minutes): 15 mins Total Time Includes: Examination of the Patient, Discharge Planning, Medication Reconciliation and Communication With Other Providers Discharge Plan Discharge Items Patient Disposition: Home - Home Health Services Reason For Visit: Right Femoral Neck Fracture Discharge Diagnosis: Right femoral neck fracture Activity: As commented below Lifting: None Bathing: Keep incision dry Bathing Comment: may shower tomorro Sexual Activity: Wait until after follow-up appointment Exercise/Sports: Wait until after follow-up appointment Driving/Machine Use: No driving until cleared by customer care specialist Weightbearing: Right toe touch Weightbearing Comment: with walker or crutch assistance Non-emergency contact: Primary Care Provider Call non-emergency contact if: you have any medication questions, your pain is not controlled, your temperature is above 101.5, your wound has increased drainage and your wound pain has increased Follow-up/Referrals: Shantanu Taylor [Primary Care Provider] - Diet: Regular Addtl Attending Provider Instructions: Post-operative Instructions Dear Patient and Family/Friends, Before you are discharged from the hospital, it is important to know what to expect when you get home after surgery. To that end, we have created this sheet of discharge instructions which covers many commonly asked questions. Make sure you go through this sheet in its entirety with your nurse before you are discharged. Please note that we will go over the specifics of your surgery and recovery when you return for your first post-operative visit. Sincerely, Dr. Espinoza Medication 1. Oxycodone 5 mg: take 1-2 tabs by mouth every 4-6 hours as needed for pain. A prescription for 30 tablets will be sent to your pharmacy 2. Aspirin 81 mg: Take 1 tab twice daily for 30 days postoperatively. Please purchase 3. Extra strength Tylenol 500 mg: Take 2 tabs every 6 hours as needed for pain. Please purchase Pain Expect to be in a fair amount of pain after surgery. Remember, our goal is not to eliminate your pain, but to make it tolerable. It is a good idea to stay ahead of your pain by taking the medications you were prescribed once you get home. Typically, the pain starts improving 3-7 days after surgery. You should start weaning off the narcotic pain medication (oxycodone, hydrocodone, hydromorphone, morphine) as soon as your pain improves. Please call our office if your pain is not adequately controlled. Ice Ice your operative site at least 5 times a day for 15-30 minutes at a time. Make sure you have a thin cloth between the ice or cooling unit and your skin to prevent hernandez bite. This is especially important if you received a nerve block. Continue icing your operative site for the first 5-7 days after surgery, then as needed. Diet/Nausea/Vomiting Start by drinking clear liquids and eating crackers. If you can tolerate this, then you may resume your normal diet. If you feel nauseated or vomit, take Zofran/ondansetron (if prescribed). Please call our office if you have intractable nausea or vomiting, or, if after hours, you may go to the Emergency Room for help. Constipation Constipation is a common side effect of narcotic pain medication. If you have not had a bowel movement within 2 days after surgery, we recommend purchasing an over the counter laxative such as Milk of Magnesia, Dulcolax, or Miralax from a local pharmacy, and taking it as instructed. Call our clinic if any questions. Weight bearing and Range of Motion. Do not bear any weight through your operative extremity immediately after surgery. If you had upper extremity surgery, do not lift anything with that arm. If you are in a knee brace, keep it locked in place until your follow-up. We will discuss your weight bearing, range of motion, and lifting restrictions in detail at your first post-operative appointment. Continuous Passive Motion (CPM) Machine If you were prescribed a CPM machine, it will start after your first post- operative appointment, at which time we will give you instructions on the range of motion settings and duration of treatment Physical therapy You will be given a prescription for physical therapy or occupational therapy at your first post-operative appointment. Typically, patients start therapy within 1 week of surgery Wound care and showering We will inspect your wound at your first post-operative visit, and may do a dressing change at that time. Most patients will be in a water-proof dressing th at is removed 14 days after surgery. It is normal to see some dried blood on the dressing. Do not remove your dressing, paper strips or sutures yourself unless you are given permission. Showering is allowed the day after surgery. Do not scrub or remove any dressings. The wound should not be submerged underwater (i.e. in a bathtub or pool) until 4 weeks after surgery PAYTON stockings If you were given white stockings, these are to be worn at all times except to shower (on both legs) for the first 2 weeks after surgery. Driving You may not drive while taking narcotic pain medication or while in a cast, splint, sling or brace. You, the patient, need to make the final determination about when you are safe to drive, however, the earliest you may consider driving after surgery is below: Hand/Wrist/Elbow Surgery: 3 days Shoulder Surgery: 2 weeks Hip,/Knee/Ankle Surgery: 4 weeks Fracture repair: 6 weeks Return to Work Your return to work depends on what surgery was done and what type of work you do. Please bring any paperwork your employer needs completed to your first post-operative visit. Also, bring a description of your job duties, as this helps us to understand what risks you may face at work. Travel Avoid long distance travel (greater than 1 hour) in airplanes and cars for the first 6 weeks after surgery. If you must travel, you need to have a Doppler ultrasound done before you travel to rule out a blood clot in your legs. Follow-up You should have a follow-up appointment already scheduled 1-2 days after surgery. If not, please contact our office to make this appointment before you leave the hospital. When to call the office It is normal to have swelling and bruising in the limb that was operated on. This will improve with time. It is also normal to have fevers for the first 2 days after surgery. Reasons you should call your doctor include: Uncontrolled pain; Nausea, vomiting, or constipation that does not improve with medication; Fevers over 101.5, chills, sweats; Drainage or bleeding from the wound; Foul odor; Spreading areas of redness; Any other concerns Pending Studies at Discharge: No Stand-Alone Forms: My [facility], Smoking Cessation Medications and DC Order Prescriptions: New oxycodone 5 mg tablet 5 mg PO Q4H Qty: 30 RF: 0 Continued sumatriptan succinate 50 mg tablet 50 mg PO DIRECTED MDD 200 MG/DAY PRN (Reason: Migraine Headache) RF: 0 amitriptyline 10 mg tablet 20 mg PO HS RF: 0 promethazine 25 mg tablet 25 mg PO Q6H PRN (Reason: Nausea And Vomiting) RF: 0 fluticasone propionate 50 mcg/actuation spray,suspension 2 spray INTRANASAL DAILY PRN (Reason: Allergy Symptoms) RF: 0 lubiprostone [Amitiza] 8 mcg capsule 8 mcg PO QAM RF: 0 Stelara 90 mg/mL syringe 90 mg SUBCUT Q8WK RF: 0 ondansetron HCl [Zofran] 4 mg tablet 4 mg PO Q6H PRN (Reason: Nausea And Vomiting) RF: 0 medroxyprogesterone 150 mg/mL syringe 150 mg IM DIRECTED RF: 0 Women's Multivitamin Gummies 200 mcg Tablet,Chewable 400 mcg PO HS RF: 0 acetaminophen [Tylenol Extra Strength] 500 mg Tablet 1,000 mg PO Q6H PRN (Reason: Pain) RF: 0 leflunomide [Arava] 20 mg tablet 20 mg PO HS RF: 0 hyoscyamine sulfate [Levsin] 0.125 mg Tablet 0.125 mg PO TID PRN (Reason: abdominal pain) Qty: 30 RF: 0 oxycodone 5 mg tablet 5 mg PO Q4H PRN (Reason: Abdominal Pain) Qty: 0 RF: 0 pantoprazole 40 mg Tablet,Delayed Release (Dr/Ec) 40 mg PO QAM RF: 0 folic acid 1 mg tablet 1 mg PO QAM RF: 0 Caltrate 600 plus D 600 mg (1,500 mg)-800 unit Tablet,Chewable 1 tab PO BID RF: 0 albuterol sulfate 90 mcg/actuation Hfa Aerosol Inhaler 2 puff INHALATION Q6H PRN (Reason: Wheezing) RF: 0 Discharge Orders: Discharge Order (Routine); Ordered 05/21/20 Ordered By: Paulie Salas Admission Data Admit Date/Time: 05/20/20 15:30 Attending Provider: iBb Espinoza Admit Provider: Bib Espinoza Primary Care Provider: Shantanu Taylor Other Providers: [facility],Home Healthcare
== END 2020-05-21 13:46 | disposition home health service (06) ==
LOC: ASU 10:51 → 3E 10:51

== ENCOUNTER 2022-01-18 08:48 | Inpatient (IN) ==
[2022-01-18] MEDS ORDERED: ONDANSETRON INJ 2 MG/ML 2 ML VIAL IV STA (09:17)
[2022-01-18] MEDS ORDERED: SODIUM CHLORIDE 0.9% 1000ML 1,000 ML IV STA (09:17)
--- NOTE | 2022-01-18 09:21 | Emergency Department Note ---
Impression & Plan Diffuse abdominal pain, Tachycardia, Exacerbation of Crohn's disease ED Provider Note NAME: COLTON MARADIAGA AGE: 31 SEX: F : 1990 ARRIVES VIA: Walk-In INFORMANT: [Patient] ED PROVIDER(S): [Easton Olson MD] CHIEF COMPLAINT: Abdominal pain HISTORY OF PRESENT ILLNESS: The patient is a 31-year-old female who presents with 3 days of epigastric abdominal pain which has been constant and a 6/10. The pain has worsened slightly over the days it has been present. She has had some nausea, no vomiting. This morning, she developed some right lower quadrant abdominal pain on top of the epigastric pain. The patient did take some Levsin to see if this was spasmodic discomfort, the Levsin did not help. The patient does have Crohn's disease. She is on Stelara every 8 weeks but is late because she had influenza a few weeks ago. The patient has had a cholecystectomy. Because of the ongoing pain, the patient presents for evaluation. She has not noticed any urinary complaints. There has been no vaginal discharge. No new diarrhea, no bloody stool. REVIEW OF SYSTEMS: See HPI for pertinent positives and negatives. A total of ten systems were reviewed and were otherwise negative. PMHx/PSHx: See Below SOCIAL HISTORY: See Below. PHYSICAL EXAM: GENERAL: Patient is in no acute distress. HEENT: No acute trauma, normocephalic atraumatic, mucous membranes moist, no nasal congestion, no scleral icterus. NECK: No stridor, no adenopathy, no meningismus, trachea is midline. LUNGS: Clear to auscultation bilaterally, no wheeze, no rhonchi, breath sounds equal. HEART: Tachycardic, regular rhythm, no murmurs. ABDOMEN: Soft, moderately diffusely tender, no peritonitis. Bowel sounds are hyperactive. EXTREMITIES: No cyanosis or edema, full range of motion of all the joints without pain or difficulty, no signs for acute trauma. NEUROLOGIC: Oriented x 3, no acute motor or sensory deficits, no focal weakness. SKIN: No rash, no jaundice, no diaphoresis. DIFFERENTIAL DIAGNOSIS: Appendicitis, ovarian cyst, ovarian torsion, ectopic , diverticulitis, UTI, obstruction, mesenteric ischemia, aortic pathology, inflammatory bowel disease, renal colic, PUD, pancreatitis, biliary pathology, hernia, volvulus, Crohn's flare, constipation, as well as other pathologies. EMERGENCY DEPARTMENT COURSE/PROCEDURES: MEDICAL DECISION MAKING: There is no leukocytosis or concerning anemia. There is a normal platelet count. Urinalysis does not show findings of infection. No renal failure or significant electrolyte abnormality. No concerning liver enzyme elevation. No evidence for pancreatitis. testing returned negative. COVID test returned negative. Abdominal and pelvis CT shows inflammation of the small and large bowel consistent with a Crohn's exacerbation. No acute surgical pathology, no bowel obstruction, normal appendix. On exam, the patient was diff usely tender about the abdomen and mildly tachycardic. The patient received IV saline, 1.5 L. She was given IV Zofran, IV Dilaudid. After discussion with GI, the patient received a dose of IV Solu-Medrol. I did speak with GI about the patient's presentation. A burst of steroids was recommended. Hospitalization is in order to control her symptoms and to get on top of this flare. During this patient's stay, she has done well with her above treatment. She is more comfortable I did speak with the patient at length about her findings, I spoke with case management, the on-call hospitalist was consulted. Past Med/Surg History Medical History Allergic rhinitis Anxiety INCREASES BP "CURRENLTY UNDER CONTROL" Asthma HAS NOT USED INHALER FOR A WHILE Crohns disease Endometriosis Gastroparesis GERD (gastroesophageal reflux disease) H/O Clostridium difficile infection 2014 History of anemia History of peptic ulcer Hx MRSA infection 2013 (in lymph node which has since be resected) Kidney stones Medical marijuana use Migraine Rheumatoid arthritis Tachycardia occasional episodes > follows with [facility] cardiology (Beatrice Hiale) Surgical History H/O colonoscopy H/O esophagogastroduodenoscopy History of dilatation and curettage History of hip surgery RT HIP ORIF History of nasal septoplasty with turbinate reduction-02/27/21-Dr. Nguyen History of placement of ear tubes left-02/27/21-Dr. Nguyen Lymph node symptom Left axillary lymph node removal (for MRSA) Nausea and vomiting after administration of anesthetic agent S/P cholecystectomy S/P fecal transplant S/P ORIF (open reduction internal fixation) fracture left wrist S/P tonsillectomy [place] teeth extracted Family History Grandmother (Maternal) Breast cancer Aunt Cervical cancer Maternal Ovarian cancer Maternal Grandfather (Paternal) Colorectal cancer Mother Mitral valve prolapse Other Allergies Family history of bleeding disorder Hearing loss Hypertension No family history of adverse response to anesthesia Social History Smoking Status: Never smoker Second Hand Exposure: Yes (IN THE PAST); Hx Alcohol Use: Yes Alcohol type: wine Preferred Language: Kosovan Communication Ability: Effective Safety Council Director Required: No Beliefs That Will Affect Care: None marital status: Life Partner Current Living Situation: Significant Other Current Living Situation Comment: fiance Feels Safe at Home: Yes Assistive Devices: Crutches and Glasses Allergies Allergies Allergy/AdvReac Type Severity Reaction Status Date / Time Gadolinium-Containing Allergy Severe vomiting/diarrhea Verified 10/02/21 08:10 Contrast Medi +"body locks up" iron Allergy Severe Swelling, Verified 10/02/21 08:10 joint pain, diarrhea NSAIDS (Non-Steroidal AdvReac Unknown Advised to Verified 10/02/21 08:10 Anti-Inflamma avoid (crohn's disease) Home Meds Home Medications Medication Instructions Recorded Confirmed folic acid 1 mg tablet 1 mg PO QAM 03/30/18 10/02/21 pantoprazole 40 mg tablet,delayed 40 mg PO QAM 03/30/18 10/02/21 release amitriptyline 10 mg tablet 20 mg PO HS 02/21/19 10/02/21 fluticasone propionate 50 2 spray intranasal DAILY PRN 02/21/19 10/02/21 mcg/actuation nasal Allergy Symptoms spray,suspension medroxyprogesterone 150 mg/mL 150 mg IM Q3M 02/21/19 10/02/21 intramuscular syringe ustekinumab 90 mg/mL subcutaneous 90 mg subcut Q8WK 02/21/19 10/02/21 syringe (Stelara) multivitamin with minerals-folic 400 mcg PO HS 03/21/19 10/02/21 acid 200 mcg chewable tablet (Women's Multivitamin Gummies) leflunomide 20 mg tablet (Arava) 20 mg PO HS 10/04/19 10/02/21 acetaminophen 500 mg tablet 1,000 mg PO Q6H PRN Pain 11/14/19 10/02/21 (Tylenol Extra Strength) albuterol sulfate 90 mcg/actuation 2 puff inhalation Q6H PRN Wheezing 03/01/20 10/02/21 aerosol inhaler calcium carbonate 600 mg-vitamin 1 tab PO BID 03/01/20 10/02/21 D3 20 mcg (800 unit) chewable tablet (Caltrate 600 plus D) metoclopramide HCl 5 mg tablet 5 mg PO QID PRN GASTROPARESIS 10/22/20 10/02/21 oxycodone 5 mg tablet 5 mg PO BID PRN Abdominal Pain 10/22/20 10/02/21 sumatriptan succinate 100 mg tablet 100 mg PO UD PRN Migraine Headache 10/22/20 10/02/21 Medical Marijuana 1 dose inhalation UD PRN "CHRONE'S 02/20/21 10/02/21 DISEASE/NAUSEA" cetirizine 10 mg tablet (Zyrtec) 10 mg PO QAM 02/20/21 10/02/21 teriparatide 20 mcg/dose (600 20 mcg subcut DAILY 02/20/21 10/02/21 mcg/2.4 mL) subcutaneous pen injector (Forteo) buspirone 10 mg tablet 5 mg PO DAILY PRN Anxiety 07/15/21 10/02/21 ergocalciferol (vitamin D2) 1,250 1,250 mcg PO 2XWK 07/15/21 10/02/21 mcg (50,000 unit) capsule (Vitamin D2) ondansetron 8 mg disintegrating 8 mg PO BIDWMEAL PRN Nausea 07/15/21 10/02/21 tablet scopolamine base 1 mg over 3 days 1 mg transdermal 2XWK PRN Pain 07/15/21 10/02/21 transdermal patch (Transderm-Scop) carvedilol 6.25 mg tablet 6.25 mg PO BID 09/25/21 10/02/21 hydroxyzine HCl 25 mg tablet 25 mg PO DAILY PRN Anxiety 09/25/21 10/02/21 Previous Rx's Medication Instructions Recorded hyoscyamine sulfate 0.125 mg 0.125 mg PO TID PRN abdominal pain 10/07/19 tablet (Levsin) #30 tabs mupirocin 2 % topical ointment 1 applic topical BID PRN post op 03/11/21 #22 grams oxycodone 5 mg tablet 5 mg PO Q8H PRN pain #9 tabs 12/17/21 Results & Data (ED) Vital Signs Vital Signs - 24 hr 01/18/22 08:56 01/18/22 09:55 01/18/22 11:10 Temperature 37.4 C 37.3 C Temperature Source Oral Oral Pulse Rate 108 H Pulse Rate [Right Finger] 101 H 98 H Pulse Rhythm [Right Finger] Regular Respiratory Rate 18 18 14 Respiratory Effort / Characteristics Non-Labored Spontaneous Respiratory Depth Normal Respiratory Pattern Regular Blood Pressure 158/117 H Blood Pressure [Left Arm] 155/98 H 153/104 H Blood Pressure Mean 130 Blood Pressure Mean [Left Arm] 117 120 Blood Pressure Position [Left Arm] Lying Pulse Oximetry 100 97 99 Oxygen Delivery Method Room Air Room Air Room Air Sepsis Recent Fever Within 48 Hours No Sepsis New/Unexplained Change in Mental Status No Sepsis Action Taken by Nursing No Action Required 01/18/22 13:05 Temperature Temperature Source Pulse Rate Pulse Rate [Right Finger] 112 H Pulse Rhythm [Right Finger] Respiratory Rate 14 Respiratory Effort / Characteristics Respiratory Depth Respiratory Pattern Blood Pressure Blood Pressure [Left Arm] 158/87 H Blood Pressure Mean Blood Pressure Mean [Left Arm] 110 Blood Pressure Position [Left Arm] Pulse Oximetry 98 Oxygen Delivery Method Room Air Sepsis Recent Fever Within 48 Hours Sepsis New/Unexplained Change in Mental Status Sepsis Action Taken by [facility] Medications Current Medication List: was personally reviewed by me Laboratory Data Attestation: I reviewed the patient's lab results. Result diagrams: 01/18/22 09:31 01/18/22 09:31 Lab Results 01/18/22 01/18/22 01/18/22 Range/Units 09:31 09:31 09:31 WBC 8.75 (4.8-10.8) K/ul RBC 4.09 (3.93-5.22) M/uL Hgb 12.7 (12.0-16.0) g/dl Hct 38.3 (34.1-44.9) % MCV 93.6 (80.0-100.0) fL MCH 31.1 (25.0-34.0) pg MCHC 33.2 (32.0-36.0) g/dL RDW Std Deviation 44.7 (36.4-46.3) fL RDW Coeff of Rosio 13.1 (11.5-14.5) % Plt Count 359 (130-400) K/uL MPV 9.6 (9.4-12.3) fL Immature Gran % (Auto) 0.5 % Neut % (Auto) 81.3 % Lymph % (Auto) 11.7 % [place] % (Auto) 2.9 % Eos % (Auto) 2.6 % Baso % (Auto) 1.0 % Neut # (Auto) 7.12 H (1.4-6.5) K/uL Lymph # (Auto) 1.02 L (1.2-3.4) K/uL [place] # (Auto) 0.25 (0.24-0.82) K/uL Eos # (Auto) 0.23 (0-0.50) K/uL Baso # (Auto) 0.09 (0-0.2) K/uL Immature Gran # (Auto) 0.04 H (0.00-0.02) K/uL ESR (0-20) mm/hr Sodium 140 (136-145) mmol/L Potassium 4.0 (3.5-5.1) mmol/L Chloride 110 H (98-107) mmol/L Carbon Dioxide 23 (21-32) mmol/L Anion Gap 7 (3-11) BUN 8 (6-23) mg/dl Creatinine 0.58 L (0.6-1.2) mg/dl Est Cr Clr Drug Dosing 109.1 ml/min Est GFR ( Amer) 140.4 ml/min Est GFR (Non-Af Amer) 121.1 ml/min BUN/Creatinine Ratio 13.8 (10-20) Glucose 114 H (70-99(Fasting)) mg/dl Calcium 8.7 (8.5-10.1) mg/dl Total Bilirubin 0.5 (0.2-1.0) mg/dl AST 14 (13-39) U/L ALT 9 (7-52) U/L Alkaline Phosphatase 75 (34-104) U/L C-Reactive Protein (0-0.5) mg/dl Total Protein 7.0 (6.0-8.3) gm/dl Albumin 4.2 (3.4-5.0) gm/dl Globulin 2.8 (2.5-4.0) gm/dl Albumin/Globulin Ratio 1.5 (0.9-2) Lipase 26 (11-82) U/L HCG, Qual Negative (Negative) Urine Color Urine Appearance (Clear) Urine pH (4.5-7.5) Ur Specific [place] (1.000-1.030) Urine Protein (Negative) Urine Glucose (UA) (Negative) Urine Ketones (Negative) Urine Blood (Negative) Urine Nitrite (Negative) Urine Bilirubin (Negative) Urine Urobilinogen (Negative) Ur Leukocyte Esterase (Negative) Urine WBC (Auto) (0-5) /hpf Urine RBC (Auto) (0-4) /hpf U Hyaline Cast (Auto) (0-5) /lpf U Epithel Cells (Auto) (0-5) /lpf Urine Bacteria (Auto) (Negative) SARS-CoV-2, RNA, NAAT (NEGATIVE) 01/18/22 01/18/22 01/18/22 Range/Units 09:31 09:31 09:31 WBC (4.8-10.8) K/ul RBC (3.93-5.22) M/uL Hgb (12.0-16.0) g/dl Hct (34.1-44.9) % MCV (80.0-100.0) fL MCH (25.0-34.0) pg MCHC (32.0-36.0) g/dL RDW Std Deviation (36.4-46.3) fL RDW Coeff of Rosio (11.5-14.5) % Plt Count (130-400) K/uL MPV (9.4-12.3) fL Immature Gran % (Auto) % Neut % (Auto) % Lymph % (Auto) % [place] % (Auto) % Eos % (Auto) % Baso % (Auto) % Neut # (Auto) (1.4-6.5) K/uL Lymph # (Auto) (1.2-3.4) K/uL [place] # (Auto) (0.24-0.82) K/uL Eos # (Auto) (0-0.50) K/uL Baso # (Auto) (0-0.2) K/uL Immature Gran # (Auto) (0.00-0.02) K/uL ESR 16 (0-20) mm/hr Sodium (136-145) mmol/L Potassium (3.5-5.1) mmol/L Chloride (98-107) mmol/L Carbon Dioxide (21-32) mmol/L Anion Gap (3-11) BUN (6-23) mg/dl Creatinine (0.6-1.2) mg/dl Est Cr Clr Drug Dosing ml/min Est GFR ( Amer) ml/min Est GFR (Non-Af Amer) ml/min BUN/Creatinine Ratio (10-20) Glucose (70-99(Fasting)) mg/dl Calcium (8.5-10.1) mg/dl Total Bilirubin (0.2-1.0) mg/dl AST (13-39) U/L ALT (7-52) U/L Alkaline Phosphatase (34-104) U/L C-Reactive Protein < 0.50 (0-0.5) mg/dl Total Protein (6.0-8.3) gm/dl Albumin (3.4-5.0) gm/dl Globulin (2.5-4.0) gm/dl Albumin/Globulin Ratio (0.9-2) Lipase (11-82) U/L HCG, Qual (Negative) Urine Color Yellow Urine Appearance Clear (Clear) Urine pH 6.0 (4.5-7.5) Ur Specific [place] 1.018 (1.000-1.030) Urine Protein Negative (Negative) Urine Glucose (UA) Negative (Negative) Urine Ketones Negative (Negative) Urine Blood Negative (Negative) Urine Nitrite Negative (Negative) Urine Bilirubin Negative (Negative) Urine Urobilinogen Negative (Negative) Ur Leukocyte Esterase Trace H (Negative) Urine WBC (Auto) 1-5 (0-5) /hpf Urine RBC (Auto) 0-4 (0-4) /hpf U Hyaline Cast (Auto) 1-5 (0-5) /lpf U Epithel Cells (Auto) >30 H (0-5) /lpf Urine Bacteria (Auto) Negative (Negative) SARS-CoV-2, RNA, NAAT (NEGATIVE) 01/18/22 Range/Units 13:20 WBC (4.8-10.8) K/ul RBC (3.93-5.22) M/uL Hgb (12.0-16.0) g/dl Hct (34.1-44.9) % MCV (80.0-100.0) fL MCH (25.0-34.0) pg MCHC (32.0-36.0) g/dL RDW Std Deviation (36.4-46.3) fL RDW Coeff of Rosio (11.5-14.5) % Plt Count (130-400) K/uL MPV (9.4-12.3) fL Immature Gran % (Auto) % Neut % (Auto) % Lymph % (Auto) % [place] % (Auto) % Eos % (Auto) % Baso % (Auto) % Neut # (Auto) (1.4-6.5) K/uL Lymph # (Auto) (1.2-3.4) K/uL [place] # (Auto) (0.24-0.82) K/uL Eos # (Auto) (0-0.50) K/uL Baso # (Auto) (0-0.2) K/uL Immature Gran # (Auto) (0.00-0.02) K/uL ESR (0-20) mm/hr Sodium (136-145) mmol/L Potassium (3.5-5.1) mmol/L Chloride (98-107) mmol/L Carbon Dioxide (21-32) mmol/L Anion Gap (3-11) BUN (6-23) mg/dl Creatinine (0.6-1.2) mg/dl Est Cr Clr Drug Dosing ml/min Est GFR ( Amer) ml/min Est GFR (Non-Af Amer) ml/min BUN/Creatinine Ratio (10-20) Glucose (70-99(Fasting)) mg/dl Calcium (8.5-10.1) mg/dl Total Bilirubin (0.2-1.0) mg/dl AST (13-39) U/L ALT (7-52) U/L Alkaline Phosphatase (34-104) U/L C-Reactive Protein (0-0.5) mg/dl Total Protein (6.0-8.3) gm/dl Albumin (3.4-5.0) gm/dl Globulin (2.5-4.0) gm/dl Albumin/Globulin Ratio (0.9-2) Lipase (11-82) U/L HCG, Qual (Negative) Urine Color Urine Appearance (Clear) Urine pH (4.5-7.5) Ur Specific [place] (1.000-1.030) Urine Protein (Negative) Urine Glucose (UA) (Negative) Urine Ketones (Negative) Urine Blood (Negative) Urine Nitrite (Negative) Urine Bilirubin (Negative) Urine Urobilinogen (Negative) Ur Leukocyte Esterase (Negative) Urine WBC (Auto) (0-5) /hpf Urine RBC (Auto) (0-4) /hpf U Hyaline Cast (Auto) (0-5) /lpf U Epithel Cells (Auto) (0-5) /lpf Urine Bacteria (Auto) (Negative) SARS-CoV-2, RNA, NAAT NEGATIVE (NEGATIVE) Administered Medications Hydromorphone HCl (Hydromorphone Inj 0.5 Mg/0.5 Ml Syr) 0.5 mg IV Q15M PRN PRN Reason: Pain Stop: 02/01/22 09:16 Last Admin: 01/18/22 11:16 Dose: 0.5 mg Documented By: Admin: 01/18/22 09:45 Dose: 0.5 mg Documented By: PRECIOUS Discontinued Medications Sodium Chloride (Nss 1000ml) 1,000 mls @ 999 mls/hr IV .Q1H1M STA Stop: 01/18/22 10:17 Last Infusion: 01/18/22 10:49 Dose: 0 mls/hr Documented By: Admin: 01/18/22 09:45 Dose: 999 mls/hr Documented By: PRECIOUS Ioversol (Optiray 350 100ml) 90 ml IV ONCE ONE Stop: 01/18/22 11:49 Last Admin: 01/18/22 11:49 Dose: 90 ml Documented By: CYNTHIA Ondansetron HCl (Ondansetron Inj 2 Mg/Ml 2 Ml Vial) 4 mg IV NOW STA Stop: 01/18/22 09:18 Last Admin: 01/18/22 09:45 Dose: 4 mg Documented By: PRECIOUS Imaging Data Radiologist's Impression: Abdomen/Pelvis CT 01/18/22 09:[address] WITH IV AND ORAL CONTRAST CT DOSE: 264.96 mGy.cm HISTORY: Acute right lower quadrant abdominal pain patient with history of Crohn's disease chrons, rlq and epi pain TECHNIQUE: Multiaxial CT images of the abdomen and pelvis were performed following the IV administration of 90 cc of Optiray and oral contrast. A dose lowering technique was utilized adhering to the principles of ALARA. COMPARISON STUDY: CT abdomen and pelvis 12/17/2021 FINDINGS: Clear lung bases. No pneumatosis or pneumoperitoneum. Unremarkable spleen, pancreas and adrenal glands. Cholecystectomy. Unremarkable liver. Patency of the hepatic and portal veins. 4 mm nonobstructing calculus of the interpolar right kidney. No ureteral calculi or hydronephrosis. Mild urinary bladder wall thickening with partial distention. Uterus and adnexa are unremarkable. No abdominal aortic aneurysm or lymphadenopathy identified. No bowel obstruction. Moderate fecal retention of the ascending and transverse colon. Mild wall thickening of the terminal ileum which is partially decompressed. The visualized appendix appears noninflamed. There is wall thi ckening involving the cecum and ascending colon. Trace adjacent inflammatory stranding. Unremarkable soft tissues. No acute fracture. Intact cannulated screws of the bilateral femoral necks. No acute fracture, dislocation or avascular necrosis identified. IMPRESSION: 1. No bowel obstruction or pneumoperitoneum. Normal appendix. 2. Mild wall thickening of the terminal ileum is noted in conjunction with mild wall thickening of the cecum and ascending colon with trace adjacent inflammatory stranding. Findings are suggestive of active inflammatory bowel disease. 3. No fistula or sinus tract identified. 4. Right nephrolithiasis. 5. Cholecystectomy. ACT 112: Negative or not required by law. The above report was generated using voice recognition software. It may contain grammatical, syntax or spelling errors. Electronically signed by: Henrry Levy M.D. 01/18/2022 12:08 PM Discharge Plan Visit Data Chief Complaint: Abdominal Pain Stated Complaint: UPPER ABDOMINAL PAIN ED Provider: Easton Olson Discharge Problem: Diffuse abdominal pain, Tachycardia, Exacerbation of Crohn's disease Patient Disposition: Admitted As Inpatient Condition: Good Forms Stand Alone Forms: My [facility] Prescriptions Prescriptions: No Action mupirocin 2 % ointment 1 applic topical BID PRN (Reason: post op) Qty: 22 8RF amitriptyline 10 mg tablet 20 mg PO HS fluticasone propionate 50 mcg/actuation spray,suspension 2 spray INTRANASAL DAILY PRN (Reason: Allergy Symptoms) Stelara 90 mg/mL syringe 90 mg SUBCUT Q8WK medroxyprogesterone 150 mg/mL syringe 150 mg IM Q3M Women's Multivitamin Gummies 200 mcg Tablet,Chewable 400 mcg PO HS acetaminophen [Tylenol Extra Strength] 500 mg Tablet 1,000 mg PO Q6H PRN (Reason: Pain) leflunomide [Arava] 20 mg tablet 20 mg PO HS hyoscyamine sulfate [Levsin] 0.125 mg Tablet 0.125 mg PO TID PRN (Reason: abdominal pain) Qty: 30 0RF pantoprazole 40 mg Tablet,Delayed Release (Dr/Ec) 40 mg PO QAM folic acid 1 mg tablet 1 mg PO QAM Caltrate 600 plus D 600 mg (1,500 mg)-800 unit Tablet,Chewable 1 tab PO BID albuterol sulfate 90 mcg/actuation Hfa Aerosol Inhaler 2 puff INHALATION Q6H PRN (Reason: Wheezing) sumatriptan succinate 100 mg tablet 100 mg PO UD PRN (Reason: Migraine Headache) metoclopramide HCl 5 mg tablet 5 mg PO QID PRN (Reason: GASTROPARESIS) oxycodone 5 mg tablet 5 mg PO BID PRN (Reason: Abdominal Pain) cetirizine [Zyrtec] 10 mg Tablet 10 mg PO QAM Forteo 20 mcg/dose (600mcg/2.4mL) Pen Injector 20 mcg SUBCUT DAILY Medical Marijuana 1 dose inhalation UD PRN (Reason: "CHRONE'S DISEASE/NAUSEA") Label Comments: USES ORAL/VAPING FORM carvedilol 6.25 mg Tablet 6.25 mg PO BID Rx Instructions: must administer with a meal/food hydroxyzine HCl 25 mg Tablet 25 mg PO DAILY PRN (Reason: Anxiety) ondansetron 8 mg tablet,disintegrating 8 mg PO BIDWMEAL PRN (Reason: Nausea) buspirone 10 mg tablet 5 mg PO DAILY PRN (Reason: Anxiety) ergocalciferol (vitamin D2) [Vitamin D2] 1,250 mcg (50,000 unit) capsule 1,250 mcg PO 2XWK scopolamine base [Transderm-Scop] 1 mg over 3 days patch 3 day 1 mg transdermal 2XWK PRN (Reason: Pain) oxycodone 5 mg tablet 5 mg PO Q8H PRN (Reason: pain) Qty: 9 0RF Referrals Referrals: Carmela Cordon [Primary Care Provider] -
[2022-01-18 09:43] LABS: Basophils # (auto) 0.09 K/uL (0-0.2); Eosinophils # (auto) 0.23 K/uL (0-0.50); Eosinophils % (auto) 2.6 %; Hematocrit (blood only) 38.3 % (34.1-44.9); Hemoglobin 12.7 g/dl (12.0-16.0); Immature Granulocytes # (auto) 0.04 K/uL (0.00-0.02); Immature Granulocytes % (auto) 0.5 %; Lymphocytes # (auto) 1.02 K/uL (1.2-3.4); Lymphocytes % (auto) 11.7 %; Mean Corpuscular Hemoglobin 31.1 pg (25.0-34.0); Mean Corpuscular Hgb Conc 33.2 g/dL (32.0-36.0); Mean Corpuscular Volume 93.6 fL (80.0-100.0); Mean Platelet Volume 9.6 fL (9.4-12.3); Monocytes # (auto) 0.25 K/uL (0.24-0.82); Monocytes % (auto) 2.9 %; Neutrophils # (auto) 7.12 K/uL (1.4-6.5); Neutrophils % (auto) 81.3 %; Platelet Count 359 K/uL (130-400); RDW Coefficient of Variation 13.1 % (11.5-14.5); RDW Standard Deviation 44.7 fL (36.4-46.3); Red Blood Count 4.09 M/uL (3.93-5.22); White Blood Count 8.75 K/ul (4.8-10.8)
[2022-01-18] MEDS: HYDROmorphone INJ 0.5 MG/0.5 ML SYR IV PRN ×4 (09:45→20:07)
[2022-01-18 09:47] LABS: Appearance Urine Clear (Clear); Bacteria Urine Automated Negative (Negative); Bilirubin Urine Negative (Negative); Blood Urine Negative (Negative); Color Urine Yellow; Epithelial Cell Urine Auto >30 /lpf (0-5); Glucose Urine UA Negative (Negative); Ketones Urine Negative (Negative); Leukocyte Esterase Urine Trace (Negative); Nitrite Urine Negative (Negative); Protein Urine Negative (Negative); RBC Urine Automated 0-4 /hpf (0-4); Specific Gravity Urine 1.018 (1.000-1.030); Urobilinogen Urine Negative (Negative)
[2022-01-18 09:58] LABS: Pregnancy Test, Serum Negative (Negative)
[2022-01-18 10:09] LABS: Albumin Globulin Ratio 1.5 (0.9-2); Albumin Level 4.2 gm/dl (3.4-5.0); BUN Creatinine Ratio 13.8 (10-20); Bilirubin,Total 0.5 mg/dl (0.2-1.0); Calcium 8.7 mg/dl (8.5-10.1); Creatinine Clr Calc Pharmacy 109.1 ml/min; Est GFR (African American) 140.4 ml/min; Est GFR (Non-African American) 121.1 ml/min; Globulin 2.8 gm/dl (2.5-4.0)
[2022-01-18] MEDS ORDERED: OPTIRAY 350 100ml IV ONE (11:48)
--- NOTE | 2022-01-18 12:10 | CT Scan Report ---
ABDOMEN AND PELVIS CT WITH IV AND ORAL CONTRAST CT DOSE: 264.96 mGy.cm HISTORY: Acute right lower quadrant abdominal pain patient with history of Crohn's disease chrons, r lq and epi pain TECHNIQUE: Multiaxial CT images of the abdomen and pelvis were performed following the IV administrat ion of 90 cc of Optiray and oral contrast. A dose lowering technique was utilized adhering to the pr inciples of HILARIO. COMPARISON STUDY: CT abdomen and pelvis 12/17/2021 FINDINGS: Clear lung bases. No pneumatosis or pneumoperitoneum. Unremarkable spleen, pancreas and adr enal glands. Cholecystectomy. Unremarkable liver. Patency of the hepatic and portal veins. 4 mm nonob structing calculus of the interpolar right kidney. No ureteral calculi or hydronephrosis. Mild urinar y bladder wall thickening with partial distention. Uterus and adnexa are unremarkable. No abdominal a ortic aneurysm or lymphadenopathy identified. No bowel obstruction. Moderate fecal retention of the ascending and transverse colon. Mild wall thick ening of the terminal ileum which is partially decompressed. The visualized appendix appears noninfla med. There is wall thickening involving the cecum and ascending colon. Trace adjacent inflammatory st randing. Unremarkable soft tissues. No acute fracture. Intact cannulated screws of the bilateral femo ral necks. No acute fracture, dislocation or avascular necrosis identified. IMPRESSION: 1. No bowel obstruction or pneumoperitoneum. Normal appendix. 2. Mild wall thickening of the terminal ileum is noted in conjunction with mild wall thickening of th e cecum and ascending colon with trace adjacent inflammatory stranding. Findings are suggestive of ac tive inflammatory bowel disease. 3. No fistula or sinus tract identified. 4. Right nephrolithiasis. 5. Cholecystectomy. ACT 112: Negative or not required by law. The above report was generated using voice recognition software. It may contain grammatical, syntax o r spelling errors. Electronically signed by: Henrry Levy M.D. 01/18/2022 12:08 PM
--- NOTE | 2022-01-18 13:20 | History & Physical Report ---
Date of Service January 18, 2022 Assessment & Plan (1) Crohn's colitis: Plan: Acute flare Solu-medrol 80mg IV given in ER. Will defer continued dosing to gastroenterology NPO IV fluids Consult gastroenterology (2) H/O Clostridium difficile infection: Plan: C. diff PCR pending (3) Rheumatoid arthritis: Plan: Continue Arava 20mg PO HS (4) Hypertension: Plan: Continue carvedilol 6.25mg PO BID (5) History of shingles: Plan: Continue prophylaxis Valtrex 1g daily (6) GERD (gastroesophageal reflux disease): Plan: Switch pantoprazole 40mg PO to IV daily Plan VTE prophylaxis - Lovenox 40mg SQ daily Diet - NPO except meds, ice chips and sips Disposition - admit to med/surg (2 midnight rule) History of Present Illness Chief Complaint: Abdominal pain Primary Care Provider: Carmela Cordon Ana Del Cid is a 31 year old female with Crohn's colitis and history of c. diff colitis who presents to the ER with abdominal pain and diarrhea. She reports right upper quadrant abdominal pain since Wednesday (2 days ago), severity 5/10, constant ache and intermittent sharp pain. This morning it became more severe and moved to her usual Crohn's flare place to right lower quadrant around 4am, severity 8/10 this morning, current severity 6/10. Associated nausea and diarrhea (5-7 times a day, watery) off and on for last couple of weeks. Noted bright red blood in stool, mainly mixed in but also on wiping. No melena. Mixed in red blood and on wiping. No melena. No Vomiting. She has been off Stelara recently due to shingles in September when she broke her hip and then influenza in December. Last dose was on November 14, 2021. She has now recovered from influenza. Allergies Allergy/AdvReac Type Severity Reaction Status Date / Time Gadolinium-Containing Allergy Severe vomiting/diarrhea Verified 01/18/22 15:19 Contrast Medi +"body locks up" iron Allergy Severe Swelling, Verified 01/18/22 15:19 joint pain, diarrhea NSAIDS (Non-Steroidal AdvReac Unknown Advised to Verified 01/18/22 15:19 Anti-Inflamma avoid (crohn's disease) Home Medications Medication Instructions Recorded Confirmed Type folic acid 1 mg tablet 1 mg PO QAM 03/30/18 01/18/22 History pantoprazole 40 mg tablet,delayed 40 mg PO QAM 03/30/18 01/18/22 History release amitriptyline 10 mg tablet 20 mg PO HS 02/21/19 01/18/22 History fluticasone propionate 50 2 spray intranasal DAILY PRN 02/21/19 01/18/22 History mcg/actuation nasal Allergy Symptoms spray,suspension medroxyprogesterone 150 mg/mL 150 mg IM Q3M 02/21/19 01/18/22 History intramuscular syringe ustekinumab 90 mg/mL subcutaneous 90 mg subcut Q8WK 02/21/19 01/18/22 History syringe (Stelara) multivitamin with minerals-folic 400 mcg PO HS 03/21/19 01/18/22 History acid 200 mcg chewable tablet (Women's Multivitamin Gummies) leflunomide 20 mg tablet (Arava) 20 mg PO HS 10/04/19 01/18/22 History hyoscyamine sulfate 0.125 mg 0.125 mg PO TID PRN abdominal pain 10/07/19 01/18/22 Rx tablet (Levsin) #30 tabs acetaminophen 500 mg tablet 1,000 mg PO Q6H PRN Pain 11/14/19 01/18/22 History (Tylenol Extra Strength) albuterol sulfate 90 mcg/actuation 2 puff inhalation Q6H PRN Wheezing 03/01/20 01/18/22 History aerosol inhaler calcium carbonate 600 mg-vitamin 1 tab PO BID 03/01/20 01/18/22 History D3 20 mcg (800 unit) chewable tablet (Caltrate 600 plus D) metoclopramide HCl 5 mg tablet 10 mg PO QDD 10/22/20 01/18/22 History sumatriptan succinate 100 mg tablet 100 mg PO UD PRN Migraine Headache 10/22/20 01/18/22 History Medical Marijuana 1 dose inhalation UD PRN "CROHN'S 02/20/21 01/18/22 History DISEASE/NAUSEA" cetirizine 10 mg tablet (Zyrtec) 10 mg PO QAM 02/20/21 01/18/22 History teriparatide 20 mcg/dose (600 20 mcg subcut DAILY 02/20/21 01/18/22 History mcg/2.4 mL) subcutaneous pen injector (Forteo) mupirocin 2 % topical ointment 1 applic topical BID PRN post op 03/11/21 01/18/22 Rx #22 grams buspirone 10 mg tablet 5 mg PO DAILY PRN Anxiety 07/15/21 01/18/22 History ondansetron 8 mg disintegrating 8 mg PO BIDWMEAL PRN Nausea 07/15/21 01/18/22 History tablet scopolamine base 1 mg over 3 days 1 mg transdermal 2XWK PRN Pain 07/15/21 01/18/22 History transdermal patch (Transderm-Scop) carvedilol 6.25 mg tablet 6.25 mg PO BID 09/25/21 01/18/22 History hydroxyzine HCl 25 mg tablet 25 mg PO DAILY PRN Anxiety 09/25/21 01/18/22 History oxycodone 5 mg tablet 5 mg PO Q8H PRN pain #9 tabs 12/17/21 01/18/22 Rx cholecalciferol (vitamin D3) 125 125 mcg PO DAILY 01/18/22 01/18/22 History mcg (5,000 unit) tablet (Vitamin D3) valacyclovir 1 gram tablet 1 mg PO DAILY 01/18/22 01/18/22 History Past Med/Surg History Medical History (Updated 01/18/22 @ 23:59 by Randall Jaramillo MD) Allergic rhinitis Anxiety INCREASES BP "CURRENLTY UNDER CONTROL" Asthma HAS NOT USED INHALER FOR A WHILE Crohns disease Endometriosis Gastroparesis GERD (gastroesophageal reflux disease) H/O Clostridium difficile infection 2014 History of anemia History of peptic ulcer Hx MRSA infection 2013 (in lymph node which has since be resected) Kidney stones Medical marijuana use Migraine Rheumatoid arthritis Tachycardia occasional episodes > follows with [facility] cardiology (Beatrice Haile) Surgical History H/O colonoscopy H/O esophagogastroduodenoscopy History of dilatation and curettage History of hip surgery RT HIP ORIF History of nasal septoplasty with turbinate reduction-02/27/21-Dr. Nguyen History of placement of ear tubes left-02/27/21-Dr. Nguyen Lymph node symptom Left axillary lymph node removal (for MRSA) Nausea and vomiting after administration of anesthetic agent S/P cholecystectomy S/P fecal transplant S/P ORIF (open reduction internal fixation) fracture left wrist S/P tonsillectomy [place] teeth extracted Family History Grandmother (Maternal) Breast cancer Aunt Cervical cancer Maternal Ovarian cancer Maternal Grandfather (Paternal) Colorectal cancer Mother Mitral valve prolapse Other Allergies Family history of bleeding disorder Hearing loss Hypertension No family history of adverse response to anesthesia Social History Smoking Status: Never smoker Second Hand Exposure: Yes (IN THE PAST); Hx Alcohol Use: Yes Alcohol type: wine Hx Substance Use: No Preferred Language: [place] Communication Ability: Effective Electronic Warfare Linguist Required: No Beliefs That Will Affect Care: None marital status: Life Partner Current Living Situation: Spouse Current Living Situation Comment: fiance Other Information That Helps Us Care for You: No Feels Safe at Home: Yes Safety Concerns: Feels Safe At This Time Assistive Devices: None Review of Systems Review of Systems: All systems reviewed & are unremarkable except as noted in Subjective Physical Exam Constitutional: WD/WN, vitals as above Eyes: + anicteric sclerae; normal pupil size Respiratory: normal respiratory effort, lungs clear to auscultation Cardiovascular: RRR, no murmur, no edema Gastrointestinal (Abdomen): Inspection/Auscultation: abdomen normal to inspection; abdomen not distended Percussion/Palpation: + abdomen tender (right sided lower > upper quadrant) and abdomen soft; no guarding and abdomen not rigid Musculoskeletal: no cyanosis or clubbing, extremities motor strength 5/5 Skin: no rashes, warm and dry Neurologic: moves all extremities and awake; not confused Psychiatric: A+Ox3, euthymic affect Results & Data Results & Data ([facility]) Vital Signs (Past 12 Hours) Vital Signs Temp Pulse Pulse Resp BP BP Pulse Ox 01/18/22 13:05 112 H 14 158/87 H 98 01/18/22 11:10 98 H 14 153/104 H 99 01/18/22 09:55 37.3 C 101 H 18 155/98 H 97 01/18/22 08:56 37.4 C 108 H 18 158/117 H 100 O2 Del Method 01/18/22 13:05 Room Air 12/11/22 11:10 Room Air 01/18/22 09:55 Room Air 01/18/22 08:56 Room Air Laboratory Results Abnormal lab results 01/18/22 01/18/22 01/18/22 Range/Units 09:31 09:31 09:31 Neut # (Auto) 7.12 H (1.4-6.5) K/uL Lymph # (Auto) 1.02 L (1.2-3.4) K/uL Immature Gran # (Auto) 0.04 H (0.00-0.02) K/uL Chloride 110 H (98-107) mmol/L Creatinine 0.58 L (0.6-1.2) mg/dl Glucose 114 H (70-99(Fasting)) mg/dl Ur Leukocyte Esterase Trace H (Negative) U Epithel Cells (Auto) >30 H (0-5) /lpf Diagnostic Findings ABDOMEN AND PELVIS CT WITH IV AND ORAL CONTRAST CT DOSE: 264.96 mGy.cm HISTORY: Acute right lower quadrant abdominal pain patient with history of Crohn's disease chrons, rlq and epi pain TECHNIQUE: Multiaxial CT images of the abdomen and pelvis were performed following the IV administration of 90 cc of Optiray and oral contrast. A dose lowering technique was utilized adhering to the principles of ALARA. COMPARISON STUDY: CT abdomen and pelvis 12/17/2021 FINDINGS: Clear lung bases. No pneumatosis or pneumoperitoneum. Unremarkable spleen, pancreas and adrenal glands. Cholecystectomy. Unremarkable liver. Patency of the hepatic and portal veins. 4 mm nonobstructing calculus of the interpolar right kidney. No ureteral calculi or hydronephrosis. Mild urinary jaret dder wall thickening with partial distention. Uterus and adnexa are unremarkable. No abdominal aortic aneurysm or lymphadenopathy identified. No bowel obstruction. Moderate fecal retention of the ascending and transverse colon. Mild wall thickening of the terminal ileum which is partially decompressed. The visualized appendix appears noninflamed. There is wall thickening involving the cecum and ascending colon. Trace adjacent inflammatory stranding. Unremarkable soft tissues. No acute fracture. Intact cannulated screws of the bilateral femoral necks. No acute fracture, dislocation or avascular necrosis identified. IMPRESSION: 1. No bowel obstruction or pneumoperitoneum. Normal appendix. 2. Mild wall thickening of the terminal ileum is noted in conjunction with mild wall thickening of the cecum and ascending colon with trace adjacent inflammatory stranding. Findings are suggestive of active inflammatory bowel disease. 3. No fistula or sinus tract identified. 4. Right nephrolithiasis. 5. Cholecystectomy. Medications Administered ER Medications Given: NSS 1L bolus Ondansetron 4mg IV Dilaudid 0.5mg IV x2 Code Status & VTE Plan Code Status Full VTE Prophylaxis Plan VTE Prophylaxis will be ordered: No PG Care Time/CCT Total # of Minutes Spent Total Time Spent with Patient: Total time spent is greater than 50% in coordination of care (as documented) at patient's floor/unit and/or counseling patient: Coding Level of Care Code 91089 Initial Inpt Care Lvl 2 Diagnoses Crohn's colitis K50.10 Digestive disease complication type: without complication H/O Clostridium difficile infection Z86.19 Rheumatoid arthritis M06.9 Rheumatoid arthritis location: unspecified site Rheumatoid factor presence: unspecified presence Hypertension I10 History of shingles Z86.19 GERD (gastroesophageal reflux disease) K21.9 (1) Crohn's colitis Digestive disease complication type: without complication Qualified Code(s): K50.10 - Crohn's disease of large intestine without complications (2) Rheumatoid arthritis Rheumatoid arthritis location: unspecified site Rheumatoid factor presence: unspecified presence Qualified Code(s): M06.9 - Rheumatoid arthritis, unspecified
[2022-01-18] MEDS ORDERED: methylPREDNISolone 125 MG/2 ML VIAL IV STA (13:48)
[2022-01-18] MEDS ORDERED: SODIUM CHLORIDE 0.9% 1000ML 500 ML IV ONE (13:48)
--- NOTE | 2022-01-18 15:25 | XRay Report ---
XR chest 1V portable HISTORY: 31 years-old Female recent influenza, cough acute cough COMPARISON: Chest radiograph 07/15/2021 TECHNIQUE: AP view of the chest FINDINGS: Cardiomediastinal and hilar silhouettes are within normal limits. No pneumothorax, pleural effusion, airspace consolidation or overt pulmonary edema. The bones of the chest appear grossly intact. IMPRESSION: No acute process. ACT 112: Negative or not required by law. The above report was generated using voice recognition software. It may contain grammatical, syntax o r spelling errors. Electronically signed by: Henrry Levy M.D. 01/18/2022 3:23 PM
[2022-01-18] MEDS ORDERED: ACETAMINOPHEN 1,000 MG/100 ML VIAL IV PRN (16:21)
[2022-01-18] MEDS: LACTATED RINGER'S 1,000 ML IV SCH (16:53)
[2022-01-18] MEDS ORDERED: valACYclovir HCL 500 MG TABLET PO SCH (17:00)
[2022-01-18] MEDS: ONDANSETRON INJ 2 MG/ML 2 ML VIAL IV PRN (17:13)
[2022-01-18] MEDS: valACYclovir HCL 500 MG TABLET PO SCH (17:27)
[2022-01-18] MEDS: PANTOprazole 40 MG in SYRINGE 0 ML IV SCH (17:27)
[2022-01-18] MEDS: AMITRIPTYLINE HCL 10 MG TAB PO SCH (20:12)
[2022-01-18] MEDS: carvediloL 6.25 MG TAB PO SCH (20:12)
[2022-01-18] MEDS ORDERED: LEFLUNOMIDE 10 MG TAB PO SCH (21:00)
[2022-01-18] MEDS: methylPREDNISolone 20 MG in SYRINGE 0 ML IV SCH (21:55)
[2022-01-18] MEDS ORDERED: methylPREDNISolone 20 MG in SYRINGE 0 ML IV SCH (22:00)
[2022-01-19] MEDS: HYDROmorphone INJ 0.5 MG/0.5 ML SYR IV PRN ×5 (00:08→18:28)
[2022-01-19] MEDS: LACTATED RINGER'S 1,000 ML IV SCH ×3 (00:12→16:02)
[2022-01-19] MEDS: ONDANSETRON INJ 2 MG/ML 2 ML VIAL IV PRN (04:53)
[2022-01-19] MEDS: methylPREDNISolone 20 MG in SYRINGE 0 ML IV SCH ×3 (05:46→21:46)
[2022-01-19 06:13] LABS: Basophils # (auto) 0.01 K/uL (0-0.2); Basophils % (auto) 0.1 %; Hematocrit (blood only) 31.8 % (34.1-44.9); Hemoglobin 10.5 g/dl (12.0-16.0); Immature Granulocytes # (auto) 0.05 K/uL (0.00-0.02); Immature Granulocytes % (auto) 0.4 %; Lymphocytes # (auto) 1.28 K/uL (1.2-3.4); Lymphocytes % (auto) 11.2 %; Mean Corpuscular Hemoglobin 30.6 pg (25.0-34.0); Mean Corpuscular Volume 92.7 fL (80.0-100.0); Mean Platelet Volume 9.5 fL (9.4-12.3); Monocytes # (auto) 0.55 K/uL (0.24-0.82); Monocytes % (auto) 4.8 %; Neutrophils # (auto) 9.52 K/uL (1.4-6.5); Neutrophils % (auto) 83.5 %; Platelet Count 327 K/uL (130-400); RDW Standard Deviation 43.8 fL (36.4-46.3); Red Blood Count 3.43 M/uL (3.93-5.22); White Blood Count 11.41 K/ul (4.8-10.8)
[2022-01-19 06:36] LABS: BUN Creatinine Ratio 11.5 (10-20); Calcium 8.1 mg/dl (8.5-10.1); Creatinine Clr Calc Pharmacy 121.7 ml/min; Est GFR (African American) 145.5 ml/min; Est GFR (Non-African American) 125.5 ml/min; Potassium 3.5 mmol/L (3.5-5.1)
[2022-01-19] MEDS: carvediloL 6.25 MG TAB PO SCH ×2 (08:02→20:21)
[2022-01-19] MEDS: valACYclovir HCL 500 MG TABLET PO SCH (08:02)
[2022-01-19] MEDS: ENOXAPARIN INJ 40 MG/0.4 ML SYR SQ SCH (08:07)
--- NOTE | 2022-01-19 09:00 | Gastrointestinal Consultation ---
Date of Consultation January 19, 2022 Assessment & Plan (1) Exacerbation of Crohn's disease: 31 year old female with crohns on stelara admitted on pain, nausea, diarrhea, bleeding imaging with mild wall thickening of the terminal ileum is noted in conjunction with mild wall thickening of the cecum and ascending colon, c.diff negative c.diff negative Agree with Iv steroids x 2 days with transition to PO budesonide Can advance to full liquids Continue Stelara OP EGD/Colon Consider transition to Entyvio Supervising Physician Co-Signing Physician Notes I saw and evaluated the patient. She has a history of Crohn's disease on Stelara having missed a dose due to a history of shingles over the summer. She the patient notes that she has had some decreasing efficacy of the medication noticing increasing symptoms just prior to her next injection. Of note the patient has had Crohn's disease for a number of years and has been on medications to include Remicade, Humira and most recently Stelara. 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 The patient had presented to the hospital with worsening discomfort, nausea and loose to liquid stools. She notes that the symptoms are starting to improve after use of steroids last evening. Examinationl No distress No scleral icterus Mild epigastric tenderness Impression Patient with a history of inflammatory bowel disease, it appears that she is no longer responding well to use of Stelara as she has been on it for over 5 years. Given the patient's history of recent infections to include our shingles I wonder if it is time to move her to another medication such as Entyvio. In the meantime we patient is 88 with intravenous medically prednisone, if she is improving in the next 24 hours we will likely transition her to desonide elemental dosing of prednisone given her young age and gender. History of Present Illness Reason for Consultation: IBD Requesting Physician: Dr Jaramillo Attending Physician: Randall Jaramillo MD History of Present Illness 31 year old female Crohn's colitis on stelara who presents with upper abd pain and lower abd pain x 1-2 days admitted with suspected IBD flare. Pt was seen and evaluated, chart reviewed. She notes that she has been on Stelara and doing well for about 5 years. This summer around September, had shingles, ortho procedure followed by Flu infection. This caused a disruption in her regular Stelara dosing. Notes that she has had some pain for the last day or so associated with some nausea, loose stools and BRB in stool. no black stools. No fevers at home. c.diff negative CTAP 2021: Mild wall thickening of the terminal ileum is noted in conjunction with mild wall thickening of the cecum and ascending colon with trace adjacent inflammatory stranding. Findings are suggestive of active inflammatory bowel disease. Allergies Allergy/AdvReac Type Severity Reaction Status Date / Time Gadolinium-Containing Allergy Severe vomiting/diarrhea Verified 01/18/22 15:19 Contrast Medi +"body locks up" iron Allergy Severe Swelling, Verified 01/18/22 15:19 joint pain, diarrhea NSAIDS (Non-Steroidal AdvReac Unknown Advised to Verified 01/18/22 15:19 Anti-Inflamma avoid (crohn's disease) Home Medications Medication Instructions Recorded Confirmed Type folic acid 1 mg tablet 1 mg PO QAM 03/30/18 01/18/22 History pantoprazole 40 mg tablet,delayed 40 mg PO QAM 03/30/18 01/18/22 History release amitriptyline 10 mg tablet 20 mg PO HS 02/21/19 01/18/22 History fluticasone propionate 50 2 spray intranasal DAILY PRN 02/21/19 01/18/22 History mcg/actuation nasal Allergy Symptoms spray,suspension medroxyprogesterone 150 mg/mL 150 mg IM Q3M 02/21/19 01/18/22 History intramuscular syringe ustekinumab 90 mg/mL subcutaneous 90 mg subcut Q8WK 02/21/19 01/18/22 History syringe (Stelara) multivitamin with minerals-folic 400 mcg PO HS 03/21/19 01/18/22 History acid 200 mcg chewable tablet (Women's Multivitamin Gummies) leflunomide 20 mg tablet (Arava) 20 mg PO HS 10/04/19 01/18/22 History hyoscyamine sulfate 0.125 mg 0.125 mg PO TID PRN abdominal pain 10/07/19 01/18/22 Rx tablet (Levsin) #30 tabs acetaminophen 500 mg tablet 1,000 mg PO Q6H PRN Pain 11/14/19 01/18/22 History (Tylenol Extra Strength) albuterol sulfate 90 mcg/actuation 2 puff inhalation Q6H PRN Wheezing 03/01/20 01/18/22 History aerosol inhaler calcium carbonate 600 mg-vitamin 1 tab PO BID 03/01/20 01/18/22 History D3 20 mcg (800 unit) chewable tablet (Caltrate 600 plus D) metoclopramide HCl 5 mg tablet 10 mg PO QDD 10/22/20 01/18/22 History sumatriptan succinate 100 mg tablet 100 mg PO UD PRN Migraine Headache 10/22/20 01/18/22 History Medical Marijuana 1 dose inhalation UD PRN "CROHN'S 02/20/21 01/18/22 History DISEASE/NAUSEA" cetirizine 10 mg tablet (Zyrtec) 10 mg PO QAM 02/20/21 01/18/22 History teriparatide 20 mcg/dose (600 20 mcg subcut DAILY 02/20/21 01/18/22 History mcg/2.4 mL) subcutaneous pen injector (Forteo) mupirocin 2 % topical ointment 1 applic topical BID PRN post op 03/11/21 01/18/22 Rx #22 grams buspirone 10 mg tablet 5 mg PO DAILY PRN Anxiety 07/15/21 01/18/22 History ondansetron 8 mg disintegrating 8 mg PO BIDWMEAL PRN Nausea 07/15/21 01/18/22 History tablet scopolamine base 1 mg over 3 days 1 mg transdermal 2XWK PRN Pain 07/15/21 01/18/22 History transdermal patch (Transderm-Scop) carvedilol 6.25 mg tablet 6.25 mg PO BID 09/25/21 01/18/22 History hydroxyzine HCl 25 mg tablet 25 mg PO DAILY PRN Anxiety 09/25/21 01/18/22 History oxycodone 5 mg tablet 5 mg PO Q8H PRN pain #9 tabs 12/17/21 01/18/22 Rx cholecalciferol (vitamin D3) 125 125 mcg PO DAILY 01/18/22 01/18/22 History mcg (5,000 unit) tablet (Vitamin D3) valacyclovir 1 gram tablet 1 mg PO DAILY 01/18/22 01/18/22 History Patient History Medical History (Updated 01/18/22 @ 23:59 by Randall Jaramillo MD) Allergic rhinitis Anxiety INCREASES BP "CURRENLTY UNDER CONTROL" Asthma HAS NOT USED INHALER FOR A WHILE Crohns disease Endometriosis Gastroparesis GERD (gastroesophageal reflux disease) H/O Clostridium difficile infection 2014 History of anemia History of peptic ulcer Hx MRSA infection 2013 (in lymph node which has since be resected) Kidney stones Medical marijuana use Migraine Rheumatoid arthritis Tachycardia occasional episodes > follows with S cardiology (Beatrice Haile) Surgical History H/O colonoscopy H/O esophagogastroduodenoscopy History of dilatation and curettage History of hip surgery RT HIP ORIF History of nasal septoplasty with turbinate reduction-02/27/21-Dr. Nguyen History of placement of ear tubes left-02/27/21-Dr. Nguyen Lymph node symptom Left axillary lymph node removal (for MRSA) Nausea and vomiting after administration of anesthetic agent S/P cholecystectomy S/P fecal transplant S/P ORIF (open reduction internal fixation) fracture left wrist S/P tonsillectomy [place] teeth extracted Family History Grandmother (Maternal) Breast cancer Aunt Cervical cancer Maternal Ovarian cancer Maternal Grandfather (Paternal) Colorectal cancer Mother Mitral valve prolapse Other Allergies Family history of bleeding disorder Hearing loss Hypertension No family history of adverse response to anesthesia Social History Smoking Status: Never smoker Second Hand Exposure: Yes (IN THE PAST); Hx Alcohol Use: Yes Alcohol type: wine Hx Substance Use: No Preferred Language: Moldovan Communication Ability: Effective Field Clerk Required: No Beliefs That Will Affect Care: None marital status: Life Partner Current Living Situation: Spouse Current Living Situation Comment: fiance Other Information That Helps Us Care for You: No Feels Safe at Home: Yes Safety Concerns: Feels Safe At This Time Assistive Devices: None Review of Systems Review of Systems: All systems reviewed & are unremarkable except as noted in HPI & below Physical Exam Constitutional: WD/WN, vitals as above Respiratory: normal respiratory effort, lungs clear to auscultation Cardiovascular: RRR, no murmur, no edema Gastrointestinal (Abdomen): normal bowel sounds, soft, nontender, no hepatosplenomegaly Skin: no rashes, warm and dry Results & Data ([facility]) Vital Signs (Past 12 Hours) Vital Signs Temp Pulse Resp BP Pulse Ox O2 Del Method 01/19/22 07:12 36.8 C 97 H 14 121/83 96 Room Air Laboratory Results 01/19/22 01/19/22 01/18/22 Range/Units 05:57 05:57 17:25 WBC 11.41 H (4.8-10.8) K/ul RBC 3.43 L (3.93-5.22) M/uL Hgb 10.5 L (12.0-16.0) g/dl Hct 31.8 L (34.1-44.9) % MCV 92.7 (80.0-100.0) fL MCH 30.6 (25.0-34.0) pg MCHC 33.0 (32.0-36.0) g/dL RDW Std Deviation 43.8 (36.4-46.3) fL RDW Coeff of Rosio 13.0 (11.5-14.5) % Plt Count 327 (130-400) K/uL MPV 9.5 (9.4-12.3) fL Immature Gran % (Auto) 0.4 % Neut % (Auto) 83.5 % Lymph % (Auto) 11.2 % [place] % (Auto) 4.8 % Eos % (Auto) 0.0 % Baso % (Auto) 0.1 % Neut # (Auto) 9.52 H (1.4-6.5) K/uL Lymph # (Auto) 1.28 (1.2-3.4) K/uL [place] # (Auto) 0.55 (0.24-0.82) K/uL Eos # (Auto) 0.00 (0-0.50) K/uL Baso # (Auto) 0.01 (0-0.2) K/uL Immature Gran # (Auto) 0.05 H (0.00-0.02) K/uL ESR (0-20) mm/hr Sodium 139 (136-145) mmol/L Potassium 3.5 (3.5-5.1) mmol/L Chloride 110 H (98-107) mmol/L Carbon Dioxide 24 (21-32) mmol/L Anion Gap 5 (3-11) BUN 6 (6-23) mg/dl Creatinine 0.52 L (0.6-1.2) mg/dl Est Cr Clr Drug Dosing 121.7 ml/min Est GFR ( Amer) 145.5 ml/min Est GFR (Non-Af Amer) 125.5 ml/min BUN/Creatinine Ratio 11.5 (10-20) Glucose 121 H (70-99(Fasting)) mg/dl Calcium 8.1 L (8.5-10.1) mg/dl Total Bilirubin (0.2-1.0) mg/dl AST (13-39) U/L ALT (7-52) U/L Alkaline Phosphatase (34-104) U/L C-Reactive Protein (0-0.5) mg/dl Total Protein (6.0-8.3) gm/dl Albumin (3.4-5.0) gm/dl Globulin (2.5-4.0) gm/dl Albumin/Globulin Ratio (0.9-2) Lipase (11-82) U/L HCG, Qual (Negative) Urine Color Urine Appearance (Clear) Urine pH (4.5-7.5) Ur Specific [place] (1.000-1.030) Urine Protein (Negative) Urine Glucose (UA) (Negative) Urine Ketones (Negative) Urine Blood (Negative) Urine Nitrite (Negative) Urine Bilirubin (Negative) Urine Urobilinogen (Negative) Ur Leukocyte Esterase (Negative) Urine WBC (Auto) (0-5) /hpf Urine RBC (Auto) (0-4) /hpf U Hyaline Cast (Auto) (0-5) /lpf U Epithel Cells (Auto) (0-5) /lpf Urine Bacteria (Auto) (Negative) Stl C. diff Tox B Gene Negative Cdiff Gene (Neg) SARS-CoV-2, RNA, NAAT (NEGATIVE) 01/18/22 01/18/22 01/18/22 Range/Units 13:20 09:31 09:31 WBC (4.8-10.8) K/ul RBC (3.93-5.22) M/uL Hgb (12.0-16.0) g/dl Hct (34.1-44.9) % MCV (80.0-100.0) fL MCH (25.0-34.0) pg MCHC (32.0-36.0) g/dL RDW Std Deviation (36.4-46.3) fL RDW Coeff of Rosio (11.5-14.5) % Plt Count (130-400) K/uL MPV (9.4-12.3) fL Immature Gran % (Auto) % Neut % (Auto) % Lymph % (Auto) % [place] % (Auto) % Eos % (Auto) % Baso % (Auto) % Neut # (Auto) (1.4-6.5) K/uL Lymph # (Auto) (1.2-3.4) K/uL [place] # (Auto) (0.24-0.82) K/uL Eos # (Auto) (0-0.50) K/uL Baso # (Auto) (0-0.2) K/uL Immature Gran # (Auto) (0.00-0.02) K/uL ESR 16 (0-20) mm/hr Sodium (136-145) mmol/L Potassium (3.5-5.1) mmol/L Chloride (98-107) mmol/L Carbon Dioxide (21-32) mmol/L Anion Gap (3-11) BUN (6-23) mg/dl Creatinine (0.6-1.2) mg/dl Est Cr Clr Drug Dosing ml/min Est GFR ( Amer) ml/min Est GFR (Non-Af Amer) ml/min BUN/Creatinine Ratio (10-20) Glucose (70-99(Fasting)) mg/dl Calcium (8.5-10.1) mg/dl Total Bilirubin (0.2-1.0) mg/dl AST (13-39) U/L ALT (7-52) U/L Alkaline Phosphatase (34-104) U/L C-Reactive Protein < 0.50 (0-0.5) mg/dl Total Protein (6.0-8.3) gm/dl Albumin (3.4-5.0) gm/dl Globulin (2.5-4.0) gm/dl Albumin/Globulin Ratio (0.9-2) Lipase (11-82) U/L HCG, Qual (Negative) Urine Color Urine Appearance (Clear) Urine pH (4.5-7.5) Ur Specific [place] (1.000-1.030) Urine Protein (Negative) Urine Glucose (UA) (Negative) Urine Ketones (Negative) Urine Blood (Negative) Urine Nitrite (Negative) Urine Bilirubin (Negative) Urine Urobilinogen (Negative) Ur Leukocyte Esterase (Negative) Urine WBC (Auto) (0-5) /hpf Urine RBC (Auto) (0-4) /hpf U Hyaline Cast (Auto) (0-5) /lpf U Epithel Cells (Auto) (0-5) /lpf Urine Bacteria (Auto) (Negative) Stl C. diff Tox B Gene (Neg) SARS-CoV-2, RNA, NAAT NEGATIVE (NEGATIVE) 01/18/22 01/18/22 01/18/22 Range/Units 09:31 09:31 09:31 WBC (4.8-10.8) K/ul RBC (3.93-5.22) M/uL Hgb (12.0-16.0) g/dl Hct (34.1-44.9) % MCV (80.0-100.0) fL MCH (25.0-34.0) pg MCHC (32.0-36.0) g/dL RDW Std Deviation (36.4-46.3) fL RDW Coeff of Rosio (11.5-14.5) % Plt Count (130-400) K/uL MPV (9.4-12.3) fL Immature Gran % (Auto) % Neut % (Auto) % Lymph % (Auto) % [place] % (Auto) % Eos % (Auto) % Baso % (Auto) % Neut # (Auto) (1.4-6.5) K/uL Lymph # (Auto) (1.2-3.4) K/uL [place] # (Auto) (0.24-0.82) K/uL Eos # (Auto) (0-0.50) K/uL Baso # (Auto) (0-0.2) K/uL Immature Gran # (Auto) (0.00-0.02) K/uL ESR (0-20) mm/hr Sodium 140 (136-145) mmol/L Potassium 4.0 (3.5-5.1) mmol/L Chloride 110 H (98-107) mmol/L Carbon Dioxide 23 (21-32) mmol/L Anion Gap 7 (3-11) BUN 8 (6-23) mg/dl Creatinine 0.58 L (0.6-1.2) mg/dl Est Cr Clr Drug Dosing 109.1 ml/min Est GFR ( Amer) 140.4 ml/min Est GFR (Non-Af Amer) 121.1 ml/min BUN/Creatinine Ratio 13.8 (10-20) Glucose 114 H (70-99(Fasting)) mg/dl Calcium 8.7 (8.5-10.1) mg/dl Total Bilirubin 0.5 (0.2-1.0) mg/dl AST 14 (13-39) U/L ALT 9 (7-52) U/L Alkaline Phosphatase 75 (34-104) U/L C-Reactive Protein (0-0.5) mg/dl Total Protein 7.0 (6.0-8.3) gm/dl Albumin 4.2 (3.4-5.0) gm/dl Globulin 2.8 (2.5-4.0) gm/dl Albumin/Globulin Ratio 1.5 (0.9-2) Lipase 26 (11-82) U/L HCG, Qual Negative (Negative) Urine Color Yellow Urine Appearance Clear (Clear) Urine pH 6.0 (4.5-7.5) Ur Specific [place] 1.018 (1.000-1.030) Urine Protein Negative (Negative) Urine Glucose (UA) Negative (Negative) Urine Ketones Negative (Negative) Urine Blood Negative (Negative) Urine Nitrite Negative (Negative) Urine Bilirubin Negative (Negative) Urine Urobilinogen Negative (Negative) Ur Leukocyte Esterase Trace H (Negative) Urine WBC (Auto) 1-5 (0-5) /hpf Urine RBC (Auto) 0-4 (0-4) /hpf U Hyaline Cast (Auto) 1-5 (0-5) /lpf U Epithel Cells (Auto) >30 H (0-5) /lpf Urine Bacteria (Auto) Negative (Negative) Stl C. diff Tox B Gene (Neg) SARS-CoV-2, RNA, NAAT (NEGATIVE) 01/18/22 Range/Units 09:31 WBC 8.75 (4.8-10.8) K/ul RBC 4.09 (3.93-5.22) M/uL Hgb 12.7 (12.0-16.0) g/dl Hct 38.3 (34.1-44.9) % MCV 93.6 (80.0-100.0) fL MCH 31.1 (25.0-34.0) pg MCHC 33.2 (32.0-36.0) g/dL RDW Std Deviation 44.7 (36.4-46.3) fL RDW Coeff of Rosio 13.1 (11.5-14.5) % Plt Count 359 (130-400) K/uL MPV 9.6 (9.4-12.3) fL Immature Gran % (Auto) 0.5 % Neut % (Auto) 81.3 % Lymph % (Auto) 11.7 % [place] % (Auto) 2.9 % Eos % (Auto) 2.6 % Baso % (Auto) 1.0 % Neut # (Auto) 7.12 H (1.4-6.5) K/uL Lymph # (Auto) 1.02 L (1.2-3.4) K/uL [place] # (Auto) 0.25 (0.24-0.82) K/uL Eos # (Auto) 0.23 (0-0.50) K/uL Baso # (Auto) 0.09 (0-0.2) K/uL Immature Gran # (Auto) 0.04 H (0.00-0.02) K/uL ESR (0-20) mm/hr Sodium (136-145) mmol/L Potassium (3.5-5.1) mmol/L Chloride (98-107) mmol/L Carbon Dioxide (21-32) mmol/L Anion Gap (3-11) BUN (6-23) mg/dl Creatinine (0.6-1.2) mg/dl Est Cr Clr Drug Dosing ml/min Est GFR ( Amer) ml/min Est GFR (Non-Af Amer) ml/min BUN/Creatinine Ratio (10-20) Glucose (70-99(Fasting)) mg/dl Calcium (8.5-10.1) mg/dl Total Bilirubin (0.2-1.0) mg/dl AST (13-39) U/L ALT (7-52) U/L Alkaline Phosphatase (34-104) U/L C-Reactive Protein (0-0.5) mg/dl Total Protein (6.0-8.3) gm/dl Albumin (3.4-5.0) gm/dl Globulin (2.5-4.0) gm/dl Albumin/Globulin Ratio (0.9-2) Lipase (11-82) U/L HCG, Qual (Negative) Urine Color Urine Appearance (Clear) Urine pH (4.5-7.5) Ur Specific [place] (1.000-1.030) Urine Protein (Negative) Urine Glucose (UA) (Negative) Urine Ketones (Negative) Urine Blood (Negative) Urine Nitrite (Negative) Urine Bilirubin (Negative) Urine Urobilinogen (Negative) Ur Leukocyte Esterase (Negative) Urine WBC (Auto) (0-5) /hpf Urine RBC (Auto) (0-4) /hpf U Hyaline Cast (Auto) (0-5) /lpf U Epithel Cells (Auto) (0-5) /lpf Urine Bacteria (Auto) (Negative) Stl C. diff Tox B Gene (Neg) SARS-CoV-2, RNA, NAAT (NEGATIVE) (1) Exacerbation of Crohn's disease Digestive disease complication type: without complication Qualified Code(s): K50.90 - Crohn's disease, unspecified, without complications
[2022-01-19] MEDS: PANTOprazole 40 MG in SYRINGE 0 ML IV SCH (11:48)
--- NOTE | 2022-01-19 15:23 | Hospitalist Progress Note ---
Date of Service January 19, 2022 Assessment & Plan (1) Crohn's colitis: Plan: Acute flare Solu-medrol 80mg IV given in ER, continue 20mg q8h Advance to full liquids IV fluids Consult gastroenterology (2) H/O Clostridium difficile infection: Plan: C. diff negative (3) Rheumatoid arthritis: Plan: Continue Arava 20mg PO HS (4) Hypertension: Plan: Continue carvedilol 6.25mg PO BID (5) History of shingles: Plan: Continue prophylaxis Valtrex 1g daily (6) GERD (gastroesophageal reflux disease): Plan: Switched pantoprazole 40mg PO to IV daily Plan VTE prophylaxis - Lovenox 40mg SQ daily Diet - Full liquids Disposition - continue admission to med/surg (2 midnight rule) Admission and Anticipated Discharge Date Admission Date: January 18, 2022 Subjective No significant change in abdominal pain. No nausea or vomiting. Wishes to advance diet. Diarrhea already improving. Review of Systems Review of Systems: All systems reviewed & are unremarkable except as noted in Subjective Physical Exam Constitutional: WD/WN, vitals as above Eyes: + anicteric sclerae; normal pupil size Respiratory: normal respiratory effort Gastrointestinal (Abdomen): Inspection/Auscultation: abdomen normal to inspection; abdomen not distended Percussion/Palpation: + abdomen tender (right sided lower > upper quadrant) and abdomen soft; no guarding and abdomen not rigid Neurologic: moves all extremities and awake; not confused Psychiatric: A+Ox3, euthymic affect Results & Data Results & Data ([facility]) Vital Signs (Past 12 Hours) Vital Signs Temp Pulse Resp BP Pulse Ox O2 Del Method 01/19/22 14:56 36.5 C 87 14 112/76 96 Room Air 01/19/22 07:12 36.8 C 97 H 14 121/83 96 Room Air PG Care Time/CCT Total # of Minutes Spent Total Time Spent with Patient: Total time spent is greater than 50% in coordination of care (as documented) at patient's floor/unit and/or counseling patient: Coding Level of Care Code 87924 Subseq Hosp Care Lvl 2 Diagnoses Crohn's colitis K50.10 Digestive disease complication type: without complication H/O Clostridium difficile infection Z86.19 Rheumatoid arthritis M06.9 Rheumatoid arthritis location: unspecified site Rheumatoid factor presence: unspecified presence Hypertension I10 History of shingles Z86.19 GERD (gastroesophageal reflux disease) K21.9 (1) Rheumatoid arthritis Rheumatoid arthritis location: unspecified site Rheumatoid factor presence: unspecified presence Qualified Code(s): M06.9 - Rheumatoid arthritis, unspecified (2) Crohn's colitis Digestive disease complication type: without complication Qualified Code(s): K50.10 - Crohn's disease of large intestine without complications
[2022-01-19] MEDS: AMITRIPTYLINE HCL 10 MG TAB PO SCH (20:20)
[2022-01-19] MEDS: LEFLUNOMIDE 20 MG PO SCH (20:45)
[2022-01-20] MEDS: LACTATED RINGER'S 1,000 ML IV SCH ×2 (00:07→08:09)
[2022-01-20] MEDS: HYDROmorphone INJ 0.5 MG/0.5 ML SYR IV PRN ×6 (00:07→20:54)
[2022-01-20] MEDS: methylPREDNISolone 20 MG in SYRINGE 0 ML IV SCH ×3 (05:45→20:55)
[2022-01-20 07:21] LABS: Basophils # (auto) 0.02 K/uL (0-0.2); Basophils % (auto) 0.2 %; Hematocrit (blood only) 32.6 % (34.1-44.9); Hemoglobin 10.7 g/dl (12.0-16.0); Immature Granulocytes # (auto) 0.07 K/uL (0.00-0.02); Immature Granulocytes % (auto) 0.7 %; Lymphocytes # (auto) 1.22 K/uL (1.2-3.4); Lymphocytes % (auto) 12.5 %; Mean Corpuscular Hemoglobin 30.7 pg (25.0-34.0); Mean Corpuscular Hgb Conc 32.8 g/dL (32.0-36.0); Mean Corpuscular Volume 93.4 fL (80.0-100.0); Mean Platelet Volume 10.2 fL (9.4-12.3); Monocytes # (auto) 0.68 K/uL (0.24-0.82); Neutrophils # (auto) 7.77 K/uL (1.4-6.5); Neutrophils % (auto) 79.6 %; Platelet Count 357 K/uL (130-400); RDW Standard Deviation 44.2 fL (36.4-46.3); Red Blood Count 3.49 M/uL (3.93-5.22); White Blood Count 9.76 K/ul (4.8-10.8)
[2022-01-20 07:47] LABS: BUN Creatinine Ratio 13.6 (10-20); Calcium 8.4 mg/dl (8.5-10.1); Creatinine Clr Calc Pharmacy 107.3 ml/min; Est GFR (African American) 139.6 ml/min; Est GFR (Non-African American) 120.4 ml/min; Potassium 3.9 mmol/L (3.5-5.1)
[2022-01-20] MEDS: ENOXAPARIN INJ 40 MG/0.4 ML SYR SQ SCH (08:43)
[2022-01-20] MEDS: carvediloL 6.25 MG TAB PO SCH ×2 (08:45→20:53)
[2022-01-20] MEDS: valACYclovir HCL 500 MG TABLET PO SCH (08:46)
--- NOTE | 2022-01-20 09:01 | Gastroenterology Progress Note ---
Date of Service January 20, 2022 Assessment & Plan (1) Exacerbation of Crohn's disease: Plan: 31 year old female with crohns on stelara admitted on pain, nausea, diarrhea, bleeding imaging with mild wall thickening of the terminal ileum is noted in conjunction with mild wall thickening of the cecum and ascending colon, c.diff negative Improving on IV steroids c.diff negative Agree with Iv steroids until Wednesday Then transition to budesonide 9 mg PO x 2 weeks, 6 mg x 2 weeks, 3 mg x 2 weeks then stop Can advance to regular diet OP EGD/Colon Consider transition to Entyvio, will TT her regular GI team Will check Hep B and Quant Gold Will sign off. Thank you for allowing us to participate in the care of this patient. Please call with any acute changes, questions or concerns. Please see addendum below with additional recommendation from my supervising physician. Admission and Anticipated Discharge Date Admission Date: January 18, 2022 Supervising Physician Co-Signing Physician Notes I saw and evaluated the patinet. She notes that she is starting to improve this morning and is having semi-formed BM with minimal blood. Plan Continue IV steroids for another 24 hours Transition to budesonide as above. We can begin Anticipate a transition to Entyvio as an OP during refractory symptoms on Stelera. Advance the patient's diet as tolerated today. Subjective Pt was seen and evaluated, chart reviewed. Notes today she is feeling better. Less abd pain, no nausea. Tolerated diet but some of the food did not agree with her (creamed soup) Stools are starting to become formed Less bleeding Review of Systems Review of Systems: All systems reviewed & are unremarkable except as noted in HPI & below Physical Exam Constitutional: WD/WN, vitals as above Respiratory: normal respiratory effort, lungs clear to auscultation Cardiovascular: RRR, no murmur, no edema Gastrointestinal (Abdomen): normal bowel sounds, soft, nontender, no hepatosplenomegaly Skin: no rashes, warm and dry Results & Data ([facility]) Vital Signs (Past 12 Hours) Vital Signs Temp Pulse Resp BP Pulse Ox O2 Del Method 01/20/22 07:15 36.9 C 73 18 150/95 H 99 Room Air Laboratory Results 01/20/22 01/20/22 Range/Units 06:02 06:02 WBC 9.76 (4.8-10.8) K/ul RBC 3.49 L (3.93-5.22) M/uL Hgb 10.7 L (12.0-16.0) g/dl Hct 32.6 L (34.1-44.9) % MCV 93.4 (80.0-100.0) fL MCH 30.7 (25.0-34.0) pg MCHC 32.8 (32.0-36.0) g/dL RDW Std Deviation 44.2 (36.4-46.3) fL RDW Coeff of Rosio 13.0 (11.5-14.5) % Plt Count 357 (130-400) K/uL MPV 10.2 (9.4-12.3) fL Immature Gran % (Auto) 0.7 % Neut % (Auto) 79.6 % Lymph % (Auto) 12.5 % [place] % (Auto) 7.0 % Eos % (Auto) 0.0 % Baso % (Auto) 0.2 % Neut # (Auto) 7.77 H (1.4-6.5) K/uL Lymph # (Auto) 1.22 (1.2-3.4) K/uL [place] # (Auto) 0.68 (0.24-0.82) K/uL Eos # (Auto) 0.00 (0-0.50) K/uL Baso # (Auto) 0.02 (0-0.2) K/uL Immature Gran # (Auto) 0.07 H (0.00-0.02) K/uL Sodium 138 (136-145) mmol/L Potassium 3.9 (3.5-5.1) mmol/L Chloride 108 H (98-107) mmol/L Carbon Dioxide 26 (21-32) mmol/L Anion Gap 4 (3-11) BUN 8 (6-23) mg/dl Creatinine 0.59 L (0.6-1.2) mg/dl Est Cr Clr Drug Dosing 107.3 ml/min Est GFR ( Amer) 139.6 ml/min Est GFR (Non-Af Amer) 120.4 ml/min BUN/Creatinine Ratio 13.6 (10-20) Glucose 111 H (70-99(Fasting)) mg/dl Calcium 8.4 L (8.5-10.1) mg/dl (1) Exacerbation of Crohn's disease Digestive disease complication type: without complication Qualified Code(s): K50.90 - Crohn's disease, unspecified, without complications
[2022-01-20] MEDS: PANTOprazole 40 MG in SYRINGE 0 ML IV SCH (10:47)
[2022-01-20] MEDS ORDERED: METOCLOPRAMIDE HCL 10 MG TABLET PO SCH (16:30)
[2022-01-20] MEDS: LEFLUNOMIDE 20 MG PO SCH (20:52)
[2022-01-20] MEDS: AMITRIPTYLINE HCL 10 MG TAB PO SCH (20:53)
[2022-01-21] MEDS ORDERED: ACETAMINOPHEN 325 MG TAB PO PRN
--- NOTE | 2022-01-21 00:03 | Hospitalist Progress Note ---
Date of Service January 20, 2022 Assessment & Plan (1) Crohn's colitis: Plan: Acute flare Solu-medrol 80mg IV given in ER, continue 20mg q8h, expected discharge tomorrow after lunch with switch to budesonide on discharge Advance to low fiber Stop IV fluids Consult gastroenterology (2) H/O Clostridium difficile infection: Plan: C. diff negative (3) Rheumatoid arthritis: Plan: Continue Arava 20mg PO HS (4) Hypertension: Plan: Continue carvedilol 6.25mg PO BID (5) History of shingles: Plan: Continue prophylaxis Valtrex 1g daily (6) GERD (gastroesophageal reflux disease): Plan: Switched pantoprazole 40mg PO to IV daily Plan VTE prophylaxis - Lovenox 40mg SQ daily Diet - low fiber Disposition - continue admission to med/surg (2 midnight rule) Admission and Anticipated Discharge Date Admission Date: January 18, 2022 Subjective Abdominal pain more in right lower quadrant rather than upper quadrant, stable. 1 BM yesterday, 2 BM today - much improved. Review of Systems Review of Systems: All systems reviewed & are unremarkable except as noted in Subjective Physical Exam Constitutional: WD/WN, vitals as above Eyes: + anicteric sclerae; normal pupil size Respiratory: normal respiratory effort Cardiovascular: RRR, no murmur, no edema Gastrointestinal (Abdomen): Inspection/Auscultation: abdomen normal to inspection; abdomen not distended Percussion/Palpation: + abdomen tender (right sided lower > upper quadrant) and abdomen soft; no guarding and abdomen not rigid Neurologic: moves all extremities and awake; not confused Psychiatric: A+Ox3, euthymic affect Results & Data Results & Data ([facility]) Vital Signs (Past 12 Hours) Vital Signs Temp Pulse Resp BP Pulse Ox O2 Del Method 01/20/22 13:53 36.7 C 79 18 134/91 98 Room Air 01/20/22 07:15 36.9 C 73 18 150/95 H 99 Room Air PG Care Time/CCT Total # of Minutes Spent Total Time Spent with Patient: Total time spent is greater than 50% in coordination of care (as documented) at patient's floor/unit and/or counseling patient: Coding Level of Care Code 41107 Subseq Hosp Care Lvl 2 Diagnoses Crohn's colitis K50.10 Digestive disease complication type: without complication H/O Clostridium difficile infection Z86.19 Rheumatoid arthritis M06.9 Rheumatoid arthritis location: unspecified site Rheumatoid factor presence: unspecified presence Hypertension I10 History of shingles Z86.19 GERD (gastroesophageal reflux disease) K21.9 (1) Crohn's colitis Digestive disease complication type: without complication Qualified Code(s): K50.10 - Crohn's disease of large intestine without complications (2) Rheumatoid arthritis Rheumatoid arthritis location: unspecified site Rheumatoid factor presence: unspecified presence Qualified Code(s): M06.9 - Rheumatoid arthritis, unspecified
[2022-01-21] MEDS: HYDROmorphone INJ 0.5 MG/0.5 ML SYR IV PRN ×4 (01:51→13:48)
[2022-01-21] MEDS: methylPREDNISolone 20 MG in SYRINGE 0 ML IV SCH ×2 (06:29→13:34)
[2022-01-21 07:37] LABS: BUN Creatinine Ratio 15.3 (10-20); Calcium 8.6 mg/dl (8.5-10.1); Creatinine Clr Calc Pharmacy 107.3 ml/min; Est GFR (African American) 139.6 ml/min; Est GFR (Non-African American) 120.4 ml/min; Potassium 3.6 mmol/L (3.5-5.1)
[2022-01-21] MEDS: ENOXAPARIN INJ 40 MG/0.4 ML SYR SQ SCH (08:22)
[2022-01-21] MEDS: carvediloL 6.25 MG TAB PO SCH (08:24)
[2022-01-21] MEDS: valACYclovir HCL 500 MG TABLET PO SCH (08:24)
[2022-01-21] MEDS: PANTOprazole 40 MG in SYRINGE 0 ML IV SCH (10:55)
--- NOTE | 2022-01-21 13:26 | Discharge Summary ---
Date of Service January 21, 2022 Admission HPI Per Admitting Provider Ana Del Cid is a 31 year old female with Crohn's colitis and history of c. diff colitis who presents to the ER with abdominal pain and diarrhea. She reports right upper quadrant abdominal pain since Wednesday (2 days ago), severity 5/10, constant ache and intermittent sharp pain. This morning it became more severe and moved to her usual Crohn's flare place to right lower quadrant around 4am, severity 8/10 this morning, current severity 6/10. Associated nausea and diarrhea (5-7 times a day, watery) off and on for last couple of weeks. Noted bright red blood in stool, mainly mixed in but also on wiping. No melena. Mixed in red blood and on wiping. No melena. No Vomiting. She has been off Stelara recently due to shingles in September when she broke her hip and then influenza in December. Last dose was on November 14, 2021. She has now recovered from influenza. Discharge Data Allergies Allergy/AdvReac Type Severity Reaction Status Date / Time Gadolinium-Containing Allergy Severe vomiting/diarrhea Verified 01/18/22 15:19 Contrast Medi +"body locks up" iron Allergy Severe Swelling, Verified 01/18/22 15:19 joint pain, diarrhea NSAIDS (Non-Steroidal AdvReac Unknown Advised to Verified 01/18/22 15:19 Anti-Inflamma avoid (crohn's disease) Consultations 01/18/22 13:06 ED Decision to Admit Stat 01/18/22 14:32 Consult Gastroenterology Routine Ordered Studies 01/18/22 09:17 CT abd pelvis oral and IV con Stat Hospital Course (1) Crohn's colitis: Acute flare Solu-medrol 80mg IV given in ER, continue 20mg q8h, expected discharge tomorrow after lunch with switch to budesonide on discharge Advance to low fiber Stop IV fluids Consult gastroenterology (2) H/O Clostridium difficile infection: C. diff negative (3) Rheumatoid arthritis: Continue Arava 20mg PO HS (4) Hypertension: Continue carvedilol 6.25mg PO BID (5) History of shingles: Continue prophylaxis Valtrex 1g daily (6) GERD (gastroesophageal reflux disease): Switched pantoprazole 40mg PO to IV daily Plan VTE prophylaxis - Lovenox 40mg SQ daily Diet - low fiber Disposition - continue admission to med/surg (2 midnight rule) Discharge Plan Discharge Items Patient Disposition: Home - Self-Care Reason For Visit: Crohn's Flare Discharge Diagnosis: Crohn's colitis flare Condition on Discharge: Good Activity: Resume your previous activity Non-emergency contact: Carousel Attendant Call non-emergency contact if: you have any medication questions and your symptoms worsen Follow-up/Referrals: Carmela Cordon [Primary Care Provider] - Diet: Low Fiber Addtl Attending Provider Instructions: You were admitted to [facility] from January 18 - 2021 due to abdominal pain and diarrhea. CT was concerning for Crohn's colitis and you were treated with bowel rest, IV fluids and IV steroids. You were reviewed by gastroenterology and recommended diet advancements and switching to budesonide on discharge: 9 mg daily x 2 weeks, 6 mg daily x 2 weeks, 3 mg daily x 2 weeks then stop. Please follow up with gastroenterology on discharge. Pending Studies at Discharge: Yes (quantiferon TB gold) Stand-Alone Forms: My [facility], Smoking Cessation Medications and DC Order Prescriptions: New budesonide 3 mg capsule,delayed,extend.release 3 mg PO DAILY Qty: 84 0RF Rx Instructions: 9mg PO daily for 2 weeks, then 6mg PO daily for 2 weeks, then 3mg PO daily for 2 weeks Continued mupirocin 2 % ointment 1 applic topical BID PRN (Reason: post op) Qty: 22 8RF amitriptyline 10 mg tablet 20 mg PO HS fluticasone propionate 50 mcg/actuation spray,suspension 2 spray INTRANASAL DAILY PRN (Reason: Allergy Symptoms) Stelara 90 mg/mL syringe 90 mg SUBCUT Q8WK Rx Instructions: ON HOLD medroxyprogesterone 150 mg/mL syringe 150 mg IM Q3M Rx Instructions: PER PT "END OF NOV 2021". Women's Multivitamin Gummies 200 mcg Tablet,Chewable 400 mcg PO HS acetaminophen [Tylenol Extra Strength] 500 mg Tablet 1,000 mg PO Q6H PRN (Reason: Pain) leflunomide [Arava] 20 mg tablet 20 mg PO HS hyoscyamine sulfate [Levsin] 0.125 mg Tablet 0.125 mg PO TID PRN (Reason: abdominal pain) Qty: 30 0RF pantoprazole 40 mg Tablet,Delayed Release (Dr/Ec) 40 mg PO QAM folic acid 1 mg tablet 1 mg PO QAM Caltrate 600 plus D 600 mg (1,500 mg)-800 unit Tablet,Chewable 1 tab PO BID albuterol sulfate 90 mcg/actuation Hfa Aerosol Inhaler 2 puff INHALATION Q6H PRN (Reason: Wheezing) sumatriptan succinate 100 mg tablet 100 mg PO UD PRN (Reason: Migraine Headache) metoclopramide HCl 5 mg tablet 10 mg PO QDD Rx Instructions: PER PT "CAN USE PRN IF NEEDED". cetirizine [Zyrtec] 10 mg Tablet 10 mg PO QAM Forteo 20 mcg/dose (600mcg/2.4mL) Pen Injector 20 mcg SUBCUT DAILY Medical Marijuana 1 dose inhalation UD PRN (Reason: "CROHN'S DISEASE/NAUSEA") Label Comments: USES ORAL/VAPING FORM carvedilol 6.25 mg Tablet 6.25 mg PO BID Rx Instructions: must administer with a meal/food hydroxyzine HCl 25 mg Tablet 25 mg PO DAILY PRN (Reason: Anxiety) ondansetron 8 mg tablet,disintegrating 8 mg PO BIDWMEAL PRN (Reason: Nausea) buspirone 10 mg tablet 5 mg PO DAILY PRN (Reason: Anxiety) scopolamine base [Transderm-Scop] 1 mg over 3 days patch 3 day 1 mg transdermal 2XWK PRN (Reason: Pain) oxycodone 5 mg tablet 5 mg PO Q8H PRN (Reason: pain) Qty: 9 0RF cholecalciferol (vitamin D3) [Vitamin D3] 125 mcg (5,000 unit) Tablet 125 mcg PO DAILY valacyclovir 1 gram tablet 1 mg PO DAILY Discharge Orders: Discharge Order (Routine); Ordered 01/21/22 Ordered By: Randall Jaramillo Admission Data Admit Date/Time: 01/18/22 13:10 Attending Provider: Randall Jaramillo Admit Provider: Randall Jaramillo Primary Care Provider: Carmela Cordon Other Providers: Randall Jaramillo ; [place]a Sierra Coding Diagnoses Crohn's colitis K50.10 Digestive disease complication type: without complication H/O Clostridium difficile infection Z86.19 Rheumatoid arthritis M06.9 Rheumatoid arthritis location: unspecified site Rheumatoid factor presence: unspecified presence Hypertension I10 History of shingles Z86.19 GERD (gastroesophageal reflux disease) K21.9
[2022-01-22 14:58] LABS: Quantiferon Mitogen-NIL 5.01 IU/mL; Quantiferon NIL 0.06 IU/mL; Quantiferon TB Gold Plus NEGATIVE (NEGATIVE); Quantiferon TB1-NIL 0.01 IU/mL; Quantiferon TB2-NIL 0.01 IU/mL
== END 2022-01-21 14:13 | disposition home or self-care (01) | DRG 387 ==
LOC: ED 08:48 → 3N 13:10 → 3W 16:54
DX: K50.10 Crohn's disease of large intestine without complications; K31.84 Gastroparesis; Z79.899 Other long term (current) drug therapy; Z91.041 Radiographic dye allergy status; K21.9 Gastro-esophageal reflux disease without esophagitis; I10 Essential (primary) hypertension; Z86.14 Personal history of Methicillin resistant Staphylococcus aureus infection; Z88.6 Allergy status to analgesic agent

== ENCOUNTER 2022-09-06 08:34 | Inpatient (IN) ==
[2022-09-06] MEDS ORDERED: HYDROmorphone INJ 0.5 MG/0.5 ML SYR IV STA (09:13)
[2022-09-06] MEDS ORDERED: SODIUM CHLORIDE 0.9% 500 ML IV ONE (09:13)
[2022-09-06] MEDS ORDERED: ONDANSETRON INJ 2 MG/ML 2 ML VIAL IV STA (09:13)
[2022-09-06 09:16] LABS: Appearance Urine Clear (Clear); Bilirubin Urine Negative (Negative); Blood Urine Negative (Negative); Color Urine Yellow; Glucose Urine UA Negative (Negative); Ketones Urine Negative (Negative); Leukocyte Esterase Urine Negative (Negative); Nitrite Urine Negative (Negative); Protein Urine Negative (Negative); Specific Gravity Urine 1.013 (1.000-1.030); Urobilinogen Urine Negative (Negative)
[2022-09-06 09:25] LABS: Basophils # (auto) 0.09 K/uL (0-0.2); Basophils % (auto) 0.8 %; Eosinophils # (auto) 0.16 K/uL (0-0.50); Eosinophils % (auto) 1.4 %; Hematocrit (blood only) 38.2 % (37.0-47.0); Hemoglobin 12.5 g/dl (12.0-16.0); Immature Granulocytes # (auto) 0.05 K/uL (0.01-0.20); Immature Granulocytes % (auto) 0.4 %; Lymphocytes # (auto) 0.75 K/uL (1.2-3.4); Lymphocytes % (auto) 6.4 %; Mean Corpuscular Hemoglobin 29.3 pg (25.0-34.0); Mean Corpuscular Hgb Conc 32.7 g/dL (32.0-36.0); Mean Corpuscular Volume 89.5 fL (80.0-100.0); Mean Platelet Volume 9.7 fL (9.4-12.4); Monocytes # (auto) 0.32 K/uL (0.11-0.59); Monocytes % (auto) 2.7 %; Neutrophils # (auto) 10.27 K/uL (1.40-6.50); Neutrophils % (auto) 88.3 %; Platelet Count 338 K/uL (130-400); RDW Coefficient of Variation 12.9 % (11.5-14.5); RDW Standard Deviation 42.4 fL (36.4-46.3); Red Blood Count 4.27 M/uL (4.20-5.40); White Blood Count 11.64 K/ul (4.8-10.8)
--- NOTE | 2022-09-06 09:29 | Emergency Department Note ---
Impression & Plan Chronic pain, Crohn's disease involving terminal ileum ED Provider Note Provider: Lex Alonzo MD DATE OF SERVICE: 09/06/2022 CHIEF COMPLAINT: Abdominal pain, nausea HISTORY OF PRESENT ILLNESS: Patient is a 31-year-old female past medical history including Crohn's disease maintained on Stelara presenting here today stating over the past approximately 6 days has had some increasing and worsening right lower quadrant pain with some slight discomfort in the epigastric region. Reports some nausea at times. Reports some looser stools but no significant blood in the stools. Maybe a trace amount when she wipes but not in the stool in the toilet noted. States compliance with home Stelara. Follows with jose as well as [facility] regarding her issues. States was under increased dressings week watching some young relatives. Did have some popcorn earlier as well. Feels like prior episodes of Crohn's flare although he is having some more epigastric discomfort which is somewhat newer today. Denies history abdominal surgery. Nausea is minimal. States medical marijuana at home does help some with this. States she has had some osteoporosis and issues with her back and they try to avoid steroids if at all possible. Did recently hurt her back a little bit and has been undergoing some adjustments she states but denies significant sciatic symptoms. States her joints are little bit sore. Eldred little bit warm at night but no clear fevers reported. PAST MEDICAL HISTORY: As noted above MEDICATIONS: Reviewed home medications SOCIAL HISTORY: Non-smoker PHYSICAL EXAM: GENERAL: alert and oriented in no acute distress on stretcher Head: normocephalic and atraumatic EYES: No injection, discharge or icterus. NECK: Trachea midline. Supple. ENT: Mucous membranes pink and moist. LUNGS: Airway patent. No retractions. Breath sounds clear with good air entry bilaterally. HEART: Regular rate and rhythm. No chest wall tenderness ABDOMEN: Soft with some slight epigastric tenderness but more tenderness in the right lower quadrant. No guarding. SKIN: Acyanotic, warm, dry, without rashes EXTREMITIES: Without swelling, tenderness or deformity NEUROLOGICAL: No focal deficits. No aphasia. No facial droop or slurred speech. Ambulatory. EK bpm sinus tachycardia no PVC. No acute ST segment elevation or depression with QTc of 445. Patient's laboratory studies and imaging reviewed. Differential includes Appendicitis, ovarian cyst, ovarian torsion, ectopic , TOA, PID, infections, diverticulitis, UTI, obstruction, mesenteric ischemia, aortic pathology, inflammatory bowel disease, renal colic, PUD, pancreatitis, biliary pathology, hernia, volvulus, constipation, as well as other pathologies. IMPRESSION/MEDICAL DECISION MAKING: Patient with unfortunate longstanding history of Crohn's disease with increased pain in the right lower quadrant also some more atypical pain in the epigastrium according to her. Given some fluids, Zofran, and IV pain medicine here to help with symptoms. Blood work sent. Denies urinary symptoms or trauma. Denies significant sciatic symptoms at this time. Afebrile here. Is on immunosuppressant for Crohn's. We will complete CT given the slightly atypical epigastric discomfort. EKG and troponin completed lower suspicion for ACS in this 31-year-old. No significant blood reported in stool or vomit. Blood returns without anemia but some leukocytosis on 0.6 but no anemia. Urinalysis negative for signs of infection. Slight leukocytosis 11.6 but no anemia. No severe electrolyte abnormalities with a normal creatinine. No evidence of hepatitis or pancreatitis based on labs. Negative . CRP not detectable and ESR not elevated. Has had prior flares without elevated inflammatory markers based on imaging. CT imaging consistent with ileocecal inflammation. Discussed with patient. Nausea is improved still with pain to get some Dilaudid. We will give a dose of IV steroids and discussed with the patient as this was most helpful before and she feels that she needs admission for symptom control. This was quite effective when she was here in January by her report and from the available records in the system I reviewed. Discussed with the hospitalist team. DIAGNOSIS: Crohn's flare, abdominal pain DISPOSITION: Hospitalist will evaluate Past Med/Surg History Medical History (Updated 09/06/22 @ 11:58 by Lex Alonzo M.D.) Allergic rhinitis Anxiety INCREASES BP "CURRENLTY UNDER CONTROL" Crohns disease Endometriosis Gastroparesis GERD (gastroesophageal reflux disease) H/O Clostridium difficile infection 2014 History of anemia History of asthma Childhood History of fracture of femur Close, Left femoral neck History of intussusception History of peptic ulcer Hx MRSA infection 2013 (in lymph node which has since be resected) Kidney stones Medical marijuana use Migraine Post-dural puncture headache Rheumatoid arthritis S/P right hip fracture Tachycardia occasional episodes > follows with [facility] cardiology (Beatrice Haile) Surgical History H/O colonoscopy H/O esophagogastroduodenoscopy History of dilatation and curettage History of hip surgery History of nasal septoplasty History of placement of ear tubes Lymph node symptom Nausea and vomiting after administration of anesthetic agent S/P cholecystectomy S/P fecal transplant S/P ORIF (open reduction internal fixation) fracture S/P tonsillectomy [place] teeth extracted Family History Grandmother (Maternal) Breast cancer Aunt Cervical cancer Ovarian cancer Grandfather (Paternal) Colorectal cancer Mother Mitral valve prolapse Myocardial infarction, Onset Age: 55 Other Allergies Family history of bleeding disorder Hearing loss Hypertension No family history of adverse response to anesthesia Social History Smoking Status: Never smoker Second Hand Exposure: No; Do You Dip or Chew Tobacco: No; Tobacco Cessation Education Requested by Patient: No Hx Alcohol Use: Yes Alcohol type: wine Alcohol Intake Frequency: Monthly or Less Hx Substance Use: Yes Last Used Substance: Hours (ago) Last Used Substance Othe r:: ONLY MEDICAL MARIJUANA Substance Use Type Other:: Medical Marijuana Preferred Language: [place] Rican Communication Ability: Effective Visual Impairment: No Limitations Hearing Ability: Normal Science Editor Required: No Beliefs That Will Affect Care: None marital status: Life Partner Current Living Situation: Spouse current occupational status: disabled Other Information That Helps Us Care for You: No Feels Safe at Home: Yes Safety Concerns: Feels Safe At This Time Dental Care, Regularly: Yes Physical Activity Frequency: 3-4 Times per Week Seatbelt Use: always Sunscreen Use: Yes Assistive Devices: None Allergies Allergies Allergy/AdvReac Type Severity Reaction Status Date / Time Gadolinium-Containing Allergy Severe vomiting/diarrhea Verified 09/06/22 10:07 Contrast Medi +"body locks up" iron Allergy Severe Swelling, Verified 09/06/22 10:07 joint pain, diarrhea cyclobenzaprine Allergy Intermediate increase Unverified 09/06/22 10:28 [From Flexeril] stiffness, joint pain, flightly NSAIDS (Non-Steroidal AdvReac Unknown Advised to Verified 09/06/22 10:07 Anti-Inflamma avoid (crohn's disease) Home Meds Home Medications Medication Instructions Recorded Confirmed folic acid 1 mg tablet 1 mg PO QAM 03/30/18 09/06/22 pantoprazole 40 mg tablet,delayed 40 mg PO QAM 03/30/18 09/06/22 release fluticasone propionate 50 2 spray intranasal DAILY PRN 02/21/19 09/06/22 mcg/actuation nasal Allergy Symptoms spray,suspension medroxyprogesterone 150 mg/mL 150 mg IM Q3M 02/21/19 09/06/22 intramuscular syringe multivitamin with minerals-folic 400 mcg PO HS 03/21/19 09/06/22 acid 200 mcg chewable tablet (Women's Multivitamin Gummies) leflunomide 20 mg tablet (Arava) 20 mg PO HS 10/04/19 09/06/22 acetaminophen 500 mg tablet 1,000 mg PO Q6H PRN Pain 11/14/19 09/06/22 (Tylenol Extra Strength) albuterol sulfate 90 mcg/actuation 2 puff inhalation Q6H PRN Wheezing 03/01/20 09/06/22 aerosol inhaler calcium carbonate 600 mg-vitamin 1 tab PO BID 03/01/20 09/06/22 D3 20 mcg (800 unit) chewable tablet (Caltrate 600 plus D) metoclopramide HCl 5 mg tablet 10 mg PO QDD 10/22/20 09/06/22 sumatriptan succinate 100 mg tablet 100 mg PO UD PRN Migraine Headache 10/22/20 09/06/22 Medical Marijuana 1 dose inhalation UD PRN "CROHN'S 02/20/21 09/06/22 DISEASE/NAUSEA" cetirizine 10 mg tablet (Zyrtec) 10 mg PO QAM 02/20/21 09/06/22 buspirone 10 mg tablet 5 mg PO DAILY PRN Anxiety 07/15/21 09/06/22 ondansetron 8 mg disintegrating 8 mg PO BIDWMEAL PRN Nausea 07/15/21 09/06/22 tablet scopolamine base 1 mg over 3 days 1 mg transdermal 2XWK PRN Pain 07/15/21 09/06/22 transdermal patch (Transderm-Scop) carvedilol 6.25 mg tablet 6.25 mg PO BID 09/25/21 09/06/22 hydroxyzine HCl 25 mg tablet 25 mg PO DAILY PRN Anxiety 09/25/21 09/06/22 cholecalciferol (vitamin D3) 125 125 mcg PO DAILY 01/18/22 09/06/22 mcg (5,000 unit) tablet (Vitamin D3) mirabegron 50 mg tablet,extended 50 mg PO DAILY 06/22/22 09/06/22 release 24 hr (Myrbetriq) ustekinumab 90 mg/mL subcutaneous 90 mg subcut .[id number] 07/08/22 09/06/22 syringe (Stelara) Previous Rx's Medication Instructions Recorded hyoscyamine sulfate 0.125 mg 0.125 mg PO TID PRN abdominal pain 10/07/19 tablet (Levsin) #30 tabs amitriptyline 50 mg tablet 50 mg PO HS #30 tabs 06/22/22 oxycodone 5 mg tablet 5 mg PO TID PRN pain 3 days #9 tabs 08/26/22 Results & Data (ED) Vital Signs Vital Signs - 24 hr 09/06/22 08:37 Temperature 36.3 C L Temperature Source Temporal Artery Scan Pulse Rate 111 H Respiratory Rate 20 Respiratory Effort / Characteristics Non-Labored Respiratory Depth Normal Blood Pressure 142/91 H Blood Pressure Mean 108 Pulse Oximetry 98 Oxygen Delivery Method Room Air Sepsis Recent Fever Within 48 Hours No Sepsis New/Unexplained Change in Mental Status N/A Sepsis Action Taken by Nursing No Action Required Laboratory Data 09/06/22 09:01 09/06/22 09:01 Lab Results 09/06/22 09/06/22 09/06/22 Range/Units 09:01 09:01 09:01 WBC 11.64 H (4.8-10.8) K/ul RBC 4.27 (4.20-5.40) M/uL Hgb 12.5 (12.0-16.0) g/dl Hct 38.2 (37.0-47.0) % MCV 89.5 (80.0-100.0) fL MCH 29.3 (25.0-34.0) pg MCHC 32.7 (32.0-36.0) g/dL RDW Std Deviation 42.4 (36.4-46.3) fL RDW Coeff of Rosio 12.9 (11.5-14.5) % Plt Count 338 (130-400) K/uL MPV 9.7 (9.4-12.4) fL Immature Gran % (Auto) 0.4 % Neut % (Auto) 88.3 % Lymph % (Auto) 6.4 % [place] % (Auto) 2.7 % Eos % (Auto) 1.4 % Baso % (Auto) 0.8 % Neut # (Auto) 10.27 H (1.40-6.50) K/uL Lymph # (Auto) 0.75 L (1.2-3.4) K/uL [place] # (Auto) 0.32 (0.11-0.59) K/uL Eos # (Auto) 0.16 (0-0.50) K/uL Baso # (Auto) 0.09 (0-0.2) K/uL Immature Gran # (Auto) 0.05 (0.01-0.20) K/uL ESR (0-20) mm/hr Sodium 138 (136-145) mmol/L Potassium 3.9 (3.5-5.1) mmol/L Chloride 110 H (98-107) mmol/L Carbon Dioxide 21 (21-32) mmol/L Anion Gap 7 (3-11) BUN 11 (6-23) mg/dl Creatinine 0.74 (0.6-1.2) mg/dl Est Cr Clr Drug Dosing 92.6 ml/min Est GFR ( Amer) 123.4 ml/min Est GFR (Non-Af Amer) 106.4 ml/min BUN/Creatinine Ratio 14.9 (10-20) Glucose 126 H (70-99(Fasting)) mg/dl Calcium 9.5 (8.6-10.3) mg/dl Total Bilirubin 0.5 (0.2-1.0) mg/dl AST 15 (13-39) U/L ALT 9 (7-52) U/L Alkaline Phosphatase 75 (34-104) U/L Troponin I High Sens < 2.3 (0-14) pg/ml C-Reactive Protein < 0.50 (0-0.5) mg/dl Total Protein 7.4 (6.0-8.3) gm/dl Albumin 4.4 (3.4-5.0) gm/dl Globulin 3.0 (2.5-4.0) gm/dl Albumin/Globulin Ratio 1.5 (0.9-2) Lipase 24 (11-82) U/L HCG, Qual Negative (Negative) Urine Color Urine Appearance (Clear) Urine pH (4.5-7.5) Ur Specific [place] (1.000-1.030) Urine Protein (Negative) Urine Glucose (UA) (Negative) Urine Ketones (Negative) Urine Blood (Negative) Urine Nitrite (Negative) Urine Bilirubin (Negative) Urine Urobilinogen (Negative) Ur Leukocyte Esterase (Negative) 09/06/22 09/06/22 Range/Units 09:01 09:01 WBC (4.8-10.8) K/ul RBC (4.20-5.40) M/uL Hgb (12.0-16.0) g/dl Hct (37.0-47.0) % MCV (80.0-100.0) fL MCH (25.0-34.0) pg MCHC (32.0-36.0) g/dL RDW Std Deviation (36.4-46.3) fL RDW Coeff of Rosio (11.5-14.5) % Plt Count (130-400) K/uL MPV (9.4-12.4) fL Immature Gran % (Auto) % Neut % (Auto) % Lymph % (Auto) % [place] % (Auto) % Eos % (Auto) % Baso % (Auto) % Neut # (Auto) (1.40-6.50) K/uL Lymph # (Auto) (1.2-3.4) K/uL [place] # (Auto) (0.11-0.59) K/uL Eos # (Auto) (0-0.50) K/uL Baso # (Auto) (0-0.2) K/uL Immature Gran # (Auto) (0.01-0.20) K/uL ESR 19 (0-20) mm/hr Sodium (136-145) mmol/L Potassium (3.5-5.1) mmol/L Chloride (98-107) mmol/L Carbon Dioxide (21-32) mmol/L Anion Gap (3-11) BUN (6-23) mg/dl Creatinine (0.6-1.2) mg/dl Est Cr Clr Drug Dosing ml/min Est GFR ( Amer) ml/min Est GFR (Non-Af Amer) ml/min BUN/Creatinine Ratio (10-20) Glucose (70-99(Fasting)) mg/dl Calcium (8.6-10.3) mg/dl Total Bilirubin (0.2-1.0) mg/dl AST (13-39) U/L ALT (7-52) U/L Alkaline Phosphatase (34-104) U/L Troponin I High Sens (0-14) pg/ml C-Reactive Protein (0-0.5) mg/dl Total Protein (6.0-8.3) gm/dl Albumin (3.4-5.0) gm/dl Globulin (2.5-4.0) gm/dl Albumin/Globulin Ratio (0.9-2) Lipase (11-82) U/L HCG, Qual (Negative) Urine Color Yellow Urine Appearance Clear (Clear) Urine pH 5.0 (4.5-7.5) Ur Specific [place] 1.013 (1.000-1.030) Urine Protein Negative (Negative) Urine Glucose (UA) Negative (Negative) Urine Ketones Negative (Negative) Urine Blood Negative (Negative) Urine Nitrite Negative (Negative) Urine Bilirubin Negative (Negative) Urine Urobilinogen Negative (Negative) Ur Leukocyte Esterase Negative (Negative) Administered Medications Hydromorphone HCl (Hydromorphone Inj 0.5 Mg/0.5 Ml Syr) 0.5 mg IV Q4H PRN PRN Reason: Pain(5+) Stop: 09/20/22 10:56 Last Admin: 09/06/22 13:27 Dose: 0.5 mg Documented By: AURELIA Discontinued Medications Carvedilol (Carvedilol 6.25 Mg Tab) 6.25 mg PO NOW STA Stop: 09/06/22 11:16 Last Admin: 09/06/22 11:52 Dose: 6.25 mg Documented By: RUDI Hydromorphone HCl (Hydromorphone Inj 0.5 Mg/0.5 Ml Syr) 0.5 mg IV NOW STA Stop: 09/06/22 09:14 Last Admin: 09/06/22 09:46 Dose: 0.5 mg Documented By: RUDI Hydromorphone HCl (Hydromorphone Inj 1 Mg/Ml Syringe) 0.5 mg IV NOW STA Stop: 09/06/22 10:37 Last Admin: 09/06/22 11:07 Dose: 0.5 mg Documented By: RUDI Sodium Chloride (Nss) 500 mls @ 999 mls/hr IV .Q31M ONE Stop: 09/06/22 09:43 Last Infusion: 09/06/22 10:39 Dose: 0 mls/hr Documented By: Admin: 09/06/22 09:45 Dose: 999 mls/hr Documented By: RUDI Lactated Ringer's (Lr) 1,000 mls @ 999 mls/hr IV .Q1H1M ONE Stop: 09/06/22 11:54 Last Infusion: 09/06/22 12:31 Dose: 0 mls/hr Documented By: Admin: 09/06/22 11:30 Dose: 999 mls/hr Documented By: RUDI Ioversol (Optiray 320 100ml) 95 ml IV ONCE ONE Stop: 09/06/22 10:00 Last Admin: 09/06/22 09:59 Dose: 95 ml Documented By: CYNTHIA Methylprednisolone (Methylprednisolone 125 Mg/2 Ml Vial) 80 mg IV NOW STA Stop: 09/06/22 10:32 Last Admin: 09/06/22 11:05 Dose: 80 mg Documented By: RUDI Ondansetron HCl (Ondansetron Inj 2 Mg/Ml 2 Ml Vial) 4 mg IV NOW STA Stop: 09/06/22 09:14 Last Admin: 09/06/22 09:46 Dose: 4 mg Documented By: RUDI Imaging Data Radiologist's Impression: Abdomen/Pelvis CT 09/06/22 09:[address] WITH IV CONTRAST CT DOSE: 578.58 mGy.cm HISTORY: Right lower quadrant pain to upper abd, hx crohns TECHNIQUE: Multiaxial CT images of the abdomen and pelvis were performed following the use of intravenous contrast. A dose lowering technique was utilized adhering to the principles of ALARA. COMPARISON STUDY: Abdomen and pelvis CT 01/18/2022. FINDINGS: A small linear scarlike density at the left lung base. Otherwise, the lungs are clear. Intact cannulated screws within the bilateral femoral necks. No acute fractures identified. Prior cholecystectomy. The liver, spleen, adrenal glands, pancreas, and left kidney are unremarkable. There is a 4 mm stone within the right kidney, unchanged. No ureteral stones. No hydronephrosis. The main portal vein is patent. Normal caliber abdominal aorta. No retroperitoneal or pelvic lymphadenopathy. No pelvic free fluid. The bladder, uterus, bilateral adnexa are within normal limits. Fluid-filled nondilated loops of large and small bowel are seen throughout the abdomen. Subtle inflammatory change at the terminal ileum and cecum/proximal ascending colon. This is consistent with a mild ileocolitis. This likely corresponds the patient's known history of Crohn's disease. No fistula or abscess identified at this time. Normal appendix. No evidence for bowel obstruction. IMPRESSION: 1. Mild ileocolitis likely representing active inflammatory bowel disease. 2. No evidence for bowel obstruction. 3. Right-sided nephrolithiasis. 4. Nondilated fluid-filled loops of large and small bowel seen throughout the abdomen. This may represent a gastroenteritis/diarrheal illness. ACT 112: Negative or not required by law. Electronically signed by: Akshat Burton M.D. 09/06/2022 10:20 AM Discharge Plan Visit Data Chief Complaint: Illness Stated Complaint: NAUSEA, DIARRHEA, PAIN IN ABDOMEN ED Provider: Lex Alonzo Discharge Problem: Chronic pain, Crohn's disease involving terminal ileum Patient Disposition: Admitted As Inpatient Discharge Instructions Interventions: ED Discharge Assessment Last Done: 09/06/22 12:30
[2022-09-06 09:36] LABS: Pregnancy Test, Serum Negative (Negative)
[2022-09-06 09:38] LABS: Alanine Aminotransferase 9 U/L (7-52); Albumin Globulin Ratio 1.5 (0.9-2); Albumin Level 4.4 gm/dl (3.4-5.0); Alkaline Phosphatase 75 U/L (34-104); Anion Gap 7 (3-11); Aspartate Aminotransferase 15 U/L (13-39); BUN Creatinine Ratio 14.9 (10-20); Bilirubin,Total 0.5 mg/dl (0.2-1.0); Blood Urea Nitrogen 11 mg/dl (6-23); C Reactive Protein < 0.50 mg/dl (0-0.5); Calcium 9.5 mg/dl (8.6-10.3); Carbon Dioxide 21 mmol/L (21-32); Chloride 110 mmol/L (98-107); Creatinine Clr Calc Pharmacy 92.6 ml/min; Est GFR (African American) 123.4 ml/min; Est GFR (Non-African American) 106.4 ml/min; Glucose 126 mg/dl (70-99(Fasting)); Lipase 24 U/L (11-82); Potassium 3.9 mmol/L (3.5-5.1); Sodium 138 mmol/L (136-145); Total Protein 7.4 gm/dl (6.0-8.3)
[2022-09-06] MEDS ORDERED: OPTIRAY 320 100ml IV ONE (09:59)
[2022-09-06 10:00] LABS: Troponin I High Sensitivity < 2.3 pg/ml (0-14)
--- NOTE | 2022-09-06 10:22 | CT Scan Report ---
ABDOMEN AND PELVIS CT WITH IV CONTRAST CT DOSE: 578.58 mGy.cm HISTORY: Right lower quadrant pain to upper abd, hx crohns TECHNIQUE: Multiaxial CT images of the abdomen and pelvis were performed following the use of intrave nous contrast. A dose lowering technique was utilized adhering to the principles of ALARA. COMPARISON STUDY: Abdomen and pelvis CT 01/18/2022. FINDINGS: A small linear scarlike density at the left lung base. Otherwise, the lungs are clear. Inta ct cannulated screws within the bilateral femoral necks. No acute fractures identified. Prior cholecy stectomy. The liver, spleen, adrenal glands, pancreas, and left kidney are unremarkable. There is a 4 mm stone within the right kidney, unchanged. No ureteral stones. No hydronephrosis. The main portal vein is patent. Normal caliber abdominal aorta. No retroperitoneal or pelvic lymphadenopathy. No pelv ic free fluid. The bladder, uterus, bilateral adnexa are within normal limits. Fluid-filled nondilate d loops of large and small bowel are seen throughout the abdomen. Subtle inflammatory change at the t erminal ileum and cecum/proximal ascending colon. This is consistent with a mild ileocolitis. This li taylor corresponds the patient's known history of Crohn's disease. No fistula or abscess identified at this time. Normal appendix. No evidence for bowel obstruction. IMPRESSION: 1. Mild ileocolitis likely representing active inflammatory bowel disease. 2. No evidence for bowel obstruction. 3. Right-sided nephrolithiasis. 4. Nondilated fluid-filled loops of large and small bowel seen throughout the abdomen. This may repre sent a gastroenteritis/diarrheal illness. ACT 112: Negative or not required by law. Electronically signed by: Akshat Burton M.D. 09/06/2022 10:20 AM
[2022-09-06] MEDS ORDERED: methylPREDNISolone 125 MG/2 ML VIAL IV STA (10:31)
[2022-09-06] MEDS ORDERED: HYDROmorphone INJ 1 MG/ML SYRINGE IV STA (10:36)
[2022-09-06] MEDS ORDERED: LACTATED RINGER'S 1,000 ML IV ONE (10:54)
[2022-09-06] MEDS ORDERED: HYDROmorphone INJ 0.5 MG/0.5 ML SYR IV PRN (10:58)
--- NOTE | 2022-09-06 11:02 | History & Physical Report ---
Date of Service September 06, 2022 Assessment & Plan (1) Acute Crohn's disease: Plan: -Admit to med/surge -Currently stable, patient has chronic sinus tach -Started to develop increased epigastric and RLQ abd pain on 09/04, has had multiple loose/watery BM's this am without bleeding -Symptoms are consistent with previous chronc's flares -S/P 80 mg IV Solu-Medrol in the ED >Will continue with 20 mg IV Solu-Medrol q8h as prescribed last admission >Can transition to PO Budesonide when symptoms are improving -Pain control with 0.25 mg IV dilaudid for mild pain and 0.5 mg IV for severe pain -Can continue home levsin and scopolamine as needed -GI consult placed -Will start clear liquid diet, advance as tolerated -Will give 1L LR on admission for hydration -BL SCD's for DVT PPX -AM CBC, CMP, Mag (2) H/O Clostridium difficile infection: Plan: -Patient with multiple episodes of non-bloody diarrhea this am -Will obtain stool studies and c. diff PCR for further eval (3) Rheumatoid arthritis: Plan: -Will continue Leflunomide for now (4) Gastroparesis: Plan: -Continue metoclopramide (5) GERD (gastroesophageal reflux disease): Plan: -Continue pantoprazole (6) Tachycardia: Plan: -Hx of sinus tachycardia -Stable -Continue BID carvedilol with am dose now (7) Hypertension: Plan: -Stable Plan The patient was discussed with Dr. Jaramillo at the time of the admission History of Present Illness Chief Complaint: abdominal pain Primary Care Provider: Kari Duron MD Ana Del Cid is a 31 year old female with Crohn's colitis (On Stelara), history of c. diff colitis, RA, gastroparesis, and tachycardia, who presents to the ER with a 6 day history of right lower quadrant. In the ED the patient was noted to be tachycardic at 111 but otherwise stable. Labs were significant for a leukocytosis of 11 with a left shift of 10, CMP WNL, negative CRP, and negative UA. CT of the abdomen/pelvis w/IV con was read as 1. Mild ileocolitis likely representing active inflammatory bowel disease.2. No evidence for bowel obstruction. 3. Right-sided nephrolithiasis. 4. Nondilated fluid-filled loops of large and small bowel seen throughout the abdomen. This may represent a gastroenteritis/diarrheal illness. Prior to admission the patient was given 80 mb IV soulmedrol, 1mg dilaudid, and 500 mL NSS. We were asked to admit the patient due to acute chronsflare. At the time of the exam the patient was sitting in bed in no acute distress with her father sitting bedside. She states that her last dose of Stelera was 09/02 and was without complication. She [place] [employer] [place]03 and had popcorn. She also picked blueberries and ate many on as well. Starting on 09/04 the patient started to develop worsening epigastric and RLQ abdominal pain, which is her typical sites of pain for a chron's flare. She denies recent fever, chills, chest pain, SOB, vomiting, dysuria, hematuria, melena, bloody BM's, LE swelling, and recent trauma. She was initially having harder stools -Wednesday, this am she has had multiple episodes of loose-watery BM's. She denies any bloody BM's or melena today. She currently feels some improvement in her symptoms compared to arrival but her symptoms have not resolved. Please refer to Dr. Jaramillo's attestation for any changes to the treatment plan Allergies Allergy/AdvReac Type Severity Reaction Status Date / Time Gadolinium-Containing Allergy Severe vomiting/diarrhea Verified 09/06/22 10:07 Contrast Medi +"body locks up" iron Allergy Severe Swelling, Verified 09/06/22 10:07 joint pain, diarrhea cyclobenzaprine Allergy Intermediate increase Unverified 09/06/22 10:28 [From Flexeril] stiffness, joint pain, flightly NSAIDS (Non-Steroidal AdvReac Unknown Advised to Verified 09/06/22 10:07 Anti-Inflamma avoid (crohn's disease) Home Medications Medication Instructions Recorded Confirmed Type folic acid 1 mg tablet 1 mg PO QAM 03/30/18 09/06/22 History pantoprazole 40 mg tablet,delayed 40 mg PO QAM 03/30/18 09/06/22 History release fluticasone propionate 50 2 spray intranasal DAILY PRN 02/21/19 09/06/22 History mcg/actuation nasal Allergy Symptoms spray,suspension medroxyprogesterone 150 mg/mL 150 mg IM Q3M 02/21/19 09/06/22 History intramuscular syringe multivitamin with minerals-folic 400 mcg PO HS 03/21/19 09/06/22 History acid 200 mcg chewable tablet (Women's Multivitamin Gummies) leflunomide 20 mg tablet (Arava) 20 mg PO HS 10/04/19 09/06/22 History hyoscyamine sulfate 0.125 mg 0.125 mg PO TID PRN abdominal pain 10/07/19 09/06/22 Rx tablet (Levsin) #30 tabs acetaminophen 500 mg tablet 1,000 mg PO Q6H PRN Pain 11/14/19 09/06/22 History (Tylenol Extra Strength) albuterol sulfate 90 mcg/actuation 2 puff inhalation Q6H PRN Wheezing 03/01/20 09/06/22 History aerosol inhaler calcium carbonate 600 mg-vitamin 1 tab PO BID 03/01/20 09/06/22 History D3 20 mcg (800 unit) chewable tablet (Caltrate 600 plus D) metoclopramide HCl 5 mg tablet 10 mg PO QDD 10/22/20 09/06/22 History sumatriptan succinate 100 mg tablet 100 mg PO UD PRN Migraine Headache 10/22/20 09/06/22 History Medical Marijuana 1 dose inhalation UD PRN "CROHN'S 02/20/21 09/06/22 History DISEASE/NAUSEA" cetirizine 10 mg tablet (Zyrtec) 10 mg PO QAM 02/20/21 09/06/22 History buspirone 10 mg tablet 5 mg PO DAILY PRN Anxiety 07/15/21 09/06/22 History ondansetron 8 mg disintegrating 8 mg PO BIDWMEAL PRN Nausea 07/15/21 09/06/22 History tablet scopolamine base 1 mg over 3 days 1 mg transdermal 2XWK PRN Pain 07/15/21 09/06/22 History transdermal patch (Transderm-Scop) carvedilol 6.25 mg tablet 6.25 mg PO BID 09/25/21 09/06/22 History hydroxyzine HCl 25 mg tablet 25 mg PO DAILY PRN Anxiety 09/25/21 09/06/22 History cholecalciferol (vitamin D3) 125 125 mcg PO DAILY 01/18/22 09/06/22 History mcg (5,000 unit) tablet (Vitamin D3) amitriptyline 50 mg tablet 50 mg PO HS #30 tabs 06/22/22 09/06/22 Rx mirabegron 50 mg tablet,extended 50 mg PO DAILY 06/22/22 09/06/22 History release 24 hr (Myrbetriq) ustekinumab 90 mg/mL subcutaneous 90 mg subcut .S8AMANK 07/08/22 09/06/22 History syringe (Stelara) oxycodone 5 mg tablet 5 mg PO TID PRN pain 3 days #9 tabs 08/26/22 09/06/22 Rx Past Med/Surg History Medical History (Updated 09/06/22 @ 11:58 by Lex Alonzo M.D.) Allergic rhinitis Anxiety INCREASES BP "CURRENLTY UNDER CONTROL" Crohns disease Endometriosis Gastroparesis GERD (gastroesophageal reflux disease) H/O Clostridium difficile infection 2014 History of anemia History of asthma Childhood History of fracture of femur Close, Left femoral neck History of intussusception History of peptic ulcer Hx MRSA infection 2013 (in lymph node which has since be resected) Kidney stones Medical marijuana use Migraine Post-dural puncture headache Rheumatoid arthritis S/P right hip fracture Tachycardia occasional episodes > follows with S cardiology (Beatrice Haile) Surgical History H/O colonoscopy H/O esophagogastroduodenoscopy History of dilatation and curettage History of hip surgery History of nasal septoplasty History of placement of ear tubes Lymph node symptom Nausea and vomiting after administration of anesthetic agent S/P cholecystectomy S/P fecal transplant S/P ORIF (open reduction internal fixation) fracture S/P tonsillectomy [place] teeth extracted Family History Grandmother (Maternal) Breast cancer Aunt Cervical cancer Ovarian cancer Grandfather (Paternal) Colorectal cancer Mother Mitral valve prolapse Myocardial infarction, Onset Age: 55 Other Allergies Family history of bleeding disorder Hearing loss Hypertension No family history of adverse response to anesthesia Social History Smoking Status: Never smoker Second Hand Exposure: No; Do You Dip or Chew Tobacco: No; Tobacco Cessation Education Requested by Patient: No Hx Alcohol Use: Yes Alcohol type: wine Alcohol Intake Frequency: Monthly or Less Hx Substance Use: Yes Last Used Substance: Hours (ago) Last Used Substance Other:: ONLY MEDICAL MARIJUANA Substance Use Type Other:: Medical Marijuana Preferred Language: Portuguese Communication Ability: Effective Visual Impairment: No Limitations Hearing Ability: Normal Element Winding Machine Tender Required: No Beliefs That Will Affect Care: None marital status: Life Partner Current Living Situation: Spouse current occupational status: disabled Other Information That Helps Us Care for You: No Feels Safe at Home: Yes Safety Concerns: Feels Safe At This Time Dental Care, Regularly: Yes Physical Activity Frequency: 3-4 Times per Week Seatbelt Use: always Sunscreen Use: Yes Assistive Devices: None Physical Exam Physical Exam: Physical Exam: General: In no acute distress, stated age, well-nourished, good hygiene, non- toxic appearing HEENT: Normocephalic, atraumatic, no scleral icterus, pupils around round, symmetrical, and reactive to light, moist mucus membranes, trachea midline, no thyromegaly Chest/Pulm: No respiratory distress, symmetrical chest expansion, clear br eath sounds throughout Cardiac: RRR, no murmurs noted Abdomen: Negative for ascites and bruising, normoactive bowel sounds, soft, tender to palpation in the epigastric and RLQ but without guarding or rebound tenderness Musculoskeletal: Symmetrical and without signs of acute trauma, upper and lower extremities with full ROM, no atrophy, spasticity, or flaccidity Extremities: Radial, dorsalis pedis, and posterior tibial pulses are intact and symmetrical, no edema noted in the BL LE's Skin: Warm, dry, no rashes , lesions, or scars noted Neuro: Alert and oriented to person, place, month, year, and president, no focal defects, no tremors noted Psych: No acute distress, calm and cooperative during the exam Results & Data Results & Data Vital Signs (Past 12 Hours) Vital Signs Temp Pulse Resp BP Pulse Ox O2 Del Method 09/06/22 08:37 36.3 C L 111 H 20 142/91 H 98 Room Air Laboratory Results Abnormal lab results 09/06/22 09/06/22 Range/Units 09:01 09:01 WBC 11.64 H (4.8-10.8) K/ul Neut # (Auto) 10.27 H (1.40-6.50) K/uL Lymph # (Auto) 0.75 L (1.2-3.4) K/uL Chloride 110 H (98-107) mmol/L Glucose 126 H (70-99(Fasting)) mg/dl Diagnostic Findings Abdomen/Pelvis CT 09/06/22 09:[address] WITH IV CONTRAST CT DOSE: 578.58 mGy.cm HISTORY: Right lower quadrant pain to upper abd, hx crohns TECHNIQUE: Multiaxial CT images of the abdomen and pelvis were performed following the use of intravenous contrast. A dose lowering technique was utilized adhering to the principles of ALARA. COMPARISON STUDY: Abdomen and pelvis CT 01/18/2022. FINDINGS: A small linear scarlike density at the left lung base. Otherwise, the lungs are clear. Intact cannulated screws within the bilateral femoral necks. No acute fractures identified. Prior cholecystectomy. The liver, spleen, adrenal glands, pancreas, and left kidney are unremarkable. There is a 4 mm stone within the right kidney, unchanged. No ureteral stones. No hydronephrosis. The main portal vein is patent. Normal caliber abdominal aorta. No retroperitoneal or pelvic lymphadenopathy. No pelvic free fluid. The bladder, uterus, bilateral adnexa are within normal limits. Fluid-filled nondilated loops of large and small bowel are seen throughout the abdomen. Subtle inflammatory change at the terminal ileum and cecum/proximal ascending colon. This is consistent with a mild ileocolitis. This likely corresponds the patient's known history of Crohn's disease. No fistula or abscess identified at this time. Normal appendix. No evidence for bowel obstruction. IMPRESSION: 1. Mild ileocolitis likely representing active inflammatory bowel disease. 2. No evidence for bowel obstruction. 3. Right-sided nephrolithiasis. 4. Nondilated fluid-filled loops of large and small bowel seen throughout the abdomen. This may represent a gastroenteritis/diarrheal illness. ACT 112: Negative or not required by law. Electronically signed by: Akshat Burton M.D. 09/06/2022 10:20 AM ECG Additional Comments: Sinus tachycardia Low voltage QRS Borderline ECG When compared with ECG of 15-JUL-2021 12:30, No significant change was found Code Status & VTE Plan Code Status Full code VTE Prophylaxis Plan VTE Prophylaxis will be ordered: Yes Supervising Physician Co-Signing Physician Notes I personally saw and examined the patient. I verified all lopez points and agree with Zbigniew Lopez PA-C with the following exceptions and/or additions: 31 year old female with Crohn's disease presents to the ER with worsening diarrhea and abdominal pain. O/E A&Ox3, no respiratory distress, no acute distress, Abdomen soft with generalized tenderness A/P Crohn's flare - Solu-medrol 20mg IV q8h, Dilaudid 0.25-0.5mg for pain relief. Consult GI PG Care Time/CCT Total # of Minutes Spent Total Time Spent with Patient: Total time spent is greater than 50% in coordination of care (as documented) at patient's floor/unit and/or counseling patient: C[place] [address] INT INP/OBS CARE 2/55MIN Patient Type Established Medical Decision Making Moderate Complexity Diagnoses Acute Crohn's disease K50.90 H/O Clostridium difficile infection Z86.19 Rheumatoid arthritis M06.9 Rheumatoid arthritis location: unspecified site Rheumatoid factor presence: unspecified presence Gastroparesis K31.84 GERD (gastroesophageal reflux disease) K21.9 Tachycardia R00.0 Hypertension I10 (3) Rheumatoid arthritis Rheumatoid arthritis location: unspecified site Rheumatoid factor presence: unspecified presence Qualified Code(s): M06.9 - Rheumatoid arthritis, unspecified
[2022-09-06] MEDS ORDERED: carvediloL 6.25 MG TAB PO STA (11:15)
[2022-09-06] MEDS ORDERED: SCOPOLAMINE 1 MG TDSY TD PRN (12:42)
[2022-09-06] MEDS ORDERED: ALBUTEROL HFA 8 GM INHALER INH PRN (12:42)
[2022-09-06] MEDS ORDERED: HYOSCYAMINE SULFATE 0.125 MG TAB PO PRN (12:42)
[2022-09-06] MEDS ORDERED: busPIRone 5 MG TAB PO PRN (12:42)
[2022-09-06] MEDS ORDERED: hydrOXYzine HCl 25 MG TAB PO PRN (12:42)
[2022-09-06] MEDS: HYDROmorphone INJ 0.5 MG/0.5 ML SYR IV PRN ×3 (13:27→22:20)
[2022-09-06] MEDS: ONDANSETRON INJ 2 MG/ML 2 ML VIAL IV PRN (16:49)
[2022-09-06] MEDS: METOCLOPRAMIDE HCL 10 MG TABLET PO SCH (16:50)
[2022-09-06] MEDS: methylPREDNISolone 20 MG in SYRINGE 0 ML IV SCH (18:25)
[2022-09-06] MEDS: AMITRIPTYLINE HCL 50 MG TAB PO SCH (22:15)
[2022-09-06] MEDS: carvediloL 6.25 MG TAB PO SCH (22:15)
[2022-09-06] MEDS: LEFLUNOMIDE 10 MG TAB PO SCH (22:15)
[2022-09-07] MEDS: methylPREDNISolone 20 MG in SYRINGE 0 ML IV SCH ×3 (02:34→18:32)
[2022-09-07] MEDS: ONDANSETRON INJ 2 MG/ML 2 ML VIAL IV PRN ×3 (02:34→16:22)
[2022-09-07] MEDS: HYDROmorphone INJ 0.5 MG/0.5 ML SYR IV PRN ×6 (02:34→22:39)
[2022-09-07 07:40] LABS: Basophils # (auto) 0.02 K/uL (0-0.2); Basophils % (auto) 0.2 %; Hematocrit (blood only) 37.5 % (37.0-47.0); Hemoglobin 12.4 g/dl (12.0-16.0); Immature Granulocytes # (auto) 0.08 K/uL (0.01-0.20); Immature Granulocytes % (auto) 0.6 %; Lymphocytes # (auto) 0.76 K/uL (1.2-3.4); Lymphocytes % (auto) 5.8 %; Mean Corpuscular Hemoglobin 29.1 pg (25.0-34.0); Mean Corpuscular Hgb Conc 33.1 g/dL (32.0-36.0); Mean Platelet Volume 10.2 fL (9.4-12.4); Monocytes # (auto) 0.79 K/uL (0.11-0.59); Neutrophils # (auto) 11.41 K/uL (1.40-6.50); Neutrophils % (auto) 87.4 %; Platelet Count 365 K/uL (130-400); RDW Standard Deviation 41.8 fL (36.4-46.3); Red Blood Count 4.26 M/uL (4.20-5.40); White Blood Count 13.06 K/ul (4.8-10.8)
[2022-09-07 07:47] LABS: Albumin Globulin Ratio 1.5 (0.9-2); Albumin Level 4.1 gm/dl (3.4-5.0); BUN Creatinine Ratio 15.9 (10-20); Bilirubin,Total 0.6 mg/dl (0.2-1.0); Calcium 9.2 mg/dl (8.6-10.3); Est GFR (African American) 136.6 ml/min; Est GFR (Non-African American) 117.9 ml/min; Globulin 2.7 gm/dl (2.5-4.0); Potassium 3.8 mmol/L (3.5-5.1); Total Protein 6.8 gm/dl (6.0-8.3)
[2022-09-07] MEDS: carvediloL 6.25 MG TAB PO SCH ×2 (08:52→20:17)
[2022-09-07] MEDS: FOLIC ACID 1 MG TAB PO SCH (08:52)
[2022-09-07] MEDS: PANTOprazole 40 MG TAB PO SCH (08:52)
[2022-09-07] MEDS: VIBEGRON 75 MG TAB PO SCH (08:53)
--- NOTE | 2022-09-07 14:54 | Gastroenterology Progress Note ---
Date of Service September 07, 2022 Assessment & Plan (1) Acute Crohn's disease: Plan IV solumedrol 20mg TID. Will transition to 40mg po daily at time of DC 40 x 1 wk, 30 x 1 wk, 25 x 1 wk, 20 x wk, will see back in clinic to continue the taper. Continue low residue diet Wean off narcotics Continue Stelara Q 8 wks. Will check sed/CRP tomorrow. Admission and Anticipated Discharge Date Admission Date: September 06, 2022 Supervising Physician Co-Signing Physician Notes Patient was seen and examined on 09/07 with LUCÍA Ren whose note reflects our findings and plan. Subjective 31 yr female small/large bowel gastroparesis,GERD, Chronic constipation,hiatal hernia, MRSA, osteopenia. Previously failed Humira (failure and antibodies) and Remicade (antibodies).Currently on Steleraevery 8wks. Most recent Colonoscopy April 2022 at [facility]: Exam performed with High Def white light and NBI. The examined portion of the ileum was normal. Biopsied. Pseudopolyps in the sigmoid colon. Biopsied. Otherwise normal. Path: GI, colon bx w/o any disease activity. CT here w mild ileocecal inflammation. Pt's abd pain (RLQ and epigastric) and diarrhea began 3 days ago, up to 10 liquid BMs/day. Stool studies ordered, but no BM since arrival. Pt feels improved but is taking hydromorphone 0.5mg IV approx Q 4 hrs. Solumedrol 20mg Q 8hrs. Tolerating a soft diet. Review of Systems Review of Systems: ROS: Gen: Denies weakness, fevers, weight loss Eyes: + had a red tender L eye just prior to onset of diarrhea, now resolved. No eye pain, no recent vision changes Resp: No SOB, no cough Cardio: No palpitations/irregular beats, no chest pain GI: As per HPI, otherwise normal : Denies pain on urination Skin: No jaundice, itching or new rashes Physical Exam Constitutional: WD/WN, vitals as above Eyes: PERRL, conjunctivae normal, anicteric sclerae ENMT: external ear and nose normal, oropharynx normal Neck: trachea midline, no thyromegaly Respiratory: normal respiratory effort, lungs clear to auscultation Cardiovascular: RRR, no murmur, no edema Gastrointestinal (Abdomen): Inspection/Auscultation: abdomen normal to inspection and normal bowel sounds; abdomen not distended Percussion/Palpation: + abdomen tender (diffusely, most tender in the epigastric and RLQ areas) and abdomen soft Musculoskeletal: no cyanosis or clubbing, extremities motor strength 5/5 Skin: no rashes, warm and dry (flushed ? from steroids) Neurologic: PERRL, EOMI, accommodation nl, no face palsy, no dysarthria Psychiatric: A+Ox3, euthymic affect Lymphatic: no cervical or axillary lymphadenopathy Results & Data Vital Signs (Past 12 Hours) Vital Signs Temp Pulse Resp BP Pulse Ox O2 Del Method 09/07/22 06:11 36.8 C 99 H 18 125/80 97 Room Air Laboratory Results WBC 13, Hb 12, HCT 37, PLT is 365, NA 137, K3.8, CL 107, CO2 23, BUN 10, CR 0.63, glucose 124 Diagnostic Findings CTAP w IV 09/06/22: 1. Mild ileocolitis likely representing active inflammatory bowel disease. 2. No evidence for bowel obstruction. 3. Right-sided nephrolithiasis. 4. Nondilated fluid-filled loops of large and small bowel seen throughout the abdomen. This may represent a gastroenteritis/diarrheal illness.
[2022-09-07] MEDS: METOCLOPRAMIDE HCL 10 MG TABLET PO SCH (16:19)
[2022-09-07] MEDS: LEFLUNOMIDE 10 MG TAB PO SCH (20:17)
[2022-09-07] MEDS: AMITRIPTYLINE HCL 50 MG TAB PO SCH (20:17)
--- NOTE | 2022-09-07 22:43 | Electrocardiogram Report ---
Test Reason : Blood Pressure : / mmHG Vent. Rate : 103 BPM Atrial Rate : 103 BPM P-R Int : 122 ms QRS Dur : 068 ms QT Int : 340 ms P-R-T Axes : 067 016 034 degrees QTc Int : 445 ms Sinus tachycardia Low voltage QRS Borderline ECG When compared with ECG of 15-JUL-2021 12:30, No significant change was found Confirmed by Sherif Mcdonald ([id number]) on 09/07/2022 10:43:13 PM Referred By: REFERRED SELF Confirmed By:Sherif Mcdonald
--- NOTE | 2022-09-07 22:43 | Hospitalist Progress Note ---
Date of Service September 07, 2022 Assessment & Plan (1) Acute Crohn's disease: Plan: -Admit to med/surge -Currently stable, patient has chronic sinus tach -Started to develop increased epigastric and RLQ abd pain on 09/04, has had multiple loose/watery BM's this am without bleeding -Symptoms are consistent with previous chronc's flares -S/P 80 mg IV Solu-Medrol in the ED >Will continue with 20 mg IV Solu-Medrol q8h as prescribed last admission >Can transition to PO Budesonide/ oral corticosteoid perhaps tomorrow. -Pain control with 0.25 mg IV dilaudid for mild pain and 0.5 mg IV for severe pain -Can continue home levsin and scopolamine as needed -GI consult placed -contiue to advance as tolerated -BL SCD's for DVT PPX -will recheck inflammatory markers tomorrow. (2) H/O Clostridium difficile infection: Plan: -Patient with multiple episodes of non-bloody diarrhea this am -Will obtain stool studies and c. diff PCR for further eval (3) Rheumatoid arthritis: Plan: -Will continue Leflunomide for now (4) Gastroparesis: Plan: -Continue metoclopramide (5) GERD (gastroesophageal reflux disease): Plan: -Continue pantoprazole (6) Tachycardia: Plan: -Hx of sinus tachycardia -Stable -Continue BID carvedilol with am dose now (7) Hypertension: Plan: -Stable Admission and Anticipated Discharge Date Admission Date: September 06, 2022 Subjective 31 yo male reports no new symptoms. She reports her abdominal pain has improved, but is requiring narcotics, Patient reports her diarrhea has also improved. Review of Systems Review of Systems: All systems reviewed & are unremarkable except as noted in HPI & below Physical Exam Physical Exam: General: In no acute distress, stated age, well-nourished, good hygiene, non- toxic appearing HEENT: Normocephalic, atraumatic Abdomen: Negative for ascites and bruising, normoactive bowel sounds, soft, tender to palpation in the epigastric and RLQ but without guarding or rebound tenderness Extremities: no edema noted in the BL LE's Skin: Warm, dry, no rashes , lesions, or scars noted Neuro: Alert and oriented to person, place, month, year, and president Psych: No acute distress, calm and cooperative during the exam Results & Data Results & Data Vital Signs (Past 12 Hours) Vital Signs Temp Pulse Pulse Resp BP Pulse Ox O2 Del Method 09/07/22 20:52 Room Air 09/07/22 20:19 36.8 C 82 16 133/90 97 Room Air 09/07/22 14:56 36.4 C L 95 H 16 150/98 H 94 Room Air PG Care Time/CCT Total # of Minutes Spent Total Time Spent with Patient: Total time spent is greater than 50% in coordination of care (as documented) at patient's floor/unit and/or counseling patient: Coding Level of Care Code 48444 SUB INP/OBS CARE 2/35MIN Diagnoses Acute Crohn's disease K50.90 H/O Clostridium difficile infection Z86.19 Rheumatoid arthritis M06.9 Rheumatoid arthritis location: unspecified site Rheumatoid factor presence: unspecified presence Gastroparesis K31.84 GERD (gastroesophageal reflux disease) K21.9 Tachycardia R00.0 Hypertension I10 (3) Rheumatoid arthritis Rheumatoid arthritis location: unspecified site Rheumatoid factor presence: unspecified presence Qualified Code(s): M06.9 - Rheumatoid arthritis, unspecified
[2022-09-08] MEDS: methylPREDNISolone 20 MG in SYRINGE 0 ML IV SCH ×3 (01:13→17:53)
[2022-09-08] MEDS: HYDROmorphone INJ 0.5 MG/0.5 ML SYR IV PRN ×5 (03:01→20:12)
[2022-09-08 06:51] LABS: Hemoglobin 12.4 g/dl (12.0-16.0); Mean Corpuscular Hemoglobin 29.5 pg (25.0-34.0); Mean Corpuscular Hgb Conc 33.5 g/dL (32.0-36.0); Mean Corpuscular Volume 88.1 fL (80.0-100.0); Platelet Count 358 K/uL (130-400); RDW Coefficient of Variation 13.1 % (11.5-14.5); RDW Standard Deviation 41.8 fL (36.4-46.3); White Blood Count 10.53 K/ul (4.8-10.8)
[2022-09-08 07:10] LABS: Alanine Aminotransferase 7 U/L (7-52); Albumin Globulin Ratio 1.5 (0.9-2); Albumin Level 4.1 gm/dl (3.4-5.0); Alkaline Phosphatase 71 U/L (34-104); Anion Gap 6 (3-11); Aspartate Aminotransferase 12 U/L (13-39); BUN Creatinine Ratio 18.8 (10-20); Bilirubin,Total 0.4 mg/dl (0.2-1.0); Blood Urea Nitrogen 13 mg/dl (6-23); C Reactive Protein < 0.50 mg/dl (0-0.5); Carbon Dioxide 25 mmol/L (21-32); Chloride 107 mmol/L (98-107); Creatinine Clr Calc Pharmacy 99.5 ml/min; Est GFR (African American) 132.6 ml/min; Est GFR (Non-African American) 114.4 ml/min; Globulin 2.7 gm/dl (2.5-4.0); Glucose 127 mg/dl (70-99(Fasting)); Magnesium 2.3 mg/dl (1.7-2.4); Potassium 4.1 mmol/L (3.5-5.1); Sodium 138 mmol/L (136-145); Total Protein 6.8 gm/dl (6.0-8.3)
[2022-09-08 07:23] LABS: Basophils # (auto) 0.01 K/uL (0-0.2); Basophils % (auto) 0.1 %; Immature Granulocytes # (auto) 0.05 K/uL (0.01-0.20); Immature Granulocytes % (auto) 0.5 %; Lymphocytes # (auto) 0.57 K/uL (1.2-3.4); Lymphocytes % (auto) 5.4 %; Monocytes # (auto) 0.41 K/uL (0.11-0.59); Monocytes % (auto) 3.9 %; Neutrophils # (auto) 9.49 K/uL (1.40-6.50); Neutrophils % (auto) 90.1 %
[2022-09-08] MEDS: VIBEGRON 75 MG TAB PO SCH (08:17)
[2022-09-08] MEDS: FOLIC ACID 1 MG TAB PO SCH (08:17)
[2022-09-08] MEDS: carvediloL 6.25 MG TAB PO SCH ×2 (08:17→20:12)
[2022-09-08] MEDS: PANTOprazole 40 MG TAB PO SCH (08:18)
--- NOTE | 2022-09-08 10:08 | Gastroenterology Progress Note ---
Date of Service September 08, 2022 Assessment & Plan (1) Acute Crohn's disease: Plan IV solumedrol 20mg TID. Will transition to 40mg po daily at time of DC 40 x 1 wk, 30 x 1 wk, 25 x 1 wk, 20 x wk, will see back in clinic to continue the taper. Continue low residue diet Wean off narcotics Continue Stelara Q 8 wks. Would anticipate DC tomorrow. GI will sign off. Please recall if questions. Admission and Anticipated Discharge Date Admission Date: September 06, 2022 Supervising Physician Co-Signing Physician Notes Patient was seen and examined on 09/08 LUCÍA Godfrey whose note reflects our findings and plan. IBD flare. IV steroids with plan for transition to oral taper at time of discharge as outlined above. Continue with Stelara. WOuld favor non-narcotic pain mgt. Follow up with patient's primary Gi provider. Please call with questions. Subjective 31 yo female Crohn's flare. Today no epigastric pain or nausea on full liquid diet. Still w RLQ pain. Sed and CRP normal today. Review of Systems Review of Systems: ROS: Gen: Denies weakness, fevers, weight loss Eyes: + had a red tender L eye just prior to onset of diarrhea, now resolved. No eye pain, no recent vision changes Resp: No SOB, no cough Cardio: No palpitations/irregular beats, no chest pain GI: As per HPI, otherwise normal : Denies pain on urination Skin: No jaundice, itching or new rashes Physical Exam Constitutional: WD/WN, vitals as above Eyes: PERRL, conjunctivae normal, anicteric sclerae ENMT: external ear and nose normal, oropharynx normal Neck: trachea midline, no thyromegaly Respiratory: normal respiratory effort, lungs clear to auscultation Cardiovascular: RRR, no murmur, no edema Gastrointestinal (Abdomen): Inspection/Auscultation: abdomen normal to inspection and normal bowel sounds; abdomen not distended Percussion/Palpation: + abdomen tender (mild/RLQ) and abdomen soft Musculoskeletal: no cyanosis or clubbing, extremities motor strength 5/5 Skin: no rashes, warm and dry (flushed ? from steroids) Neurologic: PERRL, EOMI, accommodation nl, no face palsy, no dysarthria Psychiatric: A+Ox3, euthymic affect Lymphatic: no cervical or axillary lymphadenopathy Results & Data Vital Signs (Past 12 Hours) Vital Signs Temp Pulse Resp BP Pulse Ox O2 Del Method 09/08/22 07:35 36.5 C 95 H 16 134/89 96 Room Air Laboratory Results WBC 10, Hb 12.4, Hct 37, Plts 358, Na 138, K 4.1, Cl 107, CO2 25, BUN 13, Cr 0.69, glucose 127. Sed 11, CRP <0.5 Diagnostic Findings CTAP w IV 09/06/22: 1. Mild ileocolitis likely representing active inflammatory bowel disease. 2. No evidence for bowel obstruction. 3. Right-sided nephrolithiasis. 4. Nondilated fluid-filled loops of large and small bowel seen throughout the abdomen. This may represent a gastroenteritis/diarrheal illness.
[2022-09-08] MEDS: METOCLOPRAMIDE HCL 10 MG TABLET PO SCH (16:33)
[2022-09-08] MEDS: AMITRIPTYLINE HCL 50 MG TAB PO SCH (20:12)
[2022-09-08] MEDS: LEFLUNOMIDE 10 MG TAB PO SCH (20:12)
--- NOTE | 2022-09-08 21:22 | Hospitalist Progress Note ---
Date of Service September 08, 2022 Assessment & Plan (1) Acute Crohn's disease: Plan: -Admit to med/surge -Currently stable, patient has chronic sinus tach -Started to develop increased epigastric and RLQ abd pain on 09/04, has had multiple loose/watery BM's this am without bleeding -Symptoms are consistent with previous chronc's flares -S/P 80 mg IV Solu-Medrol in the ED >Will continue with 20 mg IV Solu-Medrol q8h as prescribed last admission >Can transition to PO Budesonide/ oral corticosteoid at discharge. -Pain control with 0.25 mg IV dilaudid for mild pain and 0.5 mg IV for severe pain -Can continue home levsin and scopolamine as needed -GI consult placed -contiue to advance as tolerated -BL SCD's for DVT PPX (2) H/O Clostridium difficile infection: Plan: -Patient with multiple episodes of non-bloody diarrhea this am -Will obtain stool studies and c. diff PCR for further eval (3) Rheumatoid arthritis: Plan: -Will continue Leflunomide for now (4) Gastroparesis: Plan: -Continue metoclopramide (5) GERD (gastroesophageal reflux disease): Plan: -Continue pantoprazole (6) Tachycardia: Plan: -Hx of sinus tachycardia -Stable -Continue BID carvedilol with am dose now (7) Hypertension: Plan: -Stable Admission and Anticipated Discharge Date Admission Date: September 06, 2022 Subjective Patient reports less pain, and reports no nausea. Review of Systems Review of Systems: All systems reviewed & are unremarkable except as noted in HPI & below Physical Exam Physical Exam: General: In no acute distress, stated age, well-nourished, good hygiene, non- toxic appearing HEENT: Normocephalic, atraumatic Abdomen: Negative for ascites and bruising, normoactive bowel sounds, soft, tender to palpation in the epigastric and RLQ but without guarding or rebound tenderness Extremities: no edema noted in the BL LE's Skin: Warm, dry, no rashes , lesions, or scars noted Neuro: Alert and oriented to person, place, month, year, and president Psych: No acute distress, calm and cooperative during the exam Results & Data Results & Data Vital Signs (Past 12 Hours) Vital Signs Temp Pulse Pulse Resp BP Pulse Ox O2 Del Method 09/08/22 20:08 36.9 C 91 H 16 143/94 H 96 Room Air 09/08/22 15:18 36.6 C 96 H 104 H 16 168/115 H 96 Room Air PG Care Time/CCT Total # of Minutes Spent Total Time Spent with Patient: Total time spent is greater than 50% in coordination of care (as documented) at patient's floor/unit and/or counseling patient: Coding Level of Care Code 85952 SUB INP/OBS CARE 2/35MIN Diagnoses Acute Crohn's disease K50.90 H/O Clostridium difficile infection Z86.19 Rheumatoid arthritis M06.9 Rheumatoid arthritis location: unspecified site Rheumatoid factor presence: unspecified presence Gastroparesis K31.84 GERD (gastroesophageal reflux disease) K21.9 Tachycardia R00.0 Hypertension I10 (3) Rheumatoid arthritis Rheumatoid arthritis location: unspecified site Rheumatoid factor presence: unspecified presence Qualified Code(s): M06.9 - Rheumatoid arthritis, unspecified
[2022-09-09] MEDS: methylPREDNISolone 20 MG in SYRINGE 0 ML IV SCH ×2 (01:17→10:50)
[2022-09-09] MEDS: HYDROmorphone INJ 0.5 MG/0.5 ML SYR IV PRN ×3 (01:20→10:09)
[2022-09-09] MEDS: PANTOprazole 40 MG TAB PO SCH (08:24)
[2022-09-09] MEDS: VIBEGRON 75 MG TAB PO SCH (08:24)
[2022-09-09] MEDS: carvediloL 6.25 MG TAB PO SCH (08:24)
[2022-09-09] MEDS: FOLIC ACID 1 MG TAB PO SCH (08:24)
[2022-09-09 08:39] LABS: Basophils # (auto) 0.01 K/uL (0-0.2); Basophils % (auto) 0.1 %; Hematocrit (blood only) 39.8 % (37.0-47.0); Hemoglobin 12.8 g/dl (12.0-16.0); Immature Granulocytes # (auto) 0.05 K/uL (0.01-0.20); Immature Granulocytes % (auto) 0.5 %; Lymphocytes # (auto) 0.91 K/uL (1.2-3.4); Lymphocytes % (auto) 8.7 %; Mean Corpuscular Hgb Conc 32.2 g/dL (32.0-36.0); Mean Corpuscular Volume 90.2 fL (80.0-100.0); Monocytes # (auto) 0.86 K/uL (0.11-0.59); Monocytes % (auto) 8.2 %; Neutrophils # (auto) 8.69 K/uL (1.40-6.50); Neutrophils % (auto) 82.5 %; Platelet Count 368 K/uL (130-400); RDW Coefficient of Variation 12.7 % (11.5-14.5); RDW Standard Deviation 42.3 fL (36.4-46.3); Red Blood Count 4.41 M/uL (4.20-5.40); White Blood Count 10.52 K/ul (4.8-10.8)
[2022-09-09 08:52] LABS: Albumin Globulin Ratio 1.5 (0.9-2); Albumin Level 4.6 gm/dl (3.4-5.0); BUN Creatinine Ratio 14.5 (10-20); Bilirubin,Total 0.5 mg/dl (0.2-1.0); Calcium 9.5 mg/dl (8.6-10.3); Creatinine Clr Calc Pharmacy 90.3 ml/min; Est GFR (African American) 119.5 ml/min; Est GFR (Non-African American) 103.1 ml/min; Globulin 3.1 gm/dl (2.5-4.0); Magnesium 2.5 mg/dl (1.7-2.4); Potassium 3.9 mmol/L (3.5-5.1); Total Protein 7.7 gm/dl (6.0-8.3)
--- NOTE | 2022-09-09 11:07 | Gastroenterology Progress Note ---
Date of Service September 09, 2022 Assessment & Plan (1) Acute Crohn's disease: Plan IV solumedrol 20mg TID. Will transition to 40mg po daily at time of DC 40 x 1 wk, 30 x 1 wk, 25 x 1 wk, 20 x wk, will see back in clinic to continue the taper. Continue low residue diet Wean off narcotics; hyoscyamine instead (already ordered TID prn, will change to scheduled). Continue Stelara No GI contraindication to DC. GI will sign off. Recall if questions. Admission and Anticipated Discharge Date Admission Date: September 06, 2022 Subjective Improved but persistent right lower quadrant pain. No nausea today. Epigastric pain resolved. Has been working on spacing out the narcotics. Discharge is anticipated today. Review of Systems Review of Systems: ROS: Gen: Denies weakness, fevers, weight loss Eyes: + had a red tender L eye just prior to onset of diarrhea, now resolved. No eye pain, no recent vision changes Resp: No SOB, no cough Cardio: No palpitations/irregular beats, no chest pain GI: As per HPI, otherwise normal : Denies pain on urination Skin: No jaundice, itching or new rashes Physical Exam Constitutional: WD/WN, vitals as above Eyes: PERRL, conjunctivae normal, anicteric sclerae ENMT: external ear and nose normal, oropharynx normal Neck: trachea midline, no thyromegaly Respiratory: normal respiratory effort, lungs clear to auscultation Cardiovascular: RRR, no murmur, no edema Gastrointestinal (Abdomen): Inspection/Auscultation: abdomen normal to inspection and normal bowel sounds; abdomen not distended Percussion/Palpation: + abdomen tender (mild/RLQ) and abdomen soft Musculoskeletal: no cyanosis or clubbing, extremities motor strength 5/5 Skin: no rashes, warm and dry (flushed ? from steroids) Neurologic: PERRL, EOMI, accommodation nl, no face palsy, no dysarthria Psychiatric: A+Ox3, euthymic affect Lymphatic: no cervical or axillary lymphadenopathy Results & Data Vital Signs (Past 12 Hours) Vital Signs Temp Pulse Pulse Resp BP Pulse Ox O2 Del Method 09/09/22 08:22 79 129/90 09/09/22 06:01 36.7 C 80 16 136/94 100 Room Air Laboratory Results WBC 10, Hb 12.9, HCT 39.8, platelets 360, NA 138, K3.9, CL 105, CO2 27, BUN 11, CR 0.76, glucose 114. CRP and sed rate normal. Stool studies not collected because no bowel movement since arrival Diagnostic Findings CTAP w IV 09/06/22: 1. Mild ileocolitis likely representing active inflammatory bowel disease. 2. No evidence for bowel obstruction. 3. Right-sided nephrolithiasis. 4. Nondilated fluid-filled loops of large and small bowel seen throughout the abdomen. This may represent a gastroenteritis/diarrheal illness.
--- NOTE | 2022-09-09 12:44 | Discharge Summary ---
Date of Service September 09, 2022 Admission HPI Per Admitting Provider Ana Del Cid is a 31 year old female with Crohn's colitis (On Stelara), history of c. diff colitis, RA, gastroparesis, and tachycardia, who presents to the ER with a 6 day history of right lower quadrant. In the ED the patient was noted to be tachycardic at 111 but otherwise stable. Labs were significant for a leukocytosis of 11 with a left shift of 10, CMP WNL, negative CRP, and negative UA. CT of the abdomen/pelvis w/IV con was read as 1. Mild ileocolitis likely representing active inflammatory bowel disease.2. No evidence for bowel obstruction. 3. Right-sided nephrolithiasis. 4. Nondilated fluid-filled loops of large and small bowel seen throughout the abdomen. This may represent a gastroenteritis/diarrheal illness. Prior to admission the patient was given 80 mb IV soulmedrol, 1mg dilaudid, and 500 mL NSS. We were asked to admit the patient due to acute chronsflare. At the time of the exam the patient was sitting in bed in no acute distress with her father sitting bedside. She states that her last dose of Stelera was 09/02 and was without complication. [place] [employer] [place]03 and had popcorn. She also picked blueberries and ate many on as well. Starting on 09/04 the patient started to develop worsening epigastric and RLQ abdominal pain, which is her typical sites of pain for a chron's flare. She denies recent fever, chills, chest pain, SOB, vomiting, dysuria, hematuria, melena, bloody BM's, LE swelling, and recent trauma. She was initially having harder stools -Wednesday, this am she has had multiple episodes of loose-watery BM's. She denies any bloody BM's or melena today. She currently feels some improvement in her symptoms compared to arrival but her symptoms have not resolved. Please refer to Dr. Jaramillo's attestation for any changes to the treatment plan Discharge Exam General: In no acute distress, stated age, well-nourished, good hygiene, non- toxic appearing HEENT: Normocephalic, atraumatic Abdomen: Negative for ascites and bruising, normoactive bowel sounds, soft, tender to palpation in the epigastric and RLQ but without guarding or rebound tenderness Extremities: no edema noted in the BL LE's Skin: Warm, dry, no rashes , lesions, or scars noted Neuro: Alert and oriented to person, place, month, year, and president Psych: No acute distress, calm and cooperative during the exam Discharge Data Allergies Allergy/AdvReac Type Severity Reaction Status Date / Time Gadolinium-Containing Allergy Severe vomiting/diarrhea Verified 09/06/22 10:07 Contrast Medi +"body locks up" iron Allergy Severe Swelling, Verified 09/06/22 10:07 joint pain, diarrhea cyclobenzaprine Allergy Intermediate increase Unverified 09/06/22 10:28 [From Flexeril] stiffness, joint pain, flightly NSAIDS (Non-Steroidal AdvReac Unknown Advised to Verified 09/06/22 10:07 Anti-Inflamma avoid (crohn's disease) Consultations 09/06/22 10:44 ED Decision to Admit Stat 09/06/22 11:13 Consult Gastroenterology Routine Ordered Studies 09/06/22 09:13 CT abd pelvis IV con only Stat Hospital Course (1) Acute Crohn's disease: -Admit to med/surge -Currently stable, patient has chronic sinus tach -Started to develop increased epigastric and RLQ abd pain on 09/04, has had multiple loose/watery BM's this am without bleeding -Symptoms are consistent with previous chronc's flares -S/P 80 mg IV Solu-Medrol in the ED >Will continue with 20 mg IV Solu-Medrol q8h as prescribed last admission >Can transition to PO Budesonide/ oral corticosteoid at discharge. -Pain control with 0.25 mg IV dilaudid for mild pain and 0.5 mg IV for severe pain -Can continue home levsin and scopolamine as needed -GI consult placed -contiue to advance as tolerated -BL SCD's for DVT PPX (2) H/O Clostridium difficile infection: -Patient with multiple episodes of non-bloody diarrhea this am -Will obtain stool studies and c. diff PCR for further eval (3) Rheumatoid arthritis: -Will continue Leflunomide for now (4) Gastroparesis: -Continue metoclopramide (5) GERD (gastroesophageal reflux disease): -Continue pantoprazole (6) Tachycardia: -Hx of sinus tachycardia -Stable -Continue BID carvedilol with am dose now (7) Hypertension: -Stable Discharge Plan Discharge Items Patient Disposition: Home - Self-Care Reason For Visit: ACUTE CHRON'C FLARE Discharge Diagnosis: acute Crohn's flair Activity: Resume your previous activity Non-emergency contact: Primary Care Provider Call non-emergency contact if: you have any medication questions Follow-up/Referrals: Kari Duron MD [Primary Care Provider] - Diet: Low Fiber Addtl Attending Provider Instructions: Continue prednisone taper. Cut back by 5 mg a week Start with 40 mg for 7 days then 35 mg for 7 days until finished. Recommend trying to wean off narcotics Use hyoscyamine scheduled for the next week to help wean off the narcotics You can also use tylenol scheduled. A low fiber diet is typically recommended for individuals with certain medical conditions or as a temporary measure to relieve digestive symptoms. Here is some basic information about a low fiber diet: 1. Purpose: A low fiber diet limits the intake of foods high in dietary fiber to reduce the workload on the digestive system and ease symptoms like diarrhea, abdominal pain, or cramping. 2. Foods to limit or avoid: - Whole grains (e.g., whole wheat, whole oats, brown rice) - Legumes (e.g., lentils, beans, chickpeas) - Nuts and seeds - Raw fruits and vegetables (except for some cooked or peeled options) - High-fiber cereals or breads 3. Foods generally allowed: - Refined grains (e.g., white bread, white rice, refined cereals) - Cooked and peeled fruits and vegetables (e.g., applesauce, canned fruits, cooked carrots) - Lean meats, poultry, and fish - Dairy products (unless lactose intolerant) - Eggs 4. Cooking and preparation methods: - Choose peeled or cooked fruits and vegetables instead of raw ones. - Remove seeds and skin from fruits and vegetables. - Opt for refined grain products instead of whole grains. - Cook or soak legumes to reduce their fiber content. It's important to note that a low fiber diet should only be followed under the guidance of a healthcare professional, as it is not suitable for long-term use. They can provide personalized recommendations based on your specific needs and condition. Pending Studies at Discharge: No Stand-Alone Forms: My [facility], Smoking Cessation Medications and DC Order Prescriptions: New acetaminophen [Tylenol] 325 mg capsule 650 mg PO Q6H 14 Days Qty: 112 0RF Continued Myrbetriq 50 mg tablet extended release 24 hr 50 mg PO DAILY amitriptyline 50 mg tablet 50 mg PO HS Qty: 30 5RF fluticasone propionate 50 mcg/actuation spray,suspension 2 spray INTRANASAL DAILY PRN (Reason: Allergy Symptoms) medroxyprogesterone 150 mg/mL syringe 150 mg IM Q3M Rx Instructions: PER PT "END OF NOV 2021". Stelara 90 mg/mL syringe 90 mg SUBCUT .[id number] Women's Multivitamin Gummies 200 mcg Tablet,Chewable 400 mcg PO HS leflunomide [Arava] 20 mg tablet 20 mg PO HS pantoprazole 40 mg Tablet,Delayed Release (Dr/Ec) 40 mg PO QAM folic acid 1 mg tablet 1 mg PO QAM Caltrate 600 plus D 600 mg (1,500 mg)-800 unit Tablet,Chewable 1 tab PO BID albuterol sulfate 90 mcg/actuation Hfa Aerosol Inhaler 2 puff INHALATION Q6H PRN (Reason: Wheezing) sumatriptan succinate 100 mg tablet 100 mg PO UD PRN (Reason: Migraine Headache) metoclopramide HCl 5 mg tablet 10 mg PO QDD Rx Instructions: PER PT "CAN USE PRN IF NEEDED". cetirizine [Zyrtec] 10 mg Tablet 10 mg PO QAM Medical Marijuana 1 dose inhalation UD PRN (Reason: "CROHN'S DISEASE/NAUSEA") Patient Comments: USES ORAL/VAPING FORM carvedilol 6.25 mg Tablet 6.25 mg PO BID Rx Instructions: must administer with a meal/food hydroxyzine HCl 25 mg Tablet 25 mg PO DAILY PRN (Reason: Anxiety) oxycodone 5 mg tablet 5 mg PO TID PRN (Reason: pain) 6 Days Qty: 20 0RF ondansetron 8 mg tablet,disintegrating 8 mg PO BIDWMEAL PRN (Reason: Nausea) buspirone 10 mg tablet 5 mg PO DAILY PRN (Reason: Anxiety) scopolamine base [Transderm-Scop] 1 mg over 3 days patch 3 day 1 mg transdermal 2XWK PRN (Reason: Pain) cholecalciferol (vitamin D3) [Vitamin D3] 125 mcg (5,000 unit) Tablet 125 mcg PO DAILY Changed hyoscyamine sulfate 0.125 mg Tablet 0.125 mg PO TID Qty: 30 0RF Discontinued acetaminophen [Tylenol Extra Strength] 500 mg Tablet 1,000 mg PO Q6H PRN (Reason: Pain) Discharge Orders: Discharge Order (Routine); Ordered 09/09/22 Ordered By: Bob Mendosa Admission Data Admit Date/Time: 09/06/22 10:54 Attending Provider: Bob Mendosa Admit Provider: Randall Jaramillo Primary Care Provider: Kari Duron Other Providers: Randall Jaramillo ; Adria Teixeira Jr Coding Diagnoses Acute Crohn's disease K50.90 H/O Clostridium difficile infection Z86.19 Rheumatoid arthritis M06.9 Rheumatoid arthritis location: unspecified site Rheumatoid factor presence: unspecified presence Gastroparesis K31.84 GERD (gastroesophageal reflux disease) K21.9 Tachycardia R00.0 Hypertension I10
== END 2022-09-09 13:25 | disposition home or self-care (01) | DRG 387 ==
LOC: ED 08:34 → SUATTDRO 10:54 → 3N 10:54
DX: Z88.6 Allergy status to analgesic agent; I10 Essential (primary) hypertension; Z91.09 Other allergy status, other than to drugs and biological substances; M06.9 Rheumatoid arthritis, unspecified; K50.90 Crohn's disease, unspecified, without complications; Z88.8 Allergy status to other drugs, medicaments and biological substances; Z91.041 Radiographic dye allergy status; Z79.51 Long term (current) use of inhaled steroids; Z79.620 Long term (current) use of immunosuppressive biologic; Z79.899 Other long term (current) drug therapy; R00.0 Tachycardia, unspecified; K21.9 Gastro-esophageal reflux disease without esophagitis; Z86.19 Personal history of other infectious and parasitic diseases; K31.84 Gastroparesis

== ENCOUNTER 2024-02-05 07:07 | Observation (INO) ==
--- OUTSIDE RECORDS SUMMARY | 2024-02-05 07:13 | External Medical Summary | Summary of Care ---
Author Name Unknown Organization [facility] Address [address] [place] [address] Phone [phone] Care Team Providers Care Automatic Bandsaw Tender Name Role Phone Kari Duron MD Primary Care Provider Reason for Visit * Reason Comments Outpatient Testing Encounter Details Date Type Department Care Team (Late st Contact Info) Description 01/31/2024 10:50 AM EST Laboratory Laboratory, [facility] [address] [facility] [place] [phone] [facility] [address] [place] [address] Enteropathic arthritis; Encounter for long-term (current) use of medications Allergies Active Allergy Reactions Criticality Noted Date Comments Cyclobenzaprine High 11/10/2022 Other Reaction(s): increase stiffness, joint pain, flightly Gadolinium Derivatives Diarrhea,Nausea/v charli ting Medium 11/04/2016 Iron High 05/23/2015 IV Iron infusion--caused abdominal pain, diarrhea, hand an arm swelling, seen in ER at [facility] 05/22/15. Other reaction(s): Swelling, joint pain, diarrhea Nsaids Abdominal pain,Other (Please comment) 07/06/2019 documented as of this encounter (statuses as of 01/31/2024) Medications Multiple Vitamins-Minerals (MULTIVITAMIN ADULT) TABS Take by mouth daily. Active ondansetron ODT (ZOFRAN) 4 MG TBDPIndications:N ausea Take 1-2 tablets every 6 hours as needed for nausea, dissolve on tounge 60 Tab 5 0 Active Caltrate 600+D Plus Minerals 600-800 MG-UNIT Oral Tablet Chewable Take by mouth. 1 Active Continuation of patient use of medical marijuana is approved Use as Directed 2 Active Cetirizine HCl 10 MG Oral Tablet (ZyrTEC) 1 Tablet. 2 Active SUMAtriptan Succinate 100 MG Oral Tablet as needed . 2 Active Clotrimazole 10 MG Mouth/Throat Amol (Mycelex Amol) Take by mouth 1 Lozenge 5 times a day . 70 Amol 1 2 Active medroxyPROGESTERo ne Acetate 150 MG/ML Intramuscular Suspension (Depo-Provera) INJECT 150 MG INTO A LARGE MUSCLE EVERY 3 MONTHS 1 mL 3 2 Active Amitriptyline HCl 10 MG Oral Tablet (Elavil) Take by mouth 2 Tablets before bedtime. 1 at bedtime. 60 Tablet 12 2 Active Additional Information Patient taking differently: 50 mgOral HS, 1 at bedtime, Reported on 12/02/2023 hydrOXYzine Pamoate 25 MG Oral Capsule (Vistaril) Take 1 Capsule by mouth 3 times a day as needed for Itching. Active Vitamin D3 125 MCG (5000 UT) Oral Capsule Take 1 Capsule by mouth in the morning. Active Fluocinonide 0.05 % External Cream Apply topically to affected area 2 times a day . Apply to back, chest shoulder for 1-2 mo 60 g 2 Active oxyCODONE HCl 5 MG Oral Tablet (Oxy IR) take 1 tablet by mouth three times a day NEEDED FOR PAIN 3 Active Myrbetriq 50 MG Oral Tablet Extended Release 24 Hour (Mirabegron ER) Take 1 Tablet by mouth in the morning. 90 Tablet 3 4 Active Pantoprazole Sodium 40 MG Oral Tablet Delayed Release (Protonix) Take 1 Tablet by mouth in the morning. 90 Tablet 3 4 Active Metoclopramide HCl 5 MG Oral Tablet (Reglan)Indicatio ns:Gastroesophage al reflux disease without esophagitis Take 1 Tablet by mouth in the morning and 1 Tablet at noon and 1 Tablet in the evening and 1 Tablet before bedtime. As needed. 120 Tablet 6 4 Active Additional Information Patient taking differently: 10 mgOralDaily(AM), As needed, Reported on 12/02/2023 Stelara 90 MG/ML Subcutaneous Solution Prefilled Syringe (Ustekinumab)Hodan cations:Crohn's disease of large intestine with complication (HCC) INJECT 90 MG (1 SYRINGE) UNDER THE SKIN EVERY 4 WEEKS 1 mL 5 11/11/2023 11:26 AM EDT 4 Active Hyoscyamine Sulfate 0.125 MG Sublingual Tablet Sublingual (Levsin)Indicatio ns:Epigastric pain Take 1 Tablet by mouth every 4 hours as needed for Cramping (abd pain). 120 Tablet 4 Active Leflunomide 20 MG Oral Tablet (Arava) TAKE 1 TABLET BY MOUTH EVERY MORNING 90 Tablet 1 4 Active Folic Acid 1 MG Oral Tablet TAKE 1 TABLET BY MOUTH EVERY DAY 90 Tablet 3 4 Active Carvedilol 6.25 MG Oral Tablet (Coreg)Indication s:HTN, goal below 130/80 TAKE 1 TABLET BY MOUTH TWO TIMES DAILY WITH MORNING AND EVENING MEALS 60 Tablet 4 Active Hospital, Clinic, or Other Facility Administered Medication Ordered Dose Route Frequency Start Date End Date Status medroxyPROGESTERone (contracep) (Depo-Provera) inj 150 mgIndications:Surveillance for Depo-Provera contraception 150 mg IM [id number] 09/26/2020 Active documented as of this encounter (statuses as of 01/31/2024) Active Problems Problem Noted Date Diagnosed Date Anal fissure 10/13/2023 Bilateral closed hip fractures 09/03/2022 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 Rose 3-5y Iron deficiency 05/17/2015 Routine general medical exam ination at a health care facility 08/30/2014 Overview (03/10/2018): 02/26 cdsoz-[id number]-uyvu-no active colitis. pseudopolyps 09/25 path EGD-chronic gastritis neg H Pylor. ?Leal 02/25 colonoscopy-mult small polyps No active colitis. +small lymph aggregates. 04/24 EGD gastritis, esophagitis, hiatal hernia Sees GI [facility] Dr Gregory Membreno Crohn's disease of large intestine with complica tion 08/30/2014 General counseling and advice for contraceptive management 08/30/2014 Overview (08/30/2014): 08/22 nuvaring. Request pap from [facility]. Request shot records from her. "harrell" Allergic rhinitis 05/09/2013 Allergic conjunctivitis 05/09/2013 MRSA (methicillin resistant staph aureus) cultur e positive 03/17/2013 documented as of this encounter (statuses as of 01/31/2024) Resolved Problems Problem Noted Date Diagnosed Date Resolved Date Dyspnea and respiratory abnormality 06/13/2013 08/30/2014 Overview (12/01/2016): ICD-10 update of inactive term Axillary lymphadenopathy 02/21/2013 documented as of this encounter (statuses as of 01/31/2024) Immunizations Name Administration Dates Next Due COVID-19 mRNA, LNP-s, No Pre serve, 2-Dose Series (Moderna) 10/16/2020,04/11/2020,03/14/2020 HEP A - Hepatitis A (Adult > 18 yrs) 11/15/2018, 12/08/2016 Hepatitis B, 20+ yrs 03/18/2017,10/13/2016,09/08 PPD 11/24/2016 Seasonal Influenza Vac., MDV , IM, 0.5 mL (Fluzone) 12/08/2015 Seasonal Influenza, PF, 6 M & above, IM , (FluLaval or Fluzone) 12/22/2022,11/27/2021,10/28/2019 Seasonal Influenza, Quadriva lent, No Preserve, IM 11/01/2020,11/08/2018,11/20/2014 TDAP (age 10 and older)(Boostrix) 09/12/2015 documented as of this encounter Social History Tobacco Use Types Packs/Day Years Used Date Smoking Tobacco: Never Smokeless Tobacco: Never Comments:fiance smokes Alcohol Use Standard Drinks/Week Comments Yes 0 (1 standard drink = 0.6 oz pure alcohol) occasional glass of wine. no binge PHQ-2 Answer Date Recorded PHQ-2 Score 1 03/24/2019 Comments No Sex and Gender Information Value Date Recorded Sex Assigned at Female 09/05/2021 1:14 PM EDT Legal Sex Female 6:03 AM EST Gender Identity Female 09/05/2021 1:14 PM EDT Sexual Orientation Straight 09/05/2021 1: 14 PM EDT documented as of this encounter Plan of Treatment Upcoming Encounters Date Type Department Care Team (Late st Contact Info) Description 03/01/2024 1:00 PM EST Office Visit General Surgery Ericka Jameson [address] [place] [address] [place] [address] Jim Vazquez, DO [address] [place] [address] 05/04/2024 9:00 AM EDT Office Visit Rheumatology [place] [address] [place] [address] Bill Shannon MD [facility] [place] [address] 06/06/2024 11:00 AM EDT Office Visit Gastroenterology, [facility] [address] [place] [address] Artur Guillermo CRNP 132 [facility] [place] [address] Pending Results Name Type Priority Associated Diagnoses Date /Time COMPREHENSIVE METABOLIC PANEL Lab Routine Enteropathic arthritis Encounter for long-term (current) use of medications 01/31/2024 10:40 AM EST Health Maintenance Due Date Last Done Comments Hepatitis C Screening 2006 Pneumococcal Vaccine: Pediatrics (0 to 5 Years) and At-Risk Patients (6 to 64 Years) (2 of 2 - PCV) 04/28/2017 04/28/2016 HPV/Co-Test 2018 Depression Screening 03/23/2020 03/23/2019, 11/13/19 Cervical Cancer Screening 04/30/2023 Pap Smear 04/30/2023 04/29/2020, 04/09, 03/03/2017, Additional history exists COVID-19 Vaccine ( season) 2023 10/16/2020, 04/11/2020, 03/14/2020 Influenza Vaccine (FLU shot) (#1) 2023 12/22/2022, 11/27/2021, 11/01/2020, Additional history exists DTap/Tdap Vaccines (2 - Td or Tdap) 09/11/2025 09/12/2015 HIV Screening Completed 10/30/2015 HPV (Gardasil) Vaccine Aged Out No lo nger eligible based on patient's age to complete this topic MENINGOCOCCAL (MENACTRA/MENVEO) Aged Out No longer eligible based on patient's age to complete this topic documented as of this encounter Medical Devices Implanted Type Area Truck Repair Service Estimator Device Identifier Shelf Expiration Date Model / Serial / Lot Chowdary Capsule Implanted:Qty: 1 on 03/11/2020 by Renée Vázquez DO at [facility] N/A: Esophagus 08/14/2021 [id number] [id number] / / [id number] documented as of this encounter Procedures Procedure Name Priority Date/Time Associated Diagnosis Comments DIFFERENTIAL, AUTOMATED Routine 01/31/2024 10:40 AM EST Encounter for long-term (current) use of medications Enteropathic arthritis CBC Routine 01/31/2024 10:40 AM EST Encounter for long-term (current) use of medications Enteropathic arthritis CBC Routine 01/31/2024 10:40 AM EST Encounter for long-term (current) use of medications Enteropathic arthritis documented in this encounter Results * DIFFERENTIAL, AUTOMATED (01/31/2024 10:40 AM EST) WBC 6.52 4.00 - 10.80 K/uL 01/31/2024 10:56 AM EST [facility] Neutrophils % 58.4 40.0 - 75.0 % 01/31/2024 10:56 AM EST [facility] Lymphocytes % 27.6 18.0 - 42.0 % 01/31/2024 10:56 AM EST [facility] Monocytes % 9.7 1.0 - 11.0 % 01/31/2024 10:56 AM EST [facility] Eosinophils % 3.5 0.0 - 6.0 % 01/31/2024 10:56 AM EST [facility] Basophils % 0.8 0.0 - 2.0 % 01/31/2024 10:56 AM EST [facility] Absolute Neutrophils 3.81 1.80 - 7.70 K/uL 01/31/2024 10:56 AM EST [facility] Absolute Lymphocytes 1.80 1.00 - 4.80 K/ul 01/31/2024 10:56 AM EST [facility] Absolute Monocytes 0.63 0.00 - 1.10 K/uL 01/31/2024 10:56 AM EST [facility] Absolute Eosinophils 0.23 0.00 - 0.70 K/uL 01/31/2024 10:56 AM EST [facility] Absolute Basophils 0.05 0.00 - 0.20 K/uL 01/31/2024 10:56 AM EST [facility] Blood Venous blood specimen / Unknown Venipuncture / Unknown 01/31/2024 10:40 AM EST 01/31/2024 10:40 AM EST us Bill Shannon MD LAB BLOOD ORDERABLES Final Result Performing Organization Address City/State/[facility] Co de Phone Number [facility] [place] [address] * CBC (01/31/2024 10:40 AM EST) WBC 6.52 4.00 - 10.80 K/uL 01/31/2024 10:56 AM EST [facility] RBC 4.43 3.85 - 5.15 M/uL 01/31/2024 10:56 AM EST [facility] HGB 13.2 12.0 - 15.3 g/dL 01/31/2024 10:56 AM EST [facility] HCT 41.7 36.0 - 45.2 % 01/31/2024 10:56 AM EST [facility] MCV 94.1 81.5 - 97.5 fL 01/31/2024 10:56 AM EST [facility] MCH 29.8 27.0 - 34.0 pg 01/31/2024 10:56 AM EST [facility] MCHC 31.7 32.0 - 36.0 g/dL 01/31/2024 10:56 AM EST [facility] RDW 13.1 11.5 - 15.5 % 01/31/2024 10:56 AM EST [facility] PLT 362 140 - 400 K/uL 01/31/2024 10:56 AM EST [facility] MPV 9.8 6.6 - 11.1 fL 01/31/2024 10:56 AM EST [facility] Blood Venous blood specimen / Unknown Venipuncture / Unknown 01/31/2024 10:40 AM EST 01/31/2024 10:40 AM EST Bill Shannon MD LAB BLOOD ORDERABLES Final Result [facility] [place] [address] documented in this encounter Visit Diagnoses Diagnosis Enteropathic arthritis Arthropathy associated with gastrointestinal conditions other than infections Encounter for long-term (current) use of medications Encounter for long-term (current) use of other medications documented in this encounter Advance Directives * Full Code (Latest Code Status on File) Date Activated Date Inactivated Comments 12/07/2023 11:14 AM 12/07/2023 4:03 PM This orde r reflects the patients wishes and were consensually agreed upon. Question Answer Comments Discussion of Advance Directives occurred with: Patient Care Teams Automatic Bandsaw Tender Relationship Specialty Start Date End Date Kari Duron MD [address] [place] [address] PCP - General Family Medicine 09/03/22 documented as of this encounter
--- OUTSIDE RECORDS SUMMARY | 2024-02-05 07:13 | External Medical Summary ---
Author Name Unknown Address Unknown Organization [id number]:LABORATORY [facility] [place] - [facility] [address] [facility] [address] [facility] [address] Laboratory Report Ordering Provider Test Date Status SID CREWS 01/31/2024 16:40:17 Final Observation Date Value Abnormality Reference (Units ) Status Campylobacter sp DNA.diarrheagenic [Presence] in Stool by PERI with probe detection 01/31/2024 16:40:17 Negative Negative Final Salmonella sp rpoD gene [Presence] in Stool by PERI with probe detection 01/31/2024 16:40:17 Negative Negative Final Shigella species+EIEC invasion plasmid antigen H ipaH gene [Presence] in Stool by PERI with probe detection 01/31/2024 16:40:17 Negative Negative Final Vibrio sp DNA [Identifier] in Specimen by PERI with probe detection 01/31/2024 16:40:17 Negative Negative Final Yersinia enterocolitica recN gene [Presence] in Stool by PERI with probe detection 01/31/2024 16:40:17 Negative Negative Final Escherichia coli Stx1 toxin stx1 gene [Presence] in Stool by PERI with probe detection 01/31/2024 16:40:17 Negative Negative Final Escherichia coli Stx2 toxin stx2 gene [Presence] in Stool by PERI with probe detection 01/31/2024 16:40:17 Negative Negative Final Norovirus genogroups I and II RNA panel - Stool by PERI with probe detection 01/31/2024 16:40:17 Negative Negative Final Rotavirus A RNA [Presence] in Stool by PERI with probe detection 01/31/2024 16:40:17 Negative Negative Final Performing Location LAB[facility]ATORY [facility] [place] - [facility] [address] [facility] [address] [facility] [address]
--- OUTSIDE RECORDS SUMMARY | 2024-02-05 07:13 | External Medical Summary | Summary of Care ---
Author Name Unknown Organization [facility] Address [address] [place] [address] Phone [phone] Care Team Providers Care Pneudraulic Systems Mechanic Name Role Phone Kari Duron MD Primary Care Provider Reason for Visit * Reason Comments Outpatient Testing * Precert (Within 10 days (routine)) - Authorized Specialty Diagnoses / Procedures Referred By Jeff t Referred To Contact Diagnoses Diarrhea, unspecified type Crohn's disease of large intestine with complication (HCC) Procedures CALPROTECTIN, STOOL Artur Guillermo CRNP [address] [place] [address] Phone: tel: fax: Artur Guillermo CRNP [address] [facility] [place] [address] Phone: tel: fax: Referral ID Status Reason Start Date Expiration Date V isits Requested Visits Authorized [id number] Authorized Precert 12/24/2023 03/26/2024 [id number] Encounter Details Date Type Department Care Team (Late st Contact Info) Description 01/31/2024 4:40 PM EST Laboratory Laboratory, [facility] [address] [place] [id number] [place], Specimen Drop Off [facility] [address] [place] [address] Diarrhea, unspecified type; Crohn's disease of large intestine with complication (HCC) Allergies Active Allergy Reactions Criticality Noted Date Comments Cyclobenzaprine High 11/10/2022 Other Reaction(s): increase stiffness, joint pain, flightly Gadolinium Derivatives Diarrhea,Nausea/v charli ting Medium 11/04/2016 Iron High 05/23/2015 IV Iron infusion--caused abdominal pain, diarrhea, hand an arm swelling, seen in ER at [facility] 05/22/15. Other reaction(s): Swelling, joint pain, [...] mgIndications:Surveillance for Depo-Provera contraception 150 mg IM [id number] 09/26/2020 Active documented as of this encounter [...] health care facility 08/30/2014 Overview (03/10/2018): 02/26 [id number]-Uufhmvkps-bcnu-no active colitis. pseudopolyps 09/25 path EGD-chronic gastritis neg H Pylor. ?Leal 02/25 colonoscopy-mult small polyps No active colitis. +small lymph aggregates. 04/24 EGD gastritis, esophagitis, hiatal hernia Sees GI [facility] Dr Gregory Membreno Crohn's disease of large intestine with complica tion 08/30/2014 General counseling and advice for contraceptive management 08/30/2014 Overview (08/30/2014): 08/22 nuvaring. Request pap from [facility]. Request shot records from her. "harrell" [...] Visit General Surgery Ericka Jameson [address] [place] [address] Jim Vazquez, DO [address] [place] [address] 05/04/2024 9:00 AM EDT Office Visit Rheumatology [place] [id number] [facility] [place] [address] Bill Shannon MD [facility] [place] [address] 06/06/2024 11:00 AM EDT Office Visit [facility]enterology, [facility] [address] Artur Guillermo CRNP 132 [place] [address] Pending Results Name Type Priority Associated Diagnoses Date /Time CLOSTRIDIUM DIFFICILE, PCR Lab Routine Diarrhea, unspecified type Crohn's disease of large intestine with complication (HCC) 01/31/2024 4:40 PM EST CALPROTECTIN, STOOL Lab Routine Diarrhea, unspecified type Crohn's disease of large intestine with complication (HCC) 01/31/2024 4:40 PM EST GASTROINTESTINAL PATHOGEN PANEL, STOOL Lab Routine Diarrhea, unspecified type Crohn's disease of large intestine with complication (HCC) 01/31/2024 4:40 PM EST GASTROINTESTINAL PATHOGEN PANEL PCR Lab Routine Diarrhea, unspecified type Crohn's disease of large intestine with complication (HCC) 01/31/2024 4:40 PM EST GASTROINTESTINAL PATHOGEN PANEL CULTURE Lab Routine Diarrhea, unspecified type Crohn's disease of large intestine with complication (HCC) 01/31/2024 4:40 PM EST Health Maintenance Due Date Last Done Comments Hepatitis C Screening 2006 Pneumococcal Vaccine: Pediatrics (0 to 5 Years) and At-Risk Patients (6 to 64 Years) (2 of 2 - PCV) 04/28/2017 04/28/2016 HPV/Co-Test 2018 Depression Screening 03/23/2020 03/23/2019, 11/13/19 18 Cervical Cancer Screening 04/30/2023 Pap Smear 04/30/2023 04/29/2020, 03/2 03/2020, 03/03/2017, Additional history exists COVID-19 Vaccine ( [...] this encounter Medical Devices Implanted Type Area Lithopress Operator Device Identifier Shelf Expiration Date Model / Serial / Lot Chowdary Capsule Implanted:Qty: 1 on 03/11/2020 by Renée Vázquez DO at [facility] N/A: Esophagus 08/14/2021 [id number]- [id number] / / [id number] documented as of this encounter Visit Diagnoses Diagnosis Diarrhea, unspecified type Crohn's disease of large intestine with complication (HCC) Regional enteritis of large intestine documented in this encounter Additional Health Concerns Infection Onset Date Last Indicated Resolved Time C. difficile Rule-Out 01/31/2024 01/31/2024 Gastrointestinal Rule-Out 01/31/2024 01/31/2024 documented as of this encounter Advance Directives * Full Code (Latest Code Status on File) Date Activated Date Inactivated Comments 12/07/2023 11:14 AM 12/07/2023 4:03 PM This orde r reflects the patients wishes and were consensually agreed upon. Question Answer Comments Discussion of Advance Directives occurred with: Patient Care Teams Pneudraulic Systems Mechanic Relationship Specialty Start Date End Date Kari Duron MD [address] [place] [address] PCP - General Family Medicine 09/03/22 documented as of this encounter
--- OUTSIDE RECORDS SUMMARY | 2024-02-05 07:13 | External Medical Summary ---
Author Name Unknown Address Unknown Organization [id number]:[facility] [place] [address] [facility] [address] [place] [facility] Laboratory Report Ordering Provider Test Date Status SID CREWS 01/31/2024 16:40:17 Final Observation Date Value Abnormality Reference (Units) Status Bacteria identified in Specimen by Culture 01/31/2024 16:40:17 No Aeromonas species or Plesiomonas species isolated. Final Test: Gastrointestinal Patho gen Panel Culture
Specimen Source: Stool
Specimen Type: Stool
Specimen Date: 01/31/2024 1640
Result Date: 02/03/2024 1046
Result Status: Final result
Resulting Lab: [facility] [place]
[address]
[place] [address]

CULTURE

No Aeromonas species or Plesiomonas species isolated.

null Performing Location [facility] [place] [address] [facility] [address]
--- OUTSIDE RECORDS SUMMARY | 2024-02-05 07:13 | External Medical Summary ---
Author Name Unknown Address Unknown Organization [id number]:LABORATORY [facility] [place] - [address] [place] [address] Laboratory Report Ordering Provider Test Date Status MARSSID 01/31/2024 16:40:00 Final Observation Date Value Abnormality Reference (Units) Status Source 01/31/2024 16:40:00 Semi-liquid Final Clostridioides difficile toxin and [id number] strain DNA panel - Stool by PERI with probe detection 01/31/2024 16:40:00 Negative. No C. difficile toxin B gene DNA detected by PCR (Amplified Probe). Negative Final Performing Location LAB[facility]ATORY [facility] [place] - [address] [place] [address]
--- OUTSIDE RECORDS SUMMARY | 2024-02-05 07:13 | External Medical Summary ---
Author Name Unknown Address Unknown Organization [id number]:[facility] - [address] [place] [address] Laboratory Report Ordering Provider Test Date Status GENOVEVA ROMAN 01/31/2024 10:40:17 Final Observation Date Value Abnormality Reference (Units ) Status BUN 01/31/2024 10:40:17 8 6-20 (mg/dL) Final Creatinine 01/31/2024 10:40:17 0.7 0.5-1.0 (mg/dL) Final Glomerular filtration rate/1.73 sq M.predicted [Volume Rate/Area] in Serum, Plasma or Blood by Creatinine-based formula (CKD-EPI) 01/31/2024 10:40:17 >90 >=60 (mL/min) Final eGFR is calculated based on the CKD-EPI 2020 equation. Sodium 01/31/2024 10:40:17 141 135-146 (m mol/L) Final Potassium 01/31/2024 10:40:17 4.3 3.5-5.1 (m mol/L) Final Cl 01/31/2024 10:40:17 105 98-107 (mm ol/L) Final CO2 01/31/2024 10:40:17 24 22-32 (mmo l/L) Final Anion gap 01/31/2024 10:40:17 12 7-15 (mmol /L) Final Glucose 01/31/2024 10:40:17 102 70-120 (mg /dL) Final Albumin 01/31/2024 10:40:17 4.6 3.8-5.0 (g /dL) Final AST (Aspartate aminotransferase) 01/31/2024 10:40:17 18 10-35 (U/L) Final Alk Phos 01/31/2024 10:40:17 94 35-130 (U/ L) Final Bilirubin, Total 01/31/2024 10:40:17 0.5 <=1 .2 (mg/dL) Final Calcium 01/31/2024 10:40:17 9.8 8.4-10.2 ( mg/dL) Final Protein 01/31/2024 10:40:17 7.1 6.0-8.3 (g /dL) Final ALT (Alanine aminotransferase) 01/31/2024 10:40:17 12 10-35 (U/L) Final Performing Location [facility] - [address] [facility] [address]
--- OUTSIDE RECORDS SUMMARY | 2024-02-05 07:14 | External Medical Summary ---
Author Name Unknown Address Unknown Organization [facility] [place] [id number] Laboratory Report Ordering Provider Test Date Status JESSIEGENOVEVA 01/31/2024 10:40:17 Final Observation Date Value Abnormality Reference (Units ) Status WBC, Total 01/31/2024 10:40:17 6.52 4.00-10.8 0 (K/uL) Final RBC 01/31/2024 10:40:17 4.43 3.85-5.15 (M/uL) Final Hemoglobin 01/31/2024 10:40:17 13.2 12.0-15.3 (g/dL) Final HCT 01/31/2024 10:40:17 41.7 36.0-45.2 (%) Final MCV 01/31/2024 10:40:17 94.1 81.5-97.5 (fL) Final MCH 01/31/2024 10:40:17 29.8 27.0-34.0 (pg) Final MCHC 01/31/2024 10:40:17 31.7 32.0-36.0 (g/dL) Final RDW 01/31/2024 10:40:17 13.1 11.5-15.5 (%) Final Platelets 01/31/2024 10:40:17 362 140-400 (K /uL) Final MPV 01/31/2024 10:40:17 9.8 6.6-11.1 ( fL) Final Performing Location [facility] [address] [place] [id number]
--- NOTE | 2024-02-05 07:24 | Emergency Department Note ---
History of Present Illness General Chief complaint: GI Assessment Stated complaint: ?CROHN'S FLARE UP,NAUSEA,DIARRHEA Time Seen by Provider: 02/05/24 07:22 History of Present Illness Maximum Pain Intensity: 7 This is a 33-year-old female that presents to the emergency department via private vehicle with complaints of "right lower quadrant abdominal pain, diarrhea x 2 weeks, blood in stool". The patient has history of Crohn's disease currently managed on Stelara. Patient follows with Les MARK here locally. The patient notes that she has had diarrhea over the past 2 weeks with some blood in the stool mixed in but not all blood. No black tarry stools. Stools described as some mild liquid and loose to at times just "straight liquid". Over the past 3 to 4 days also right lower quadrant abdominal pain. She has worked closely with her GI specialist and was recommended to present here with any continuation or worsening symptoms which she experienced therefore prompting arrival here today. Patient denies any fever but does have some nausea. No vomiting. She does note history of previous Crohn's flares and this does feel similar. She notes that she still has her appendix. Only abdominal surgery was cholecystectomy. He does have a history of C. difficile. Last CT scan of the abdomen/pelvis was about 1.5 years ago. Home Medications Medication Instructions Recorded Confirmed Type folic acid 1 mg tablet 1 mg PO QAM 03/30/18 02/05/24 History pantoprazole 40 mg tablet,delayed 40 mg PO QAM 03/30/18 02/05/24 History release fluticasone propionate 50 2 spray intranasal DAILY PRN 02/21/19 02/05/24 History mcg/actuation nasal Allergy Symptoms spray,suspension medroxyprogesterone 150 mg/mL 150 mg IM Q3M 02/21/19 02/05/24 History intramuscular syringe multivitamin with minerals-folic 400 mcg PO DAILY 03/21/19 02/05/24 History acid 200 mcg chewable tablet (Women's Multivitamin Gummies) leflunomide 20 mg tablet (Arava) 20 mg PO HS 10/04/19 02/05/24 History albuterol sulfate 90 mcg/actuation 2 puff inhalation Q6H PRN Wheezing 03/01/20 02/05/24 History aerosol inhaler calcium 600 mg (as carbonate)-vit 1 tab PO BID 03/01/20 02/05/24 History D3 20 mcg (800 unit) chewable tablet (Caltrate plus D) metoclopramide HCl 5 mg tablet 10 mg PO QDD 10/22/20 02/05/24 History sumatriptan succinate 100 mg tablet 100 mg PO UD PRN Migraine Headache 10/22/20 02/05/24 History Medical Marijuana 1 dose inhalation UD PRN "CROHN'S 02/20/21 02/05/24 History DISEASE/NAUSEA" cetirizine 10 mg tablet (Zyrtec) 10 mg PO QAM 02/20/21 02/05/24 History buspirone 10 mg tablet 5 mg PO DAILY PRN Anxiety 07/15/21 02/05/24 History ondansetron 8 mg disintegrating 8 mg PO BIDWMEAL PRN Nausea 07/15/21 02/05/24 History tablet scopolamine base 1 mg over 3 days 1 mg transdermal 2XWK PRN Pain 07/15/21 02/05/24 History transdermal patch (Transderm-Scop) carvedilol 6.25 mg tablet 6.25 mg PO BID 09/25/21 02/05/24 History hydroxyzine HCl 25 mg tablet 25 mg PO DAILY PRN Anxiety 09/25/21 02/05/24 History cholecalciferol (vitamin D3) 125 125 mcg PO DAILY 01/18/22 02/05/24 History mcg (5,000 unit) tablet (Vitamin D3) mirabegron 50 mg tablet,extended 50 mg PO QAM 06/22/22 02/05/24 History release 24 hr (Myrbetriq) ustekinumab 90 mg/mL subcutaneous 90 mg subcut UD 07/08/22 02/05/24 History syringe (Stelara) amitriptyline 50 mg tablet 50 mg PO HS #30 tabs 05/25/23 02/05/24 Rx gabapentin 400 mg capsule 400 mg PO TID PRN Shingles Pain 02/05/24 02/05/24 History hyoscyamine sulfate 0.125 mg tablet 0.125 mg PO TID PRN IBS Flare 02/05/24 02/05/24 History tizanidine 2 mg capsule 2 - 4 mg PO Q8H PRN muscle 02/05/24 02/05/24 History spasticity Allergies Allergy/AdvReac Type Severity Reaction Status Date / Time Gadolinium-Containing Allergy Severe vomiting/diarrhea Verified 02/05/24 08:33 Contrast Medi +"body locks up" iron Allergy Severe Swelling, Verified 02/05/24 08:33 joint pain, diarrhea cyclobenzaprine Allergy Intermediate increase Verified 02/05/24 08:33 [From Flexeril] stiffness, joint pain, flightly NSAIDS (Non-Steroidal AdvReac Unknown Advised to Verified 02/05/24 08:33 Anti-Inflamma avoid (crohn's disease) Past Med/Surg History Problem List (Updated 02/05/24 @ 13:21 by Tereso Garcia PA-C) History of Crohn's disease (Acute) Diarrhea (Acute) Abdominal pain, right lower quadrant (Acute) Chronic middle ear effusion Nasal valve collapse Nasal septal deviation Acute Crohn's disease Chronic pain (Acute) Osteoporosis History of shingles Tachycardia (Acute) Acquired deviated nasal septum Adverse reaction to anesthetic agent nausea Hypertension Conductive hearing loss of left ear with unrestricted hearing of right ear GERD (gastroesophageal reflux disease) Medical marijuana use Crohn's disease involving terminal ileum (Acute) Endometriosis Gastroparesis Rheumatoid arthritis Immunosuppression due to drug therapy H/O Clostridium difficile infection 2014 Allergic rhinitis Medical History Degenerative disc disease Fibromyalgia Rheumatoid arthritis Kidney stones current>causes no problems Stress incontinence History of anemia History of asthma as a child>inhaler prn when sick with cold symptoms History of fracture of femur Close, Left femoral neck History of intussusception Tachycardia occasional episodes > follows with [facility]/[place] Hx MRSA infection 2013 (in lymph node which has since be resected) History of peptic ulcer Crohns disease Anxiety INCREASES BP "CURRENLTY UNDER CONTROL" Migraine Post-dural puncture headache Surgical History History of nasal septoplasty with turbinate reduction-02/27/21-Dr. Nguyen 12/27/23-revision with left nasal valve repair-Dr. Weinstein History of placement of ear tubes left-02/27/21-Dr. Nguyen left-12/27/23-Dr. Weinstein History of hip surgery right/left ORIF>s/p fx at different times History of dilatation and curettage S/P fecal transplant Nausea and vomiting after administration of anesthetic agent Lymph node symptom Left axillary lymph node removal (for MRSA) [place] teeth extracted H/O esophagogastroduodenoscopy H/O colonoscopy S/P ORIF (open reduction internal fixation) fracture left wrist S/P tonsillectomy S/P cholecystectomy Family History Grandmother (Maternal) Breast cancer Aunt Cervical cancer Maternal Ovarian cancer Maternal Grandfather (Paternal) Colorectal cancer Mother Mitral valve prolapse Myocardial infarction, Onset Age: 55 Other Allergies Family history of bleeding disorder Hearing loss Hypertension No family history of adverse response to anesthesia Social History Smoking Status: Never smoker Second Hand Exposure: Yes (in the past); Do You Dip or Chew Tobacco: No; Hx Alcohol Use: Yes Alcohol type: wine Alcohol Intake Frequency: Monthly or Less Preferred Language: Dominican Communication Ability: Effective Visual Impairment: No Limitations Hearing Ability: Normal System Support Analyst Required: No Beliefs That Will Affect Care: None marital status: Life Partner Current Living Situation: Spouse current occupational status: disabled Feels Safe at Home: Yes Childhood Exposure to Second-Hand Smoke: No Diet: regular caffeine: Yes during the past year weight has: remained stable Dental Care, Regularly: Yes Physical Activity Frequency: Daily Seatbelt Use: always Sunscreen Use: Yes Assistive Devices: Glasses Review of Systems A total of 10 systems reviewed and were otherwise negative Physical Exam Vital Signs Vital Signs - 24 hr 02/05/24 07:18 02/05/24 07:30 02/05/24 07:56 Temperature 36.6 C Temperature Source Temporal Artery Scan Pulse Rate 97 H 103 H Pulse Rate [Apical] Pulse Rate from SpO2 Sensor Pulse Rhythm Respiratory Rate 20 20 Respiratory Effort / Characteristics Non-Labored Spontaneous Non-Labored Respiratory Depth Normal Normal Respiratory Pattern Regular Blood Pressure 148/90 H Blood Pressure [Right Arm] Blood Pressure Mean 109 Blood Pressure Mean [Right Arm] Pulse Oximetry 99 Oxygen Delivery Method Room Air Sepsis Recent Fever Within 48 Hours No Sepsis New/Unexplained Change in Mental Status N/A Sepsis Action Taken by Nursing No Action Required 02/05/24 08:06 02/05/24 09:42 02/05/24 09:48 Temperature Temperature Source Pulse Rate 94 H Pulse Rate [Apical] 90 Pulse Rate from SpO2 Sensor Pulse Rhythm Regular Respiratory Rate 18 18 Respiratory Effort / Characteristics Non-Labored Respiratory Depth Normal Respiratory Pattern Blood Pressure Blood Pressure [Right Arm] 128/82 129/91 Blood Pressure Mean Blood Pressure Mean [Right Arm] 97 103 Pulse Oximetry 98 98 Oxygen Delivery Method Room Air Room Air Sepsis Recent Fever Within 48 Hours Sepsis New/Unexplained Change in Mental Status Sepsis Action Taken by Nursing 02/05/24 10:45 02/05/24 11:00 02/05/24 11:48 Temperature Temperature Source Pulse Rate 94 H Pulse Rate [Apical] 94 H 93 H Pulse Rate from SpO2 Sensor 96 H Pulse Rhythm Respiratory Rate 20 16 16 Respiratory Effort / Characteristics Non-Labored Respiratory Depth Normal Normal Respiratory Pattern Blood Pressure 129/91 Blood Pressure [Right Arm] 137/98 Blood Pressure Mean 103 Blood Pressure Mean [Right Arm] 111 Pulse Oximetry 95 96 97 Oxygen Delivery Method Room Air Room Air Room Air Sepsis Recent Fever Within 48 Hours Sepsis New/Unexplained Change in Mental Status Sepsis Action Taken by Nursing VITAL SIGNS - Vital signs and nursing notes were reviewed. Stable and afebrile. GENERAL -33-year-old female appearing her stated age who is in no acute distress. Communicates well with provider and answers questions appropriately. SKIN - Without rashes. HEAD - NC/AT. EYES - PERRL with EOMI bilaterally. Sclera anicteric. EARS - No deformities of external structures noted on gross examination bilaterally. External auditory canals without discharge or otorrhea. Tympanic membranes pearly virk without retraction or bulging. No fluid or purulent material visualized behind the TM. Handle of malleus, umbo, cone of light, pars tensa/flaccid all easily visualized. NOSE - Midline and without cyanosis. No epistaxis or purulent drainage noted. Septum midline without deviation or septal hematoma noted. MOUTH/OROPHARYNX - Without perioral cyanosis. Buccal mucosa pink and moist and without leukoplakia. Tongue midline with equal elevation of palate bilaterally. No tonsillar hypertrophy, erythema, or exudates noted. Good dentition noted. NECK - Neck with FROM. No nuchal rigidity. LUNGS - CTA CARDIAC - RRR ABDOMEN - Abdominal contour normal without pulsations or visible masses. BS normoactive all four quadrants. RLQ abd TTP noted. No palpable masses, hepatosplenomegaly, or ascites noted. EXTREMITIES - No clubbing or peripheral cyanosis. +5/5 strength noted in UE/LE bilaterally. NEUROLOGIC - Cranial nerves II through XII grossly intact. PSYCH -alert, oriented and pleasant on exam. Course Administered Medications Discontinued Medications Hydromorphone HCl (Hydromorphone Inj 0.5 Mg/0.5 Ml Syr) 0.5 mg IV NOW STA Stop: 02/05/24 07:52 Last Admin: 02/05/24 08:00 Dose: 0.5 mg Documented By: DOROTHEA Hydromorphone HCl (Hydromorphone Inj 0.5 Mg/0.5 Ml Syr) 0.5 mg IV NOW STA Stop: 02/05/24 09:42 Last Admin: 02/05/24 09:44 Dose: 0.5 mg Documented By: DOROTHEA Sodium Chloride (Nss) 1,000 mls @ 999 mls/hr IV .Q1H1M ONE Stop: 02/05/24 08:51 Last Infusion: 02/05/24 09:25 Dose: Infused Documented By: Admin: 02/05/24 08:00 Dose: 999 mls/hr Documented By: DOROTHEA Ioversol (Optiray 320 100ml) 94 ml IV ONCE ONE Stop: 02/05/24 10:30 Last Admin: 02/05/24 10:29 Dose: 94 ml Documented By: ANGELO Ondansetron HCl (Ondansetron Inj 2 Mg/Ml 2 Ml Vial) 4 mg IV NOW STA Stop: 02/05/24 07:52 Last Admin: 02/05/24 08:00 Dose: 4 mg Documented By: DOROTHEA Medical Decision Making Laboratory Data 02/05/24 07:38 02/05/24 09:12 Lab Results 02/05/24 02/05/24 Range/Units 07:38 09:12 WBC 10.53 (4.8-10.8) K/ul RBC 4.52 (4.20-5.40) M/uL Hgb 13.7 (12.0-16.0) g/dl Hct 41.4 (37.0-47.0) % MCV 91.6 (80.0-100.0) fL MCH 30.3 (25.0-34.0) pg MCHC 33.1 (32.0-36.0) g/dL RDW Std Deviation 43.5 (36.4-46.3) fL RDW Coeff of Rosio 12.9 (11.5-14.5) % Plt Count 349 (130-400) K/uL MPV 10.2 (9.4-12.4) fL Immature Gran % (Auto) 0.4 % Neut % (Auto) 86.4 % Lymph % (Auto) 6.7 % [place] % (Auto) 3.0 % Eos % (Auto) 2.6 % Baso % (Auto) 0.9 % Neut # (Auto) 9.10 H (1.40-6.50) K/uL Lymph # (Auto) 0.71 L (1.20-3.40) K/uL [place] # (Auto) 0.32 (0.11-0.59) K/uL Eos # (Auto) 0.27 (0.00-0.50) K/uL Baso # (Auto) 0.09 (0.00-0.20) K/uL Immature Gran # (Auto) 0.04 (0.01-0.20) K/uL Sodium 141 (136-145) mmol/L Potassium TNP 3.9 Chloride 112 H (98-107) mmol/L Carbon Dioxide 22 (21-32) mmol/L Anion Gap 7 (3-11) BUN 12 (6-23) mg/dl Creatinine 0.73 (0.6-1.2) mg/dl Est Cr Clr Drug Dosing 85.1 ml/min eGFR 109.92 BUN/Creatinine Ratio 16.4 (10-20) Glucose 126 H (70-99(Fasting)) mg/dl Calcium 9.1 (8.6-10.3) mg/dl Total Bilirubin 0.4 (0.2-1.0) mg/dl AST TNP 16 ALT 14 (7-52) U/L Alkaline Phosphatase 75 (34-104) U/L Total Protein 7.4 (6.0-8.3) gm/dl Albumin 4.3 (3.4-5.0) gm/dl Globulin 3.1 (2.5-4.0) gm/dl Albumin/Globulin Ratio 1.4 (0.9-2) Lipase 23 (11-82) U/L HCG, Qual Negative (Negative) Urine Color Yellow Urine Appearance Cloudy A (Clear) Urine pH 8.0 H (4.5-7.5) Ur Specific [place] 1.028 (1.000-1.030) Urine Protein Trace H (Negative) Urine Glucose (UA) Negative (Negative) Urine Ketones Negative (Negative) Urine Blood Negative (Negative) Urine Nitrite Negative (Negative) Urine Bilirubin Negative (Negative) Urine Urobilinogen Negative (Negative) Ur Leukocyte Esterase Negative (Negative) Urine WBC (Auto) 0-5 (0-5) /hpf Urine RBC (Auto) 0-2 (0-2) /hpf U Hyaline Cast (Auto) 0-2 (0-2) /lpf U Epithel Cells (Auto) 0-2 (0-2) /hpf Urine Bacteria (Auto) None Seen (None Seen) Stl C. cayetanensis PCR Not Detected (NotDetected) Stool Rotavirus A PCR Not Detected (NotDetected) Stl Adenov F 40/41 PCR Not Detected (NotDetected) Stool Astrovirus (PCR) Not Detected (NotDetected) Stool Campylobacter PCR Not Detected (NotDetected) Stl C. diff Tox B Gene Negative Cdiff Gene (Neg) Stool Cryptosporidium PCR Not Detected (NotDetected) Stl E.coli Shiga Tox PCR Not Detected (NotDetected) Stl Enterotoxigenic E PCR Not Detected (NotDetected) Stool EPEC (PCR) Not Detected (NotDetected) Stool EAEC (PCR) Not Detected (NotDetected) Stl E. histolytica PCR Not Detected (NotDetected) Stool Giardia Lamblia PCR Not Detected (NotDetected) Stool Salmonella PCR Not Detected (NotDetected) Stool Sapovirus (PCR) Not Detected (NotDetected) Stl P. shigelloides PCR Not Detected (NotDetected) Stl Shigella/EIEC PCR Not Detected (NotDetected) St Y.enterocolitica PCR Not Detected (NotDetected) Stool Vibrio (PCR) Not Detected (NotDetected) Stl Vibrio cholerae PCR Not Detected (NotDetected) Stl Norovirus GI/GII PCR Not Detected (NotDetected) Imaging Data Radiologist's Impression: Abdomen/Pelvis CT 02/05/24 07:51 CT abd pelvis oral and IV con CLINICAL HISTORY: RLQ abd pain, hx Crohns, diarrhea TECHNIQUE: Helical axial images of the abdomen and pelvis were obtained and displayed. Automated dose lowering techniques and/or adjustment according to patient size were utilized for this exam. This exam was performed with intravenous contrast. CT DOSE: 551.63 mGy.cm COMPARISON: None available at the time of this dictation. FINDINGS: Lower chest: 6 mm pleural-based nodule is seen in the right lower lobe (series 3 image 1. Liver: Unremarkable. No focal lesions are seen. Gallbladder and biliary tree: Patient is status post cholecystectomy. No intra- or extrahepatic biliary ductal dilation. Pancreas: Unremarkable, no focal lesions. Spleen: Unremarkable. Adrenals: Unremarkable. Kidneys and ureters: Unremarkable. Bladder: Unremarkable. Reproductive organs: Unremarkable. Bowel: Unremarkable. Lymph nodes Retroperitoneal: Subcentimeter lymph nodes are noted. Pelvic: Unremarkable. Mesenteric: Unremarkable. Peritoneum: Normal. Vessels: Unremarkable. Abdominal wall: Unremarkable. Bones: Bilateral hip arthroplasties are seen. IMPRESSION: No acute abnormalities to explain right lower quadrant pain, in particular no wall thickening to suggest active Crohn's disease. ACT 112: Negative or not required by law. Electronically signed by: Rahul Posada M.D. 02/05/2024 11:23 AM MDM Narrative Patient was seen and evaluated as above in room B11. Review was performed of triage nursing notes and vital signs. I did review pertinent previous visits and patient history. After obtaining a thorough history and physical examination the above work up was performed. Patient presents to us today for evaluation of right lower quadrant abdominal pain with diarrhea x 2 weeks with underlying history of Crohn's disease. Patient believes this is similar to previous Crohn's flares. IV access was established. Labs were drawn. There is no leukocytosis or concerning anemia. No evidence of kidney or liver failure. Hyperglycemia 126. hCG negative. Lipase normal. Urinalysis does not suggest infection. Stool study and C. difficile testing negative. CT scan of the abdomen/pelvis IV and oral contrast was felt to be warranted with results as above. I also reviewed the imaging. This was read as essentially negative. Patient did have abdominal pain here and was medicated with IV analgesia. She also received antiemetics and IV fluids. I did discuss presentation with the on-call GI specialist, Dr. Teixeira. We discussed management to include steroids such as oral prednisone in the outpatient setting pending close follow-up with her GI specialist but also discussed if admission was needed, could initiate similar inpatient with admission to the medicine service. I discussed options in great detail with the patient. At this time through shared medical decision making we will proceed with inpatient management. Case discussed with the hospitalist service. Please refer to further documentation regarding her stay. In the evaluation and treatment of this patient the following differential diagnoses were entertained: Appendicitis, UTI, pyelonephritis, PID, ovarian torsion, C. difficile, gastroenteritis, Crohn's flare, among others. Impression & Plan Abdominal pain, right lower quadrant, Diarrhea, History of Crohn's disease Discharge Plan Visit Data Chief Complaint: GI Assessment Stated Complaint: ?CROHN'S FLARE UP,NAUSEA,DIARRHEA ED Provider: Guillermo Don ED Midlevel Provider: Tereso Garcia Discharge Problem: Abdominal pain, right lower quadrant, Diarrhea, History of Crohn's disease Patient Disposition: Admitted As Inpatient Condition: Good Forms Stand Alone Forms: My [facility], Important Visit Information Prescriptions Prescriptions: No Action amitriptyline 50 mg tablet 50 mg PO HS Qty: 30 5RF Myrbetriq 50 mg tablet extended release 24 hr 50 mg PO QAM fluticasone propionate 50 mcg/actuation spray,suspension 2 spray INTRANASAL DAILY PRN (Reason: Allergy Symptoms) medroxyprogesterone 150 mg/mL syringe 150 mg IM Q3M Stelara 90 mg/mL syringe 90 mg SUBCUT UD Rx Instructions: Every 4 weeks multivit with min-folic acid [Women's Multivitamin Gummies] 200 mcg Tablet,Chewable 400 mcg PO DAILY leflunomide [Arava] 20 mg tablet 20 mg PO HS pantoprazole 40 mg Tablet,Delayed Release (Dr/Ec) 40 mg PO QAM folic acid 1 mg tablet 1 mg PO QAM Caltrate 600 plus D 600 mg (1,500 mg)-800 unit Tablet,Chewable 1 tab PO BID albuterol sulfate 90 mcg/actuation Hfa Aerosol Inhaler 2 puff INHALATION Q6H PRN (Reason: Wheezing) sumatriptan succinate 100 mg tablet 100 mg PO UD PRN (Reason: Migraine Headache) metoclopramide HCl 5 mg tablet 10 mg PO QDD cetirizine [Zyrtec] 10 mg Tablet 10 mg PO QAM Medical Marijuana 1 dose inhalation UD PRN (Reason: "CROHN'S DISEASE/NAUSEA") Patient Comments: USES ORAL/VAPING FORM carvedilol 6.25 mg Tablet 6.25 mg PO BID Rx Instructions: must administer with a meal/food hydroxyzine HCl 25 mg Tablet 25 mg PO DAILY PRN (Reason: Anxiety) ondansetron 8 mg tablet,disintegrating 8 mg PO BIDWMEAL PRN (Reason: Nausea) buspirone 10 mg tablet 5 mg PO DAILY PRN (Reason: Anxiety) scopolamine base [Transderm-Scop] 1 mg over 3 days patch 3 day 1 mg transdermal 2XWK PRN (Reason: Pain) cholecalciferol (vitamin D3) [Vitamin D3] 125 mcg (5,000 unit) Tablet 125 mcg PO DAILY gabapentin 400 mg capsule 400 mg PO TID PRN (Reason: Shingles Pain) hyoscyamine sulfate 0.125 mg tablet 0.125 mg PO TID PRN (Reason: IBS Flare) tizanidine 2 mg capsule 2 - 4 mg PO Q8H PRN (Reason: muscle spasticity) Rx Instructions: 1-2 orally every 8 hours PRN; Referrals Referrals: Jose Guadalupe Munson DO [Primary Care Provider] -
[2024-02-05] MEDS: ONDANSETRON INJ 2 MG/ML 2 ML VIAL IV STA (08:00)
[2024-02-05] MEDS: HYDROmorphone INJ 0.5 MG/0.5 ML SYR IV STA ×2 (08:00→09:44)
[2024-02-05] MEDS: SODIUM CHLORIDE 0.9% 1,000 ML IV ONE (08:00)
[2024-02-05 08:14] LABS: Basophils # (auto) 0.09 K/uL (0.00-0.20); Basophils % (auto) 0.9 %; Eosinophils # (auto) 0.27 K/uL (0.00-0.50); Eosinophils % (auto) 2.6 %; Hematocrit (blood only) 41.4 % (37.0-47.0); Hemoglobin 13.7 g/dl (12.0-16.0); Immature Granulocytes # (auto) 0.04 K/uL (0.01-0.20); Immature Granulocytes % (auto) 0.4 %; Lymphocytes # (auto) 0.71 K/uL (1.20-3.40); Lymphocytes % (auto) 6.7 %; Mean Corpuscular Hemoglobin 30.3 pg (25.0-34.0); Mean Corpuscular Hgb Conc 33.1 g/dL (32.0-36.0); Mean Corpuscular Volume 91.6 fL (80.0-100.0); Mean Platelet Volume 10.2 fL (9.4-12.4); Monocytes # (auto) 0.32 K/uL (0.11-0.59); Neutrophils % (auto) 86.4 %; Platelet Count 349 K/uL (130-400); RDW Coefficient of Variation 12.9 % (11.5-14.5); RDW Standard Deviation 43.5 fL (36.4-46.3); Red Blood Count 4.52 M/uL (4.20-5.40); White Blood Count 10.53 K/ul (4.8-10.8)
[2024-02-05 08:38] LABS: Alanine Aminotransferase 14 U/L (7-52); Albumin Globulin Ratio 1.4 (0.9-2); Albumin Level 4.3 gm/dl (3.4-5.0); Alkaline Phosphatase 75 U/L (34-104); Anion Gap 7 (3-11); BUN Creatinine Ratio 16.4 (10-20); Bilirubin,Total 0.4 mg/dl (0.2-1.0); Blood Urea Nitrogen 12 mg/dl (6-23); Calcium 9.1 mg/dl (8.6-10.3); Carbon Dioxide 22 mmol/L (21-32); Chloride 112 mmol/L (98-107); Creatinine Clr Calc Pharmacy 85.1 ml/min; Globulin 3.1 gm/dl (2.5-4.0); Glucose 126 mg/dl (70-99(Fasting)); Lipase 23 U/L (11-82); Sodium 141 mmol/L (136-145); Total Protein 7.4 gm/dl (6.0-8.3)
[2024-02-05 09:07] LABS: Pregnancy Test, Serum Negative (Negative)
[2024-02-05 09:13] LABS: Appearance Urine Cloudy (Clear); Bacteria Urine Automated None Seen (None Seen); Bilirubin Urine Negative (Negative); Blood Urine Negative (Negative); Cast Urine Automated 0-2 /lpf (0-2); Color Urine Yellow; Epithelial Cell Urine Auto 0-2 /hpf (0-2); Glucose Urine UA Negative (Negative); Ketones Urine Negative (Negative); Leukocyte Esterase Urine Negative (Negative); Nitrite Urine Negative (Negative); Protein Urine Trace (Negative); RBC Urine Automated 0-2 /hpf (0-2); Specific Gravity Urine 1.028 (1.000-1.030); Urobilinogen Urine Negative (Negative); WBC Urine Automated 0-5 /hpf (0-5)
[2024-02-05 09:35] LABS: Adenovirus F 40/41 PCR Not Detected (NotDetected); Astrovirus PCR Not Detected (NotDetected); Campylobacter PCR Not Detected (NotDetected); Cryptosporidium PCR Not Detected (NotDetected); Cyclospora cayetanensis PCR Not Detected (NotDetected); Entamoeba histolytica PCR Not Detected (NotDetected); Enteroaggregative E.coli(EAEC) Not Detected (NotDetected); Enteropathogenic E.coli (EPEC) Not Detected (NotDetected); Enterotoxigenic E.coli (ETEC) Not Detected (NotDetected); Giardia lamblia PCR Not Detected (NotDetected); Norovirus GI/GII PCR Not Detected (NotDetected); Plesiomonas shigelloides PCR Not Detected (NotDetected); Rotavirus A PCR Not Detected (NotDetected); Salmonella PCR Not Detected (NotDetected); Sapovirus PCR Not Detected (NotDetected); Shiga-like Toxin E.coli (STEC) Not Detected (NotDetected); Shigella/Enteroinvasive E.coli Not Detected (NotDetected); Vibrio cholerae PCR Not Detected (NotDetected); Vibrio species PCR Not Detected (NotDetected); Yersinia enterocolitica PCR Not Detected (NotDetected)
[2024-02-05 09:49] LABS: Potassium 3.9 mmol/L (3.5-5.1)
[2024-02-05] MEDS: OPTIRAY 320 100ml IV ONE (10:29)
--- NOTE | 2024-02-05 11:26 | CT Scan Report ---
CT abd pelvis oral and IV con CLINICAL HISTORY: RLQ abd pain, hx Crohns, diarrhea TECHNIQUE: Helical axial images of the abdomen and pelvis were obtained and displayed. Automated dose lowering techniques and/or adjustment according to patient size were utilized for this exam. This e xam was performed with intravenous contrast. CT DOSE: 551.63 mGy.cm COMPARISON: None available at the time of this dictation. FINDINGS: Lower chest: 6 mm pleural-based nodule is seen in the right lower lobe (series 3 image 1. Liver: Unremarkable. No focal lesions are seen. Gallbladder and biliary tree: Patient is status post cholecystectomy. No intra- or extrahepatic bilia ry ductal dilation. Pancreas: Unremarkable, no focal lesions. Spleen: Unremarkable. Adrenals: Unremarkable. Kidneys and ureters: Unremarkable. Bladder: Unremarkable. Reproductive organs: Unremarkable. Bowel: Unremarkable. Lymph nodes Retroperitoneal: Subcentimeter lymph nodes are noted. Pelvic: Unremarkable. Mesenteric: Unremarkable. Peritoneum: Normal. Vessels: Unremarkable. Abdominal wall: Unremarkable. Bones: Bilateral hip arthroplasties are seen. IMPRESSION: No acute abnormalities to explain right lower quadrant pain, in particular no wall thickening to sugg est active Crohn's disease. ACT 112: Negative or not required by law. Electronically signed by: Rahul Posada M.D. 02/05/2024 11:23 AM
--- NOTE | 2024-02-05 12:31 | History & Physical Report ---
Date of Service February 05, 2024 Assessment & Plan (1) Acute Crohn's disease: (2) Chronic pain: (3) GERD (gastroesophageal reflux disease): (4) Hypertension: Plan This patient is a 33-year-old female with a history of Crohn's colitis, RA, chronic back pain, GERD, gastroparesis, HTN, kidney stones, osteoporosis, migraine, anxiety disorder, and endometriosis who presents to the ER with severe diarrhea x 2 weeks with right lower quadrant abdominal pain that started 1 day ago. There has been some blood mixed in the stool but mostly watery however she reports blood in the stool is normal for her chronically. She typically has 3-4 loose bowel movements a day chronically but lately has had 7-10 bowel movements per day. The symptoms progressed and she believes she is having a flare of her Crohn's disease. She is currently on Stelara with last infusion 3 weeks ago and follows with [facility] as an outpatient. She denies fevers but did have night sweats for the last 2 nights. Some mild nausea but has been able to eat and trying to keep up with fluid intake. In the ER, she had a CT abdomen/pelvis which did not show any acute issues. Her laboratory workup was fairly unremarkable, but she required multiple doses of IV Dilaudid and Zofran and was given IV fluids to help with her symptoms. GI was contacted by the ED provider who recommended starting steroids and discharging to home if possible but the patient felt she needed to be admitted for pain control and IV steroids for her typical Crohn's flare. #Crohn's colitis with acute flare With history of Crohn's disease since age 14. Has failed Humira and Remicade in the past due to antibodies. Presents with severe diarrhea, worsening RLQ pain. CT A/P without acute findings but may be early in the course of flare. Last dose of Stelara 3 weeks prior to admission. Stool PCR and C. difficile are nega tive. Hemoglobin normal but may be hemoconcentrated. No leukocytosis, vital signs normal. -Admit to medical/surgical unit for pain control and to start IV steroids with Solu-Medrol 20 Mg IV 3 times daily -Consult GI -Continue IV Dilaudid and Tylenol as needed for pain, hyoscyamine for cramping -Continue home amitriptyline. Typically she uses medical marijuana daily for nausea but because it is a vape pen, it is not allowed in the hospital -No further IV fluids needed at this time and can remain on a low fiber diet -Follow CBC, BMP, magnesium and replace electrolytes as needed #GERD/gastroparesis No acute issues -Continue PPI, Reglan #Rheumatoid arthritis/chronic pain No acute flare of rheumatoid arthritis, follows with Dr. Sequeira of [facility] rheumatology. Also has chronic back pain and receives OMT frequently with Dr. Henry Munson -Continue tizanidine as needed which she rarely takes -Continue Arava, folic acid #HTN/sinus tachycardia No acute issues -Continue home carvedilol #Anxiety disorder No acute issues, stable -Continue home BuSpar as needed which she rarely uses, hydroxyzine as needed which she rarely uses, and amitriptyline #Osteoporosis No acute issues -Continue home calcium and vitamin D #Allergies/recent nasal/sinus surgery Healing well from this -Continue home Zyrtec, Flonase DVT prophylaxis-SCDs only given blood in stool Disposition-admit to medical/surgical unit. Discussed her care with her father at the bedside on the day of admission. She designates him to be her healthcare power of regulatory attorney if needed. She does have a life partner of 18 years who is not legally her POA. History of Present Illness Chief Complaint: Diarrhea, abdominal pain Primary Care Provider: Jose Guadalupe Munson, This patient is a 33-year-old female with a history of Crohn's colitis, RA, chronic back pain, GERD, gastroparesis, HTN, kidney stones, osteoporosis, migraine, anxiety disorder, and endometriosis who presents to the ER with severe diarrhea x 2 weeks with right lower quadrant abdominal pain that started 1 day ago. There has been some blood mixed in the stool but mostly watery however she reports blood in the stool is normal for her chronically. She typically has 3-4 loose bowel movements a day chronically but lately has had 7-10 bowel movements per day. The symptoms progressed and she believes she is having a flare of her Crohn's disease. She is currently on Stelara with last infusion 3 weeks ago and follows with [facility] as an outpatient. She denies fevers but did have night sweats for the last 2 nights. Some mild nausea but has been able to eat and trying to keep up with fluid intake. In the ER, she had a CT abdomen/pelvis which did not show any acute issues. Her laboratory workup was fairly unremarkable, but she required multiple doses of IV Dilaudid and Zofran and was given IV fluids to help with her symptoms. GI was contacted by the ED provider who recommended starting steroids and discharging to home if possible but the patient felt she needed to be admitted for pain control and IV steroids for her typical Crohn's flare. Allergies Allergy/AdvReac Type Severity Reaction Status Date / Time Gadolinium-Containing Allergy Severe vomiting/diarrhea Verified 02/05/24 08:33 Contrast Medi +"body locks up" iron Allergy Severe Swelling, Verified 02/05/24 08:33 joint pain, diarrhea cyclobenzaprine Allergy Intermediate increase Verified 02/05/24 08:33 [From Flexeril] stiffness, joint pain, flightly NSAIDS (Non-Steroidal AdvReac Unknown Advised to Verified 02/05/24 08:33 Anti-Inflamma avoid (crohn's disease) Home Medications Medication Instructions Recorded Confirmed Type folic acid 1 mg tablet 1 mg PO QAM 03/30/18 02/05/24 History pantoprazole 40 mg tablet,delayed 40 mg PO QAM 03/30/18 02/05/24 History release fluticasone propionate 50 2 spray intranasal DAILY PRN 02/21/19 02/05/24 History mcg/actuation nasal Allergy Symptoms spray,suspension medroxyprogesterone 150 mg/mL 150 mg IM Q3M 02/21/19 02/05/24 History intramuscular syringe multivitamin with minerals-folic 400 mcg PO DAILY 03/21/19 02/05/24 History acid 200 mcg chewable tablet (Women's Multivitamin Gummies) leflunomide 20 mg tablet (Arava) 20 mg PO HS 10/04/19 02/05/24 History albuterol sulfate 90 mcg/actuation 2 puff inhalation Q6H PRN Wheezing 03/01/20 02/05/24 History aerosol inhaler calcium 600 mg (as carbonate)-vit 1 tab PO BID 03/01/20 02/05/24 History D3 20 mcg (800 unit) chewable tablet (Caltrate plus D) metoclopramide HCl 5 mg tablet 10 mg PO QDD 10/22/20 02/05/24 History sumatriptan succinate 100 mg tablet 100 mg PO UD PRN Migraine Headache 10/22/20 02/05/24 History Medical Marijuana 1 dose inhalation UD PRN "CROHN'S 02/20/21 02/05/24 History DISEASE/NAUSEA" cetirizine 10 mg tablet (Zyrtec) 10 mg PO QAM 02/20/21 02/05/24 History buspirone 10 mg tablet 5 mg PO DAILY PRN Anxiety 07/15/21 02/05/24 History ondansetron 8 mg disintegrating 8 mg PO BIDWMEAL PRN Nausea 07/15/21 02/05/24 History tablet scopolamine base 1 mg over 3 days 1 mg transdermal 2XWK PRN Pain 07/15/21 02/05/24 History transdermal patch (Transderm-Scop) carvedilol 6.25 mg tablet 6.25 mg PO BID 09/25/21 02/05/24 History hydroxyzine HCl 25 mg tablet 25 mg PO DAILY PRN Anxiety 09/25/21 02/05/24 History cholecalciferol (vitamin D3) 125 125 mcg PO DAILY 01/18/22 02/05/24 History mcg (5,000 unit) tablet (Vitamin D3) mirabegron 50 mg tablet,extended 50 mg PO QAM 06/22/22 02/05/24 History release 24 hr (Myrbetriq) ustekinumab 90 mg/mL subcutaneous 90 mg subcut UD 07/08/22 02/05/24 History syringe (Stelara) amitriptyline 50 mg tablet 50 mg PO HS #30 tabs 05/25/23 02/05/24 Rx gabapentin 400 mg capsule 400 mg PO TID PRN Shingles Pain 02/05/24 02/05/24 History hyoscyamine sulfate 0.125 mg tablet 0.125 mg PO TID PRN IBS Flare 02/05/24 02/05/24 History tizanidine 2 mg capsule 2 - 4 mg PO Q8H PRN muscle 02/05/24 02/05/24 History spasticity Past Med/Surg History Problem List (Updated 02/05/24 @ 13:21 by Tereso Garcia PA-C) History of Crohn's disease (Acute) Diarrhea (Acute) Abdominal pain, right lower quadrant (Acute) Chronic middle ear effusion Nasal valve collapse Nasal septal deviation Acute Crohn's disease Chronic pain (Acute) Osteoporosis History of shingles Tachycardia (Acute) Acquired deviated nasal septum Adverse reaction to anesthetic agent nausea Hypertension Conductive hearing loss of left ear with unrestricted hearing of right ear GERD (gastroesophageal reflux disease) Medical marijuana use Crohn's disease involving terminal ileum (Acute) Endometriosis Gastroparesis Rheumatoid arthritis Immunosuppression due to drug therapy H/O Clostridium difficile infection 2014 Allergic rhinitis Medical History Degenerative disc disease Fibromyalgia Rheumatoid arthritis Kidney stones current>causes no problems Stress incontinence History of anemia History of asthma as a child>inhaler prn when sick with cold symptoms History of fracture of femur Close, Left femoral neck History of intussusception Tachycardia occasional episodes > follows with [facility] cardiology/[place] Hx MRSA infection 2013 (in lymph node which has since be resected) History of peptic ulcer Crohns disease Anxiety INCREASES BP "CURRENLTY UNDER CONTROL" Migraine Post-dural puncture headache Surgical History History of nasal septoplasty with turbinate reduction-02/27/21-Dr. Nguyen 12/27/23-revision with left nasal valve repair-Dr. Weinstein History of placement of ear tubes left-02/27/21-Dr. Nguyen left-12/27/23-Dr. Weinstein History of hip surgery right/left ORIF>s/p fx at different times History of dilatation and curettage S/P fecal transplant Nausea and vomiting after administration of anesthetic agent Lymph node symptom Left axillary lymph node removal (for MRSA) [place] teeth extracted H/O esophagogastroduodenoscopy H/O colonoscopy S/P ORIF (open reduction internal fixation) fracture left wrist S/P tonsillectomy S/P cholecystectomy Family History Grandmother (Maternal) Breast cancer Aunt Cervical cancer Maternal Ovarian cancer Maternal Grandfather (Paternal) Colorectal cancer Mother Mitral valve prolapse Myocardial infarction, Onset Age: 55 Other Allergies Family history of bleeding disorder Hearing loss Hypertension No family history of adverse response to anesthesia Social History Smoking Status: Never smoker Second Hand Exposure: Yes (in the past); Do You Dip or Chew Tobacco: No; Hx Alcohol Use: Yes Alcohol type: wine Alcohol Intake Frequency: Monthly or Less Preferred Language: Danish Communication Ability: Effective Visual Impairment: No Limitations Hearing Ability: Normal Bone Drier Required: No Beliefs That Will Affect Care: None marital status: Life Partner Current Living Situation: Spouse current occupational status: disabled Feels Safe at Home: Yes Childhood Exposure to Second-Hand Smoke: No Diet: regular caffeine: Yes during the past year weight has: remained stable Dental Care, Regularly: Yes Physical Activity Frequency: Daily Seatbelt Use: always Sunscreen Use: Yes Assistive Devices: Glasses Review of Systems Review of Systems: All systems reviewed & are unremarkable except as noted in HPI & below Physical Exam Constitutional: WD/WN, vitals as above Eyes: PERRL, conjunctivae normal, anicteric sclerae ENMT: external ear and nose normal, oropharynx normal Neck: trachea midline, no thyromegaly Respiratory: normal respiratory effort, lungs clear to auscultation Cardiovascular: RRR, no murmur, no edema Chest (Breasts): Chest: normal inspection of chest Gastrointestinal (Abdomen): Inspection/Auscultation: abdomen normal to inspection and + hypoactive bowel sounds; abdomen not distended Percussion/Palpation: + abdomen tender (Mild in RLQ, no guarding or rebound) and abdomen soft; no guarding Musculoskeletal: Extremities: extremities normal to inspection; no cyanosis and no clubbing Skin: no rashes, warm and dry Neurologic: moves all extremities and awake; no focal motor deficits Psychiatric: A+Ox3, euthymic affect Lymphatic: no lymphedema Results & Data Results & Data Vital Signs (Past 12 Hours) Vital Signs Temp Pulse Pulse Resp BP BP Pulse Ox 02/05/24 11:48 93 H 16 137/98 97 02/05/24 11:00 94 H 16 96 02/05/24 10:45 94 H 20 129/91 95 02/05/24 09:48 129/91 02/05/24 09:42 94 H 18 98 02/05/24 08:06 90 18 128/82 98 02/05/24 07:56 103 H 02/05/24 07:30 20 02/05/24 07:18 36.6 C 97 H 20 148/90 H 99 O2 Del Method 02/05/24 11:48 Room Air 02/05/24 11:00 Room Air 12/28/24 10:45 Room Air 02/05/24 09:48 02/05/24 09:42 Room Air 02/05/24 08:06 Room Air 02/05/24 07:56 02/05/24 07:30 02/05/24 07:18 Room Air Laboratory Results CBC, BMP, LFTs, UA, lipase, urine hCG, stool BioFire PCR and C. difficile stool all reviewed Diagnostic Findings CT A/P reviewed ECG Additional Comments: None performed Code Status & VTE Plan Code Status Full code VTE Prophylaxis Plan VTE Prophylaxis will be ordered: Yes PG Care Time/CCT Total # of Minutes Spent Total Time Spent with Patient: Total time spent is greater than 50% in coordination of care (as documented) at patient's floor/unit and/or counseling patient: Coding Level of Care Code 24197 INT INP/OBS CARE 375MIN Diagnoses Acute Crohn's disease K50.90 Chronic pain syndrome G89.4 Chronic pain type: chronic pain syndrome GERD (gastroesophageal reflux disease) K21.9 Hypertension I10 (2) Chronic pain Chronic pain type: chronic pain syndrome Qualified Code(s): G89.4 - Chronic pain syndrome
[2024-02-05 13:32] LABS: C Reactive Protein < 0.50 mg/dl (0-0.5)
[2024-02-05 13:48] LABS: Thyroid Stimulating Hormone 0.897 uIu/ml (0.300-4.500)
[2024-02-05] MEDS ORDERED: ACETAMINOPHEN 325 MG TAB PO PRN (14:20)
[2024-02-05] MEDS ORDERED: SUMAtriptan succinate 100 MG TAB PO PRN (14:20)
[2024-02-05] MEDS ORDERED: tiZANidine HCL 4 MG TABLET PO PRN (14:20)
[2024-02-05] MEDS ORDERED: hydrOXYzine HCl 25 MG TAB PO PRN (14:20)
[2024-02-05] MEDS ORDERED: HYOSCYAMINE SULFATE 0.125 MG TAB PO PRN (14:20)
[2024-02-05] MEDS ORDERED: ALBUTEROL HFA 8 GM INHALER INH PRN (14:20)
[2024-02-05] MEDS ORDERED: busPIRone 5 MG TAB PO PRN (14:20)
[2024-02-05] MEDS ORDERED: FLUTICASONE PROPIONATE NA SPR 16 GM BTL NAE PRN (14:20)
[2024-02-05] MEDS ORDERED: methylPREDNISolone 125 MG/2 ML VIAL IV SCH (14:20)
[2024-02-05] MEDS: HYDROmorphone INJ 0.5 MG/0.5 ML SYR IV PRN ×2 (14:32→17:41)
[2024-02-05] MEDS ORDERED: PNEUMOCOCCAL VACCINE (PCV20) 20-VAL CONJ-DIP CRM/PF 0.5 ML SYR IM ONE (14:54)
[2024-02-05] MEDS: METOCLOPRAMIDE HCL 10 MG TABLET PO SCH (15:50)
[2024-02-05] MEDS: methylPREDNISolone 20 MG in SYRINGE 0 ML IV SCH (15:50)
[2024-02-05] MEDS: carvediloL 6.25 MG TAB PO SCH (16:41)
[2024-02-05] MEDS: ONDANSETRON INJ 2 MG/ML 2 ML VIAL IV PRN (18:37)
[2024-02-05] MEDS: CALCIUM 600MG + VIT D 400 IU TAB PO SCH (21:14)
[2024-02-05] MEDS: LEFLUNOMIDE 10 MG TAB PO SCH (21:14)
[2024-02-05] MEDS: AMITRIPTYLINE HCL 50 MG TAB PO SCH (21:15)
[2024-02-06 06:19] LABS: Basophils # (auto) 0.02 K/uL (0.00-0.20); Basophils % (auto) 0.1 %; Hematocrit (blood only) 38.5 % (37.0-47.0); Hemoglobin 12.4 g/dl (12.0-16.0); Immature Granulocytes # (auto) 0.06 K/uL (0.01-0.20); Immature Granulocytes % (auto) 0.4 %; Lymphocytes # (auto) 1.21 K/uL (1.20-3.40); Lymphocytes % (auto) 8.5 %; Mean Corpuscular Hemoglobin 29.5 pg (25.0-34.0); Mean Corpuscular Hgb Conc 32.2 g/dL (32.0-36.0); Mean Corpuscular Volume 91.4 fL (80.0-100.0); Monocytes # (auto) 0.88 K/uL (0.11-0.59); Monocytes % (auto) 6.2 %; Neutrophils # (auto) 12.11 K/uL (1.40-6.50); Neutrophils % (auto) 84.8 %; Platelet Count 353 K/uL (130-400); RDW Coefficient of Variation 12.7 % (11.5-14.5); RDW Standard Deviation 41.9 fL (36.4-46.3); Red Blood Count 4.21 M/uL (4.20-5.40); White Blood Count 14.28 K/ul (4.8-10.8)
[2024-02-06 06:37] LABS: BUN Creatinine Ratio 12.1 (10-20); Calcium 9.1 mg/dl (8.6-10.3); Creatinine Clr Calc Pharmacy 94.1 ml/min; Potassium 4.2 mmol/L (3.5-5.1)
--- NOTE | 2024-02-06 07:35 | Hospitalist Progress Note ---
Date of Service February 06, 2024 Assessment & Plan (1) Acute Crohn's disease: (2) Chronic pain: (3) GERD (gastroesophageal reflux disease): (4) Hypertension: Plan This patient is a 33-year-old female with a history of Crohn's colitis, RA, chronic back pain, GERD, gastroparesis, HTN, kidney stones, osteoporosis, migraine, anxiety disorder, and endometriosis who presents to the ER with severe diarrhea x 2 weeks with right lower quadrant abdominal pain that started 1 day ago. There has been some blood mixed in the stool but mostly watery however she reports blood in the stool is normal for her chronically. She typically has 3-4 loose bowel movements a day chronically but lately has had 7-10 bowel movements per day. The symptoms progressed and she believes she is having a flare of her Crohn's disease. She is currently on Stelara with last infusion 3 weeks ago and follows with [facility] as an outpatient. She denies fevers but did have night sweats for the last 2 nights. Some mild nausea but has been able to eat and trying to keep up with fluid intake. In the ER, she had a CT abdomen/pelvis which did not show any acute issues. Her laboratory workup was fairly unremarkable, but she required multiple doses of IV Dilaudid and Zofran and was given IV fluids to help with her symptoms. GI was contacted by the ED provider who recommended starting steroids and discharging to home if possible but the patient felt she needed to be admitted for pain control and IV steroids for her typical Crohn's flare. #Crohn's colitis with acute flare With history of Crohn's disease since age 14. Has failed Humira and Remicade in the past due to antibodies. Presents with severe diarrhea, worsening RLQ pain. CT A/P without acute findings but may be early in the course of flare. Last dose of Stelara 3 weeks prior to admission. Stool PCR and C. difficile are negative. Hemoglobin normal but may be hemoconcentrated. No leukocytosis, vital signs normal. ESR mild elevation 29, CRP <0.5. TSH wnl Solumedrol increased to 60mg TID, improvement in symptoms. WBC elevation likely 2nd to steroids. Afebrile. GI consult appreciated Per patient, wanting to switch to [facility] and message sent to to arrange at ar. Continue pain control: amitriptyline, not able to vape MMJ in hospital. Dilaudid IV available, added oxycodone 5mg as needed if not requiring IV level of control Discussed with patient as not feeling ready for dc just yet however if improved in AM can plan for dc on budesonide tape as unable to take prednisone with GI follow up at [facility]. #GERD/gastroparesis No acute issues Continue PPI, Reglan #Rheumatoid arthritis/chronic pain No acute flare of rheumatoid arthritis, follows with Dr. Sequeira of [facility] rheumatology. Also has chronic back pain and receives OMT frequently with Dr. Henry Munson Continue tizanidine as needed which she rarely takes Continue Arava, folic acid #HTN/sinus tachycardia HR appear stable/no issues Continue home carvedilol #Anxiety disorder No acute issues, stable Continue home BuSpar as needed which she rarely uses, hydroxyzine as needed which she rarely uses, and amitriptyline #Osteoporosis No acute issues Continue home calcium and vitamin D #Allergies/recent nasal/sinus surgery Healing well from this Continue home Zyrtec, Flonase DVT prophylaxis-SCDs only given blood in stool. Disposition- continued inpatient stay on IV steroids as outlined and plan for dc in AM 02/06 if continued improvement. Father healthcare power of disability attorney if needed (in room during encounter). Admitting provider also reporting patient w/ life partner 18yo who is not legally her POA Admission and Anticipated Discharge Date Admission Date: February 05, 2024 Supervising Physician Co-Signing Physician Notes The patient was not seen by me. The chart was reviewed. Case discussed with ADITHYA Sandoval. Agree with assessment and plan Subjective Evaluated this morning, reports feeling improved from admission. Less pain, bowels seem to be slowing. No increased bleeding/clots, no fever/chills. Discussed pain control, reports adequate w/ the dilaudid but does usually get send with oral agent like oxycodone and will add to see if pain less this afternoon would encourage oral for longer lasting control. Of note, patient would like to work on switching to [facility], will message CM to assist. Possible dc in AM pending course as discussed. Questions/concerns addressed at this time. Dad updated (Marquis) at bedside. Physical Exam 2 Physical Exam: General: 33yo female sitting up in bed, NAD, father in room at end of encounter HEENT: head atraumatic, normocephalic, mmm, trachea midline Resp: even/unlabored, no distress, on room air CV: RRR, no significant m/r/g GI: +BS, soft, RUQ tenderness improving, no guarding/rigidity : no gunderson MSK/Neuro/Psych: AOx3, cooperative with exam, answering questions appropriately, not confused Results & Data Results & Data Vital Signs (Past 12 Hours) Vital Signs Temp Pulse Resp BP Pulse Ox O2 Del Method 02/06/24 07:25 36.9 C 88 16 128/84 97 Room Air 02/05/24 19:38 36.6 C 77 18 127/71 97 Room Air Laboratory Results 02/06/24 05:31 02/06/24 05:31 ESR 29 CRP <0.5 TSH 0.897 Diagnostic Findings Abdomen/Pelvis CT 02/05/24 07:51 CT abd pelvis oral and IV con CLINICAL HISTORY: RLQ abd pain, hx Crohns, diarrhea TECHNIQUE: Helical axial images of the abdomen and pelvis were obtained and displayed. Automated dose lowering techniques and/or adjustment according to patient size were utilized for this exam. This exam was performed with intravenous contrast. CT DOSE: 551.63 mGy.cm COMPARISON: None available at the time of this dictation. FINDINGS: Lower chest: 6 mm pleural-based nodule is seen in the right lower lobe (series 3 image 1. Liver: Unremarkable. No focal lesions are seen. Gallbladder and biliary tree: Patient is status post cholecystectomy. No intra- or extrahepatic biliary ductal dilation. Pancreas: Unremarkable, no focal lesions. Spleen: Unremarkable. Adrenals: Unremarkable. Kidneys and ureters: Unremarkable. Bladder: Unremarkable. Reproductive organs: Unremarkable. Bowel: Unremarkable. Lymph nodes Retroperitoneal: Subcentimeter lymph nodes are noted. Pelvic: Unremarkable. Mesenteric: Unremarkable. Peritoneum: Normal. Vessels: Unremarkable. Abdominal wall: Unremarkable. Bones: Bilateral hip arthroplasties are seen. IMPRESSION: No acute abnormalities to explain right lower quadrant pain, in particular no wall thickening to suggest active Crohn's disease. ACT 112: Negative or not required by law. Electronically signed by: Rahul Posada M.D. 02/05/2024 11:23 AM PG Care Time/CCT Total # of Minutes Spent Total Time Spent with Patient: Total time spent is greater than 50% in coordination of care (as documented) at patient's floor/unit and/or counseling patient: Coding Level of Care Code 57995 SUB INP/OBS CARE Diagnoses Acute Crohn's disease K50.90 Chronic pain syndrome G89.4 Chronic pain type: chronic pain syndrome GERD (gastroesophageal reflux disease) K21.9 Hypertension I10 (2) Chronic pain Chronic pain type: chronic pain syndrome Qualified Code(s): G89.4 - Chronic pain syndrome
[2024-02-06] MEDS: PANTOprazole 40 MG TAB PO SCH (07:47)
[2024-02-06] MEDS: CHOLECALCIFEROL 125 MCG (5,000 UNITS) TAB PO SCH (07:47)
[2024-02-06] MEDS: MULTIVITAMIN TAB PO SCH (07:47)
[2024-02-06] MEDS: CETIRIZINE HCL 10 MG TABLET PO SCH (07:47)
[2024-02-06] MEDS: VIBEGRON 75 MG TAB PO SCH (07:47)
[2024-02-06] MEDS: FOLIC ACID 1 MG TAB PO SCH (07:47)
[2024-02-06] MEDS: methylPREDNISolone 60 MG in SYRINGE 0 ML IV SCH (09:05)
--- NOTE | 2024-02-06 09:30 | Gastrointestinal Consultation ---
Date of Consultation February 06, 2024 Assessment & Plan (1) Abdominal pain, right lower quadrant: She feels like this is a somewhat typical flare of her Crohn's disease although objectively there are minimal findings to correlate with. However I agree she should have a course of steroids to see if she improves which she feels like she already has. Her WBC has bumped a little since admit labs, if it continues to go up might consider adding antibiotics as they will treat Crohn's as well. Any decision about changing biologic treatment should be made by her primary GI team and she will meet with them after discharge. I don't feel further testing is warranted now. History of Present Illness Reason for Consultation: Crohn's flare Attending Physician: Mikael Kim MD History of Present Illness 33 year old female who has had Crohn's since age 14. She tells me she has Crohn's involving the small intestine usually at the ICV. Her typical flares include abdominal pain and diarrhea. She has reacted to remicade and humira in the past and is currently managed with stelera. She usually gets a flare about every year to year and a half. This started about two weeks ago with a change in her usual diarrhea. She usually goes about 3-4 times per day but her stools became looser and more frequent. About four days ago she developed right lower abdominal pain. She has had no fever or chills. She does not vomit. She spoke with [facility] who told her to go to ER if things got worse. She has lost about 20 pounds over the past several months. Labs in ED were unremarkable although WBC has bumped a little. CT scan was unremarkable as well. Stool studies in ER were negative. Her last colonoscopy was about two years ago. Allergies Allergy/AdvReac Type Severity Reaction Status Date / Time Gadolinium-Containing Allergy Severe vomiting/diarrhea Verified 02/05/24 08:33 Contrast Medi +"body locks up" iron Allergy Severe Swelling, Verified 02/05/24 08:33 joint pain, diarrhea cyclobenzaprine Allergy Intermediate increase Verified 02/05/24 08:33 [From Flexeril] stiffness, joint pain, flightly NSAIDS (Non-Steroidal AdvReac Unknown Advised to Verified 02/05/24 08:33 Anti-Inflamma avoid (crohn's disease) Home Medications Medication Instructions Recorded Confirmed Type folic acid 1 mg tablet 1 mg PO QAM 03/30/18 02/05/24 History pantoprazole 40 mg tablet,delayed 40 mg PO QAM 03/30/18 02/05/24 History release fluticasone propionate 50 2 spray intranasal DAILY PRN 02/21/19 02/05/24 History mcg/actuation nasal Allergy Symptoms spray,suspension medroxyprogesterone 150 mg/mL 150 mg IM Q3M 02/21/19 02/05/24 History intramuscular syringe multivitamin with minerals-folic 400 mcg PO DAILY 03/21/19 02/05/24 History acid 200 mcg chewable tablet (Women's Multivitamin Gummies) leflunomide 20 mg tablet (Arava) 20 mg PO HS 10/04/19 02/05/24 History albuterol sulfate 90 mcg/actuation 2 puff inhalation Q6H PRN Wheezing 03/01/20 02/05/24 History aerosol inhaler calcium 600 mg (as carbonate)-vit 1 tab PO BID 03/01/20 02/05/24 History D3 20 mcg (800 unit) chewable tablet (Caltrate plus D) metoclopramide HCl 5 mg tablet 10 mg PO QDD 10/22/20 02/05/24 History sumatriptan succinate 100 mg tablet 100 mg PO UD PRN Migraine Headache 10/22/20 02/05/24 History Medical Marijuana 1 dose inhalation UD PRN "CROHN'S 02/20/21 02/05/24 History DISEASE/NAUSEA" cetirizine 10 mg tablet (Zyrtec) 10 mg PO QAM 02/20/21 02/05/24 History buspirone 10 mg tablet 5 mg PO DAILY PRN Anxiety 07/15/21 02/05/24 History ondansetron 8 mg disintegrating 8 mg PO BIDWMEAL PRN Nausea 07/15/21 02/05/24 History tablet scopolamine base 1 mg over 3 days 1 mg transdermal 2XWK PRN Pain 07/15/21 02/05/24 History transdermal patch (Transderm-Scop) carvedilol 6.25 mg tablet 6.25 mg PO BID 09/25/21 02/05/24 History hydroxyzine HCl 25 mg tablet 25 mg PO DAILY PRN Anxiety 09/25/21 02/05/24 History cholecalciferol (vitamin D3) 125 125 mcg PO DAILY 01/18/22 02/05/24 History mcg (5,000 unit) tablet (Vitamin D3) mirabegron 50 mg tablet,extended 50 mg PO QAM 06/22/22 02/05/24 History release 24 hr (Myrbetriq) ustekinumab 90 mg/mL subcutaneous 90 mg subcut UD 07/08/22 02/05/24 History syringe (Stelara) amitriptyline 50 mg tablet 50 mg PO HS #30 tabs 05/25/23 02/05/24 Rx gabapentin 400 mg capsule 400 mg PO TID PRN Shingles Pain 02/05/24 02/05/24 History hyoscyamine sulfate 0.125 mg tablet 0.125 mg PO TID PRN IBS Flare 02/05/24 02/05/24 History tizanidine 2 mg capsule 2 - 4 mg PO Q8H PRN muscle 02/05/24 02/05/24 History spasticity Patient History Medical History Degenerative disc disease Fibromyalgia Rheumatoid arthritis Kidney stones current>causes no problems Stress incontinence History of anemia History of asthma as a child>inhaler prn when sick with cold symptoms History of fracture of femur Close, Left femoral neck History of intussusception Tachycardia occasional episodes > follows with [facility]/[place] Hx MRSA infection 2013 (in lymph node which has since be resected) History of peptic ulcer Crohns disease Anxiety INCREASES BP "CURRENLTY UNDER CONTROL" Migraine Post-dural puncture headache Surgical History History of nasal septoplasty with turbinate reduction-02/27/21-Dr. Nguyen 12/27/23-revision with left nasal valve repair-Dr. Weinstein History of placement of ear tubes left-02/27/21-Dr. Nguyen left-12/27/23-Dr. Weinstein History of hip surgery right/left ORIF>s/p fx at different times History of dilatation and curettage S/P fecal transplant Nausea and vomiting after administration of anesthetic agent Lymph node symptom Left axillary lymph node removal (for MRSA) [place] teeth extracted H/O esophagogastroduodenoscopy H/O colonoscopy S/P ORIF (open reduction internal fixation) fracture left wrist S/P tonsillectomy S/P cholecystectomy Family History Grandmother (Maternal) Breast cancer Aunt Cervical cancer Maternal Ovarian cancer Maternal Grandfather (Paternal) Colorectal cancer Mother Mitral valve prolapse Myocardial infarction, Onset Age: 55 Other Allergies Family history of bleeding disorder Hearing loss Hypertension No family history of adverse response to anesthesia Social History Smoking Status: Never smoker Second Hand Exposure: Yes (in the past); Do You Dip or Chew Tobacco: No; Hx Alcohol Use: Yes Alcohol type: wine Alcohol Intake Frequency: Monthly or Less Hx Substance Use: No Preferred Language: Kiswahili Communication Ability: Effective Visual Impairment: No Limitations Hearing Ability: Normal Visitor Service Assistant Required: No Beliefs That Will Affect Care: None marital status: Life Partner Current Living Situation: Significant Other current occupational status: disabled Other Information That Helps Us Care for You: Yes Feels Safe at Home: Yes Safety Concerns: Feels Safe At This Time Childhood Exposure to Second-Hand Smoke: No Diet: regular caffeine: Yes during the past year weight has: remained stable Dental Care, Regularly: Yes Physical Activity Frequency: Daily Seatbelt Use: always Sunscreen Use: Yes Assistive Devices: Glasses Review of Systems Review of Systems: All systems reviewed & are unremarkable except as noted in HPI & below Physical Exam Constitutional: WD/WN, vitals as above Neck: trachea midline, no thyromegaly Respiratory: normal respiratory effort, lungs clear to auscultation Cardiovascular: RRR, no murmur, no edema Gastrointestinal (Abdomen): Inspection/Auscultation: abdomen normal to inspection Percussion/Palpation: + abdomen tender (mild tenderness RLQ) and abdomen soft; no hepatomegaly Musculoskeletal: Extremities: extremities normal to inspection Results & Data Vital Signs (Past 12 Hours) Vital Signs Temp Pulse Resp BP Pulse Ox O2 Del Method 02/06/24 07:25 36.9 C 88 16 128/84 97 Room Air Laboratory Results 02/06/24 02/05/24 02/05/24 Range/Units 05:31 09:12 07:38 WBC 14.28 H (4.8-10.8) K/ul RBC 4.21 (4.20-5.40) M/uL Hgb 12.4 (12.0-16.0) g/dl Hct 38.5 (37.0-47.0) % MCV 91.4 (80.0-100.0) fL MCH 29.5 (25.0-34.0) pg MCHC 32.2 (32.0-36.0) g/dL RDW Std Deviation 41.9 (36.4-46.3) fL RDW Coeff of Rosio 12.7 (11.5-14.5) % Plt Count 353 (130-400) K/uL MPV 10.0 (9.4-12.4) fL Immature Gran % (Auto) 0.4 % Neut % (Auto) 84.8 % Lymph % (Auto) 8.5 % Park % (Auto) 6.2 % Eos % (Auto) 0.0 % Baso % (Auto) 0.1 % Neut # (Auto) 12.11 H (1.40-6.50) K/uL Lymph # (Auto) 1.21 (1.20-3.40) K/uL Park # (Auto) 0.88 H (0.11-0.59) K/uL Eos # (Auto) 0.00 (0.00-0.50) K/uL Baso # (Auto) 0.02 (0.00-0.20) K/uL Immature Gran # (Auto) 0.06 (0.01-0.20) K/uL ESR 29 H (0-20) mm/hr Sodium 140 (136-145) mmol/L Potassium 4.2 3.9 (3.5-5.1) mmol/L Chloride 109 H (98-107) mmol/L Carbon Dioxide 24 (21-32) mmol/L Anion Gap 7 (3-11) BUN 8 (6-23) mg/dl Creatinine 0.66 (0.6-1.2) mg/dl Est Cr Clr Drug Dosing 94.1 ml/min eGFR 117.24 BUN/Creatinine Ratio 12.1 (10-20) Glucose 121 H (70-99(Fasting)) mg/dl Calcium 9.1 (8.6-10.3) mg/dl Magnesium 2.0 (1.7-2.4) mg/dl AST 16 (13-39) U/L C-Reactive Protein < 0.50 (0-0.5) mg/dl TSH 0.897 (0.300-4.500) uIu/ml Stl C. cayetanensis PCR Not Detected (NotDetected) Stool Rotavirus A PCR Not Detected (NotDetected) Stl Adenov F 40/41 PCR Not Detected (NotDetected) Stool Astrovirus (PCR) Not Detected (NotDetected) Stool Campylobacter PCR Not Detected (NotDetected) Stool Cryptosporidium PCR Not Detected (NotDetected) Stl E.coli Shiga Tox PCR Not Detected (NotDetected) Stl Enterotoxigenic E PCR Not Detected (NotDetected) Stool EPEC (PCR) Not Detected (NotDetected) Stool EAEC (PCR) Not Detected (NotDetected) Stl E. histolytica PCR Not Detected (NotDetected) Stool Giardia Lamblia PCR Not Detected (NotDetected) Stool Salmonella PCR Not Detected (NotDetected) Stool Sapovirus (PCR) Not Detected (NotDetected) Stl P. shigelloides PCR Not Detected (NotDetected) Stl Shigella/EIEC PCR Not Detected (NotDetected) St Y.enterocolitica PCR Not Detected (NotDetected) Stool Vibrio (PCR) Not Detected (NotDetected) Stl Vibrio cholerae PCR Not Detected (NotDetected) Stl Norovirus GI/GII PCR Not Detected (NotDetected) Diagnostic Findings Abdomen/Pelvis CT 02/05/24 07:51 CT abd pelvis oral and IV con CLINICAL HISTORY: RLQ abd pain, hx Crohns, diarrhea TECHNIQUE: Helical axial images of the abdomen and pelvis were obtained and displayed. Automated dose lowering techniques and/or adjustment according to patient size were utilized for this exam. This exam was performed with intravenous contrast. CT DOSE: 551.63 mGy.cm COMPARISON: None available at the time of this dictation. FINDINGS: Lower chest: 6 mm pleural-based nodule is seen in the right lower lobe (series 3 image 1. Liver: Unremarkable. No focal lesions are seen. Gallbladder and biliary tree: Patient is status post cholecystectomy. No intra- or extrahepatic biliary ductal dilation. Pancreas: Unremarkable, no focal lesions. Spleen: Unremarkable. Adrenals: Unremarkable. Kidneys and ureters: Unremarkable. Bladder: Unremarkable. Reproductive organs: Unremarkable. Bowel: Unremarkable. Lymph nodes Retroperitoneal: Subcentimeter lymph nodes are noted. Pelvic: Unremarkable. Mesenteric: Unremarkable. Peritoneum: Normal. Vessels: Unremarkable. Abdominal wall: Unremarkable. Bones: Bilateral hip arthroplasties are seen. IMPRESSION: No acute abnormalities to explain right lower quadrant pain, in particular no wall thickening to suggest active Crohn's disease. ACT 112: Negative or not required by law. Electronically signed by: Rahul Posada M.D. 02/05/2024 11:23 AM
[2024-02-06] MEDS: oxyCODONE HCL IR 5 MG TAB (IMMEDIATE RELEASE) PO PRN (16:50)
[2024-02-07 07:03] VITALS: RESP 16; TEMP 99.7; O2SAT 97
--- NOTE | 2024-02-07 08:14 | Hospitalist Progress Note ---
Date of Service February 07, 2024 Assessment & Plan (1) Acute Crohn's disease: (2) Chronic pain: (3) GERD (gastroesophageal reflux disease): (4) Hypertension: Plan This patient is a 33-year-old female with a history of Crohn's colitis, RA, chronic back pain, GERD, gastroparesis, HTN, kidney stones, osteoporosis, migraine, anxiety disorder, and endometriosis who presents to the ER with severe diarrhea x 2 weeks with right lower quadrant abdominal pain that started 1 day ago. There has been some blood mixed in the stool but mostly watery however she reports blood in the stool is normal for her chronically. She typically has 3-4 loose bowel movements a day chronically but lately has had 7-10 bowel movements per day. The symptoms progressed and she believes she is having a flare of her Crohn's disease. She is currently on Stelara with last infusion 3 weeks ago and follows with [facility] as an outpatient. She denies fevers but did have night sweats for the last 2 nights. Some mild nausea but has been able to eat and trying to keep up with fluid intake. In the ER, she had a CT abdomen/pelvis which did not show any acute issues. Her laboratory workup was fairly unremarkable, but she required multiple doses of IV Dilaudid and Zofran and was given IV fluids to help with her symptoms. GI was contacted by the ED provider who recommended starting steroids and discharging to home if possible but the patient felt she needed to be admitted for pain control and IV steroids for her typical Crohn's flare. #Crohn's colitis with acute flare With history of Crohn's disease since age 14. Has failed Humira and Remicade in the past due to antibodies. Presents with severe diarrhea, worsening RLQ pain. CT A/P without acute findings but may be early in the course of flare. Last dose of Stelara 3 weeks prior to admission. Stool PCR and C. difficile are negative. Hemoglobin normal but may be hemoconcentrated. No leukocytosis, vital signs normal. ESR mild elevation 29, CRP <0.5. TSH wnl Solumedrol increased to 60mg TID, improvement in symptoms. WBC elevation likely 2nd to steroids. Afebrile. GI consult appreciated Per patient, wanting to switch to [facility] and message sent to to arrange at [place]. Continue pain control: amitriptyline, not able to vape MMJ in hospital. Dilaudid IV available, added oxycodone 5mg as needed if not requiring IV level of control Discussed with patient as not feeling ready for dc just yet however if improved in AM can plan for dc on budesonide tape as unable to take prednisone with GI follow up at [facility]. 02/06-- reporting pain 7/10 last evening. Appears did try oxycodone last evening but req IV dilaudid this morning for pain control. Labs from this morning not yet available, will add repeat CRP for comparison. #GERD/gastroparesis No acute issues Continue PPI, Reglan #Rheumatoid arthritis/chronic pain No acute flare of rheumatoid arthritis, follows with Dr. Sequeira of [facility] rheumatology. Also has chronic back pain and receives OMT frequently with Dr. Henry Munson Continue tizanidine as needed which she rarely takes Continue Arava, folic acid #HTN/sinus tachycardia HR appear stable/no issues Continue home carvedilol #Anxiety disorder No acute issues, stable Continue home BuSpar as needed which she rarely uses, hydroxyzine as needed which she rarely uses, and amitriptyline #Osteoporosis No acute issues Continue home calcium and vitamin D #Allergies/recent nasal/sinus surgery Healing well from this Continue home Zyrtec, Flonase DVT prophylaxis-SCDs only given blood in stool. Disposition- continued inpatient stay on IV steroids as outlined and plan for dc in AM 02/06 if continued improvement. Father healthcare power of contracts attorney if needed (in room during encounter). Admitting provider also reporting patient w/ life partner 18yo who is not legally her POA Admission and Anticipated Discharge Date Admission Date: February 05, 2024 Subjective Eval this morning, doing better. Pain controlled. Less diarrhea. Slight pain RUQ but much improved. No guarding/rigidity. She did have low grade temp but reports has hx of cyclic temps and not abnormal and feeling well/hopeful for dc. Will touch base w/ GI and plan for dc on budesonide/oxycodone with GI follow up. Questions/concerns addressed at this time. Results & Data Results & Data Vital Signs (Past 12 Hours) Vital Signs Temp Pulse Resp BP Pulse Ox O2 Del Method 02/07/24 07:01 37.6 C H 76 16 132/81 97 Room Air 02/06/24 22:23 Room Air 12/29/24 22:20 36.8 C 81 14 124/77 98 Room Air PG Care Time/CCT Total # of Minutes Spent Total Time Spent with Patient: Total time spent is greater than 50% in coordination of care (as documented) at patient's floor/unit and/or counseling patient: Coding Diagnoses Acute Crohn's disease K50.90 Chronic pain syndrome G89.4 Chronic pain type: chronic pain syndrome GERD (gastroesophageal reflux disease) K21.9 Hypertension I10 (2) Chronic pain Chronic pain type: chronic pain syndrome Qualified Code(s): G89.4 - Chronic pain syndrome
[2024-02-07 09:11] LABS: Hematocrit (blood only) 36.6 % (37.0-47.0); Hemoglobin 11.9 g/dl (12.0-16.0); Mean Corpuscular Hemoglobin 29.2 pg (25.0-34.0); Mean Corpuscular Hgb Conc 32.5 g/dL (32.0-36.0); Mean Corpuscular Volume 89.9 fL (80.0-100.0); Mean Platelet Volume 9.9 fL (9.4-12.4); Platelet Count 332 K/uL (130-400); RDW Coefficient of Variation 12.7 % (11.5-14.5); RDW Standard Deviation 41.8 fL (36.4-46.3); Red Blood Count 4.07 M/uL (4.20-5.40); White Blood Count 12.09 K/ul (4.8-10.8)
[2024-02-07 09:26] LABS: BUN Creatinine Ratio 17.6 (10-20); Calcium 8.8 mg/dl (8.6-10.3); Creatinine Clr Calc Pharmacy 83.9 ml/min; Potassium 3.8 mmol/L (3.5-5.1)
--- NOTE | 2024-02-07 11:12 | Gastroenterology Progress Note ---
Date of Service February 07, 2024 Assessment & Plan (1) Abdominal pain, right lower quadrant: (2) History of Crohn's disease: Plan Does not have objective evidence of a Crohn's flare at this time. A stool calprotectin was submitted as an outpatient at [facility] and is still pending at this time. I discussed with her that I agree with the management of her IBD by [facility], but given her concerns of ongoing symptoms despite use of Azathioprine, corticosteroids, Remicade, Humira, & Stelara thus far, did discuss that perhaps she could consider updating her colonoscopy in addition to seeing [facility] IBD center. We discussed that given her multiple treatments thus far, it would be beneficial to obtain an expert opinion prior to any further long-term planning. She is interested and agreeable. I placed a referral and our outpatient staff can facilitate this. Admission and Anticipated Discharge Date Admission Date: February 05, 2024 Supervising Physician Co-Signing Physician Notes Patient was discharged prior to being seen. Reviewed with nurse practitioner. I agree with her assessment. Patient has Crohn's disease with ongoing abdominal symptoms. Imaging studies on this admission does not reveal obvious disease. She is also requesting second opinion and will follow up with a IBD specialist. I think this is appropriate. Patient should return as needed. Subjective Patient is a 33 yo female with a history of Crohn's Disease hospitalized with abdominal pain. She takes Stelara q 4 weeks. She has no objective evidence of a flare of her IBD. CT negative. CRP unremarkable. Last colonoscopy 2 years ago at [facility] without active disease. She notes she has a pending fecal calprotectin level checked by her typical GI provider (Artur Guillermo at [facility]). She is asymptomatic at present and plans are in place to d/c her today by the primary team. Review of Systems Constitutional: no fever and no chills Respiratory: no cough and no dyspnea Cardiovascular: no chest pain Gastrointestinal: no abdominal pain, no change in bowel habits and no diarrhea/loose stools Physical Exam Constitutional: well developed Respiratory: normal respiratory effort Gastrointestinal (Abdomen): normal bowel sounds, soft, nontender, no hepatosplenomegaly Results & Data Results & Data Vital Signs (Past 12 Hours) Vital Signs Temp Pulse Resp BP Pulse Ox O2 Del Method 02/07/24 07:01 37.6 C H 76 16 132/81 97 Room Air PG Care Time/CCT Total # of Minutes Spent Total Time Spent with Patient: Total time spent is greater than 50% in coordination of care (as documented) at patient's floor/unit and/or counseling patient: Coding Level of Care Code 35729 SUB INP/OBS CARE 3/50MIN Diagnoses Abdominal pain, right lower quadrant R10.31 History of Crohn's disease Z87.19
--- NOTE | 2024-02-07 12:00 | Discharge Summary ---
Discharge Summary Date of Service February 07, 2024 Principal Dx & Hospital Course #1 = Principal Diagnosis (1) Acute Crohn's disease: (2) Chronic pain: (3) GERD (gastroesophageal reflux disease): (4) Hypertension: Plan This patient is a 33-year-old female with a history of Crohn's colitis, RA, chronic back pain, GERD, gastroparesis, HTN, kidney stones, osteoporosis, migraine, anxiety disorder, and endometriosis who presents to the ER with severe diarrhea x 2 weeks with right lower quadrant abdominal pain that started 1 day ago. There has been some blood mixed in the stool but mostly watery however she reports blood in the stool is normal for her chronically. She typically has 3-4 loose bowel movements a day chronically but lately has had 7-10 bowel movements per day. The symptoms progressed and she believes she is having a flare of her Crohn's disease. She is currently on Stelara with last infusion 3 weeks ago and follows with Les [facility] as an outpatient. She denies fevers but did have night sweats for the last 2 nights. Some mild nausea but has been able to eat and trying to keep up with fluid intake. #Crohn's colitis with acute flare With history of Crohn's disease since age 14. Has failed Humira and Remicade in the past due to antibodies. Presents with severe diarrhea, worsening RLQ pain. CT A/P without acute findings but may be early in the course of flare. Last dose of Stelara 3 weeks prior to admission. ESR mild elevation 29, CRP negative. Placed on IV solumedrol, increased to 60mg TID with significant improvement in symptoms and tolerating low fiber diet and ready for discharge. Discussed with GI regarding wishes to switch provider and recs to f/u [facility] for now given pending outpt testing but sending referral to IBD specialist in [place] for expert opinion/hyperbaric oxygen tx/alternative tx and evaluation. Patient agreeable and wanting. Have sent rx for budesonide PO for ongoing tx and rec for f/u discussion w/ her usual GI provider in meantime until specialist folow up arranged. CRP normalized on repeat. 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 Abx deferred at this time. Of note, did check Vit D which was low but home meds w/ high dose and discussed -- has not been compliant but encouraged such and f[place] PCP/[place] Discussed to return home if any worsened abd pain/fever/inability to keep up with hydration. #GERD/gastroparesis No acute issues, continued PPI/reglan #Rheumatoid arthritis/chronic pain No acute flare of rheumatoid arthritis, follows with Dr. Sequeira of [facility] rheumatology. Also has chronic back pain and receives OMT frequently with Dr. Henry Munson Continued tizanidine as needed which she rarely takes as well as usual Arava/folic acid Outpt f/u, should be well controlled w/ ongoing steroids at dc #HTN/sinus tachycardia HR appear stable/no issues and continued on coreg #Anxiety disorder No acute issues, stable and buspar continued but rarely uses. Hydroxyzine prn as well as amitriptyline. Also uses medical marijauna, which can worsen some sx as well, outpt f/u PCP #Osteoporosis No acute issues Continue home calcium and vitamin D -- ENCOURAGED COMPLIANCE #Allergies/recent nasal/sinus surgery Healing well from this, remained on zyrtec/flonase DVT prophylaxis-SCDs only given blood in stool. Disposition- [place] on budesonide PO, short rx oxycodone 5mg prn. Outpt [facility] f/u and [place] IBD specialist referral. Notes For Next Care Provider Ensure f/u to IBD in [place] Medication Changes From Visit Budesonide 3mg PO daily Oxycodone 5mg prn Admission HPI Per Admitting Provider This patient is a 33-year-old female with a history of Crohn's colitis, RA, chronic back pain, GERD, gastroparesis, HTN, kidney stones, osteoporosis, migraine, anxiety disorder, and endometriosis who presents to the ER with severe diarrhea x 2 weeks with right lower quadrant abdominal pain that started 1 day ago. There has been some blood mixed in the stool but mostly watery however she reports blood in the stool is normal for her chronically. She typically has 3-4 loose bowel movements a day chronically but lately has had 7-10 bowel movements per day. The symptoms progressed and she believes she is having a flare of her Crohn's disease. She is currently on Stelara with last infusion 3 weeks ago and follows with Les MARK as an outpatient. She denies fevers but did have night sweats for the last 2 nights. Some mild nausea but has been able to eat and trying to keep up with fluid intake. In the ER, she had a CT abdomen/pelvis which did not show any acute issues. Her laboratory workup was fairly unremarkable, but she required multiple doses of IV Dilaudid and Zofran and was given IV fluids to help with her symptoms. GI was contacted by the ED provider who recommended starting steroids and discharging to home if possible but the patient felt she needed to be admitted for pain control and IV steroids for her typical Crohn's flare. Admission Exam Per Admitting Provider Constitutional: WD/WN, vitals as above Eyes: PERRL, conjunctivae normal, anicteric sclerae ENMT: external ear and nose normal, oropharynx normal Neck: trachea midline, no thyromegaly Respiratory: normal respiratory effort, lungs clear to auscultation Cardiovascular: RRR, no murmur, no edema Chest (Breasts): Chest: normal inspection of chest Gastrointestinal (Abdomen): Inspection/Auscultation: abdomen normal to inspection and + hypoactive bowel sounds; abdomen not distended Percussion/Palpation: + abdomen tender (Mild in RLQ, no guarding or rebound) and abdomen soft; no guarding Musculoskeletal: Extremities: extremities normal to inspection; no cyanosis and no clubbing Skin: no rashes, warm and dry Neurologic: moves all extremities and awake; no focal motor deficits Psychiatric: A+Ox3, euthymic affect Lymphatic: no lymphedema Discharge Exam General: 33yo female sitting up in bed, NAD, father in room at end of encounter HEENT: head atraumatic, normocephalic, mmm, trachea midline Resp: even/unlabored, no distress, on room air CV: RRR, no significant m/r/g GI: +BS, soft, RUQ tenderness improving, no guarding/rigidity : no gunderson MSK/Neuro/Psych: AOx3, cooperative with exam, answering questions appropriately, not confused Discharge Plan Discharge Items Patient Disposition: Home - Self-Care Reason For Visit: CROHN'S FLARE, DIARRHEA Discharge Diagnosis: Abdominal pain, chrohns flare Condition on Discharge: Good Goals: You have been hospitalized for an acute medical problem. During your stay at [facility], we have made an effort to correct the problem that brought you to the hospital while keeping you as comfortable as possible. Medications were used to bring your condition under control and your discharge instructions will include directions for any medications you should take after leaving the hospital. Please make sure you see your Primary Care Provider as part of your follow up plan. Activity: Resume your previous activity Non-emergency contact: Primary Care Provider and Criminology Teacher Call non-emergency contact if: you have any medication questions, your symptoms worsen, your pain is not controlled, your pain is concerning for you and you have a fever Follow-up/Referrals: Artur Guillermo CRNP [Nurse Practitioner] - Jose Guadalupe Munson DO [Primary Care Provider] - 02/11/24 1:00 pm (Appointment will be with Gail Patel) Diet: Low Fiber Addtl Attending Provider Instructions: You have been hospitalized for abdominal pain and diarrhea. Stool testing was negative on biofire as well as for cdiff. CT of the abdomen/p darlene did not show any acute findings but could be early chrons flare which improved with treatment of IV steroids and pain control. Per GI recommendations, you should have follow up with IBD specialist at [place] for further eval/management of your inflammatory bowel disease. Please follow up with [facility] GI until this can be arranged. We are sending you on a short course of budesonide and oxycodone for pain. Please follow up with primary care to ensure these follow ups are coordinated and to get better control of your disease. Please return to the ER if you have any increased/worsening of your symptoms. It has been a pleasure being a part of the medical team providing for you while you have been in the hospital. Take care! Pending Studies at Discharge: No Stand-Alone Forms: [facility], Pain - Opioid Pain Management, Work/School Release, Smoking Cessation Medications and DC Order Prescriptions: New budesonide 3 mg capsule,delayed,extend.release 3 mg PO DAILY Qty: 30 0RF oxycodone 5 mg tablet 5 mg PO Q6H PRN (Reason: pain) Qty: 10 0RF Continued amitriptyline 50 mg tablet 50 mg PO HS Qty: 30 5RF Myrbetriq 50 mg tablet extended release 24 hr 50 mg PO QAM fluticasone propionate 50 mcg/actuation spray,suspension 2 spray INTRANASAL DAILY PRN (Reason: Allergy Symptoms) medroxyprogesterone 150 mg/mL syringe 150 mg IM Q3M Stelara 90 mg/mL syringe 90 mg SUBCUT UD Rx Instructions: Every 4 weeks multivit with min-folic acid [Women's Multivitamin Gummies] 200 mcg Tablet,Chewable 400 mcg PO DAILY leflunomide [Arava] 20 mg tablet 20 mg PO HS pantoprazole 40 mg Tablet,Delayed Release (Dr/Ec) 40 mg PO QAM folic acid 1 mg tablet 1 mg PO QAM Caltrate 600 plus D 600 mg (1,500 mg)-800 unit Tablet,Chewable 1 tab PO BID albuterol sulfate 90 mcg/actuation Hfa Aerosol Inhaler 2 puff INHALATION Q6H PRN (Reason: Wheezing) sumatriptan succinate 100 mg tablet 100 mg PO UD PRN (Reason: Migraine Headache) metoclopramide HCl 5 mg tablet 10 mg PO QDD cetirizine [Zyrtec] 10 mg Tablet 10 mg PO QAM Medical Marijuana 1 dose inhalation UD PRN (Reason: "CROHN'S DISEASE/NAUSEA") Patient Comments: USES ORAL/VAPING FORM carvedilol 6.25 mg Tablet 6.25 mg PO BID Rx Instructions: must administer with a meal/food hydroxyzine HCl 25 mg Tablet 25 mg PO DAILY PRN (Reason: Anxiety) ondansetron 8 mg tablet,disintegrating 8 mg PO BIDWMEAL PRN (Reason: Nausea) buspirone 10 mg tablet 5 mg PO DAILY PRN (Reason: Anxiety) scopolamine base [Transderm-Scop] 1 mg over 3 days patch 3 day 1 mg transdermal 2XWK PRN (Reason: Pain) cholecalciferol (vitamin D3) [Vitamin D3] 125 mcg (5,000 unit) Tablet 125 mcg PO DAILY gabapentin 400 mg capsule 400 mg PO TID PRN (Reason: Shingles Pain) hyoscyamine sulfate 0.125 mg tablet 0.125 mg PO TID PRN (Reason: IBS Flare) tizanidine 2 mg capsule 2 - 4 mg PO Q8H PRN (Reason: muscle spasticity) Rx Instructions: 1-2 orally every 8 hours PRN; Discharge Orders: Discharge Order (Routine); Ordered 02/07/24 Ordered By: Matilde Quarles Admission Data Admit Date/Time: 12/28/24 12:48 Attending Provider: Laura Whitaker Admit Provider: Valerie Millan Primary Care Provider: Jose Guadalupe Munson Other Providers: Adria Teixeira Jr; Valerie Millan Other Interventions: Discharge Summary Assessment (RN) Last Done: 02/07/24 12:11 Hospital Stay Data Consultations 02/05/24 12:22 ED Decision to Admit Stat 02/05/24 14:20 Consult Gastroenterology Routine Diagnostic Imagining Performed Abdomen/Pelvis CT 02/05/24 07:51 CT abd pelvis oral and IV con CLINICAL HISTORY: RLQ abd pain, hx Crohns, diarrhea TECHNIQUE: Helical axial images of the abdomen and pelvis were obtained and displayed. Automated dose lowering techniques and/or adjustment according to patient size were utilized for this exam. This exam was performed with intravenous contrast. CT DOSE: 551.63 mGy.cm COMPARISON: None available at the time of this dictation. FINDINGS: Lower chest: 6 mm pleural-based nodule is seen in the right lower lobe (series 3 image 1. Liver: Unremarkable. No focal lesions are seen. Gallbladder and biliary tree: Patient is status post cholecystectomy. No intra- or extrahepatic biliary ductal dilation. Pancreas: Unremarkable, no focal lesions. Spleen: Unremarkable. Adrenals: Unremarkable. Kidneys and ureters: Unremarkable. Bladder: Unremarkable. Reproductive organs: Unremarkable. Bowel: Unremarkable. Lymph nodes Retroperitoneal: Subcentimeter lymph nodes are noted. Pelvic: Unremarkable. Mesenteric: Unremarkable. Peritoneum: Normal. Vessels: Unremarkable. Abdominal wall: Unremarkable. Bones: Bilateral hip arthroplasties are seen. IMPRESSION: No acute abnormalities to explain right lower quadrant pain, in particular no wall thickening to suggest active Crohn's disease. ACT 112: Negative or not required by law. Electronically signed by: Rahul Posada M.D. 02/05/2024 11:23 AM Discharge Instructions Given to Patient (Per Discharging Provider) You have been hospitalized for abdominal pain and diarrhea. Stool testing was negative on biofire as well as for cdiff. CT of the abdomen/pelvis did not show any acute findings but could be early chrons flare which improved with treatment of IV steroids and pain control. Per GI recommendations, you should have follow up with IBD specialist at [place] for further eval/management of your inflammatory bowel disease. Please follow up with [facility] until this can be arranged. We are sending you on a short course of budesonide and oxycodone for pain. Please follow up with primary care to ensure these follow ups are coordinated and to get better control of your disease. Please return to the ER if you have any increased/worsening of your symptoms. It has been a pleasure being a part of the medical team providing for you while you have been in the hospital. Take care! Total Time Total Time Spent Total Time Spent (In Minutes): 40 Coding Level of Care Code 89365 INP/OBS DISCH >30 MIN Diagnoses Acute Crohn's disease K50.90 Chronic pain syndrome G89.4 Chronic pain type: chronic pain syndrome GERD (gastroesophageal reflux disease) K21.9 Hypertension I10
[2024-02-07 12:12] VITALS: BP 133/85; PULSE 95
== END 2024-02-07 13:16 | disposition home or self-care (01) ==
LOC: 3N 07:07 → ED 07:07 → SUATTDRO 12:48 → 3N 14:04